=== PATIENT | female | born 1970 | race African-American/Black ===

== ENCOUNTER 2025-03-23 10:55 | Outpatient (AMB) | payer OTHER, SELFPAY ==
--- OUTSIDE RECORDS SUMMARY | 2024-04-24 14:59 | XMS_ITS | Encounter Summary ---
Author Organization [facility] Address [address] [place] [address] Care Team Providers Care Aircraft Engine Specialist Name Role Phone Chandler Villalobos MD Primary Care Provider Encounter Details Date Type Department Care Team (Late st Contact Info) Description 04/24/2024 2:59 PM EDT Hospital Encounter TH HISTORIC ENCOUNTERS EASTERN CONVERSION ONLY Loretta Broussard, DO [address] [place] [address] Social History Tobacco Use Types Packs/Day Years [...] 3:50 PM Encounter Date: 04/24/2024 Status: Signed Mainframe Programmer Analyst: Loretta Broussard DO (Physician) Hematology/Oncology Progress Note [...] She lives alone recently moved back from [place] Allergies-Lisinopril Labs: Relevant data reviewed. Imaging Studies [...] Dic Date/Time: 04/21/24 1624 Sign date/Time: 04/21/24 [id number] 0 IMPRESSION: 1. Irregular signal within the [...] Dic Date/Time: 03/27/24 1217 Sign date/Time: 03/27/24 [id number] 0 Assessment & Plan 54 year-old female [...] B12 and folic acid Follow up on [facility] NGS testing on the tumor Discussed tentative plan to start therapy with cisplatin, gemcitabine, durvalumab every 21 days if GFR improves If no improvement in GFR consider substitution of carboplatin for the cisplatin and lastly the nextoption would be FOLFOX if renal function does not allow for [place] based therapy. (She does already have a port in place) Side effects of the above treatments briefly described to the patient Prescription sent for as needed Emla cream, Compazine and Zofran We did review that depending on results of NGS testing this may alter our treatment plan If her iron level is low plan for intravenous iron. Consultation by marketing programs manager and social work recommended as well. If potassium levels remain low we will plan for potassium supplementation. Lastly I also offered her referral to a tertiary center for consideration of clinical trial, she would like to hold off for now. Addendum: K is critically low at 2.7, sent script to [facility] for potassium will return tomorrow for labs and IV potassium Cr returned at 1.19 on repeat, can move ahead with cisplatin/gemcitabine and durvalumab given Cr clearance is > 50 Sign Daphney Broussard DO - Hematology/Oncology [facility] documented in this encounter Plan of Treatment Upcoming Encounters Date Type Department Care Team (Late st Contact Info) Description 03/23/2025 1:[address] [facility] [address] [place] [phone] Loretta Broussard DO [address] [place] [phone] 03/26/2025 9:[address] [facility] [address] [place] [phone] 03/27/2025 8:[address] [facility] [address] [place] [phone] 04/02/2025 1:[address] [facility] [address] [place] [phone] 04/06/2025 10:45 AM EDT Office Visit [facility] Hematology Oncology [address] [place] [phone] Loretta Broussard, DO [address] [place] [address] 04/06/2025 11:00 AM EDT Appointment [facility] [address] [place] [phone] 07/20/2025 12:30 PM EST Office Visit Adult [address] [phone] Chandler Villalobos MD [address] [place] [address] documented as of this encounter Procedures Procedure [...] documented as of this encounter Care Teams Aircraft Engine Specialist Relationship Specialty Start Date End Date Chandler Villalobos MD [address] [place] [address] PCP - General 04/24/24 04/24/24 documented as of this encounter
--- OUTSIDE RECORDS SUMMARY | 2024-04-24 15:00 | XMS_ITS | Encounter Summary ---
Author Organization [facility] Address [address] [place] [address] Care Team Providers Care Pattern Marker Name Role Phone Chandler Villalobos MD Primary Care Provider Encounter Details Date Type Department Care Team (Late st Contact Info) Description 04/24/2024 3:00 PM EDT Hospital Encounter TH HISTORIC ENCOUNTERS EASTERN CONVERSION ONLY Loretta Broussard DO [address] [place] [address] Social History Tobacco Use Types Packs/Day Years [...] Info) Description 03/23/2025 1:30 PM EDT Appointment [facility] [address] [place] [phone] Loretta Broussard DO [address] [place] [address] 03/26/2025 9:30 AM EDT Appointment [facility] [address] [place] [phone] 03/27/2025 8:00 AM EDT Appointment [facility] Infusion Center [address] [place] [phone] 04/02/2025 1:30 PM EDT Appointment [address] [phone] 04/06/2025 10:45 AM EDT Office Visit [facility] Hematology Oncology [address] [place] [phone] Loretta Broussard DO [address] [place] [address] 04/06/2025 11:00 AM EDT Appointment [address] [phone] 07/20/2025 12:30 PM EST Office Visit Adult Medicine [address] [phone] Chandler Villalobos MD [address] [place] [address] documented as of this encounter Visit Diagnoses Not on filedocumented in this encounter Additional Health Concerns Infection Onset Date Last Indicated Resolved Time Respiratory Rule-Out 09/19/2024 09/19/2024 025 2:14 PM EDT COVID-19 Rule-Out 09/19/2024 09/19/2024 09/19/2024 2:14 PM EDT documented as of this encounter Care Teams Pattern Marker Relationship Specialty Start Date End Date Chandler Villalobos MD [address] [place] [address] PCP - General 04/24/24 04/24/24 documented as of this encounter
--- OUTSIDE RECORDS SUMMARY | 2024-04-25 11:30 | XMS_ITS | Encounter Summary ---
Author Organization [facility] Address [address] [place] [address] Care Team Providers Care Security Systems Sales Representative Name Role Phone Chandler Villalobos MD Primary Care Provider [phone]- [phone] Encounter Details Date Type Department Care Team [...] Info) Description 03/23/2025 1:30 PM EDT Appointment [facility] In[facility] Center [address] [place] [address] [phone] Loretta Broussard, [address] [place] [address] 03/26/2025 9:30 AM EDT Appointment [facility] [address] [place] [address] [phone] 03/27/2025 8:00 AM EDT Appointment [facility] [address] [place] [phone] 04/02/2025 1:30 PM EDT Appointment [facility] [address] [place] [phone] 04/06/2025 10:45 AM EDT Office Visit [facility] Hematology Oncology [address] [place] [phone] Loretta Broussard, DO [address] [place] [address] 04/06/2025 11:00 AM EDT Appointment [address] [phone] 07/20/2025 12:30 PM EST Office Visit Adult [address] [phone] Chandler Villalobos MD [address] [place] [address] documented as of this encounter Procedures Procedure Name Priority Date/Time Associated Diagnosis Comments ..MISCELLANEOUS REFERENCE LAB TEST 04/25/2024 documented in this encounter Results * Miscellaneous reference lab test (04/25/2024) us Provider Onbase LAB BLOOD ORDERABLES Final [...] documented as of this encounter Care Teams Security Systems Sales Representative Relationship Specialty Start Date End Date Chandler Villalobos MD [address] [place] [phone] PCP - General 04/25/24 documented as of this encounter
--- OUTSIDE RECORDS SUMMARY | 2024-04-27 11:00 | XMS_ITS | Encounter Summary ---
Author Organization [facility] Address [address] [place] [address] Care Team Providers Care Chiropractor Sole Practitioner Name Role Phone Chandler Villalobos MD Primary Care Provider +1- [phone] Encounter Details Date Type Department Care Team (Late st Contact Info) Description 04/27/2024 11:00 AM EDT Hospital Encounter TH HISTORIC ENCOUNTERS EASTERN CONVERSION ONLY Emerald Morejon, ANAIS [address] [place] [address] Social History Tobacco Use Types Packs/Day Years [...] Info) Description 03/23/2025 1:30 PM EDT Appointment [facility] [address] [phone] Loretta Broussard DO [address] [place] [address] 03/26/2025 9:30 AM EDT Appointment [facility] [address] [place] [phone] 03/27/2025 8:00 AM EDT Appointment Infusion Center [address] [place] [phone] 04/02/2025 1:30 PM EDT Appointment [address] [phone] 04/06/2025 10:45 AM EDT Office Visit Hematology Oncology [address] [place] [phone] Loretta Broussard, DO [address] [place] [address] 04/06/2025 11:00 AM EDT Appointment [address] [phone] 07/20/2025 12:30 PM EST Office Visit Adult Medicine [address] [phone] Chandler Villalobos MD [address] [place] [address] documented as of this encounter Visit Diagnoses Not on filedocumented in this encounter Additional Health Concerns Infection Onset Date Last Indicated Resolved Time Respiratory Rule-Out 09/19/2024 09/19/2024 025 2:14 PM EDT COVID-19 Rule-Out 09/19/2024 09/19/2024 09/19/2024 2:14 PM EDT documented as of this encounter Care Teams Chiropractor Sole Practitioner Relationship Specialty Start Date End Date Chandler Villalobos MD [address] [place] [address] PCP - General 04/25/24 documented as of this encounter
--- OUTSIDE RECORDS SUMMARY | 2024-04-27 11:01 | XMS_ITS | Encounter Summary ---
Author Organization [facility] Address [address] [place] [address] Care Team Providers Care Salesperson Women'S Dresses Name Role Phone Chandler Villalobos MD Primary Care Provider +1- [phone] Encounter Details Date Type Department Care Team (Late st Contact Info) Description 04/27/2024 11:01 AM EDT Hospital Encounter TH HISTORIC ENCOUNTERS EASTERN CONVERSION ONLY Emerald Morejon PA [address] [place] [address] Social History Tobacco Use Types Packs/Day Years [...] Morejon PA-C at 04/27/2024 11:00 AM Author: Emerlad Morejon PA-C Service: -- Author Type: Physician Middle School French Teacher Filed: 05/01/2024 9:20 PM Encounter Date: 04/27/2024 Status: Addendum Land Department Head: Loretta Broussard DO (Physician) Related Notes: Original Note by Emerald Morejon PA-C (Physician Middle School French Teacher) filed at 04/27/2024 1:10 PM Cosigner: Loretta [...] She lives alone recently moved back from [place] Allergies-Lisinopril Labs: Relevant data reviewed. Imaging Studies [...] may alter our treatment plan Consultation by talent acquisition lead and social work recommended as well. I [...] spent 33 minutes with her/his care, including uvov-lh-ryud, discussion/counseling, time spent in record/notes/result review, documenting in Epic, and care coordination. Sign Emerald Morejon PA-C - Hematology/Oncology [facility] documented in this encounter Plan of Treatment Upcoming Encounters Date Type Department Care Team (Late st Contact Info) Description 03/23/2025 1:30 PM EDT Appointment [address] [phone] Loretta Broussard DO [address] [place] [address] 03/26/2025 9:30 AM EDT Appointment [address] [phone] 03/27/2025 8:00 AM EDT Appointment [address] [phone] 04/02/2025 1:30 PM EDT Appointment [address] [phone] 04/06/2025 10:45 AM EDT Office Visit [facility] Hematology Oncology [address] [place] [phone] Loretta Broussard DO [address] [place] [address] 04/06/2025 11:00 AM EDT Appointment [address] [phone] 07/20/2025 12:30 PM EST Office Visit Adult Medicine [address] [phone] Chandler Villalobos MD [address] [place] [address] documented as of this encounter Visit Diagnoses Not on filedocumented in this encounter Additional Health Concerns Infection Onset Date Last Indicated Resolved Time Respiratory Rule-Out 09/19/2024 09/19/2024 025 2:14 PM EDT COVID-19 Rule-Out 09/19/2024 09/19/2024 09/19/2024 2:14 PM EDT documented as of this encounter Care Teams Salesperson Women'S Dresses Relationship Specialty Start Date End Date Chandler Villalobos MD [address] [place] [phone] PCP - General 04/25/24 documented as of this encounter
--- OUTSIDE RECORDS SUMMARY | 2024-04-27 11:59 | XMS_ITS | Encounter Summary ---
Author Organization [facility] Address [address] [place] [address] Care Team Providers Care Phlebotomy Technologist Name Role Phone Chandler Villalobos MD Primary Care Provider +1- [phone] Encounter Details Date Type Department Care Team [...] Info) Description 03/23/2025 1:30 PM EDT Appointment [address] [phone] Loretta Broussard, [address] [place] [address] 03/26/2025 9:30 AM EDT Appointment [address] [phone] 03/27/2025 8:00 AM EDT Appointment [address] [phone] 04/02/2025 1:30 PM EDT Appointment [facility] [address] [place] [phone] 04/06/2025 10:45 AM EDT Office Visit [facility] Hematology Oncology [address] [place] [phone] Loretta Broussard, [address] [place] [address] 04/06/2025 11:00 AM EDT Appointment [facility] [address] [place] [phone] 07/20/2025 12:30 PM EST Office Visit Adult Medicine [address] [phone] Chandler Villalobos MD [address] [place] [address] documented as of this encounter Visit Diagnoses Not on filedocumented in this encounter Additional Health Concerns Infection Onset Date Last Indicated Resolved Time Respiratory Rule-Out 09/19/2024 09/19/2024 025 2:14 PM EDT COVID-19 Rule-Out 09/19/2024 09/19/2024 09/19/2024 2:14 PM EDT documented as of this encounter Care Teams Phlebotomy Technologist Relationship Specialty Start Date End Date Chandler Villalobos MD [address] [place] [phone] PCP - General 04/25/24 documented as of this encounter
--- OUTSIDE RECORDS SUMMARY | 2024-05-01 10:33 | XMS_ITS | Encounter Summary ---
Author Organization [facility] Address [address] [place] [address] Care Team Providers Care Balloon Maker Name Role Phone Chandler Villalobos MD Primary Care Provider +1- [phone] Encounter Details Date Type Department Care Team [...] PM EDT Appointment [facility] In[facility] Center [address] [place] [phone] Loretta Broussard DO [address] [place] [address] 03/26/2025 9:30 AM EDT Appointment [address] [phone] 03/27/2025 8:00 AM EDT Appointment [facility] [address] [place] [phone] 04/02/2025 1:30 PM EDT Appointment [facility] [address] [place] [phone] 04/06/2025 10:45 AM EDT Office Visit [facility] Hematology Oncology [address] [place] [phone] Loretta Broussard, [address] [place] [address] 04/06/2025 11:00 AM EDT Appointment [facility] [address] [place] [phone] 07/20/2025 12:30 PM EST Office Visit Adult [address] [phone] Chandler Villalobos MD [address] [place] [address] documented as of this encounter Visit Diagnoses Not on filedocumented in this encounter Additional Health Concerns Infection Onset Date Last Indicated Resolved Time Respiratory Rule-Out 09/19/2024 09/19/2024 025 2:14 PM EDT COVID-19 Rule-Out 09/19/2024 09/19/2024 09/19/2024 2:14 PM EDT documented as of this encounter Care Teams Balloon Maker Relationship Specialty Start Date End Date Chandler Villalobos MD [address] [place] [phone] PCP - General 04/25/24 documented as of this encounter
--- OUTSIDE RECORDS SUMMARY | 2024-05-02 | XMS_ITS | Encounter Summary ---
Author Organization [facility] Address [address] [place] [address] Care Team Providers Care Radiology Aide Name Role Phone Chandler Villalobos MD [...] 03/23/2025 1:30 PM EDT Appointment [facility] [address] [place] [phone] Loretta Broussard, DO [address] [place] [address] 03/26/2025 9:30 AM EDT Appointment [facility] Infusion Center [address] [place] [phone] 03/27/2025 8:00 AM EDT Appointment [facility] Infusion Center [address] [place] [phone] 04/02/2025 1:30 PM EDT Appointment [facility] [address] [place] [phone] 04/06/2025 10:45 AM EDT Office Visit [facility] Hematology Oncology [address] [place] [phone] Loretta Broussard, DO [address] [place] [address] 04/06/2025 11:00 AM EDT Appointment [address] [phone] 07/20/2025 12:30 PM EST Office Visit Adult [address] [phone] Chandler Villalobos MD [address] [place] [address] documented as of this encounter Visit Diagnoses Not on filedocumented in this encounter Additional Health Concerns Infection Onset Date Last Indicated Resolved Time Respiratory Rule-Out 09/19/2024 09/19/2024 025 2:14 PM EDT COVID-19 Rule-Out 09/19/2024 09/19/2024 09/19/2024 2:14 PM EDT documented as of this encounter Care Teams Radiology Aide Relationship Specialty Start Date End Date Chandler Villalobos MD [address] [place] [phone] PCP - General 04/25/24 documented as of this encounter
--- OUTSIDE RECORDS SUMMARY | 2024-05-02 09:00 | XMS_ITS | Encounter Summary ---
Author Organization [facility] Address [address] [place] [address] Care Team Providers Care Nail Cutter Name Role Phone Chandler Villalobos MD Primary Care Provider +1- [phone] Encounter Details Date Type Department Care Team [...] Info) Description 03/23/2025 1:30 PM EDT Appointment [facility] [address] [place] [phone] Loretta Broussard, [address] [place] [address] 03/26/2025 9:30 AM EDT Appointment [address] [phone] 03/27/2025 8:00 AM EDT Appointment [facility] [address] [place] [phone] 04/02/2025 1:30 PM EDT Appointment [facility] Center [address] [place] [phone] 04/06/2025 10:45 AM EDT Office Visit [facility] Hematology Oncology [address] [place] [phone] Loretta Broussard, [address] [place] [address] 04/06/2025 11:00 AM EDT Appointment [facility] [address] [place] [phone] 07/20/2025 12:30 PM EST Office Visit Adult Medicine [address] [phone] Chandler Villalobos MD [address] [place] [address] documented as of this encounter Visit Diagnoses [...] documented as of this encounter Care Teams Nail Cutter Relationship Specialty Start Date End Date Chandler Villalobos MD [address] [place] [phone] PCP - General 04/25/24 documented as of this encounter
--- OUTSIDE RECORDS SUMMARY | 2024-05-03 10:02 | XMS_ITS | Encounter Summary ---
Author Organization [facility] Address [address] [place] [address] Care Team Providers Care Ios Developer Name Role Phone Chandler Villalobos MD Primary Care Provider +1- [phone] Encounter Details Date Type Department Care Team [...] Info) Description 03/23/2025 1:30 PM EDT Appointment [facility] [address] [place] [phone] Loretta Broussard, [address] [place] [address] 03/26/2025 9:30 AM EDT Appointment [facility] [address] [place] [phone] 03/27/2025 8:00 AM EDT Appointment [facility] [address] [place] [phone] 04/02/2025 1:30 PM EDT Appointment [facility] [address] [place] [phone] 04/06/2025 10:45 AM EDT Office Visit [facility] Hematology Oncology [address] [place] [phone] Loretta Broussard DO [address] [place] [address] 04/06/2025 11:00 AM EDT Appointment [facility] [address] [phone] 07/20/2025 12:30 PM EST Office Visit Adult Medicine [address] [phone] Chandler Villalobos MD [address] [place] [address] documented as of this encounter Visit Diagnoses Not on filedocumented in this encounter Additional Health Concerns Infection Onset Date Last Indicated Resolved Time Respiratory Rule-Out 09/19/2024 09/19/2024 025 2:14 PM EDT COVID-19 Rule-Out 09/19/2024 09/19/2024 09/19/2024 2:14 PM EDT documented as of this encounter Care Teams Ios Developer Relationship Specialty Start Date End Date Chandler Villalobos MD [address] [place] [address] PCP - General 04/25/24 documented as of this encounter
--- OUTSIDE RECORDS SUMMARY | 2024-05-05 08:02 | XMS_ITS | Encounter Summary ---
Author Organization [facility] Address [address] [place] [address] Care Team Providers Care Psychiatrist Name Role Phone Chandler Villalobos MD Primary Care Provider +1- [phone] Encounter Details Date Type Department Care Team [...] concerns, watching tv, call quinteros in reach. 929: Hydration completed without concern. Port flushed per protocol and deaccessed, dressing applied. Pt given Urine sample for outpatient labs. PT provided with future apt reminder via calendar, denies other concerns, left unit. documented in this encounter Plan of Treatment Upcoming Encounters Date Type Department Care Team (Late st Contact Info) Description 03/23/2025 1:30 PM EDT Appointment [facility] Infusion Center [address] [place] [phone] Loretta Broussard DO [address] [place] [address] 03/26/2025 9:30 AM EDT Appointment [facility] Infusion Center [address] [place] [phone] 03/27/2025 8:00 AM EDT Appointment [facility] Infusion Center [address] [place] [phone] 04/02/2025 1:30 PM EDT Appointment [facility] Infusion Center [address] [place] [phone] 04/06/2025 10:45 AM EDT Office Visit [facility] Hematology Oncology [address] [place] [phone] Loretta Broussard DO [address] [place] [phone] 04/06/2025 11:00 AM EDT Appointment [facility] Infusion Center [address] [place] [phone] 07/20/2025 12:30 PM EST Office Visit Adult Medicine [facility] [address] [place] [address] Chandler Villalobos MD [address] [place] [address] documented as of this encounter Visit Diagnoses Not on filedocumented in this encounter Additional Health Concerns Infection Onset Date Last Indicated Resolved Time Respiratory Rule-Out 09/19/2024 09/19/2024 025 2:14 PM EDT COVID-19 Rule-Out 09/19/2024 09/19/2024 09/19/2024 2:14 PM EDT documented as of this encounter Care Teams Psychiatrist Relationship Specialty Start Date End Date Chandler Villalobos MD [address] [place] [address] PCP - General 04/25/24 documented as of this encounter
--- OUTSIDE RECORDS SUMMARY | 2024-05-08 10:22 | XMS_ITS | Encounter Summary ---
Author Organization [facility] Address [address] [place] [address] Care Team Providers Care Pump Servicer Name Role Phone Chandler Villalobos MD Primary Care Provider +1- [phone] Encounter Details Date Type Department Care Team [...] Info) Description 03/23/2025 1:30 PM EDT Appointment [facility] Infusion Center [address] [place] [phone] Loretta Broussard, [address] [place] [address] 03/26/2025 9:30 AM EDT Appointment [facility] Infusion Center [address] [place] [phone] 03/27/2025 8:00 AM EDT Appointment [facility] Infusion Center [address] [place] [phone] 04/02/2025 1:30 PM EDT Appointment [facility] Infusion Center [address] [place] [phone] 04/06/2025 10:45 AM EDT Office Visit [facility] Hematology Oncology [address] [place] [phone] Loretta Broussard DO [address] [place] [address] 04/06/2025 11:00 AM EDT Appointment [facility] Infusion Center [address] [place] [address] 07/20/2025 12:30 PM EST Office Visit Adult Medicine [address] [phone] Chandler Villalobos MD [address] [place] [address] documented as of this encounter Visit Diagnoses Not on filedocumented in this encounter Additional Health Concerns Infection Onset Date Last Indicated Resolved Time Respiratory Rule-Out 09/19/2024 09/19/2024 025 2:14 PM EDT COVID-19 Rule-Out 09/19/2024 09/19/2024 09/19/2024 2:14 PM EDT documented as of this encounter Care Teams Pump Servicer Relationship Specialty Start Date End Date Chandler Villalobos MD [address] [place] [address] PCP - General 04/25/24 documented as of this encounter
--- OUTSIDE RECORDS SUMMARY | 2024-05-09 09:05 | XMS_ITS | Encounter Summary ---
Author Organization [facility] Address [address] [place] [address] Care Team Providers Care Enterprise Sales Executive Name Role Phone Chandler Villalobos MD Primary Care Provider [phone] Encounter Details Date Type Department Care Team [...] Info) Description 03/23/2025 1:30 PM EDT Appointment [address] [phone] Loretta Broussard, [address] [place] [phone] 03/26/2025 9:30 AM EDT Appointment [address] [phone] 03/27/2025 8:00 AM EDT Appointment [address] [phone] 04/02/2025 1:30 PM EDT Appointment [address] [phone] 04/06/2025 10:45 AM EDT Office Visit [facility] Hematology Oncology [address] [place] [phone] Loretta Broussard, [address] [place] [phone] 04/06/2025 11:00 AM EDT Appointment [address] [phone] 07/20/2025 12:30 PM EST Office Visit Adult Medicine [address] [phone] Chandler Villalobos MD [address] [place] [address] documented as of this encounter Visit Diagnoses Not on filedocumented in this encounter Additional Health Concerns Infection Onset Date Last Indicated Resolved Time Respiratory Rule-Out 09/19/2024 09/19/2024 025 2:14 PM EDT COVID-19 Rule-Out 09/19/2024 09/19/2024 09/19/2024 2:14 PM EDT documented as of this encounter Care Teams Enterprise Sales Executive Relationship Specialty Start Date End Date Chandler Villalobos MD [address] [place] [phone] PCP - General 04/25/24 documented as of this encounter
--- OUTSIDE RECORDS SUMMARY | 2025-03-19 13:30 | XMS_ITS | Encounter Summary ---
Author Organization [facility] Address [address] [place] [address] Care Team Providers Care Manager Bar Name Role Phone Chandler Villalobos MD Primary Care Provider [phone] Reason for Visit * Reason Comments Other (Add RFV) Hydration * Episode Based Medications (Routine) - Closed Specialty Diagnoses / Procedures Referred By Minnie t Referred To Contact Diagnoses Primary gall bladder adenocarcinoma (CMS/HCC V24, CMS/HCC V28) Loretta Broussard DO [address] [place] [address] Phone: tel: fax: [address] [address] Phone: tel: fax: Referral ID Status Reason Start Date Expiration Date Visits Re quested Visits Authorized [id number] Closed 05/18/2024 05/18/2025 1 61 Encounter Details Date Type Department Care Team (Latest Contact Info) Description 03/19/2025 1:30 PM EDT - 03/19/2025 11:59 PM EDT Hospital Encounter [address] [address] Loretta Broussard DO [address] [place] [phone] Primary gall bladder adenocarcinoma (CMS/HCC V24, CMS/HCC V28) (Primary Dx) Discharge Disposition: Home or Self Care Social History Tobacco Use Types Packs/Day Years [...] Sign Reading Time Taken Comments Blood Pressure 130/82 03/19/2025 2:09 PM EDT Pulse 91 03/19/2025 2:09 PM EDT Temperature 37 C (98.6 F) 03/19/2025 2:09 PM EDT Respiratory Rate 18 03/19/2025 2:09 PM EDT Oxygen Saturation 96% 03/19/2025 2:09 PM EDT Inhaled Oxygen Concentration - - Weight - - Height - - Body Mass Index - - documented in this encounter Medications at Time of Discharge alcohol swabs (Alcohol Pads) pads, medicated Apply topically 3 (three) times a day. 300 each 1 5 amLODIPine (NORVASC) 10 mg tablet Take 1 tablet (10 mg total) by mouth 1 (one) time each day. Take 1 Tablet by mouth daily 90 tablet 1 5 BD Ashly 2nd Gen Pen Needle 32 gauge x 5/32 needle USE WITH INSULIN PENS 4 TIMES A DAY 400 each 5 blood sugar diagnostic (FreeStyle Lite Strips) test strip Use to test blood sugar 3 times daily 200 strip 2 5 dexAMETHasone (DECADRON) 4 mg tabletIndications:P rimary gall bladder adenocarcinoma ([facility] V24, [facility] V28) Take 8 mg (2 tablets) once daily, starting the day after treatment, for two days. Take in the morning with food. 30 tablet 1 5 FreeStyle Lancets 28 gauge lancets USE TO TEST BLOOD SUGAR 3 TIMES DAILY 300 each 5 HYDROmorphone (DILAUDID) 2 mg tabletIndications:P rimary gall bladder adenocarcinoma (CMS/HCC V24, CMS/HCC V28) Take 1 tablet (2 mg total) by mouth every 8 (eight) hours if needed for severe pain. Max Daily Amount: 6 mg 30 tablet 5 insulin glargine (Lantus Solostar U-100 Insulin) 100 unit/mL (3 mL) injection pen Inject 12-14 Units under the skin at bedtime. Inject 10 Units into the skin at bedtime. 15 mL 2 5 insulin lispro (HumaLOG KwikPen) 100 unit/mL injection pen Inject 2-12 Units under the skin 3 (three) times a day before meals. Inject 2-12 times per day as directed. Between 100 and 149; 2 units 150 to 199; 4 units 200 to 249; 6 units 250 to 299; 8 units 300 to 349; 10 units 350 to 399; 12 units Above 400 Call MD 15 mL 3 5 magnesium oxide (MAG-OX) 400 mg magnesium tablet Take 1 tablet (400 mg total) by mouth 2 (two) times a day. 180 tablet 1 5 metoprolol succinate (TOPROL-XL) 50 mg 24 hr tablet Take 1 tablet (50 mg total) by mouth 1 (one) time each day. 90 tablet 1 5 mineral oil liquid Take by mouth. For constipation potassium chloride (KLOR-CON M20) 20 mEq CR tablet Take 1 tablet (20 mEq total) by mouth 1 (one) time each day. 90 tablet 1 5 prochlorperazine (COMPAZINE) 10 mg tabletIndications:P rimary gall bladder adenocarcinoma (CMS/HCC V24, CMS/HCC V28) Take 1 tablet (10 mg total) by mouth every 6 (six) hours if needed for nausea or vomiting. 60 tablet 3 5 documented as of this encounter Discharge Disposition Disposition Code Departure Means Destination Home or Self Care documented in this encounter Progress Notes * Marilyn Crisostomo RN - 03/19/2025 1:30 PM EDT 1415: PT arrives this afternoon for hydration. PT reports one episode of diarrhea over the weekend after 3 days of constipation. PT denies any blood output and abd cramping relieved after BM. Neuropathy continues to be significant for PT, constant to hands and feet without pain although severe numbness, dropping objects and recent fall with left ankle fracture. MD aware. PT denies any other acutechanges, PT still trying to get an orthopedic follow up apt. Stable assessment otherwise. Port accessed, +BR noted, flushed and hydration initiated. PT given warm blankets and snacks, call quinteros in reach. 1520: Hydration completed. Port flushed per protocol and deaccessed, dressing applied. PT given next apt reminders via calendar, left unit via wheelchair with mother, stable at D/C. documented in this encounter Plan of Treatment Upcoming Encounters Date Type Department Care Team (Late st Contact Info) Description 03/23/2025 1:30 PM EDT Appointment [facility] [address] [place] [phone] Loretta Broussard DO [address] [place] [phone] 03/26/2025 9:30 AM EDT Appointment [facility] [address] [place] [phone] 03/27/2025 8:00 AM EDT Appointment [facility] [address] [place] [phone] 04/02/2025 1:30 PM EDT Appointment [facility] [address] [place] [phone] 04/06/2025 10:45 AM EDT Office Visit [facility] Hematology Oncology [address] [place] [phone] Loretta Broussard DO [address] [place] [address] 04/06/2025 11:00 AM EDT Appointment [facility] [address] [place] [phone] 07/20/2025 12:30 PM EST Office Visit Adult Medicine [address] [phone] Chandler Villalobos MD [address] [place] [address] documented as of this encounter Visit Diagnoses Diagnosis Primary gall bladder adenocarcinoma (CMS/HCC V24, CMS/HCC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 documented in this encounter Administered Medications Inactive Administered Medications - up to 3 most recent administrations Medication Order MAR Action Action Date Dose Rate Site sodium chloride 0.9 % bolus 1,000 mL 1,000 mL, intravenous, at 1,000 mL/hr, Administer over 1 Hours, Once, On 03/19/25 at 1415, For 1 doseIndications:Primary gall bladder adenocarcinoma (CMS/HCC V24, CMS/HCC V28) New Bag 03/19/2025 2:14 PM EDT 1,000 mL 1000 mL/hr documented in this encounter Orders Medications Ordered That Mikal ht Not Have Been Administered Count Last Ordered Date First Ordered Date sodium chloride 0.9 % bolus 1,000 mL 1 02/2025 Appointment Requests Count Last Ordered Date Fi rst Ordered Date ONCBCN INFUSION APPOINTMENT REQUEST 06 documented in this encounter Care Teams Manager Bar Relationship Specialty Start Date End Date Chandler Villalobos MD [address] [place] [address] PCP - General 04/25/24 documented as of this encounter
--- NOTE | 2025-03-23 10:57 | A.OFFVIS_ITS ---
Vital Signs 3 03/23/25 11:02 Height 5 ft 4.5 in Weight 185 lb BMI 31.3 Intake Visit Reasons: Closed fracture of Lt ankle, initial encounter Intake Note: Indigo is a 54 year old female who presents today as a new patient for an evaluation of her left ankle fracture. Patient mentions she has bilateral neuropathy in her feet. She reports she is still having pain and has tried tylenol and found little relief. Patient has not tried Physical therapy at this time. Allergies lisinopril Allergy (Verified 03/23/25 11:03) Anaphylaxis Medication List - Last Reconciled 03/23/25 by Karolina Weaver DPM amlodipine 10 mg PO DAILY dexamethasone 4 mg PO BID hydromorphone 2 mg PO Q4-6H PRN insulin glargine (Lantus Solostar U-100 Insulin) 10 units subcut QPM insulin lispro (Humalog KwikPen (U-100) Insulin) 1 sliding scale dose subcut USEASDIRECTD magnesium oxide 400 mg PO DAILY metoprolol succinate ER 50 mg PO DAILY potassium chloride ER (K-Tab) 20 mEq PO DAILY prochlorperazine maleate (Compazine) 10 mg PO Q6H PRN HPI Comments Details: The patient is a 54-year-old female with a PMH as seen below presenting with a left ankle fracture sustained from a fall. The injury occurred on March 07, and the patient received an initial evaluation and x-ray at the emergency room at [facility]. She states the x-ray exhibited a chip fracture to the fibula. The patient reports tenderness upon palpation of the ankle and has been using crutches for mobility. The patient also has a history of peripheral neuropathy affecting her feet and hands due to her treatment, which complicates her mobility and sensation. She experiences difficulty feeling her feet and hands, which has been exacerbated by her current treatment regimen. Patient was seen wearing an air cast. Patient was seen using crutches. Patient states she has been taking Tylenol for the pain with relief. Patient states she has tried using ice but states she has cold insensitivity. She denies any other pedal concerns. Denies any nausea vomiting fever or chills. [facility] Medical History (Updated 03/23/25 @ 15:47 by Karolina Weaver DPM) Left ankle injury Left ankle pain Avulsion fracture of distal fibula Closed left ankle fracture Review of Systems Const Details: Musculoskeletal: Reports tenderness in the left ankle along the area of the lateral malleolus. Neurological: Reports numbness in feet and hands due to peripheral neuropathy from current treatment. All systems reviewed & are unremarkable except as noted in HPI and below Physical Exam Vital Signs: BMI result Body Mass Index 31.3 Extrem Other: Left lower extremity focused physical exam: Derm: No open lesions abrasions or wounds noted. No ecchymosis or erythema noted. No clinical signs of infection. Skin supple and turgor within normal limits. Vascular: DP/PT pulses palpable. Capillary refill time less than 3 seconds. Temperature gradient warm to warm. No varicosities noted. Pedal hair present. Neuro: Protective sensation is grossly diminished. Musculoskeletal: Pain on palpation to the distal aspect of the fibula. No pain on palpation along the lateral ankle ligaments. No pain along the medial malleolus or deltoid ligaments. Limited range of motion of the ankle due to guarding from pain. Negative squeeze test. No pain noted to the proximal aspect of the fibula. Range of motion of the forefoot within normal limits. No pain to the forefoot. Ankle/foot/toe images: 2 1. Office Procedures AMB Podiatry Dressing Details of Procedure: Applied a Liriano compression dressing and CAM boot to the patient's left lower extremity. 90709 - Short leg splint Procedure code (CPT) selection complete Results Reviewed Results Reviewed: Patient states she had a left ankle x-ray done at [facility]. Patient did not come in today with the report or films. Patient is to have the reports and films sent to our office within next week. If x-ray report and films are not received by next appointment, new x-rays will be ordered and obtained. Assessment & Plan Assessment & Plan (1) Closed left ankle fracture: Code(s): S82.892A - Other fracture of left lower leg, initial encounter for closed fracture Category: Medical Qualifiers: Encounter type: initial encounter Qualified Code(s): S82.892A - Other fracture of left lower leg, initial encounter for closed fracture (2) Avulsion fracture of distal fibula: Code(s): S82.839A - Other fracture of upper and lower end of unspecified fibula, initial encounter for closed fracture Category: Medical (3) Left ankle pain: Code(s): M25.572 - Pain in left ankle and joints of left foot Category: Medical Qualifiers: Chronicity: acute Qualified Code(s): M25.572 - Pain in left ankle and joints of left foot (4) Left ankle injury: Code(s): S99.912A - Unspecified injury of left ankle, initial encounter Category: Medical Qualifiers: Encounter type: initial encounter Qualified Code(s): S99.912A - Unspecified injury of left ankle, initial encounter Plan Patient was informed and verbally consented to the use of an ambient scribe for clinic note documentation during this visit. Discussed diagnosis of a possible avulsion fracture to the distal fibula (to be confirmed by x-rays when patient sends report and films, or with new x-rays at next appointment). Recommend conservative treatment at this time. Applied a Liriano compression dressing to the left ankle. Provided patient with a Cam boot to be worn during ambulation but can be removed upon rest. Patient is to keep the Liriano compression dressing on until next appointment. Patient may shower but is to use a plastic bag to cover the dressing in order to keep it dry. The patient is to be nonweightbearing to the left lower extremity with the use of crutches or other assistive device. Prescribed patient a knee scooter to be utilized during ambulation to avoid weight-bearing to the left lower extremity. Patient was advised to use a walker if needed due to numbness and tingling in the hands and feet. Advised patient to continue with rice protocol. Advised patient to apply ice to the Liriano compression dressing in order to avoid worsening of cold and sensitivity. Patient is to return to the office in 1 week for further evaluation. Orders: Orders 2 AMB Podiatry Dressing Today S82.892A - Other fracture of left lower leg, initial encounter for closed fracture Medications: New 2 [knee scooter] As directed 1 ea 0RF Left ankle fracture ; Limited weightbearing left S82.892A - Other fracture of left lower leg, initial encounter for closed fracture Coding Level of Care Code New Pt Level 4 (52402) Diagnoses Closed fracture of left ankle, initial encounter S82.89 Encounter type: initial encounter Avulsion fracture of distal fibula S82.839A Acute left ankle pain M25.572 Chronicity: acute Injury of left ankle, initial encounter S99.912A Encounter type: initial encounter CPT Codes Podiatry Dressing - CPT: 88775 - Short leg splint ([id number]) Time Spent (min) 50
[2025-03-23 11:02] VITALS: BMI 31.3
--- OUTSIDE RECORDS SUMMARY | 2025-03-23 12:34 | XMS_ITS | Encounter Summary ---
Author Organization [facility] Address [address] [place] [address] Care Team Providers Care Rehabilitation Therapist Name Role Phone Chandler Villalobos MD Primary Care Provider Encounter Details Date Type Department Care Team (Late st Contact Info) Description 02/16/2025 Lab Requisition [facility] - Main Lab [address] [facility] [place] [address] Trista Richadrs MD [address] [place] [address] Secondary and unspecified malignant neoplasm of lymph [...] Info) Description 03/23/2025 1:30 PM EDT Appointment [facility] [address] [phone] Loretta Broussard, DO [address] [place] [address] 03/26/2025 9:30 AM EDT Appointment [facility] [address] [place] [phone] 03/27/2025 8:00 AM EDT Appointment [address] [phone] 04/02/2025 1:30 PM EDT Appointment [facility] [address] [place] [phone] 04/06/2025 10:45 AM EDT Office Visit [facility] Hematology Oncology [address] [place] [phone] Loretta Broussard DO [address] [place] [address] 04/06/2025 11:00 AM EDT Appointment [address] [phone] 07/20/2025 12:30 PM EST Office Visit Adult [address] [phone] Chandler Villalobos MD [address] [place] [address] Pending Results Name Type Priority Associated Diagnoses Date /Time Historical Pathology Case Pathology and Cytology Routine Secondary and unspecified malignant neoplasm of lymph node, unspecified (CMS/HCC V24, CMS/HCC V28) 02/16/2025 10:14 AM EDT documented as of this encounter Visit Diagnoses Diagnosis Secondary and unspecified malignant neoplasm of lymph node, unspecified (CMS/HCC V24, CMS/HCC V28) documented in this encounter Care Teams Rehabilitation Therapist Relationship Specialty Start Date End Date Chandler Villalobos MD [address] [place] [address] PCP - General 04/25/24 documented as of this encounter
--- OUTSIDE RECORDS SUMMARY | 2025-03-23 12:35 | XMS_ITS ---
Author Organization [facility] Address [address] [place] [address] Phone Care Team Providers Care Concrete Smoother Name Role Phone Chandler Villalobos MD Primary Care Provider Active Problems Problem Noted Date Diagnosed Date Elevated carcinoembryonic antigen (CEA) 07/02/20 24 Hypokalemia 05/18/2024 Port-A-Cath in place 05/18/2024 Primary gall bladder adenoca rcinoma ([facility] V24, [facility] V28) 04/27/2024 Type 2 diabetes mellitus wit hout complication, with long-term current use of insulin ([facility] V24, [facility] V28) 04/27/2024 Primary hypertension 04/27/2024 Mixed hyperlipidemia 04/27/2024 Iron deficiency anemia 04/27/2024 Current Oncology Plans FOLFOX ( Fluorouracil Continuous Infusion / Leucovorin / OXALIplatin )* Plan Start Date:09/03/2024 Plan Provider:Loretta Broussard DO Linked Problems Primary gall bladder adenoca rcinoma ([facility] V24, [facility] V28) Treatment Medications 5-FU (ADRUCIL) chemo infusio n 100 mL - for home use solutionfluorouracil (ADRUCIL)leucovorin IVPB in D5W (350 mg vial)OXALIplatin (ELOXATIN) chemo infusion HYDRATION AND ELECTROLYTES* Plan Start Date:05/18/2024 Plan Provider:Loretta Broussard DO Linked Problems Primary gall bladder adenoca rcinoma ([facility] V24, [facility] V28) Treatment Medications No medications scheduled. OUTPATIENT TRANSFUSION (PRN)* Plan Start Date:05/30/2024 Plan Provider:Loretta Broussard DO Linked Problems Iron deficiency anemia, unsp ecified iron deficiency anemia typePrimary gall bladder adenocarcinoma (CMS/HCC V24, CMS/HCC V28) Treatment Medications No medications scheduled. Other Current Plans FERUMOXYTOL ( FERAHEME ) 510 mg IVPB* Plan Start Date:05/22/2024 Plan Provider:Loretta Broussard DO Linked Problems Iron deficiency anemia, unsp ecified iron deficiency anemia type Treatment Medications No medications scheduled. Past Plans Oncology Treatment Plan Name Start Date Discontinue Date Treatment Medications Discontinue Reason Plan Provider Cycles CISplatin / Gemcitabine + Durvalumab followed by Durvalumab maintenance (ordered separately) 05/02/20 24 09/01/2024 CISplatin (PLATINOL)CISpla tin (PLATINOL) chemo IVPB NS 500 mLdurvalumab (IMFINZI)durvalu mab (IMFINZI) chemo IVPB 250 mLgemcitabine (GEMZAR)gemcitab ine (GEMZAR) chemo IVPB in 250 mL (38 mg/mL) - Therapy Complete Loretta Broussard DO 6 of 8 cycles started Radiation Treatments * No radiation treatments are documented for this patient in [facility]. Treatments may have been administered in another system.
--- OUTSIDE RECORDS SUMMARY | 2025-03-23 12:35 | XMS_ITS | Encounter Summary ---
Author Organization [facility] Address [address] [place] [address] Care Team Providers Care Business Process Consultant Name Role Phone Chandler Villalobos MD Primary Care Provider [phone] Encounter Details Date Type Department Care Team Description 04/03/2024 Nurse Only [facility] Oncology Services [address] [place] [address] Renee Suárez, RN Social History Tobacco Use Types Packs/Day Years Used Date Smoking Tobacco: Never Assessed Sex and Gender Information Value Date Recorded Sex Assigned at Female 04/03/2024 10:35 AM EDT Gender Identity Not on file Sexual Orientation Not on file Job Start Date Occupation Industry Not on file Not on file Not on file documented as of this encounter Progress Notes * Renee Suárez, FERMÍN - 04/03/2024 3:19 PM EDT Images from the original note were not included. - currently inpatient [facility] received patient has insurance now and ok to move fwd with [facility] order. Test request has been submitted for [facility] Molecular Tumor Profiling to be performed on the specimenlisted below: Test order form and clinicals submitted for processing. Testing Turnaround Time on average is 21 days but may take longer. Final Report will be scanned into [employer] when completed. +++++++ UPDATE: 04/06/24 [facility] cannot verify coverage - [facility] testing on hold 04/10/24 [employer] ID# [id number] 04/10/24 [facility] test order submitted documented in this encounter Plan of Treatment Not on file documented as of this encounter Visit Diagnoses Not on filedocumented in this encounter Care Teams Business Process Consultant Relationship Specialty Start Date End Date Chandler Villalobos MD [address] [place] [phone] PCP - General Hospitalist Medicine 04/24/24 documented as of this encounter
--- OUTSIDE RECORDS SUMMARY | 2025-03-23 12:35 | XMS_ITS | Clinical Summary ---
Author Organization [facility] Address [address] [place] [address] Phone Care Team Providers Care Agency Development Manager Name Role Phone Chandler Villalobos MD Primary Care Provider Allergies Active Allergy Reactions Criticality Noted Date Comments Lisinopril Anaphylaxis High 04/12/2024 Medications mineral oil liquid Take by mouth. For constipation Active dexAMETHasone (DECADRON) 4 mg tabletIndications: Primary gall bladder adenocarcinoma (CMS/HCC V24, CMS/HCC V28) Take 8 mg (2 tablets) once daily, starting the day after treatment, for two days. Take in the morning with food. 30 tablet 1 09/05/19 25 Active prochlorperazine (COMPAZINE) 10 mg tabletIndications: Primary gall bladder adenocarcinoma (CMS/HCC V24, CMS/HCC V28) Take 1 tablet (10 mg total) by mouth every 6 (six) hours if needed for nausea or vomiting. 60 tablet 3 09/05/19 25 Active HYDROmorphone (DILAUDID) 2 mg tabletIndications: Primary gall bladder adenocarcinoma (CMS/HCC V24, CMS/HCC V28) Take 1 tablet (2 mg total) by mouth every 8 (eight) hours if needed for severe pain. Max Daily Amount: 6 mg 30 tablet 09/07/19 25 Active BD Ashly 2nd Gen Pen Needle 32 gauge x 5/32 needle USE WITH INSULIN PENS 4 TIMES A DAY 400 each 01/30/20 25 Active FreeStyle Lancets 28 gauge lancets USE TO TEST BLOOD SUGAR 3 TIMES DAILY 300 each 01/30/20 25 Active blood sugar diagnostic (FreeStyle Lite Strips) test strip Use to test blood sugar 3 times daily 200 strip 2 02/08/20 25 Active insulin glargine (Lantus Solostar U-100 Insulin) 100 unit/mL (3 mL) injection pen Inject 12-14 Units under the skin at bedtime. Inject 10 Units into the skin at bedtime. 15 mL 2 02/08/20 25 Active insulin lispro (HumaLOG KwikPen) 100 unit/mL injection [...] Above 400 Call MD 15 mL 3 02/08/20 25 Active metoprolol succinate (TOPROL-XL) 50 mg 24 hr tablet Take 1 tablet (50 mg total) by mouth 1 (one) time each day. 90 tablet 1 02/08/20 25 Active amLODIPine (NORVASC) 10 mg tablet Take 1 tablet (10 mg total) by mouth 1 (one) time each day. Take 1 Tablet by mouth daily 90 tablet 1 02/08/20 25 Active potassium chloride (KLOR-CON M20) 20 mEq CR tablet Take 1 tablet (20 mEq total) by mouth 1 (one) time each day. 90 tablet 1 02/08/20 25 Active magnesium oxide (MAG-OX) 400 mg magnesium tablet Take 1 tablet (400 mg total) by mouth 2 (two) times a day. 180 tablet 1 02/08/20 25 Active alcohol swabs (Alcohol Pads) pads, medicated Apply topically 3 (three) times a day. 300 each 1 03/16/20 25 Active alcohol swabs (Alcohol Pads) pads, medicated Apply topically 3 (three) times a day. 300 each 02/01/20 25 025 Discontin ued(Reord er) Active Problems Problem Noted Date Diagnosed Date Elevated carcinoembryonic antigen (CEA) 07/02/20 24 Hypokalemia 05/18/2024 Port-A-Cath in place 05/18/2024 Primary gall bladder adenoca rcinoma (CMS/HCC V24, CMS/HCC V28) 04/27/2024 Type 2 diabetes mellitus wit hout complication, with long-term current use of insulin ([facility] V24, [facility] V28) 04/27/2024 Primary hypertension 04/27/2024 Mixed hyperlipidemia 04/27/2024 Iron deficiency anemia 04/27/2024 Encounters Date Type Department Care Team Description 03/19/2025 1:30 PM EDT - 03/19/2025 11:59 PM EDT Hospital Encounter [facility] [address] [place] [phone] Loretta Broussard, Primary gall bladder adenocarcinoma ([facility] V24, [facility] V28) (Primary Dx) Discharge Disposition: Home or Self Care 03/15/2025 11:23 AM EDT - 03/15/2025 11:59 PM EDT Hospital Encounter [address] [phone] Primary gall bladder adenocarcinoma ([facility] V24, [facility] V28) (Primary Dx) Discharge Disposition: Home or Self Care 03/13/2025 10:00 AM EDT - 03/13/2025 11:59 PM EDT Hospital Encounter [facility] [address] [place] [phone] Loretta Broussard, Primary gall bladder adenocarcinoma ([facility] V24, [facility] V28) (Primary Dx) Discharge Disposition: Home or Self Care 03/09/2025 1:54 PM EDT - 03/09/2025 3:54 PM EDT Emergency [facility] [address] [place] [phone] Closed avulsion fracture of left ankle, initial encounter (Primary Dx) Discharge Disposition: Home or Self Care 03/09/2025 11:40 AM EDT - 03/09/2025 11:59 PM EDT Hospital Encounter [facility] Xray [address] [place] [phone] Primary gall bladder adenocarcinoma ([facility] V24, [facility] V28) Discharge Disposition: Home or Self Care 03/09/2025 11:39 AM EDT - 03/09/2025 11:59 PM EDT Hospital Encounter [facility] [address] [place] [phone] Loretta Broussard, DO Primary gall bladder adenocarcinoma (CMS/HCC V24, CMS/HCC V28) Discharge Disposition: Home or Self Care 03/09/2025 10:30 AM EDT - 03/09/2025 11:59 PM EDT Hospital Encounter [facility] [address] [place] [phone] Loretta Broussard, DO Primary gall bladder adenocarcinoma (CMS/HCC V24, CMS/HCC V28) (Primary Dx) Discharge Disposition: Home or Self Care 03/09/2025 10:00 AM EDT Office Visit [facility] Hematology Oncology [address] [place] [phone] Loretta Broussard, DO Primary gall bladder adenocarcinoma (CMS/HCC V24, CMS/HCC V28) (Primary Dx); Acute left ankle pain; Hypomagnesemia 03/05/2025 10:00 AM EDT - 03/05/2025 11:59 PM EDT Hospital Encounter [facility] [address] [place] [phone] Loretta Broussard, DO Primary gall bladder adenocarcinoma (CMS/HCC V24, CMS/HCC V28) (Primary Dx) Discharge Disposition: Home or Self Care 03/01/2025 12:02 PM EDT - 03/01/2025 11:59 PM EDT Hospital Encounter [facility] [address] [place] [phone] Loretta Broussard, Primary gall bladder adenocarcinoma (CMS/HCC V24, CMS/HCC V28) (Primary Dx) Discharge Disposition: Home or Self Care 02/27/2025 10:00 AM EDT - 02/27/2025 11:59 PM EDT Hospital Encounter [facility] [address] [place] [phone] Loretta Broussard, Primary gall bladder adenocarcinoma (CMS/HCC V24, CMS/HCC V28) (Primary Dx) Discharge Disposition: Home or Self Care 02/26/2025 9:00 AM EDT - 02/26/2025 11:59 PM EDT Hospital Encounter [address] [phone] Loretta Broussard, Primary gall bladder adenocarcinoma (CMS/HCC V24, CMS/HCC V28) (Primary Dx) Discharge Disposition: Home or Self Care 02/23/2025 1:30 PM EDT - 02/23/2025 11:59 PM EDT Hospital Encounter [address] [phone] Loretta Broussard, Primary gall bladder adenocarcinoma (CMS/HCC V24, CMS/HCC V28) (Primary Dx) Discharge Disposition: Home or Self Care 02/19/2025 1:00 PM EDT - 02/19/2025 11:59 PM EDT Hospital Encounter [address] [phone] Loretta Broussard, Primary gall bladder adenocarcinoma (CMS/HCC V24, CMS/HCC V28) (Primary Dx) Discharge Disposition: Home or Self Care 02/16/2025 Lab Requisition [facility] [address] [facility] [place] [phone] Trista Richards MD Secondary and unspecified malignant neoplasm of lymph node, unspecified (CMS/HCC V24, CMS/HCC V28) 02/15/2025 11:30 AM EDT - 02/15/2025 11:59 PM EDT Hospital Encounter [address] [phone] Loretta Broussard, Primary gall bladder adenocarcinoma (CMS/HCC V24, CMS/HCC V28) (Primary Dx) Discharge Disposition: Home or Self Care 02/13/2025 10:00 AM EDT - 02/13/2025 11:59 PM EDT Hospital Encounter [facility] [address] [place] [phone] Loretta Broussard, Primary gall bladder adenocarcinoma (CMS/HCC V24, CMS/HCC V28) (Primary Dx) Discharge Disposition: Home or Self Care 02/12/2025 9:00 AM EDT - 02/12/2025 11:59 PM EDT Hospital Encounter [facility] [address] [place] [phone] Loretta Broussard, Primary gall bladder adenocarcinoma (CMS/HCC V24, CMS/HCC V28) (Primary Dx) Discharge Disposition: Home or Self Care 02/09/2025 12:59 PM EDT - 02/09/2025 11:59 PM EDT Hospital Encounter [facility] [address] [place] [phone] Loretta Broussard, Primary gall bladder adenocarcinoma (CMS/HCC V24, CMS/HCC V28) (Primary Dx) Discharge Disposition: Home or Self Care 02/07/2025 4:00 PM EDT Office Visit Adult Medicine [address] [phone] Chandler Villalobos MD Primary hypertension (Primary Dx); Type 2 diabetes mellitus without complication, with long-term current use of insulin (CMS/HCC V24, CMS/HCC V28); Mixed hyperlipidemia; Primary gall bladder adenocarcinoma (CMS/HCC V24, CMS/HCC V28); Iron deficiency anemia, unspecified iron deficiency anemia type; Hypokalemia; Hypomagnesemia 02/05/2025 9:00 AM EDT - 02/05/2025 11:59 PM EDT Hospital Encounter [facility] [address] [place] [phone] Loretta Broussard, Primary gall bladder adenocarcinoma (CMS/HCC V24, CMS/HCC V28) (Primary Dx) Discharge Disposition: Home or Self Care 02/05/2025 8:45 AM EDT Office Visit [facility] [address] [place] [phone] Loretta Broussard, DO Primary gall bladder adenocarcinoma (CMS/HCC V24, CMS/HCC V28) (Primary Dx) 02/01/2025 10:04 AM EDT - 02/01/2025 11:59 PM EDT Hospital Encounter [facility] CT Scan [address] [place] [phone] Primary gall bladder adenocarcinoma (CMS/HCC V24, CMS/HCC V28) Discharge Disposition: Home or Self Care 02/01/2025 10:04 AM EDT - 02/01/2025 11:59 PM EDT Hospital Encounter [facility] [address] [place] [phone] Loretta Broussard, DO Primary gall bladder adenocarcinoma (CMS/HCC V24, CMS/HCC V28) (Primary Dx) Discharge Disposition: Home or Self Care 01/30/2025 8:00 AM EDT - 01/30/2025 11:59 PM EDT Hospital Encounter [facility] [address] [place] [phone] Loretta Broussard, DO Primary gall bladder adenocarcinoma (CMS/HCC V24, CMS/HCC V28) (Primary Dx) Discharge Disposition: Home or Self Care 01/29/2025 10:30 AM EDT - 01/29/2025 11:59 PM EDT Hospital Encounter [facility] [address] [place] [phone] Loretta Broussard, Primary gall bladder adenocarcinoma (CMS/HCC V24, CMS/HCC V28) (Primary Dx) Discharge Disposition: Home or Self Care 01/26/2025 10:59 AM EDT - 01/26/2025 11:59 PM EDT Hospital Encounter [facility] [address] [place] [phone] Loretta Broussard, Primary gall bladder adenocarcinoma (CMS/HCC V24, CMS/HCC V28) (Primary Dx) Discharge Disposition: Home or Self Care 01/22/2025 10:56 AM EDT - 01/22/2025 11:59 PM EDT Hospital Encounter [facility] [address] [place] [phone] Loretta Broussard, DO Primary gall bladder adenocarcinoma (CMS/HCC V24, CMS/HCC V28) (Primary Dx) Discharge Disposition: Home or Self Care 01/18/2025 11:59 AM EDT - 01/18/2025 11:59 PM EDT Hospital Encounter [facility] [address] [place] [phone] Loretta Broussard, DO Primary gall bladder adenocarcinoma (CMS/HCC V24, CMS/HCC V28) (Primary Dx) Discharge Disposition: Home or Self Care 01/16/2025 10:00 AM EDT - 01/16/2025 11:59 PM EDT Hospital Encounter [facility] [address] [place] [phone] Loretta Broussard, DO Primary gall bladder adenocarcinoma (CMS/HCC V24, CMS/HCC V28) (Primary Dx) Discharge Disposition: Home or Self Care 01/15/2025 11:00 AM EDT - 01/15/2025 11:59 PM EDT Hospital Encounter [facility] [address] [place] [phone] Loretta Broussard, DO Primary gall bladder adenocarcinoma (CMS/HCC V24, CMS/HCC V28) (Primary Dx) Discharge Disposition: Home or Self Care 01/11/2025 1:30 PM EDT - 01/11/2025 11:59 PM EDT Hospital Encounter [facility] [address] [place] [phone] Loretta Broussard, DO Primary gall bladder adenocarcinoma (CMS/HCC V24, CMS/HCC V28) (Primary Dx) Discharge Disposition: Home or Self Care 01/08/2025 12:57 PM EDT - 01/08/2025 11:59 PM EDT Hospital Encounter [facility] [address] [place] [phone] Loretta Broussard, DO Primary gall bladder adenocarcinoma (CMS/HCC V24, CMS/HCC V28) (Primary Dx) Discharge Disposition: Home or Self Care 01/05/2025 11:45 AM EDT Office Visit [facility] [address] [place] [phone] Loretta Broussard, DO Primary gall bladder adenocarcinoma (CMS/HCC V24, CMS/HCC V28) (Primary Dx) 01/05/2025 10:30 AM EDT - 01/05/2025 11:59 PM EDT Hospital Encounter [address] [phone] Loretta Broussard, DO Primary gall bladder adenocarcinoma (CMS/HCC V24, CMS/HCC V28) (Primary Dx) Discharge Disposition: Home or Self Care 01/03/2025 8:00 AM EDT - 01/03/2025 11:59 PM EDT Hospital Encounter [address] [phone] Loretta Broussard, DO Primary gall bladder adenocarcinoma (CMS/HCC V24, CMS/HCC V28) (Primary Dx) Discharge Disposition: Home or Self Care 01/02/2025 10:30 AM EDT - 01/02/2025 11:59 PM EDT Hospital Encounter [address] [phone] Loretta Broussard, DO Primary gall bladder adenocarcinoma (CMS/HCC V24, CMS/HCC V28) (Primary Dx) Discharge Disposition: Home or Self Care 12/29/2024 1:29 PM EDT - 12/29/2024 11:59 PM EDT Hospital Encounter [facility] [address] [place] [phone] Loretta Broussard, DO Primary gall bladder adenocarcinoma (CMS/HCC V24, CMS/HCC V28) (Primary Dx) Discharge Disposition: Home or Self Care 12/25/2024 1:30 PM EDT - 12/25/2024 11:59 PM EDT Hospital Encounter [facility] [address] [place] [phone] Loretta Broussard DO Primary gall bladder adenocarcinoma ([facility] V24, [facility] V28) (Primary Dx) Discharge Disposition: Home or Self Care 12/21/2024 12:30 PM EDT - 12/21/2024 11:59 PM EDT Hospital Encounter [facility] [address] [place] [phone] Primary gall bladder adenocarcinoma ([facility] V24, [facility] V28) (Primary Dx) Discharge Disposition: Home or Self Care from Last 3 Months Surgical History Surgery Date Site/Laterality Comments OTHER SURGICAL HISTORY PROCEDURE: HISTORY OTHER; COMMENT: port A cath HYSTERECTOMY PROCEDURE: HISTORICAL HYSTERECTOMY OTHER SURGICAL HISTORY PROCEDURE: HISTORY OTHER; COMMENT: Gall bladder biopsy Medical History Medical History Date Comments DM2 (diabetes mellitus, type 2) ([facility] V24, [facility] V28) DX:DM2 (diabetes mellitus, type 2) ([facility]) Essential (primary) hypertension DX:Essential (primary) hypertension Mixed hyperlipidemia DX:Mixed hy perlipidemia Glaucoma DX:Glaucoma Chronic anemia DX:Chronic anemi a Gallbladder cancer ([facility] V24, [facility] V28) 03/2024 Family History Medical History Relation Name Comments Breast cancer Aunt Diabetes Mother Diabetes Sister Ovarian cancer Sister Relation Name Status Comments Aunt Alive Mother Sister Social History Tobacco Use Types Packs/Day Years Used Date Smoking Tobacco: Former Smokeless Tobacco: Never Tobacco Cessation:Counseling Given: Not Answered Alcohol Use Standard Drinks/Week Comments Not Currently 0 (1 standard drink = 0.6 oz pur e alcohol) Comments No Sex and Gender Information Value Date Recorded Sex Assigned at Female 06/12/2024 1:22 PM EST Legal Sex Female 1:49 PM EDT Gender Identity Female 06/12/2024 1:22 PM EST Sexual Orientation Straight 06/12/2024 1: 22 PM EST Obstetrics History Para Term AB IAB SAB Ectopic Multiple Livin g Live Births 0 0 0 0 0 0 0 0 Last Filed Vital Signs Vital Sign Reading Time Taken Comments Blood Pressure 130/82 03/19/2025 2:09 PM EDT Pulse 91 03/19/2025 2:09 PM EDT Temperature 37 C (98.6 F) 03/19/2025 2:09 PM EDT Respiratory Rate 18 03/19/2025 2:09 PM EDT Oxygen Saturation 96% 03/19/2025 2:09 PM EDT Inhaled Oxygen Concentration - - Weight 84.4 kg (186 lb) 03/13/2025 10:12 AM EDT Height 163.8 cm (5' 4.49 ) 03/13/2025 10:12 AM E DT Body Mass Index 31.45 03/13/2025 10:12 AM EDT Plan of Treatment Upcoming Encounters Date Type Department Care Team (Late st Contact Info) Description 03/23/2025 1:30 PM EDT Appointment [address] [phone] Loretta Broussard DO [address] [place] [phone] 03/26/2025 9:30 AM EDT Appointment [address] [phone] 03/27/2025 8:00 AM EDT Appointment [facility] [address] [place] [phone] 04/02/2025 1:30 PM EDT Appointment [facility] [address] [place] [phone] 04/06/2025 10:45 AM EDT Office Visit [facility] H[facility]ology Oncology [address] [place] [phone] Loretta Broussard DO [address] [place] [phone] 04/06/2025 11:00 AM EDT Appointment [address] [phone] 07/20/2025 12:30 PM EST Office Visit Adult Medicine [address] [phone] Chandler Villalobos MD [address] [place] [address] Health Maintenance Due Date Last Done Comments COVID-19 Vaccine (#1) 1977 Diabetes: Annual Foot Exam 1982 DTaP,Tdap,and Td Vaccines (1 - Tdap) 1991 Hepatitis B Vaccines (1 of 3 - 19+ 3-dose series) 1991 Pneumococcal Vaccine: 50+ Years (1 of 2 - PCV) 1991 Zoster Vaccines (1 of 2) 1991 Cervical Cancer Screening: Pap Smear 1993 Colorectal Cancer Screening: Colonoscopy 04/23/2024 HIV Screening 04/23/2024 Hepatitis C Screening 04/23/2024 Social Influencers of Health Screening 04/23/2024 Depression Screening 07/12/2024 Diabetes: Blood Sugar Control Test (HGBA1C) 01/01/2025 07/03/2024, 05/05/2024 Influenza Vaccine (#1) 2025 Diabetes: Annual Retina Eye Exam 06/01/2025 06/01/2024 Diabetes: Annual Urine Albumin-Creatinine Ratio (uACR) 07/03/2025 07/03/2024, 04/26/2024 Diabetes: Annual GFR (Glomerular Filtration Rate) 03/09/2026 03/09/2025, 02/26/2025, 02/12/2025, Additional history exists Hypertension/CHF/CAD Annual BMP Blood Test 03/09/2026 03/09/2025, 02/26/2025, 02/12/2025, Additional history exists Breast Cancer Screening 09/22/2026 09/22/2024 Cholesterol Screening (Lipid Panel) 07/03/2029 07/03/2024, 05/05/2024, 02/03/2001 MMR Vaccines Aged Out 03/03/2024 No longer eligi ble based on patient's age to complete this topic HIB Vaccines Aged Out No longer eligi ble based on patient's age to complete this topic HPV Vaccines Aged Out No longer eligi ble based on patient's age to complete this topic Hepatitis A Vaccines Aged Out No long er eligible based on patient's age to complete this topic IPV Vaccines Aged Out No longer eligi ble based on patient's age to complete this topic Meningococcal ACWY Vaccine Aged Out N o longer eligible based on patient's age to complete this topic Meningococcal B Vaccine Aged Out No l onger eligible based on patient's age to complete this topic RSV Immunization Patients Under 20 months Aged Out No longer eligible based on patient's age to complete this topic Varicella Vaccines Aged Out No longer eligible based on patient's age to complete this topic Procedures Procedure Name Priority Date/Time Associated Diagnosis Comments XR ANKLE 3+ VIEWS LEFT STAT 12:26 PM EDT Primary gall bladder adenocarcinoma (CMS/HCC V24, CMS/HCC V28) XR FOOT 3+ VIEWS LEFT STAT 03/09/2025 12:23 PM EDT Primary gall bladder adenocarcinoma (CMS/HCC V24, CMS/HCC V28) CBC WITH AUTO DIFFERENTIAL Routine 03/09/2025 11:10 AM EDT Primary gall bladder adenocarcinoma (CMS/HCC V24, CMS/HCC V28) COMPREHENSIVE METABOLIC PANEL Routine 03/09/2025 11:10 AM EDT Primary gall bladder adenocarcinoma (CMS/HCC V24, CMS/HCC V28) CBC AND DIFFERENTIAL Routine 03/09/2025 11:10 AM EDT Primary gall bladder adenocarcinoma (CMS/HCC V24, CMS/HCC V28) CBC WITH AUTO DIFFERENTIAL Routine 02/26/2025 9:24 AM EDT Primary gall bladder adenocarcinoma (CMS/HCC V24, CMS/HCC V28) COMPREHENSIVE METABOLIC PANEL Routine 02/26/2025 9:24 AM EDT Primary gall bladder adenocarcinoma (CMS/HCC V24, CMS/HCC V28) CBC AND DIFFERENTIAL Routine 02/26/2025 9:24 AM EDT Primary gall bladder adenocarcinoma (CMS/HCC V24, CMS/HCC V28) CANCER ANTIGEN 19-9 Routine 02/26/2025 9 :24 AM EDT Primary gall bladder adenocarcinoma (CMS/HCC V24, CMS/HCC V28) CARCINOEMBRYONIC ANTIGEN Routine 02/26/2025 9:24 AM EDT Primary gall bladder adenocarcinoma (CMS/HCC V24, CMS/HCC V28) CBC WITH AUTO DIFFERENTIAL Routine 02/12/2025 9:20 AM EDT Primary gall bladder adenocarcinoma (CMS/HCC V24, CMS/HCC V28) COMPREHENSIVE METABOLIC PANEL Routine 02/12/2025 9:20 AM EDT Primary gall bladder adenocarcinoma (CMS/HCC V24, CMS/HCC V28) CBC AND DIFFERENTIAL Routine 02/12/2025 9:20 AM EDT Primary gall bladder adenocarcinoma (CMS/HCC V24, CMS/HCC V28) CT CHEST/ABDOMEN/PELVIS W CONTRAST Routine 02/01/2025 10:34 AM EDT Primary gall bladder adenocarcinoma (CMS/HCC V24, CMS/HCC V28) CBC WITH AUTO DIFFERENTIAL Routine 01/29/2025 10:57 AM EDT Primary gall bladder adenocarcinoma (CMS/HCC V24, CMS/HCC V28) COMPREHENSIVE METABOLIC PANEL Routine 01/29/2025 10:57 AM EDT Primary gall bladder adenocarcinoma (CMS/HCC V24, CMS/HCC V28) CBC AND DIFFERENTIAL Routine 01/29/2025 10:57 AM EDT Primary gall bladder adenocarcinoma (CMS/HCC V24, CMS/HCC V28) CANCER ANTIGEN 19-9 Routine 01/29/2025 1 0:57 AM EDT Primary gall bladder adenocarcinoma (CMS/HCC V24, CMS/HCC V28) CARCINOEMBRYONIC ANTIGEN Routine 01/29/2025 10:57 AM EDT Primary gall bladder adenocarcinoma (CMS/HCC V24, CMS/HCC V28) CBC WITH AUTO DIFFERENTIAL Routine 01/15/2025 11:39 AM EDT Primary gall bladder adenocarcinoma (CMS/HCC V24, CMS/HCC V28) COMPREHENSIVE METABOLIC PANEL Routine 01/15/2025 11:39 AM EDT Primary gall bladder adenocarcinoma (CMS/HCC V24, CMS/HCC V28) CBC AND DIFFERENTIAL Routine 01/15/2025 11:39 AM EDT Primary gall bladder adenocarcinoma (CMS/HCC V24, CMS/HCC V28) CBC WITH AUTO DIFFERENTIAL Routine 01/02/2025 10:50 AM EDT Primary gall bladder adenocarcinoma (CMS/HCC V24, CMS/HCC V28) COMPREHENSIVE METABOLIC PANEL Routine 01/02/2025 10:50 AM EDT Primary gall bladder adenocarcinoma (CMS/HCC V24, CMS/HCC V28) CBC AND DIFFERENTIAL Routine 01/02/2025 10:50 AM EDT Primary gall bladder adenocarcinoma (CMS/HCC V24, CMS/HCC V28) CANCER ANTIGEN 19-9 Routine 01/02/2025 1 0:50 AM EDT Primary gall bladder adenocarcinoma (CMS/HCC V24, CMS/HCC V28) CARCINOEMBRYONIC ANTIGEN Routine 01/02/2025 10:50 AM EDT Primary gall bladder adenocarcinoma (CMS/HCC V24, CMS/HCC V28) MAGNESIUM STAT 12/21/2024 12:53 PM EDT Primary gall bladder adenocarcinoma (CMS/HCC V24, CMS/HCC V28) MG MAMMO DIGITAL SCREENING W ROBIN BILAT Routine 09/22/2024 2:34 PM EDT Encounter for screening mammogram for malignant neoplasm of breast MICROALBUMIN CREATININE URINE RATIO Routine 07/03/2024 9:52 AM EST Primary hypertension Type 2 diabetes mellitus without complication, with long-term current use of insulin ([facility] V24, [facility] V28) Iron deficiency anemia, unspecified iron deficiency anemia type Mixed hyperlipidemia Hypokalemia HEMOGLOBIN A1C Routine 07/03/2024 9:52 AM EST Primary hypertension Type 2 diabetes mellitus without complication, with long-term current use of insulin ([facility] V24, [facility] V28) Iron deficiency anemia, unspecified iron deficiency anemia type Mixed hyperlipidemia Hypokalemia LIPID PANEL WITH REFLEX TO DIRECT LDL Routine 07/03/2024 9:52 AM EST Primary hypertension Type 2 diabetes mellitus without complication, with long-term current use of insulin ([facility] V24, [facility] V28) Iron deficiency anemia, unspecified iron deficiency anemia type Mixed hyperlipidemia Hypokalemia EXTERNAL DIABETIC RETINA EYE EXAM Routine 06/01/2024 9:04 AM EST from Last 3 Months or Most Recently Relevant to Health Maintenance Results * XR Ankle 3+ Views Left (03/09/2025 12:26 PM EDT) Anatomical Region Laterality Modality Lower Extremities, Ankle Left Radiogr aphic Imaging 03/09/2025 12:4 0 PM EDT Impressions 03/09/2025 12:41 PM EDT FINDINGS/IMPRESSION: Small nondisplaced distal fibular fracture at the distal tip of the fibula, below the level of the syndesmosis. Tibiotalar alignment is maintained. Soft tissue swelling around the ankle. No additional fractures. -------- FINAL REPORT -------- Dictated By: NIGEL THOMSON Dictated Date: 03/09/2025 12:40 ET Assigned Physician: NIGEL THOMSON Reviewed and Electronically Signed By: NIGEL THOMSON Signed Date: 03/09/2025 12:41 ET Workstation ID: [id number] Transcribed By: Self Edit Transcribed Date: 03/09/2025 12:40 ET Narrative 03/09/2025 12:41 PM EDT XR ANKLE 3+ VIEWS LEFT INDICATION: Pain TECHNIQUE: XR ANKLE 3+ VIEWS LEFT COMPARISON: No priors available. Procedure Note Nigel Thomson MD - 03/09/2025 XR ANKLE 3+ VIEWS LEFT INDICATION: Pain TECHNIQUE: XR ANKLE 3+ VIEWS LEFT COMPARISON: No priors available. IMPRESSION: FINDINGS/IMPRESSION: Small nondisplaced distal fibular fracture at thedistal tip of the fibula, below the level of the syndesmosis. Tibiotalaralignment is maintained. Soft tissue swelling around the ankle. Noadditional fractures. -------- FINAL REPORT -------- Dictated By: NIGEL THOMSON Dictated Date: 03/09/2025 12:40 ET Assigned Physician: NIGEL THOMSON Reviewed and Electronically Signed By: NIGEL THOMSON Signed Date: 03/09/2025 12:41 ET Workstation ID: [id number] Transcribed By: Self Edit Transcribed Date: 03/09/2025 12:40 ET Loretta Broussard DO IMG XR PROCEDURES Fin al Result * XR Foot 3+ Views Left (03/09/2025 12:23 PM EDT) Anatomical Region Laterality Modality Lower Extremities, Foot [facility] 03/09/2025 12:3 2 PM EDT Impressions 03/09/2025 12:40 PM EDT FINDINGS/IMPRESSION: No acute fracture or dislocation. Diffuse soft tissue swelling throughout the foot. Pes planus. Small plantar calcaneal spur and Achilles enthesophytes. Mild degenerative change at the 1st metatarsophalangeal joint. -------- FINAL REPORT -------- Dictated By: NIGEL THOMSON Dictated Date: 03/09/2025 12:32 ET Assigned Physician: NIGEL THOMSON Reviewed and Electronically Signed By: NIGEL THOMSON Signed Date: 03/09/2025 12:40 ET Workstation ID: [id number] Transcribed By: Self Edit Transcribed Date: 03/09/2025 12:32 ET Narrative 03/09/2025 12:40 PM EDT XR FOOT 3+ VIEWS LEFT INDICATION: Pain TECHNIQUE: XR FOOT 3+ VIEWS LEFT COMPARISON: No priors available. Procedure Note Nigel Thomson MD - 03/09/2025 XR FOOT 3+ VIEWS LEFT INDICATION: Pain TECHNIQUE: XR FOOT 3+ VIEWS LEFT COMPARISON: No priors available. IMPRESSION: FINDINGS/IMPRESSION: No acute fracture or dislocation. Diffuse softtissue swelling throughout the foot. Pes planus. Small plantar calcanealspur and Achilles enthesophytes. Mild degenerative change at the 1stmetatarsophalangeal joint. -------- FINAL REPORT -------- Dictated By: NIGEL THOMSON Dictated Date: 03/09/2025 12:32 ET Assigned Physician: NIGEL THOMSON Reviewed and Electronically Signed By: NIGEL THOMSON Signed Date: 03/09/2025 12:40 ET Workstation ID: [id number] Transcribed By: Self Edit Transcribed Date: 03/09/2025 12:32 ET us Loretta Broussard DO IMG XR PROCEDURES Fin al Result * (ABNORMAL) CBC auto differential (03/09/2025 11:10 AM EDT) Only the most recent of6 resultswithin the time period is included. WBC 6.5 4.8 - 10.8 K/mcL LAB HEM[facility]OLOGY [facility] RBC 4.00 3.80 - 4.80 M/mcL LAB HEMETOLOGY METHOD 03/09[facility]2025 12[facility] Hemoglobin 11.3(L) 11.5 - 16.0 g/dL LAB HEMETOLOGY METHOD 03/09/2025 12:27 PM [facility] Hematocrit 35.4 35.0 - 47.0 % LAB HEMETOLOGY METHOD 03/09/2025 12:[facility] MCV 89.4 79.0 - 98.0 FL LAB HEMETOLOGY METHOD 03/09/2025 12:27 PM EDT [facility] MCH 28.5 27.0 - 32.0 pcg LAB HEMETOLOGY METHOD 03/09/2025 12:27 PM [facility] MCHC 31.9(L) 32.0 - 37.0 g/dL LAB HEMETOLOGY METHOD 03/09/2025 12:27 PM [facility] RDW 14.6 11.0 - 15.0 % LAB HEMETOLOGY METHOD 03/09/2025 12:27 PM [facility] Platelets 192 130 - 400 K/mcL LAB HEMETOLOGY METHOD 03/09/2025 12:27 PM [facility] MPV 9.8 7.0 - 11.0 FL LAB HEMETOLOGY METHOD 03/09/2025 12:27 PM [facility] NRBC 0.0 <1.0 % LAB HEMETOLOGY METHOD 03/09/2025 12:27 PM [facility] NRBC Absolute 0.00 <0.10 K/mcL LAB HEMETOLOGY METHOD 03/09/2025 12:27 PM [facility] Neutrophils Relative 67.4 % LAB HEMETOLOGY METHOD 03/09/2025 12:27 PM [facility] Lymphocytes Relative 18.4 % LAB HEMETOLOGY METHOD 03/09/2025 12:27 PM [facility] Monocytes Relative 11.0 % LAB HEMETOLOGY METHOD 03/09/2025 12:27 PM [facility] Eosinophils Relative 1.5 % LAB HEMETOLOGY METHOD 03/09/2025 12:27 PM [facility] Basophils Relative 0.5 % LAB HEMETOLOGY METHOD 03/09/2025 12:27 PM [facility] Immature Granulocytes Relative 1.2 % LAB HEMETOLOGY METHOD 03/09/2025 12:27 PM [facility] Neutrophils Absolute 4.39 1.50 - 7.00 K/mcL LAB HEMETOLOGY METHOD 03/09/2025 12:27 PM EDT [facility] Lymphocytes Absolute 1.20 1.00 - 5.00 K/mcL LAB HEMETOLOGY METHOD 03/09/2025 12:27 PM EDT [facility] Monocytes Absolute 0.72 0.20 - 1.00 K/mcL LAB HEMETOLOGY METHOD 03/09/2025 12:27 PM EDT [facility] Eosinophils Absolute 0.10 0.00 - 0.50 K/mcL LAB HEMETOLOGY METHOD 03/09/2025 12:27 PM EDT [facility] Basophils Absolute 0.03 0.00 - 0.20 K/mcL LAB HEMETOLOGY METHOD 03/09/2025 12:27 PM EDT [facility] Immature Granulocytes Absolute 0.08(H) 0.00 - 0.03 K/mcL LAB HEMETOLOGY METHOD 03/09/2025 12:27 PM EDT [facility] Blood Blood sample taken from central line / Unknown Existing Catheter / Unknown 03/09/2025 11:10 AM EDT 03/09/2025 12:05 PM EDT us Loretta Broussard DO LAB BLOOD ORDERABLES Final Result [facility] [address] [place] [address], * (ABNORMAL) Comprehensive metabolic panel (03/09/2025 11:10 AM EDT) Only the most recent of6 resultswithin the time period is included. Sodium 142 133 - 145 mmol/L LAB CHEMISTRY METHOD 03/09/2025 12:48 PM EDT [facility] Potassium 3.9 3.5 - 5.5 mmol/L LAB CHEMISTRY METHOD 03/09/2025 12:[facility] Chloride 110 96 - 110 mmol/L LAB CHEMISTRY METHOD 03/09/2025 12:48 PM [facility] CO2 28 21 - 32 mmol/L LAB CHEMISTRY METHOD 03/09/2025 12:48 PM [facility] Anion Gap 4 3 - 11 LAB CHEMISTRY METHOD 03/09/2025 12:48 PM [facility] Glucose 117(H) 70 - 100 mg/dL LAB CHEMISTRY METHOD 03/09/2025 12:48 PM [facility] BUN 18 5 - 25 mg/dL LAB CHEMISTRY METHOD 03/09/2025 12:48 PM [facility] Creatinine 1.10 0.50 - 1.10 mg/dL LAB CHEMISTRY METHOD 03/09/2025 12:48 PM [facility] eGFR 61 >=60 mL/min/1. 73m2 LAB CHEMISTRY METHOD 03/09/2025 12:48 PM [facility] Comment:Calculation based on the Chronic Kidney Disease Epidemiology Collaboration (CKD-EPI) equation refit without adjustment for race. BUN/Creatinine Ratio 16.4 LAB CHEMISTRY METHOD 03/09/2025 12:48 PM [facility] Calcium 9.2 8.5 - 10.5 mg/dL LAB CHEMISTRY METHOD 03/09/2025 12:48 PM [facility] AST (SGOT) 18 10 - 42 unit/L LAB CHEMISTRY METHOD 03/09/2025 12:48 PM [facility] ALT (SGPT) 17 10 - 60 unit/L LAB CHEMISTRY METHOD 03/09/2025 12:48 PM [facility] Alkaline Phosphatase 129(H) 42 - 121 unit/L LAB CHEMISTRY METHOD 03/09/2025 12:48 PM [facility] Total Protein 6.3 6.0 - 8.0 g/dL LAB CHEMISTRY METHOD 03/09/2025 12:48 PM EDT [facility] Albumin 3.3 3.2 - 5.0 g/dL LAB CHEMISTRY METHOD 03/09/2025 12:48 PM EDT [facility] Total Bilirubin 0.3 0.0 - 1.4 mg/dL LAB CHEMISTRY METHOD 03/09/2025 12:48 PM EDT [facility] Blood Blood sample taken from central line / Unknown Existing Catheter / Unknown 03/09/2025 11:10 AM EDT 03/09/2025 12:06 PM EDT us Loretta Broussard DO LAB BLOOD ORDERABLES Final Result [facility] [address] [place] [address], [place] [phone] * Cancer antigen 19-9 (02/26/2025 9:24 AM EDT) Only the most recent of3 resultswithin the time period is included. CA 19-9 6.9 <=35 U/mL 02/28/2025 11:08 AM EDT [facility] Comment: The Siemens Advia Centaur CA199 Chemiluminescent Immunoassay is used. Results obtained with different assay methods or kits cannot be used interchangeably. Results cannot be interpreted as absolute evidence of the presence or absence of malignant disease. Test performed at [facility], [address], [place], [place] [id number] Shyanne Bonilla MD, PhD - Sample Wrapper Blood Blood sample taken from central line / Unknown Existing Catheter / Unknown 02/26/2025 9:24 AM EDT 02/26/2025 9:53 AM EDT Loretta Broussard DO LAB BLOOD ORDERABLES Final Result [facility] [address] [place] [address] * (ABNORMAL) CEA (02/26/2025 9:24 AM EDT) Only the most recent of3 resultswithin the time period is included. CEA 5.3(H) 0.0 - 5.0 ng/mL LAB CHEMISTRY METHOD 02/26/2025 10:43 AM EDT [facility] Blood Blood sample taken from central line / Unknown Existing Catheter / Unknown 02/26/2025 9:24 AM EDT 02/26/2025 9:53 AM EDT Narrative [facility] - 02/26/2025 10:43 AM EDT The Siemens Advia Buzzmoveaur Chemiluminescent Immunoassay is used. Results obtained with different assay methods or kits cannot be used interchangeably. Results cannot be interpreted as absolute evidence of the presence or absence of malignant disease. us Loretta Broussard DO LAB BLOOD ORDERABLES Final Result [facility] [address] [place] [address], * CT Chest/Abdomen/Pelvis w Contrast (02/01/2025 10:34 AM EDT) Anatomical Region Laterality Modality Body Computed Tomogra phy 02/05/2025 8:22 AM EDT Impressions 02/05/2025 8:38 AM EDT Impression: 1. Decrease in size of poorly defined hepatic mass contiguous with the gallbladder consistent with response to therapy of the known gallbladder malignancy. 2. Improved ligia hepatis/celiac axis lymphadenopathy, consistent with response to therapy. 3. No evidence of metastatic disease in the thorax. Telerad ANAIS ([id number]) -------- FINAL REPORT -------- Dictated By: Ashely White Dictated Date: 02/05/2025 08:22 ET Assigned Physician: Ashely White Reviewed and Electronically Signed By: Ashely White Signed Date: 02/05/2025 08:38 ET Workstation ID: [id number] Transcribed By: Self Edit Transcribed Date: 02/05/2025 08:22 ET Narrative 02/05/2025 8:38 AM EDT History: Gallbladder carcinoma. Follow-up metastatic lymphadenopathy. Comparison: 10/31/24 Technique: Helical volumetric imaging of the chest, abdomen and pelvis was performed without oral contrast and during the uneventful intravenous administration of 90 cc Isovue-370. DLP: 757.95 mGy/cm Eutechnyxer Iterative reconstruction technique Findings: Chest: The trachea and central bronchial tree remain patent. No suspicious developing pulmonary nodule is seen. Rare subcentimeter flat. Perifissural nodules are unchanged, compatible with lymph nodes. No pleural or pericardial effusions are seen. The heart remains normal in size. Atherosclerotic calcification of the thoracic aorta and coronary arteries is again seen. A Port-A-Cath is present on the right, the tip at the SVC-RA junction. The thyroid gland is normal in size and without suspicious nodule. No thoracic lymphadenopathy is seen. Abdomen/pelvis: The liver is normal in size and configuration. Redemonstrated is a poorly defined hypoattenuating mass contiguous with the gallbladder, involving portions of the left and right hepatic lobes, consistent with the known gallbladder malignancy. This lesion measures approximately 4.1 x 2.9 cm in maximum axial dimensions now compared to 6.3 x 3.6 cm on the previous study. No new masses are identified. The portal vein is patent. No biliary ductal dilatation is seen. Bulky ligia hepatis/celiac axis lymphadenopathy has improved. For example, the portacaval node now measures 23 mm short axis compared to 30 mm and confluent lymphadenopathy adjacent to the celiac artery now measures 27 mm short axis compared to 33 mm. The caudal-most lymph node, abutting the superior mesenteric vein, now measures 15 mm short axis compared to 25 mm. No new lymphadenopathy is seen. There is no ascites. The spleen, pancreas and adrenal glands are unremarkable. The kidneys are normal in position and size, with symmetric, intact nephrograms and no evidence of hydronephrosis. A 13 mm cortical cyst is again seen in the upper pole of the right kidney. Atherosclerotic vascular calcification is present. The abdominal aorta is normal in caliber. The uterus is absent. The urinary bladder, nearly empty, appears unremarkable. No evidence of bowel obstruction is seen. There is abundant stool within the colon, suggesting constipation. The appendix is normal in caliber in the right lower quadrant. No abnormal perienteric or pericolonic fat stranding is seen. Musculoskeletal: No significant osseous abnormality is seen. Procedure Note Ashely White MD - 02/05/2025 History: Gallbladder carcinoma. Follow-up metastatic lymphadenopathy. Comparison: 10/31/24 Technique: Helical volumetric imaging of the chest, abdomen and pelvis wasperformed without oral contrast and during the uneventful intravenousadministration of 90 cc Isovue-370. DLP: 757.95 mGy/cm Eutechnyxer Iterative reconstruction technique Findings: Chest: The trachea and central bronchial tree remain patent. No suspiciousdeveloping pulmonary nodule is seen. Rare subcentimeter flat. Perifissuralnodules are unchanged, compatible with lymph nodes. No pleural or pericardial effusions are seen. The heart remains normal in size. Atherosclerotic calcification of thethoracic aorta and coronary arteries is again seen. A Port-A-Cath ispresent on the right, the tip at the SVC-RA junction. The thyroid gland isnormal in size and without suspicious nodule. No thoracic lymphadenopathyis seen. Abdomen/pelvis: The liver is normal in size and configuration. Redemonstrated is a poorlydefined hypoattenuating mass contiguous with the gallbladder, involvingportions of the left and right hepatic lobes, consistent with the knowngallbladder malignancy. This lesion measures approximately 4.1 x 2.9 cm inmaximum axial dimensions now compared to 6.3 x 3.6 cm on the previousstudy. No new masses are identified. The portal vein is patent. No biliaryductal dilatation is seen. Bulky ligia hepatis/celiac axis lymphadenopathy has improved. For example,the portacaval node now measures 23 mm short axis compared to 30 mm andconfluent lymphadenopathy adjacent to the celiac artery now measures 27 mmshort axis compared to 33 mm. The caudal-most lymph node, abutting thesuperior mesenteric vein, now measures 15 mm short axis compared to 25 mm.No new lymphadenopathy is seen. There is no ascites. The spleen, pancreas and adrenal glands are unremarkable. The kidneys are normal in position and size, with symmetric, intactnephrograms and no evidence of hydronephrosis. A 13 mm cortical cyst isagain seen in the upper pole of the right kidney. Atherosclerotic vascular calcification is present. The abdominal aorta isnormal in caliber. The uterus is absent. The urinary bladder, nearly empty, appearsunremarkable. No evidence of bowel obstruction is seen. There is abundant stool withinthe colon, suggesting constipation. The appendix is normal in caliber inthe right lower quadrant. No abnormal perienteric or pericolonic fatstranding is seen. Musculoskeletal: No significant osseous abnormality is seen. IMPRESSION: Impression: 1. Decrease in size of poorly defined hepatic mass contiguous with thegallbladder consistent with response to therapy of the known gallbladdermalignancy. 2. Improved ligia hepatis/celiac axis lymphadenopathy, consistent withresponse to therapy. 3. No evidence of metastatic disease in the thorax. Telerad PA ([id number]) -------- FINAL REPORT -------- Dictated By: Ashely White Dictated Date: 02/05/2025 08:22 ET Assigned Physician: Ashely White Reviewed and Electronically Signed By: Ashely White Signed Date: 02/05/2025 08:38 ET Workstation ID: [id number] Transcribed By: Self Edit Transcribed Date: 02/05/2025 08:22 ET Loretta Broussard DO IMG CT PROCEDURES Fin al Result * Magnesium (12/21/2024 12:53 PM EDT) Magnesium 2.1 1.9 - 2.6 mg/dL LAB CHEMISTRY METHOD 12/21/2024 1:42 PM EDT [facility] Blood Blood sample taken from central line / Unknown Existing Catheter / Unknown 12/21/2024 12:53 PM EDT 12/21/2024 1:16 PM EDT Loretta Broussard DO LAB BLOOD ORDERABLES Final Result [facility] [address] [place] [address], [place] [phone] * MG Mammo Digital Screening w Robin bilat (09/22/2024 2:34 PM EDT) Anatomical Region Laterality Modality Breast Bilateral Mammography 10/04/2024 9:19 AM EDT Impressions 10/04/2024 9:22 AM EDT No mammographic evidence of malignancy. A negative mammogram in the presence of a clinically suspicious palpable abnormality does not preclude the possibility of malignancy or alter the indications for biopsy. PQRI CPT II 3342F Code 65003, 58308 PQRI 225 CPT II 7025F TISSUE DENSITY: There are scattered areas of fibroglandular density. (BI-RADS category B) IMPRESSION: Benign. BI-RADS CATEGORY: 2 - BENIGN RECOMMENDATION: Screening bilateral mammogram is recommended in 1 year. Mammo Location: [facility], [address] [place] [address] -------- FINAL REPORT -------- Dictated By: Yaniv Rowe Dictated Date: 10/04/2024 09:19 ET Assigned Physician: Yaniv Rowe Reviewed and Electronically Signed By: Ynaiv Rowe Signed Date: 10/04/2024 09:22 ET Workstation ID: [id number] Transcribed By: Self Edit Transcribed Date: 10/04/2024 09:19 ET Narrative 10/04/2024 9:22 AM EDT CLINICAL: The patient is a 54 years Female presenting for routine screening mammography. COMPARISON: Outside studies performed 06/02/2022 and 07/03/2019. TECHNIQUE: Full-field digital mammography of the breasts bilaterally consisting of tomosynthesis in MLO and CC projection is performed in the [employer] 2000-D unit. Computer aided detection utilizing the iCAD system was utilized. FINDINGS: The breasts are again seen to be composed of a combination of fatty and fibroglandular elements. A few scattered benign punctate calcifications are again seen. There is no suspicious cluster of microcalcifications, mass, or area of architectural distortion. There is no skin thickening or nipple retraction. Procedure Note Yaniv Rowe MD - 10/04/2024 CLINICAL: The patient is a 54 years Female presenting for routinescreening mammography. COMPARISON: Outside studies performed 06/02/2022 and 07/03/2019. TECHNIQUE: Full-field digital mammography of the breasts bilaterallyconsisting of tomosynthesis in MLO and CC projection is performed in theGE [employer]he 2000-D unit. Computer aided detection utilizing the [employer] It Bag CheckDsystem was utilized. FINDINGS: The breasts are again seen to be composed of a combination offatty and fibroglandular elements. A few scattered benign punctatecalcifications are again seen. There is no suspicious cluster ofmicrocalcifications, mass, or area of architectural distortion. There isno skin thickening or nipple retraction. IMPRESSION: No mammographic evidence of malignancy. A negative mammogram in the presence of a clinically suspicious palpableabnormality does not preclude the possibility of malignancy or alter theindications for biopsy. PQRI CPT II 3342F Code 55690, 70240 PQRI 225 CPT II 7025F TISSUE DENSITY: There are scattered areas of fibroglandular density.(BI-RADS category B) IMPRESSION: Benign. BI-RADS CATEGORY: 2 - BENIGN RECOMMENDATION: Screening bilateral mammogram is recommended in 1 year. Mammo Location: [facility], [address] [place] [id number] -------- FINAL REPORT -------- Dictated By: Yaniv Rowe Dictated Date: 10/04/2024 09:19 ET Assigned Physician: Yaniv Rowe Reviewed and Electronically Signed By: Yaniv Rowe Signed Date: 10/04/2024 09:22 ET Workstation ID: [id number] Transcribed By: Self Edit Transcribed Date: 10/04/2024 09:19 ET Viridiana MANZO IM BI PROCEDURES Final Result * (ABNORMAL) Lipid panel with reflex to direct LDL (07/03/2024 9:52 AM EST) Cholesterol 291(H) 0 - 200 mg/dL LAB CHEMISTRY METHOD 07/03/2024 11:08 AM EST [facility] Triglycerides 95 0 - 150 mg/dL LAB CHEMISTRY METHOD 07/03/2024 11:08 AM EST [facility] HDL 37(L) >=40 mg/dL LAB CHEMISTRY METHOD 07/03/2024 11:08 AM EST [facility] LDL Calculated 235(H) 0 - 100 mg/dL LAB CHEMISTRY METHOD 07/03/2024 11:08 AM EST [facility] VLDL Cholesterol William 19 mg/dL LAB CHEMISTRY METHOD 07/03/2024 11:08 AM EST [facility] Non HDL Chol. (LDL+VLDL) 254(H) <145 mg/dL LAB CHEMISTRY METHOD 07/03/2024 11:08 AM [facility] Chol/HDL Ratio 7.9(H) 0.0 - 4.4 LAB CHEMISTRY METHOD 07/03/2024 11:08 AM [facility] Blood Venous blood specimen / Unknown Venipuncture / Unknown 07/03/2024 9:52 AM EST 07/03/2024 10:23 AM EST Viridiana MANZO LAB BLOOD ORDERABLES Fin al Result Performing Organization Address City/[facility] Co de Phone Number [facility] [address] [place] [address], [place] [phone] * (ABNORMAL) Microalbumin creatinine urine ratio (07/03/2024 9:52 AM EST) Creatinine, Urine 48.0 mg/dL LAB CHEMISTRY METHOD 07/03/2024 2:02 PM [facility] Microalb, Ur 38.6(H) 0.0 - 29.0 mg/L LAB CHEMISTRY METHOD 07/03/2024 2:02 PM [facility] Microalb/Crea t Ratio 80(H) <30 mg/g creat LAB CHEMISTRY METHOD 07/03/2024 2:02 PM [facility] Urine Urine specimen obtained by clean catch procedure / Unknown Non-blood Collection / Unknown 07/03/2024 9:52 AM EST 07/03/2024 12:54 PM EST Viridiana MANZO LAB URINE ORDERABLES Fin al Result Performing Organization Address City/[facility] de Phone Number [facility] [address] [place] [address], * (ABNORMAL) Hemoglobin A1c (07/03/2024 9:52 AM EST) Hemoglobin A1C 7.0(H) <6.5 % LAB CHEMISTRY METHOD 07/03/2024 1:26 PM EST [facility] Mean Bld Glu Estim. 154 mg/dL LAB CHEMISTRY METHOD 07/03/2024 1:26 PM EST [facility] [facility] Blood Venous blood specimen / Unknown Venipuncture / Unknown 07/03/2024 9:52 AM EST 07/03/2024 10:23 AM EST Viridiana MANZO LAB BLOOD ORDERABLES Fin al Result Performing Organization Address [facility] de Phone Number [facility] [address] [place] [address], [place] [phone] * External Diabetic Retina Eye Exam Report (06/01/2024 9:04 AM EST) Anatomical Region Laterality Modality Ultrasound Historical Provider MD HEART US PROCEDURES Final R esult from Last 3 Months or Most Recently Relevant to Health Maintenance Insurance [facility] Care Teams Agency Development Manager Relationship Specialty Start Date End Date Chandler Villalobos MD [address] [place] [phone] PCP - General 04/25/24
--- OUTSIDE RECORDS SUMMARY | 2025-03-23 12:35 | XMS_ITS | Patient Health Record ---
Author Organization [facility] Address [address] [facility] [address] [place] [address] Care Team Providers Care Office Administrative Assistant Name Role Phone Deonna Salvador KYLE Primary Care Provider Unavaila Disha Oliveros Unavailable [phone] Reason For Referral No Information Medications Medication SIG (Take, Route, Frequency, Duration) Notes Start Date End Date Status Timolol Maleate 0.5 % (DAILY) Solution 1 drop into affected eye Ophthalmic Once a day Active Ferrous Sulfate 325 mg tablet po bid Active Lumigan 0.01 % Solution 1 drop into affe cted eye in the evening Ophthalmic Once a day Active Indapamide 1.25 MG Tablet 1 tablet in th e morning Orally Once a day Active Losartan Potassium 50 MG Tablet 1 tablet Orally Once a day Active metFORMIN HCl 1000 MG Tablet 1 tablet with meals Orally Twice a day Active Multivitamin Adults - Tablet Orally Active Vitamin C 500 MG Capsule Orally Active Suprep Bowel Prep Kit 17.5-3.13-1.6 GM/180ML Solution as directed Orally as directed; Duration: 1 day(s) 04/02/2017 Active Vitamin D 2000 UNIT Tablet 1 tablet Oral ly Once a day Active Social History Tobacco Use: Social History Observation Description Date Details (start date - stop date) Current Smoker NA - NA Social History Social History Social Info Question Answer Notes Alcohol Use Did you have a drink containing alcohol i n the past year? Yes How often did you have a drink containing alcohol in the past year? Monthly or less (1 point) How many drinks did you have on a typical day when you were drinking in the past year? 1 or 2 (0 points) How often did you have six or more drinks on one occasion in the past year? Never (0 points) Points 1 Interpretation Negative Smoking Are you a: current smoker How often do you smoke cigarettes? some days, but not every day How many cigarettes a day do you smoke? 6-10 How soon after you wake up do you smoke your first cigarette? 6-30 min Additional Details Category Social Info Options Details Social History Alcohol 1 or less/day Tattoos Yes Tobacco Use Less than half pack/day Problems Problem Type SNOMED Code ICD Code Onset Dates Problem Status W/U Status Risk Notes Problem Essential hypertension (72235350) Essential hypertension (I10) Active confirmed Problem Iron deficiency anemia (23971241) Iron deficiency anemia, unspecified iron deficiency anemia type (D50.9) Active confirmed Has menorrhagia , also r/o GI pathology Plan Of Treatment No Information Insurance Providers Payer Name Payer Address Payer Phone Subscriber Number Group Number Insured Name Patient Relationship to Insured Coverage Start Date Coverage End Date [employer] ([employer]) [address] ATT[place] [address] [id number] ROSELIA PATRICIA Self - patient is the insured Medical (General) History Medical History History ICD Code Anemia Yes High Cholesterol Yes Diabetes Yes HTN
--- OUTSIDE RECORDS SUMMARY | 2025-03-23 12:35 | XMS_ITS ---
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 Current Oncology Plans [facility] DURVALUMAB + CISPLATIN DAYS 1,8 + GEMCITABINE DAYS 1,8 EVERY 21 DAYS X 8 CYCLES, THEN DURVALUMAB MAINTENANCE* Plan Start Date:04/24/2024 Plan Provider:Loretta Broussard DO Linked Problems Metastatic cholangiocarcinom a to lymph node (HCC) Treatment Medications Current Day (Day 1 , Cycle 2 - Planned for 05/23/2024) Next Day (Day 8, Cycle 2 - Planned for 05/30/2024) albuterol (PROVENTIL)CISplat in (PLATINOL) chemo infusion No mannitolcustom IV infusion builderdexamethasone (DECADRON)diphenhydrAMINE (BENADRYL)durvalumab (IMFINZI) infusionEPINEPHrinefamotidine (PF) (PEPCID)fosaprepitant IV Piggybackgemcitabine (GEMZAR) chemo infusionhydrocortisone (SOLU-CORTEF) IVondansetron (ZOFRAN-ODT)palonosetron (ALOXI)Saline Flush 0.9 %sodium chloride (NS) 0.9 %sodium chloride 0.9% bolus (NS) albuterol (PROVENTIL) nebulizer solution 2.5 mgCISplatin (PLATINOL) 45 mg in sodium chloride (NS) 0.9 % 250 mL chemo infusiondexamethasone (DECADRON) tablet 12 mgdiphenhydrAMINE (BENADRYL) injection 50 mgdurvalumab (IMFINZI) 1,500 mg in sodium chloride (NS) 0.9 % 250 mL chemo infusionEPINEPHrine (Anaphylaxis) (ADRENALIN) 1 mg/ml (1:1000) inj amp/vial 0.3 mgfamotidine (PEPCID) 20 mg in water for injection, sterile 5 mL Injectionfosaprepitant (EMEND) 150 mg in sodium chloride (NS) 0.9 % 250 mL IVPBgemcitabine HCl (GEMZAR) 1,780 mg in sodium chloride (NS) 0.9 % 250 mL chemo infusionhydrocortisone sodium succinate (Solu-CORTEF) injection (PF) 100 mgpalonosetron (ALOXI) injection 0.25 mgSaline Flush 0.9 % injection 1 Syringesodium chloride 0.9 % 1,000 mL with potassium chloride 20 mEq, magnesium sulfate 2 g infusionsodium chloride 0.9% (NS) infusionsodium chloride 0.9% bolus (NS) 500 mL albuterol (PROVENTIL) nebulizer solution 2.5 mgCISplatin (PLATINOL) 45 mg in sodium chloride (NS) 0.9 % 250 mL chemo infusiondexamethasone (DECADRON) tablet 12 mgdiphenhydrAMINE (BENADRYL) injection 50 mgEPINEPHrine (Anaphylaxis) (ADRENALIN) 1 mg/ml (1:1000) inj amp/vial 0.3 mgfamotidine (PEPCID) 20 mg in water for injection, sterile 5 mL Injectionfosaprepitant (EMEND) 150 mg in sodium chloride (NS) 0.9 % 250 mL IVPBgemcitabine HCl (GEMZAR) 1,780 mg in sodium chloride (NS) 0.9 % 250 mL chemo infusionhydrocortisone sodium succinate (Solu-CORTEF) injection (PF) 100 mgpalonosetron (ALOXI) injection 0.25 mgSaline Flush 0.9 % injection 1 Syringesodium chloride 0.9 % 1,000 mL with potassium chloride 20 mEq, magnesium sulfate 2 g infusionsodium chloride 0.9% (NS) infusionsodium chloride 0.9% bolus (NS) 500 mL [facility] OP HYDRATION* Plan Start Date:05/05/2024 Plan Provider:Loretta Broussard DO Linked Problems Metastatic cholangiocarcinom a to lymph node (HCC) Treatment Medications sodium chloride (NS) 0.9 %so dium chloride 0.9 % with KCl 20 mEq Past Plans No past plan information found. Radiation Treatments * No radiation treatments are documented for this patient in [facility]. Treatments may have been administered in another system.
--- OUTSIDE RECORDS SUMMARY | 2025-03-23 12:35 | XMS_ITS | Encounter Summary ---
Author Organization [facility] Address [address] [place] [address] Care Team Providers Care Crop Adjuster Name Role Phone Chandler Villalobos MD Primary Care Provider [phone] Encounter Details Date Type Department Care Team Description 05/02/2024 Social Work [facility] [address] [place] [address] Kevin Rodríguez, [facility] [place] Social History Tobacco Use Types Packs/Day Years Used Date Smoking Tobacco: Former Cigarettes Q uit: 2016 Smokeless Tobacco: Never Alcohol Use Standard Drinks/Week Comments Not Currently 0 (1 standard drink = 0.6 oz pur e alcohol) Sex and Gender Information Value Date Recorded Sex Assigned at Female 04/03/2024 10:35 AM EDT Gender Identity Not on file Sexual Orientation Not on file Job Start Date Occupation Industry Not on file Not on file Not on file documented as of this encounter Plan of Treatment Not on file documented as of this encounter Visit Diagnoses Not on filedocumented in this encounter Care Teams Crop Adjuster Relationship Specialty Start Date End Date Chandler Villalobos MD [address] [place] [id number] PCP - General Hospitalist Medicine 04/24/24 documented as of this encounter
--- OUTSIDE RECORDS SUMMARY | 2025-03-23 12:35 | XMS_ITS | Patient Health Record ---
Author Organization [facility] Address [address] [place] [address] Care Team Providers Care Tube Station Attendant Name Role Phone Sarthak Siddiqui Unavailable [phone] Reason For Referral No Information Medications Medication SIG (Take, Route, Frequency, Duration) Notes Start Date End Date Status indapamide 1.25 mg 1 tab(s) orally once a day (in the morning) for 30 day(s) Active biotin 2.5 mg 1 tab(s) orally once a day for 30 day(s) Active metFORMIN 500 mg 1 tab(s) orally once a day for 30 day(s) Active Lumigan 0.01% 1 gtt in each affect ed eye once a day (in the evening) for 30 day(s) Active dorzolamide ophthalmic 2% 1 gtt in each eye 3 times a day for 30 day(s) Active losartan 25 mg 1 tab(s) orally once a day for 30 day(s) Active Immunizations Vaccine Route Administration Date Status Comme nts influenza Unknown 05/12/2019 Administered Pneumococcal Unknown 05/03/2020 Refused Social History Tobacco Use: Social History Observation Description Date Details (start date - stop date) Former Smoker NA - NA Smoking Question Answer Notes Status: former smoker How long has it been since you last smoked? 6-12 months Additional Findings: Tobacco Non-User Ex-cigaret te smoker Alcohol Question Answer Notes Did you have a drink contain ing alcohol in the past year? Yes How often did you have six o r more drinks on one occasion in the past year? Less than monthly (1 point) how many drink did you have on a typical day when you were drinking in the past year? 1 or 2 (0 points) How often did you have a dri nk containing alcohol in the past year? Monthly or less (1 point) Points 2 Interpretation Negative Plan Of Treatment No Information Insurance Providers Payer Name Payer Address Payer Phone Subscriber Number Group Number Insured Name Patient Relationship to Insured Coverage Start Date Coverage End Date Aetna [address] [address] NON PAR EPO DEEP [place]htar [phone] [id number] Indigo Adrian Self - patient is the insured Medical (General) History Medical History History ICD Code high bp diabetes high eye pressure Surgical History Surgery Date(Month/Year)
--- OUTSIDE RECORDS SUMMARY | 2025-03-23 12:35 | XMS_ITS | Clinical Summary ---
Author Organization [facility] Address [address] [place] [address] Care Team Providers Care Length Control Tester Name Role Phone Chandler Villalobos MD Primary Care Provider [phone] Allergies Active Allergy Reactions Criticality Noted Date Comments Lisinopril 04/24/2024 Medications Medication Sig Dispensed Refills Start Date End Date Status insulin glargine (Lantus SoloStar) 100 UNIT/ML injection Inject 10 Units under the skin every night at bedtime. 0 Active Insulin Lispro (HumaLOG) 100 UNIT/ML Inject under the skin 3 (three) times a day with meals. 0 Active oxyCODONE (ROXICODONE) 5 MG immediate release tablet Take 1 tablet (5 mg total) by mouth every 4 (four) hours as needed for pain. 0 Active senna (SENOKOT) 8.6 MG tablet Take 1 tablet by mouth daily. 0 Active ferrous sulfate 325 (65 FE) MG tablet Take 1 tablet (325 mg total) by mouth every morning with breakfast. 0 Active metoprolol succinate (TOPROL-XL) 24 hr tablet 50 mg Take by mouth daily. 0 Active amLODIPine (NORVASC) tablet 10 mg Take 1 tablet (10 mg total) by mouth daily. 0 Active rosuvastatin (CRESTOR) tablet 20 mg Take 1 tablet (20 mg total) by mouth daily. 0 Active potassium chloride ER (K-DUR,KLOR-CON) tablet 20 mEq Take two pills tonight and then once a day after 60 tablet 0 04/24/2024 Active lidocaine-prilocaine (EMLA) cream Apply topically as needed. To port site 30 minutes prior to chemotherapy 30 g 0 05/02/2024 Active ondansetron (ZOFRAN-ODT) 8 MG disintegrating tablet Take 1 tablet (8 mg total) by mouth every 8 (eight) hours as needed for nausea. 30 tablet 0 05/02/2024 Active prochlorperazine (COMPAZINE) 10 MG tablet Take 1 tablet (10 mg total) by mouth every 6 (six) hours as needed (nausea/vomiting). To be used if ondansetron doesn't work 30 tablet 0 05/02/2024 Active docusate sodium (COLACE) 100 MG capsule Take 1 capsule (100 mg total) by mouth 3 (three) times a day as needed for constipation. 0 Active lactulose (CEPHULAC) 20 GM/30ML solution Take 30 mL (20 g total) by mouth daily as needed. 240 mL 0 05/08/2024 Active magnesium citrate solution Take 2 ounces PO every 2 hours until finished. 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3 kg (157 lb 3 oz) 05/09/2024 9:16 AM EDT Height 162.6 cm (5' 4 ) 04/27/2024 11:05 AM EDT Body Mass Index 26.98 04/27/2024 11:05 AM EDT Plan of Treatment Health Maintenance Due Date Last Done Comments Hepatitis B Vaccines (1 of 3 - 3-dose series) 1972 Hepatitis C Screening 1972 COVID-19 Vaccine (#1) 1977 Pneumococcal Vaccine (1 of 2 - PCV) 1978 Depression Screening 1984 BMI Counseling 1990 Preventative Health Evaluation 1990 DTap / Tdap / Td (1 - Tdap) 1991 Shingrix-Zoster Vaccine (1 of 2) 1991 Cervical Cancer Screening (P ap Smear) 1993 Colon Cancer Screening (Colonoscopy) 2017 Breast Cancer Screening (Mammogram) 2022 Influenza Vaccine (#1) 2025 RSV Ped < 20 months Aged Out No longe r eligible based on patient's age to complete this topic Care Teams Length Control Tester Relationship Specialty Start Date End Date Chandler Villalobos MD [address] [place] [id number] PCP - General Hospitalist Medicine 04/24/24
--- OUTSIDE RECORDS SUMMARY | 2025-03-23 12:35 | XMS_ITS | Encounter Summary ---
Author Organization [facility] Address [address] [place] [address] Care Team Providers Care Airconditioning Engineer Name Role Phone Chandler Villalobos MD Primary Care Provider [phone] Encounter Details Date Type Department Care Team Description 05/02/2024 Nurse Only [facility] [address] [place], [place] [id number] Renee Suárez RN Social History Tobacco Use Types Packs/Day [...] of this encounter Progress Notes * Renee Suárez RN - 05/02/2024 9:32 AM EDT Images from the original note were not included. - full report has bee uploaded under media documented in this encounter Plan of Treatment Not on file documented as of this encounter Visit Diagnoses Not on filedocumented in this encounter Care Teams Airconditioning Engineer Relationship Specialty Start Date End Date Chandler Villalobos MD [address] [place] [id number] PCP - General Hospitalist Medicine 04/24/24 documented as of this encounter
--- OUTSIDE RECORDS SUMMARY | 2025-03-23 12:36 | XMS_ITS | Patient Health Record ---
Author Organization [facility] Address [address] [address] Care Team Providers Care Fish Bait Processing Supervisor Name Role Phone Marilyn Scott Unavailable [phone] Lillina Felix MD Unavailable Unavailable Allergies Allergen (clinical drug ingredient) Drug/Non Drug Allergy documented on EMR Reaction Allergy Type Onset Date Status lisinopril Lisinopril Unknown Drug Allergy Activ e Reason For Referral No Information Medications Medication SIG (Take, Route, Frequency, Duration) Notes Start Date End Date Status metFORMIN HCl 1000 MG Tablet 1 tablet with a meal Orally Once a day Active Timolol Maleate Acti ve Dorzolamide HCl Acti ve Iron Active Multivitamin Active Losartan Potassium-HCTZ 100-25 MG Tablet 1 tablet Orally Once a day Active Vitamin D Active Rosuvastatin Calcium 10 MG Tablet 1 tablet Orally Once a day Active Social History Sex Assigned At : Social History Observation Description Sex Assigned At Female Social History Drugs: Social Info Question Answer Notes Drugs: Current or past use of IV or Recreational Drugs: Never Alcohol: Social Info Question Answer Notes Alcohol Current or past use of alcohol: Current ( unknown) Tobacco Use: Social Info Question Answer Notes . Are you a: former smoker Plan Of Treatment No Information Insurance Providers Payer Name Payer Address Payer Phone Subscriber Number Group Number Insured Name Patient Relationship to Insured Coverage Start Date Coverage End Date Aetna Life Insurance [id number] [phone] [id number] ROSELIA PATRICIA Self - patient is the insured Medical (General) History Medical History History ICD Code high blood pressure diabetes type 2 Hospitalization History Reason Date(Month/Year) Blood Pressure 1 day ER 06/2022
--- OUTSIDE RECORDS SUMMARY | 2025-03-23 12:36 | XMS_ITS | Clinical Summary ---
Author Organization [facility] Address [address] [place] [phone] Phone Care Team Providers Care Regional Ref[employer]igerated Cdl Truck Driver Name Role Phone Chandler Villalobos MD Primary Care Provider Loretta Broussard DO Unavailable Monika Terry, Unavailable [phone] Andreas Sage MD, PhD Unavailable [phone] David Tejeda MD, PhD Unavailable [phone] Allergies Active Allergy Reactions Criticality Noted Date Comments Lisinopril Anaphylaxis,Cough,Wheezing High 4 Medications metoprolol succinate (TOPROL-XL) 50 MG 24 hr tablet Take 50 mg by mouth daily. 04/10/2024 Active amLODIPine (NORVASC) 10 MG tablet Take 10 mg by mouth daily. 02/07/2025 Active potassium chloride SA (KLOR-CON M20) 20 MEQ ER tablet Take 20 mEq by mouth daily. 04/24/2024 Active magnesium oxide 400 mg magnesium Tab Take 400 mg by mouth 2 (two) times a day. 10/09/2024 Active insulin lispro (ADMELOG, HUMALOG) 100 unit/mL injection pen Inject under the skin 3 (three) times a day with meals. Sliding scale with meals 01/08/2025 Active LANTUS SOLOSTAR U-100 INSULIN 100 unit/mL (3 mL) InPn injection pen Inject 10 Units under the skin nightly at bedtime. Active LUMIGAN 0.01 % Drop Place 1 drop into each eye nightly at bedtime. 01/24/2025 Active dorzolamide-gene oloL (COSOPT) 22.3-6.8 mg/mL ophthalmic solution Place 1 drop into each eye 2 (two) times a day. 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 Encounters Date Type Department Care Team Description 03/06/2025 2:00 PM EDT [facility] Visit [facility], [address] [place] [address] Monika Terry MBBS, MD Gallbladder cancer (Primary Dx) 03/06/2025 11:30 AM EDT Office Visit [facility], [address], [address] [place] [address] Davdi Tejeda MD, PhD Gallbladder cancer (Primary Dx) 03/06/2025 11:00 AM EDT Office Visit [facility], [address], [address] [place] [phone] Liane Bowens NP Gallbladder cancer (Primary Dx) 02/26/2025 11:00 AM EDT - 02/26/2025 11:59 PM EDT Hospital Encounter Department of Radiation Oncology [address] [place] [address] Liane Bowens NP Discharge Disposition: Home or Self Care 02/19/2025 2:29 PM EDT - 02/19/2025 11:59 PM EDT Hospital Encounter [facility], [address] [address] Discharge Disposition: Home or Self Care 02/16/2025 Ancillary Orders DF IMG OUTSIDE IMG [address] [place] [phone] Héctor Quispe MD 02/16/2025 Ancillary Orders DF IMG OUTSIDE IMG [address] [place] [phone] Héctor Quispe MD 02/16/2025 Ancillary Orders DF IMG OUTSIDE IMG [address] [place] [phone] Héctor Quispe MD 02/16/2025 Ancillary Orders DF IMG OUTSIDE IMG [address] [place] [address] Héctor Quispe MD 02/16/2025 Ancillary Orders DF IMG OUTSIDE IMG [address] [place] [address] Héctor Quispe MD 02/16/2025 Ancillary Orders DF IMG OUTSIDE IMG [address] [place] [address] Héctor Quispe MD 02/16/2025 Ancillary Orders DF IMG OUTSIDE IMG [address] [place] [phone] Héctor Quispe MD 02/16/2025 Ancillary Orders DF IMG OUTSIDE IMG [address] [place] [address] Héctor Quispe MD 02/16/2025 Ancillary Orders DF IMG OUTSIDE IMG [address] [place] [id number] Héctor Quispe MD 02/16/2025 Ancillary Orders DF IMG OUTSIDE IMG [address] [place] [address] Héctor Quispe MD 02/16/2025 Ancillary Orders DF IMG OUTSIDE IMG [address] [place] [phone] Héctor Quispe MD 02/16/2025 Ancillary Orders DF IMG OUTSIDE IMG [address] [place] [phone] Héctor Quispe MD 02/16/2025 Ancillary Orders DF IMG OUTSIDE IMG [address] [place] [address] Héctor Quispe MD 02/16/2025 Ancillary Orders DF IMG OUTSIDE IMG [address] [place] [address] Héctor Quispe MD 02/15/2025 Orders Only [facility], [facility] [address] [facility], 10[address] [place] [address] Héctor Quispe MD Gallbladder cancer (Primary Dx) 02/01/2025 12:05 AM EDT Ancillary Procedure DF IMG OUTSIDE IMG [address] [place] [address] Héctor Quispe MD 02/01/2025 Ancillary Procedure DF IMG OUTSIDE IMG [address] [place] [address] Héctor Quispe MD from Last 3 Months Family History Medical History Relation Comments Breast cancer Paternal Aunt Breast cancer Paternal Cousin Uterine cancer Sister Relation Status Comments Paternal Aunt Paternal Cousin Alive Sister Social History Tobacco Use Types Packs/Day Years Used Date Smoking Tobacco: Former Cigarettes 0.3 35.1 0 07/12/1994 - 08/12/2014 Comments:Smoked off and on d uring that time. Alcohol Use Standard Drinks/Week Comments Yes 1 (1 standard drink = 0.6 oz pur e alcohol) Child or Family Care Answer Date Record ed Do you have problems with on e of the following making it difficult for you to work, study, or receive health care? No 03/05/2025 Education Answer Date Recorded Are you interested in help w ith more adult education (for example, completing high school, GED, job training, learning the Swedish language, technical skills, or developing parenting skills)? I choose not to answer 03/05/2025 Are you concerned about learning? Not on file 03/05/2025 No 03/05/2025 Yes 03/05/2025 Food Answer Date Recorded Within the past 6 months we worried whether our food would run out before we got money to buy more. Sometimes True 025 Within the past 6 months the food we bought just didn't last and we didn't have enough money to get more. Sometimes True 02/10 Residential Stability Answer Date Recor ded What is your housing situation today? I am stayi ng with others 03/05/2025 How many times have you move d in the past 12 months? Zero (I did not move) 03/05/2025 Paying for Meds Answer Date Recorded Do you have trouble paying for medicines? No 03/05/2025 Paying Utility Bills Answer Date Record ed Do you have trouble paying y our heating or electricity bill? I choose not to answer 03/05/2025 Transportation Answer Date Recorded Has the lack of transportati on kept you from medical appointments or from getting medications? No 03/05/2025 Digital Access Answer Date Recorded No 02/15/2025 No 02/15/2025 Reliable internet access at home? Not on file 02/15/2025 Device with a working camera? Not on file Comments Unknown Sex and Gender Information Value Date Recorded Sex Assigned at Female 02/14/2025 1:06 PM EDT Legal Sex Female 12:58 PM EDT Gender Identity Female 02/14/2025 1:06 PM EDT Sexual Orientation Straight 02/14/2025 1: 06 PM EDT Last Filed Vital Signs Vital Sign Reading Time Taken Comments Blood Pressure 136/72 03/06/2025 10:59 AM EDT Pulse 94 03/06/2025 10:59 AM EDT Temperature 37.3 C (99.1 F) 03/06/2025 10:59 AM EDT Respiratory Rate 16 03/06/2025 10:5 7 AM EDT Oxygen Saturation 100% 03/06/2025 10: 59 AM EDT Inhaled Oxygen Concentration - - Weight 86.1 kg (189 lb 13.1 oz) 025 10:57 AM EDT Height 164.2 cm (5' 4.65 ) 03/06/2025 1 0:57 AM EDT Body Mass Index 31.93 03/06/2025 10:57 AM EDT Plan of Treatment Health Maintenance Due Date Last Done Comments Adult Td,Tdap Booster 1972 DEPRESSION SCREENING 1984 HEPATITIS C SCREENING 1990 HIV ONE-TIME SCREENING (18-6 5 YEARS) 1990 PNEUMOCOCCAL VACCINES (50+ years) (1 of 2 - PCV) 1991 ZOSTER VACCINES (1 of 2) 1991 PAP SMEAR 1993 SCREENING FOR DIABETES 2007 COLOGUARD 2017 COLONOSCOPY 2017 COLORECTAL CANCER SCREENING 2017 FIT TEST 2017 FOBT 2017 SIGMOIDOSCOPY 2017 VIRTUAL COLONOSCOPY 2017 INFLUENZA VACCINE (#1) 2025 COVID-19 VACCINE (1 - 2023-2 5 season) 2025 POTASSIUM LEVEL 07/03/2025 07/03/2024 MAMMOGRAM 09/22/2026 09/22/2024, 09/22/2024 LIPID PANEL 07/03/2029 07/03/2024 SMOKING STATUS SCREENING (Every 5 Years) 03/06/2030 03/06/2025 HEPATITIS A VACCINES Aged Out No long er eligible based on patient's age to complete this topic HIB VACCINES Aged Out No longer eligi ble based on patient's age to complete this topic MENINGOCOCCAL VACCINES (ACWY) Aged Out No longer eligible based on patient's age to complete this topic MENINGOCOCCAL VACCINES (B) Aged Out N o longer eligible based on patient's age to complete this topic Medical Devices Not on file Procedures Procedure Name Priority Date/Time Associated Diagnosis Comments OUTSIDE IMAGING 02/05/2025 CT ABDOMEN/PELVIS OUTSIDE (NO INTERPRETATION) Routine 02/01/2025 12:[address] CHEST OUTSIDE (NO INTERPRETATION) Routine 02/01/2025 12:00 AM EDT from Last 3 Months Results * Outside Imaging Report Only (02/05/2025) us Scanning Interface Provider IMG XR CHEST Argenis l Result * CT Abdomen/Pelvis Outside (No Interpretation) (02/01/2025 12:05 AM EDT) Other Narrative MASON - 02/16/2025 8:52 AM EDT This study is for PACS storage only and not for interpretation. us Héctor Quispe MD IMG OUTSIDE IMAGING W/O UT INTERPRETATION Final Result PERCIPIO_DFCI * CT Chest Outside (No Interpretation) (02/01/2025 12:00 AM EDT) Other Narrative WIL - 02/16/2025 8:52 AM EDT This study is for PACS storage only and not for interpretation. us Héctor Quispe MD IMG OUTSIDE IMAGING W/O UT INTERPRETATION Final Result STEPHANIA_ELÍAS from Last 3 Months Insurance [employer] [facility] [place] [address] Care Teams Regional Ref[employer]igerated Cdl Truck Driver Relationship Specialty Start Date End Date Chandler Villalobos MD [address] [place] [phone] PCP - General Internal Medicine 02/14/25 Loretta Broussard DO [address] [place] [address] Referring Physician Internal Medicine 02/14/25 Monika Terry MBBS, MD [address] [place] [phone] [email or web address] Medical Oncology 02/23/25 Andreas Sage MD, PhD [address] [place], [place] [id number] [place] [address] [email or web address] 02/23/25 David Tejeda MD, PhD [address] [place] [phone] [email or web address] Oncology 02/23/25 Additional Source Comments The information contained in this document represents components of the legal health record. It is not the complete legal health record.[facility]
== END 2025-03-23 12:10 | disposition home or self-care (01) ==
LOC: HO.HPODS 10:56
PROVIDERS: PCP Internal Medicine; Visit Provider Student in an Organized Health Care Education/Training Program
DX: S82.892A Other fracture of left lower leg, initial encounter for closed fracture (principal); S82.839A Other fracture of upper and lower end of unspecified fibula, initial encounter for closed fracture; M25.572 Pain in left ankle and joints of left foot; S99.912A Unspecified injury of left ankle, initial encounter
CPT/HCPCS: 29581; 99203

== ENCOUNTER → 2025-03-23 10:55 | Outpatient (BNVA) | payer OTHER, SELFPAY | PROVIDERS: PCP Internal Medicine; Visit Provider Student in an Organized Health Care Education/Training Program | DX: S82.892A Other fracture of left lower leg, initial encounter for closed fracture (principal); G62.9 Polyneuropathy, unspecified; X58.XXXA Exposure to other specified factors, initial encounter; Y93.9 Activity, unspecified; Y92.9 Unspecified place or not applicable; Y99.9 Unspecified external cause status | CPT/HCPCS: 29581; 99202 ==

== ENCOUNTER 2025-03-30 11:00 | Outpatient (AMB) | payer OTHER, SELFPAY ==
--- OUTSIDE RECORDS SUMMARY | 2024-04-24 14:59 | XMS_ITS | Encounter Summary ---
Author Organization [facility] Address [address] [place] [address] Care Team Providers Care Gimp Buttonhole Machine Operator Name Role Phone Chandler Villalobos MD Primary Care Provider [phone] Encounter Details Date Type Department Care Team (Late st Contact Info) Description 04/24/2024 2:59 PM EDT Hospital Encounter TH HISTORIC ENCOUNTERS EASTERN CONVERSION ONLY Loretta Broussard, DO [address] [place] [address] Social History Tobacco Use Types Packs/Day Years [...] 3:50 PM Encounter Date: 04/24/2024 Status: Signed Distribution Sales Representative: Loretta Broussard DO (Physician) Hematology/Oncology Progress Note [...] She lives alone recently moved back from [place] Allergies-Lisinopril Labs: Relevant data reviewed. Imaging Studies [...] Dic Date/Time: 04/21/24 1624 Sign date/Time: 04/21/24 [id number] 0 IMPRESSION: 1. Irregular signal within the [...] Dic Date/Time: 03/27/24 1217 Sign date/Time: 03/27/24 [id number] 0 Assessment & Plan 54 year-old female [...] if renal function does not allow for lime based therapy. (She does already have a port in place) Side effects of the above treatments briefly described to the patient Prescription sent for as needed Emla cream, Compazine and Zofran We did review that depending on results of NGS testing this may alter our treatment plan If her iron level is low plan for intravenous iron. Consultation by telepathist and social work recommended as well. If potassium levels remain low we will plan for potassium supplementation. Lastly I also offered her referral to a tertiary center for consideration of clinical trial, she would like to hold off for now. Addendum: K is critically low at 2.7, sent script to [facility] for potassium will return tomorrow for labs and IV potassium Cr returned at 1.19 on repeat, can move ahead with cisplatin/gemcitabine and durvalumab given Cr clearance is > 50 Sign Daphney Broussard DO - Hematology/Oncology [facility] documented in this encounter Plan of Treatment Upcoming Encounters Date Type Department Care Team (Late st Contact Info) Description 04/02/2025 1:30 PM EDT Appointment [facility] Infusion Center [address] [place] [address] [phone] 04/06/2025 10:45 AM EDT Office Visit [facility] Hematology Oncology [address] [place] [address] [phone] Loretta Broussard DO [address] [place] [phone] 04/06/2025 11:00 AM EDT Appointment [facility] Infusion Center [address] [phone] 04/09/2025 10:30 AM EDT Appointment [facility] Infusion Center [address] [phone] 04/10/2025 10:00 AM EDT Appointment [facility] Infusion Center [address] [place] [phone] 07/20/2025 12:30 PM EST Office Visit Adult Medicine [address] [phone] Chandler Villalobos MD [address] [place] [address] documented as of this encounter Procedures Procedure [...] documented as of this encounter Care Teams Gimp Buttonhole Machine Operator Relationship Specialty Start Date End Date Chandler Villalobos MD [address] [place] [address] PCP - General 04/24/24 04/24/24 documented as of this encounter
--- OUTSIDE RECORDS SUMMARY | 2024-04-24 15:00 | XMS_ITS | Encounter Summary ---
Author Organization [facility] Address [address] [place] [address] Care Team Providers Care English Language Arts Teacher Name Role Phone Chandler Villalobos MD Primary Care Provider Encounter Details Date Type Department Care Team (Late st Contact Info) Description 04/24/2024 3:00 PM EDT Hospital Encounter TH HISTORIC ENCOUNTERS EASTERN CONVERSION ONLY Loretta Broussard DO [address] [place] [address] Social History Tobacco Use Types Packs/Day Years [...] Info) Description 04/02/2025 1:30 PM EDT Appointment [facility] [address] [place] [address] [phone] 04/06/2025 10:45 AM EDT Office Visit [facility] Hematology Oncology [address] [place] [address] [phone] Loretta Broussard DO [address] [place] [address] 04/06/2025 11:00 AM EDT Appointment [address] [phone] 04/09/2025 10:30 AM EDT Appointment [address] [phone] 04/10/2025 10:00 AM EDT Appointment [address] [phone] 07/20/2025 12:30 PM EST Office Visit Adult Medicine [address] [phone] Chandler Villalobos MD [address] [place] [address] documented as of this encounter Visit Diagnoses Not on filedocumented in this encounter Additional Health Concerns Infection Onset Date Last Indicated Resolved Time Respiratory Rule-Out 09/19/2024 09/19/2024 025 2:14 PM EDT COVID-19 Rule-Out 09/19/2024 09/19/2024 09/19/2024 2:14 PM EDT documented as of this encounter Care Teams English Language Arts Teacher Relationship Specialty Start Date End Date Chandler Villalobos MD [address] [place] [address] PCP - General 04/24/24 04/24/24 documented as of this encounter
--- OUTSIDE RECORDS SUMMARY | 2024-04-25 11:30 | XMS_ITS | Encounter Summary ---
Author Organization [facility] Address [address] [place] [address] Care Team Providers Care Emergency Medical Services Coordinator Name Role Phone Chandler Villalobos MD Primary Care Provider +1- [phone] Encounter Details Date Type Department Care Team [...] Info) Description 04/02/2025 1:30 PM EDT Appointment [facility] [address] [place] [address] [address] [place] [phone] 04/06/2025 10:45 AM EDT Office Visit [facility] Hematology Oncology [address] [place] [address] [phone] Loretta Broussard, DO [address] [place] [address] 04/06/2025 11:00 AM EDT Appointment [facility] [address] [place] [phone] 04/09/2025 10:[address] [facility] [address] [place] [phone] 04/10/2025 10:00 AM EDT Appointment [address] [phone] 07/20/2025 12:30 PM EST Office Visit Adult Medicine [address] [phone] Chandler Villalobos MD [address] [place] [address] documented as of this encounter Procedures Procedure [...] documented as of this encounter Care Teams Emergency Medical Services Coordinator Relationship Specialty Start Date End Date Chandler Villalobos MD [address] [place] [address] PCP - General 04/25/24 documented as of this encounter
--- OUTSIDE RECORDS SUMMARY | 2024-04-27 11:00 | XMS_ITS | Encounter Summary ---
Author Organization [facility] Address [address] [place] [address] Care Team Providers Care Metrology Manager Name Role Phone Chandler Villalobos MD Primary Care Provider Encounter Details Date Type Department Care Team (Late st Contact Info) Description 04/27/2024 11:00 AM EDT Hospital Encounter TH HISTORIC ENCOUNTERS EASTERN CONVERSION ONLY Emerald Morejon PA [address] [place] [address] Social History Tobacco Use Types Packs/Day Years [...] Info) Description 04/02/2025 1:30 PM EDT Appointment [facility] Center [address] [place] [phone] 04/06/2025 10:45 AM EDT Office Visit [facility] Hematology Oncology [address] [place] [phone] Loretta Broussard, [address] [place] [address] 04/06/2025 11:00 AM EDT Appointment [facility] [address] [place] [phone] 04/09/2025 10:30 AM EDT Appointment [address] [phone] 04/10/2025 10:00 AM EDT Appointment [address] [phone] 07/20/2025 12:30 PM EST Office Visit Adult Medicine [address] [phone] Chandler Villalobos MD [address] [place] [address] documented as of this encounter Visit Diagnoses Not on filedocumented in this encounter Additional Health Concerns Infection Onset Date Last Indicated Resolved Time Respiratory Rule-Out 09/19/2024 09/19/2024 025 2:14 PM EDT COVID-19 Rule-Out 09/19/2024 09/19/2024 09/19/2024 2:14 PM EDT documented as of this encounter Care Teams Metrology Manager Relationship Specialty Start Date End Date Chandler Villalobos MD [address] [place] [address] PCP - General 04/25/24 documented as of this encounter
--- OUTSIDE RECORDS SUMMARY | 2024-04-27 11:01 | XMS_ITS | Encounter Summary ---
Author Organization [facility] Address [address] [place] [address] Care Team Providers Care Traveling Sales Representative Name Role Phone Chandler Villalobos MD Primary Care Provider +1- [phone] Encounter Details Date Type Department Care Team (Late st Contact Info) Description 04/27/2024 11:01 AM EDT Hospital Encounter TH HISTORIC ENCOUNTERS EASTERN CONVERSION ONLY Emerald Morejon PA [address] [place] [address] Social History Tobacco Use Types Packs/Day Years [...] Morejon PA-C Service: -- Author Type: Physician Mechanical Detailer Filed: 05/01/2024 9:20 PM Encounter Date: 04/27/2024 Status: Addendum Director Private: Loretta Broussard DO (Physician) Related Notes: Original Note by Emerald Morejon PA-C (Physician Mechanical Detailer) filed at 04/27/2024 1:10 PM Cosigner: Loretta [...] She lives alone recently moved back from [place] Allergies-Lisinopril Labs: Relevant data reviewed. Imaging Studies [...] may alter our treatment plan Consultation by home sales consultant and social work recommended as well. I [...] spent 33 minutes with her/his care, including [id number], discussion/counseling, time spent in record/notes/result review, documenting in Epic, and care coordination. Sign Emerald Morejon PA-C - Hematology/Oncology [facility] documented in this encounter Plan of Treatment Upcoming Encounters Date Type Department Care Team (Late st Contact Info) Description 04/02/2025 1:30 PM EDT Appointment [facility] Infusion Center [address] [place] [phone] 04/06/2025 10:45 AM EDT Office Visit [facility] Hematology Oncology [address] [place] [phone] Loretta Broussard DO [address] [place] [address] 04/06/2025 11:00 AM EDT Appointment [facility] Infusion Center [address] [place] [phone] 04/09/2025 10:30 AM EDT Appointment [facility] [address] [place] [phone] 04/10/2025 10:00 AM EDT Appointment [facility] [address] [place] [phone] 07/20/2025 12:30 PM EST Office Visit Adult Medicine [address] [phone] Chandler Villalobos MD [address] [place] [address] documented as of this encounter Visit Diagnoses Not on filedocumented in this encounter Additional Health Concerns Infection Onset Date Last Indicated Resolved Time Respiratory Rule-Out 09/19/2024 09/19/2024 025 2:14 PM EDT COVID-19 Rule-Out 09/19/2024 09/19/2024 09/19/2024 2:14 PM EDT documented as of this encounter Care Teams Traveling Sales Representative Relationship Specialty Start Date End Date Chandler Villalobos MD [address] [place] [phone] PCP - General 04/25/24 documented as of this encounter
--- OUTSIDE RECORDS SUMMARY | 2024-04-27 11:59 | XMS_ITS | Encounter Summary ---
Author Organization [facility] Address [address] [place] [address] Care Team Providers Care Strapping Machine Tender Name Role Phone Chandler Villalobos MD Primary Care Provider +1- [phone] Encounter Details Date Type Department Care Team [...] Info) Description 04/02/2025 1:30 PM EDT Appointment [facility] Infusion Center [address] [place] [phone] 04/06/2025 10:45 AM EDT Office Visit [facility] Hematology Oncology [address] [place] [phone] Loretta Broussard DO [address] [place] [address] 04/06/2025 11:00 AM EDT Appointment [facility] Infusion Center [address] [place] [phone] 04/09/2025 10:30 AM EDT Appointment [facility] Infusion Center [address] [place] [phone] 04/10/2025 10:00 AM EDT Appointment [facility] Infusion Center [address] [place] [phone] 07/20/2025 12:30 PM EST Office Visit Adult Medicine [address] [phone] Chandler Villalobos MD [address] [place] [address] documented as of this encounter Visit Diagnoses Not on filedocumented in this encounter Additional Health Concerns Infection Onset Date Last Indicated Resolved Time Respiratory Rule-Out 09/19/2024 09/19/2024 025 2:14 PM EDT COVID-19 Rule-Out 09/19/2024 09/19/2024 09/19/2024 2:14 PM EDT documented as of this encounter Care Teams Strapping Machine Tender Relationship Specialty Start Date End Date Chandler Villalobos MD [address] [place] [phone] PCP - General 04/25/24 documented as of this encounter
--- OUTSIDE RECORDS SUMMARY | 2024-05-01 10:33 | XMS_ITS | Encounter Summary ---
Author Organization [facility] Address [address] [place] [address] Care Team Providers Care Self Pay Specialist Name Role Phone Chandler Villalobos MD Primary Care Provider +1- [phone] Encounter Details Date Type Department Care Team [...] Info) Description 04/02/2025 1:30 PM EDT Appointment [facility] Infusion Center [address] [place] [phone] 04/06/2025 10:45 AM EDT Office Visit [facility] Hematology Oncology [address] [place] [phone] Loretta Broussard DO [address] [place] [address] 04/06/2025 11:00 AM EDT Appointment [facility] Infusion Center [address] [place] [phone] 04/09/2025 10:30 AM EDT Appointment [facility] Infusion Center [address] [place] [phone] 04/10/2025 10:00 AM EDT Appointment [facility] Infusion Center [address] [place] [phone] 07/20/2025 12:30 PM EST Office Visit Adult Medicine [address] [phone] Chandler Villalobos MD [address] [place] [address] documented as of this encounter Visit Diagnoses Not on filedocumented in this encounter Additional Health Concerns Infection Onset Date Last Indicated Resolved Time Respiratory Rule-Out 09/19/2024 09/19/2024 025 2:14 PM EDT COVID-19 Rule-Out 09/19/2024 09/19/2024 09/19/2024 2:14 PM EDT documented as of this encounter Care Teams Self Pay Specialist Relationship Specialty Start Date End Date Chandler Villalobos MD [address] [place] [phone] PCP - General 04/25/24 documented as of this encounter
--- OUTSIDE RECORDS SUMMARY | 2024-05-02 | XMS_ITS | Encounter Summary ---
Author Organization [facility] Address [address] [place] [address] Care Team Providers Care Ophthalmic Aide Name Role Phone Chandler Villalobos MD Primary Care Provider Encounter Details Date Type Department Care Team (Late st Contact Info) Description 05/02/2024 Hospital Encounter TH [...] Info) Description 04/02/2025 1:30 PM EDT Appointment [facility] [address] [place] [phone] 04/06/2025 10:45 AM EDT Office Visit [facility] Hematology Oncology [address] [place] [phone] Loretta Broussard, DO [address] [place] [address] 04/06/2025 11:00 AM EDT Appointment [facility] Infusion Center [address] [place] [phone] 04/09/2025 10:30 AM EDT Appointment [facility] Infusion Center [address] [place] [phone] 04/10/2025 10:00 AM EDT Appointment [facility] Infusion Center [address] [place] [phone] 07/20/2025 12:30 PM EST Office Visit Adult Medicine [address] [phone] Chandler Villalobos MD [address] [place] [address] documented as of this encounter Visit Diagnoses Not on filedocumented in this encounter Additional Health Concerns Infection Onset Date Last Indicated Resolved Time Respiratory Rule-Out 09/19/2024 09/19/2024 025 2:14 PM EDT COVID-19 Rule-Out 09/19/2024 09/19/2024 09/19/2024 2:14 PM EDT documented as of this encounter Care Teams Ophthalmic Aide Relationship Specialty Start Date End Date Chandler Villalobos MD [address] [place] [address] PCP - General 04/25/24 documented as of this encounter
--- OUTSIDE RECORDS SUMMARY | 2024-05-02 09:00 | XMS_ITS | Encounter Summary ---
Author Organization [facility] Address [address] [place] [address] Care Team Providers Care Shoe Worker Name Role Phone Chandler Villalobos MD Primary Care Provider +1- [phone] Encounter Details Date Type Department Care Team [...] Info) Description 04/02/2025 1:30 PM EDT Appointment [facility] [address] [place] [phone] 04/06/2025 10:45 AM EDT Office Visit [facility] Hematology Oncology [address] [place] [phone] Loretta Broussard DO [address] [place] [address] 04/06/2025 11:00 AM EDT Appointment [facility] [address] [place] [phone] 04/09/2025 10:30 AM EDT Appointment [facility] [address] [place] [phone] 04/10/2025 10:00 AM EDT Appointment [facility] [address] [place] [phone] 07/20/2025 12:30 PM EST Office Visit Adult Medicine [address] [phone] Chandler Villalobos MD [address] [place] [address] documented as of this encounter Visit Diagnoses [...] documented as of this encounter Care Teams Shoe Worker Relationship Specialty Start Date End Date Chandler Villalobos MD [address] [place] [phone] PCP - General 04/25/24 documented as of this encounter
--- OUTSIDE RECORDS SUMMARY | 2024-05-03 10:02 | XMS_ITS | Encounter Summary ---
Author Organization [facility] Address [address] [place] [address] Care Team Providers Care Front Office Java Developer Name Role Phone Chandler Villalobos MD Primary Care Provider +1- [phone] Encounter Details Date Type Department Care Team [...] Info) Description 04/02/2025 1:[address] [facility] [address] [place] [phone] 04/06/2025 10:45 AM EDT Office Visit [facility] Hematology Oncology [address] [place] [phone] Loretta Broussard DO [address] [place] [address] 04/06/2025 11:00 AM EDT Appointment [facility] Center [address] [place] [phone] 04/09/2025 10:[address] [facility] [address] [place] [phone] 04/10/2025 10:[address] [facility] [address] [place] [phone] 07/20/2025 12:30 PM EST Office Visit [address] [phone] Chandler Villalobos MD [address] [place] [phone] documented as of this encounter Visit Diagnoses Not on filedocumented in this encounter Additional Health Concerns Infection Onset Date Last Indicated Resolved Time Respiratory Rule-Out 09/19/2024 09/19/2024 025 2:14 PM EDT COVID-19 Rule-Out 09/19/2024 09/19/2024 09/19/2024 2:14 PM EDT documented as of this encounter Care Teams Front Office Java Developer Relationship Specialty Start Date End Date Chandler Villalobos MD [address] [place] [phone] PCP - General 04/25/24 documented as of this encounter
--- OUTSIDE RECORDS SUMMARY | 2024-05-05 08:02 | XMS_ITS | Encounter Summary ---
Author Organization [facility] Address [address] [place] [address] Care Team Providers Care Vp Software Support Name Role Phone Chandler Villalobos MD Primary Care Provider +1- [phone] Encounter Details Date Type Department Care Team [...] Description 04/02/2025 1:30 PM EDT Appointment [facility] Infusion Center [address] [place] [phone] 04/06/2025 10:45 AM EDT Office Visit [facility] Hematology Oncology [address] [place] [phone] Loretta Broussard DO [address] [place] [phone] 04/06/2025 11:00 AM EDT Appointment [facility] Infusion Center [address] [place] [phone] 04/09/2025 10:30 AM EDT Appointment [facility] Infusion Center [address] [place] [phone] 04/10/2025 10:00 AM EDT Appointment [facility] Infusion Center [address] [place] [phone] 07/20/2025 12:30 PM EST Office Visit Adult Medicine [address] [phone] Chandler Villalobos MD [address] [place] [address] documented as of this encounter Visit Diagnoses Not on filedocumented in this encounter Additional Health Concerns Infection Onset Date Last Indicated Resolved Time Respiratory Rule-Out 09/19/2024 09/19/2024 025 2:14 PM EDT COVID-19 Rule-Out 09/19/2024 09/19/2024 09/19/2024 2:14 PM EDT documented as of this encounter Care Teams Vp Software Support Relationship Specialty Start Date End Date Chandler Villalobos MD [address] [place] [phone] PCP - General 04/25/24 documented as of this encounter
--- OUTSIDE RECORDS SUMMARY | 2024-05-08 10:22 | XMS_ITS | Encounter Summary ---
Author Organization [facility] Address [address] [place] [address] Care Team Providers Care Project Controller Name Role Phone Chandler Villalobos MD Primary Care Provider +1- [phone] Encounter Details Date Type Department Care Team [...] Info) Description 04/02/2025 1:30 PM EDT Appointment [facility] Infusion Center [address] [place] [phone] 04/06/2025 10:45 AM EDT Office Visit [facility] Hematology Oncology [address] [place] [phone] Loretta Broussard, [address] [place] [address] 04/06/2025 11:00 AM EDT Appointment [facility] Infusion Center [address] [place] [phone] 04/09/2025 10:30 AM EDT Appointment [facility] Infusion Center [address] [place] [phone] 04/10/2025 10:00 AM EDT Appointment [facility] Infusion Center [address] [place] [phone] 07/20/2025 12:30 PM EST Office Visit [address] [phone] Chandler Villalobos MD [address] [place] [address] documented as of this encounter Visit Diagnoses Not on filedocumented in this encounter Additional Health Concerns Infection Onset Date Last Indicated Resolved Time Respiratory Rule-Out 09/19/2024 09/19/2024 025 2:14 PM EDT COVID-19 Rule-Out 09/19/2024 09/19/2024 09/19/2024 2:14 PM EDT documented as of this encounter Care Teams Project Controller Relationship Specialty Start Date End Date Chandler Villalobos MD [address] [place] [address] PCP - General 04/25/24 documented as of this encounter
--- OUTSIDE RECORDS SUMMARY | 2024-05-09 09:05 | XMS_ITS | Encounter Summary ---
Author Organization [facility] Address [address] [place] [address] Care Team Providers Care Rn Assessment Name Role Phone Chandler Villalobos MD Primary Care Provider +1- [phone] Encounter Details Date Type Department Care Team [...] to encourage aBM, denies other concerns, call quinteros in reach. 0945: Prehydration infusion initiated. PT [...] PT well tolerating hydration, denies concerns, call quinteros in reach. 1545: Post hydration completed without [...] Info) Description 04/02/2025 1:30 PM EDT Appointment [address] [phone] 04/06/2025 10:45 AM EDT Office Visit [facility] Hematology Oncology [address] [place] [phone] Loretta Broussard, DO [address] [place] [address] 04/06/2025 11:00 AM EDT Appointment [address] [phone] 04/09/2025 10:30 AM EDT Appointment [address] [phone] 04/10/2025 10:00 AM EDT Appointment [address] [phone] 07/20/2025 12:30 PM EST Office Visit Adult [address] [phone] Chandler Villalobos MD [address] [place] [address] documented as of this encounter Visit Diagnoses Not on filedocumented in this encounter Additional Health Concerns Infection Onset Date Last Indicated Resolved Time Respiratory Rule-Out 09/19/2024 09/19/2024 025 2:14 PM EDT COVID-19 Rule-Out 09/19/2024 09/19/2024 09/19/2024 2:14 PM EDT documented as of this encounter Care Teams Rn Assessment Relationship Specialty Start Date End Date Chandler Villalobos MD [address] [place] [phone] PCP - General 04/25/24 documented as of this encounter
--- OUTSIDE RECORDS SUMMARY | 2025-03-26 09:30 | XMS_ITS | Encounter Summary ---
Author Organization [facility] Address [address] [place] [address] Care Team Providers Care Farm Machinery Engine Mechanic Name Role Phone Chandler Villalobos MD Primary Care Provider [phone] Reason for Visit * Reason Comments Other (Add RFV) Port draw and hydrat ion Encounter Details Date Type Department Care Team (Latest Contact Info) Description 03/26/2025 9:30 AM EDT - 03/26/2025 11:59 PM EDT Hospital Encounter [facility] [address] [phone] Loretta Broussard, [address] [place] [address] Primary gall bladder adenocarcinoma (CMS/HCC V24, CMS/HCC V28) (Primary Dx); Iron deficiency anemia, unspecified iron deficiency anemia type Discharge Disposition: Home or Self Care Social [...] Sign Reading Time Taken Comments Blood Pressure 105/72 03/26/2025 10:00 AM EDT Pulse 100 03/26/2025 10:00 AM EDT Temperature 36.8 C (98.2 F) 03/26/2025 10:00 AM EDT Respiratory Rate 18 03/26/2025 10:00 AM EDT Oxygen Saturation 100% 03/26/2025 10:00 AM EDT Inhaled Oxygen Concentration - - [...] 2nd Gen Pen Needle 32 gauge x /32 needle USE WITH INSULIN PENS 4 TIMES A DAY 400 each 5 blood sugar diagnostic (FreeStyle Lite Strips) test strip Use to test blood sugar 3 times daily 200 strip 2 5 FreeStyle Lancets 28 gauge lancets USE [...] nausea or vomiting. 60 tablet 3 5 dexAMETHasone (DECADRON) 4 mg tabletIndications:P rimary gall bladder adenocarcinoma (CMS/HCC V24, CMS/HCC V28) Take 8 mg (2 tablets) once daily, starting the day after treatment, for two days. Take in the morning with food. 30 tablet 1 5 03/28/20 25 documented as of this encounter Discharge Disposition Disposition Code Departure Means Destination Home or Self Care documented in this encounter Progress Notes * Marilyn Crisostomo RN - 03/26/2025 9:30 AM EDT 1003: PT arrives this morning for pre treatment port drawn labs. 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 PT has trouble completing ADLs and often drops objects. PT recently fell and sustained left ankle fracture, recently had a f/u with ortho who gave her a full boot. PT compliant with boot although hard for her to be this immobilized, PT waiting for scooter RX. PT denies any issues using the bathroom and appetite is stable. PT had polyuria last week, had given a UA although negative for UTI. Polyuria has since resolved, PT happy no infection was found, otherwise stable assessment. Port accessed, +BR noted, labs obtained and sent, flushed and hydration initiated. PT denies concerns, call quinteros in reach. 1116: Hydration completed. Port flushed per protocol and deaccessed, dressing applied. PT aware of tomorrows apt, left unit via wheelchair with mother, stable at D/C. documented in this encounter Plan of Treatment Upcoming Encounters Date Type Department Care Team (Late st Contact Info) Description 04/02/2025 1:30 PM EDT Appointment [facility] [address] [place] [phone] 04/06/2025 10:45 AM EDT Office Visit [facility] Oncology [address] [place] [phone] Loretta Broussard DO [address] [place] [phone] 04/06/2025 11:00 AM EDT Appointment [facility] [address] [place] [phone] 04/09/2025 10:30 AM EDT Appointment [facility] [address] [place] [phone] 04/10/2025 10:00 AM EDT Appointment [facility] [address] [place] [phone] 07/20/2025 12:30 PM EST Office Visit Adult [address] [phone] Chandler Villalobos MD [address] [place] [address] documented as of this encounter Procedures Procedure Name Priority Date/Time Associated Diagnosis Comments CBC WITH AUTO DIFFERENTIAL STAT 03/26/2025 9:46 AM EDT Primary gall bladder adenocarcinoma (CMS/HCC V24, CMS/HCC V28) Iron deficiency anemia, unspecified iron deficiency anemia type CANCER ANTIGEN 19-9 Routine 03/26/2025 9 :46 AM EDT Primary gall bladder adenocarcinoma (CMS/HCC V24, CMS/HCC V28) CBC AND DIFFERENTIAL STAT 03/26/2025 9:46 AM EDT Primary gall bladder adenocarcinoma (CMS/HCC V24, CMS/HCC V28) Iron deficiency anemia, unspecified iron deficiency anemia type CARCINOEMBRYONIC ANTIGEN Routine 03/26/2025 9:46 AM EDT Primary gall bladder adenocarcinoma (CMS/HCC V24, CMS/HCC V28) COMPREHENSIVE METABOLIC PANEL Routine 03/26/2025 9:46 AM EDT Primary gall bladder adenocarcinoma (CMS/HCC V24, CMS/HCC V28) documented in this encounter Results * (ABNORMAL) CBC auto differential (03/26/2025 9:46 AM EDT) WBC 7.1 4.8 - 10.8 K/mcL LAB HEMETOLOGY METHOD 03/26/2025 10:20 AM [facility] RBC 4.00 3.80 - 4.80 M/mcL LAB HEMETOLOGY METHOD 03/26/2025 10:20 AM [facility] Hemoglobin 11.1(L) 11.5 - 16.0 g/dL LAB HEMETOLOGY METHOD 03/26/2025 10:20 AM [facility] Hematocrit 34.9(L) 35.0 - 47.0 % LAB HEMETOLOGY METHOD 03/26/2025 10:20 AM [facility] MCV 87.9 79.0 - 98.0 FL LAB HEMETOLOGY METHOD 03/26/2025 10:20 AM [facility] MCH 28.0 27.0 - 32.0 pcg LAB HEMETOLOGY METHOD 03/26/2025 10:20 AM [facility] MCHC 31.8(L) 32.0 - 37.0 g/dL LAB HEMETOLOGY METHOD 03/26/2025 10:20 AM EDT [facility] RDW 14.1 11.0 - 15.0 % LAB HEMETOLOGY METHOD 03/26/2025 10:20 AM [facility] Platelets 201 130 - 400 K/mcL LAB HEMETOLOGY METHOD 03/26/2025 10:20 AM [facility] MPV 10.4 7.0 - 11.0 FL LAB HEMETOLOGY METHOD 03/26/2025 10:20 AM [facility] NRBC 0.0 <1.0 % LAB HEMETOLOGY METHOD 03/26/2025 10:20 AM [facility] NRBC Absolute 0.00 <0.10 K/mcL LAB HEMETOLOGY METHOD 03/26/2025 10:20 AM [facility] Neutrophils Relative 70.2 % LAB HEMETOLOGY METHOD 03/26/2025 10:20 AM [facility] Lymphocytes Relative 15.7 % LAB HEMETOLOGY METHOD 03/26/2025 10:20 AM [facility] Monocytes Relative 9.3 % LAB HEMETOLOGY METHOD 03/26/2025 10:20 AM [facility] Eosinophils Relative 3.0 % LAB HEMETOLOGY METHOD 03/26/2025 10:20 AM [facility] Basophils Relative 1.0 % LAB HEMETOLOGY METHOD 03/26/2025 10:20 AM [facility] Immature Granulocytes Relative 0.8 % LAB HEMETOLOGY METHOD 03/26/2025 10:20 AM [facility] Neutrophils Absolute 4.95 1.50 - 7.00 K/mcL LAB HEMETOLOGY METHOD 03/26/2025 10:20 AM [facility] Lymphocytes Absolute 1.11 1.00 - 5.00 K/mcL LAB HEMETOLOGY METHOD 03/26/2025 10:20 AM EDT [facility] Monocytes Absolute 0.66 0.20 - 1.00 K/mcL LAB HEMETOLOGY METHOD 03/26/2025 10:20 AM EDT [facility] Eosinophils Absolute 0.21 0.00 - 0.50 K/mcL LAB HEMETOLOGY METHOD 03/26/2025 10:20 AM EDT [facility] Basophils Absolute 0.07 0.00 - 0.20 K/mcL LAB HEMETOLOGY METHOD 03/26/2025 10:20 AM EDT [facility] Immature Granulocytes Absolute 0.06(H) 0.00 - 0.03 K/mcL LAB HEMETOLOGY METHOD 03/26/2025 10:20 AM EDT [facility] Blood Blood sample taken from central line / Unknown Existing Catheter / Unknown 03/26/2025 9:46 AM EDT 03/26/2025 10:13 AM EDT us Loretta Broussard DO LAB BLOOD ORDERABLES Final Result [facility] [address] [place] [address], * Cancer antigen 19-9 (03/26/2025 9:46 AM EDT) CA 19-9 3.4 <=35 U/mL 03/28/2025 10:36 AM EDT [facility] Comment: The Siemens Advia Centaur CA199 Chemiluminescent Immunoassay is used. Results obtained with different assay methods or kits cannot be used interchangeably. Results cannot be interpreted as absolute evidence of the presence or absence of malignant disease. Test performed at [facility], [facility] [address] [place] [address] Shyanne Bonilla MD, PhD - Criminal Investigator Blood Blood sample taken from central line / Unknown Existing Catheter / Unknown 03/26/2025 9:46 AM EDT 03/26/2025 10:13 AM EDT Loretta Lianne Broussard DO LAB BLOOD ORDERABLES Final Result [facility] [address] [place] [address] * CEA (03/26/2025 9:46 AM EDT) Pathologist [facility] CEA 4.8 0.0 - 5.0 ng/mL LAB CHEMISTRY METHOD 03/26/2025 12:40 PM EDT [facility] Blood Blood sample taken from central line / Unknown Existing Catheter / Unknown 03/26/2025 9:46 AM EDT 03/26/2025 10:13 AM EDT Narrative [facility] - 03/26/2025 12:40 PM EDT The Siemens Advia enVeridaur Chemiluminescent Immunoassay is used. Results obtained with different assay methods or kits cannot be used interchangeably. Results cannot be interpreted as absolute evidence of the presence or absence of malignant disease. Loretta Broussard DO LAB BLOOD ORDERABLES Final Result [facility] [address] [place] [address], [place] [phone] * (ABNORMAL) Comprehensive metabolic panel (03/26/2025 9:46 AM EDT) [facility] Sodium 140 133 - 145 mmol/L LAB CHEMISTRY METHOD 03/26/2025 11:25 AM EDT [facility] Potassium 3.7 3.5 - 5.5 mmol/L LAB CHEMISTRY METHOD 03/26/2025 11:25 AM EDT [facility] Chloride 107 96 - 110 mmol/L LAB CHEMISTRY METHOD 03/26/2025 11:25 AM EDT [facility] CO2 23 21 - 32 mmol/L LAB CHEMISTRY METHOD 03/26/2025 11:25 AM EDT [facility] Anion Gap 10 3 - 11 LAB CHEMISTRY METHOD 03/26/2025 11:25 AM [facility] Glucose 216(H) 70 - 100 mg/dL LAB CHEMISTRY METHOD 03/26/2025 11:25 AM [facility] BUN 14 5 - 25 mg/dL LAB CHEMISTRY METHOD 03/26/2025 11:25 AM [facility] Creatinine 1.19(H) 0.50 - 1.10 mg/dL LAB CHEMISTRY METHOD 03/26/2025 11:25 AM [facility] eGFR 55(L) >=60 mL/min/1. 73m2 LAB CHEMISTRY METHOD 03/26/2025 11:25 AM [facility] Comment:Calculation based on the Chronic Kidney Disease Epidemiology Collaboration (CKD-EPI) equation refit without adjustment for race. BUN/Creatinine Ratio 11.8 LAB CHEMISTRY METHOD 03/26/2025 11:25 AM [facility] Calcium 9.6 8.5 - 10.5 mg/dL LAB CHEMISTRY METHOD 03/26/2025 11:25 AM [facility] AST (SGOT) 18 10 - 42 unit/L LAB CHEMISTRY METHOD 03/26/2025 11:25 AM [facility] ALT (SGPT) 13 10 - 60 unit/L LAB CHEMISTRY METHOD 03/26/2025 11:25 AM [facility] Alkaline Phosphatase 127(H) 42 - 121 unit/L LAB CHEMISTRY METHOD 03/26/2025 11:25 AM [facility] Total Protein 6.4 6.0 - 8.0 g/dL LAB CHEMISTRY METHOD 03/26/2025 11:25 AM [facility] Albumin 3.0(L) 3.2 - 5.0 g/dL LAB CHEMISTRY METHOD 03/26/2025 11:25 AM [facility] Total Bilirubin 0.7 0.0 - 1.4 mg/dL LAB CHEMISTRY METHOD 03/26/2025 11:25 AM EDT [facility] Comment:Results verified by repeat testing Blood Blood sample taken from central line / Unknown Existing Catheter / Unknown 03/26/2025 9:46 AM EDT 03/26/2025 10:13 AM EDT us Loretta Broussard DO LAB BLOOD ORDERABLES Final Result [facility] [address] [place] [address], documented in this encounter Visit Diagnoses Diagnosis Primary gall bladder adenocarcinoma ([facility] V24, [facility]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 Iron deficiency anemia, unspecified iron deficiency anemia type documented in this encounter Administered Medications Inactive Administered Medications - up to 3 most recent administrations Medication Order MAR Action Action Date Dose Rate Site sodium chloride 0.9 % bolus 1,000 mL 1,000 mL, intravenous, at 1,000 mL/hr, Administer over 1 Hours, Once, On 03/26/25 at 1000, For 1 doseIndications:Primary gall bladder adenocarcinoma (CMS/[facility] V24, CMS/[facility] V28) New Bag 03/26/2025 10:00 AM EDT 1,000 mL 1000 mL/hr documented in this encounter Orders Medications Ordered That Mikal ht Not Have Been Administered Count Last Ordered Date First Ordered Date sodium chloride 0.9 % bolus 1,000 mL 1 03/12 documented in this encounter Care Teams Farm Machinery Engine Mechanic Relationship Specialty Start Date End Date Chandler Villalobos MD [address] [place] [phone] PCP - General 04/25/24 documented as of this encounter
--- OUTSIDE RECORDS SUMMARY | 2025-03-27 08:00 | XMS_ITS | Encounter Summary ---
Author Organization [facility] Address [address] [place] [address] Care Team Providers Care Motor Vehicle Compliance Analyst Name Role Phone Chandler Villalobos MD Primary Care Provider [phone] Reason for Visit * Reason Comments Chemotherapy C15D1 5FU & leucovoi n * Episode Based Medications (Routine) - Authorized Specialty Diagnoses / Procedures Referred By Contesther t Referred To Contact Diagnoses Primary gall bladder adenocarcinoma (CMS/HCC V24, CMS/HCC V28) Loretta Broussard DO [address] [place] [address] Phone: tel: fax: [address] [phone] Phone: tel: fax: Referral ID Status Reason Start Date Expiration Date V isits Requested Visits Authorized [id number] Authorized 09/03/2024 09/03/2025 1 29 Encounter Details Date Type Department Care Team (Latest Contact Info) Description 03/27/2025 8:00 AM EDT Hospital Encounter [address] [phone] Loretta Broussard DO [address] [place] [phone] Primary gall bladder adenocarcinoma (CMS/HCC V24, CMS/HCC V28) (Primary Dx) Social History Tobacco Use Types Packs/Day Years [...] Sign Reading Time Taken Comments Blood Pressure 110/67 03/27/2025 8:22 AM EDT Pulse 100 03/27/2025 8:22 AM EDT Temperature 37 C (98.6 F) 03/27/2025 8:22 AM EDT Respiratory Rate 18 03/27/2025 8:22 AM EDT Oxygen Saturation 98% 03/27/2025 8:22 AM EDT Inhaled Oxygen Concentration - - Weight 84.4 kg (186 lb) 03/27/2025 8:22 AM EDT Height 163.8 cm (5' 4.49 ) 03/27/2025 8:22 AM ED T Body Mass Index 31.45 03/27/2025 8:22 AM EDT documented in this encounter Progress Notes * Shanita Robbins RN - 03/27/2025 8:00 AM EDT 03/26- 1LNS with treatment CREA 1.19- Please ensure pt has ortho apt- LM * Marilyn Crisostomo RN - 03/27/2025 8:00 AM EDT 0833: PT arrives this morning for C15D1 5FU and leucovorin infusions. PT reports no acute changes or concerns, neuropathy continues to be constant and significant without pain but difficulty completing ADLs. PT denies issues to GI nor system. Pts kidney function notably elevated above baseline creatinine 1.19, PT to get 1L NS with treatment today. PT has struggled to hydrate lately r/t immobilization with left ankle fracture. PT aware she needs to hydrate more orally at home too. Stable assessment otherwise. Port accessed, +BR noted, flushed and hydration initiated. PT denies concerns, given snacks and warm blankets, call quinteros in reach. 1000: Premedications given, hydration completed. Leucovorin infusion initiated, call quinteros in reach. 1130: Leucovorin infusion completed without concerns. 5FU IVP administered slow with free flowing fluids and +BR noted throughout. 5FU continuous infusion pump initiated, all connections secured. PT given next apt reminders via calendar, left unit via wheelchair, stable at D/C. documented in this encounter Plan of Treatment Upcoming Encounters Date Type Department Care Team (Late st Contact Info) Description 04/02/2025 1:30 PM EDT Appointment [facility] [address] [place] [phone] 04/06/2025 10:45 AM EDT Office Visit [facility] Hematology Oncology [address] [place] [phone] Loretta Broussard, [address] [place] [phone] 04/06/2025 11:[address] [facility] [address] [place] [phone] 04/09/2025 10:30 AM EDT Appointment [facility] [address] [place] [phone] 04/10/2025 10:00 AM EDT Appointment [facility] [address] [place] [phone] 07/20/2025 12:30 PM EST Office Visit Adult [address] [phone] Chandler Villalobos MD [address] [place] [address] documented as of this encounter Visit Diagnoses Diagnosis Primary gall bladder adenocarcinoma (CMS/HCC V24, CMS/HCC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 documented in this encounter Administered Medications Inactive Administered Medications - up to 3 most recent administrations Medication Order MAR Action Action Date Dose Rate Site dexAMETHasone (DECADRON) injection 12 mg 12 mg, intravenous, Once, On Wed03/27/25 at 0915, For 1 doseIndications:Primary gall bladder adenocarcinoma (CMS/HCC V24, CMS/HCC V28) Given 03/27/2025 9:04 AM EDT 12 mg fluorouracil (ADRUCIL) 4,600 mg in sodium chloride 0.9 % 138 mL chemo infusion 4,600 mg (rounded from 4,584 mg = 2,400 mg/m2 1.91 m2), intravenous, at 3 mL/hr, Administer over 46 Hours, Once, On Wed03/27/25 at 1130, For 1 dose, Fluorouracil is administered as a continuous infusion over multiple days within this regimen. This agent requires a central venous access device for administration in this regimen. Protect from light Antineoplastic Hazardous Medication - Double pair of ASTM standard [id number] certified gloves - Hazardous gown - Eye/face protection if liquid that could splash - CSTD required when possibleIndications:Primary gall bladder adenocarcinoma (CMS/HCC V24, CMS/HCC V28) Given 03/27/2025 11:10 AM EDT 4,600 mg 3 mL/hr fluorouracil (ADRUCIL) chemo injection 750 mg 750 mg (rounded from 764 mg = 400 mg/m2 1.91 m2), intravenous, at 90 mL/hr, Administer over 10 Minutes, Once, On Wed03/27/25 at 1115, For 1 dose, IV push Protect from light Antineoplastic Hazardous Medication - Double pair of ASTM standard [id number] certified gloves - Hazardous gown - Eye/face protection if liquid that could splash - CSTD required when possibleIndications:Primary gall bladder adenocarcinoma (CMS/HCC V24, CMS/HCC V28) Given 03/27/2025 11:10 AM EDT 750 mg 90 mL/hr leucovorin 750 mg in dextrose 287.5 mL IVPB 750 mg (rounded from 764 mg = 400 mg/m2 1.91 m2), intravenous, at 191.7 mL/hr, Administer over 90 Minutes, Once, On Wed03/27/25 at 0945, For 1 dose, Run concurrent with OXALIplatin infusion, so that the two drugs end at approximately the same time.Indications:Primary gall bladder adenocarcinoma (CMS/HCC V24, CMS/HCC V28) New Bag 03/27/2025 9:59 AM EDT 750 mg 280 mL/hr palonosetron (ALOXI) injection 250 mcg 250 mcg, intravenous, Once, On Wed03/27/25 at 0915, For 1 doseIndications:Primary gall bladder adenocarcinoma (CMS/HCC V24, CMS/HCC V28) Given 03/27/2025 9:04 AM EDT 250 mcg sodium chloride 0.9 % bolus 1,000 mL 1,000 mL, intravenous, at 1,000 mL/hr, Administer over 1 Hours, Once, On Wed03/27/25 at 0915, For 1 doseIndications:Primary gall bladder adenocarcinoma (CMS/HCC V24, CMS/HCC V28) New Bag 03/27/2025 8:33 AM EDT 1,000 mL 1000 mL/hr documented in this encounter Care Teams Motor Vehicle Compliance Analyst Relationship Specialty Start Date End Date Chandler Villalobos MD [address] [place] [phone] PCP - General 04/25/24 documented as of this encounter
--- OUTSIDE RECORDS SUMMARY | 2025-03-29 09:30 | XMS_ITS | Encounter Summary ---
Author Organization [facility] Address [address] [place] [address] Care Team Providers Care Web Ui Software Engineer Name Role Phone Chandler Villalobos MD Primary Care Provider [phone] Reason for Visit * Reason Comments Other (Add RFV) Pump take down Encounter Details Date Type Department Care Team (Latest Contact Info) Description 2025 9:30 AM EDT Hospital Encounter [facility] [address] [facility] [address] [place] [phone] Loretta Broussard, DO [address] [place] [address] Primary gall bladder adenocarcinoma (CMS/HCC V24, CMS/HCC [...] Sign Reading Time Taken Comments Blood Pressure 111/72 2025 10:07 AM EDT Pulse 79 2025 10:07 AM EDT Temperature 36.1 C (97 F) 2025 10:07 AM EDT Respiratory Rate 18 2025 10:07 AM EDT Oxygen Saturation 100% 2025 10:07 AM EDT Inhaled Oxygen Concentration - - Weight - - Height - - Body Mass Index - - documented in this encounter Progress Notes * Marilyn Crisostomo RN - 2025 9:30 AM EDT 1007: PT arrives this morning for pump take down and hydration. Today is Patients birthday, sts sheis feeling well without changes or acute concerns. Neuropathy remains significant to hands and feet, constant, no pain but difficulty completing ADLs. Stable assessment otherwise. Pump fully infused 1 38mL, port flushed and hydration initiated. PT denies concerns, call quinteros in reach. 1115: Hydration completed. Port flushed per protocol and deaccessed, dressing applied. PT given next apts, left unit via wheelchair with sister, stable at D/C. documented in this encounter Plan of Treatment Upcoming Encounters Date Type Department Care Team (Late st Contact Info) Description 04/02/2025 1:30 PM EDT Appointment [facility] [address] [place] [phone] 04/06/2025 10:45 AM EDT Office Visit [facility] Hematology Oncology [address] [place] [phone] Loretta Broussard, [address] [place] [phone] 04/06/2025 11:00 AM EDT Appointment [facility] [address] [place] [phone] 04/09/2025 10:30 AM EDT Appointment [facility] [address] [place] [phone] 04/10/2025 10:00 AM EDT Appointment [facility] [address] [place] [phone] 07/20/2025 12:30 PM EST Office Visit Adult [facility] [address] [place] [address] Chandler Villalobos MD [address] [place] [address] documented as of this encounter Visit Diagnoses Diagnosis Primary gall bladder adenocarcinoma ([facility] V24, [facility]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 documented in this encounter Administered Medications Inactive Administered Medications - up to 3 most recent administrations Medication Order MAR Action Action Date Dose Rate Site sodium chloride 0.9 % bolus 1,000 mL 1,000 mL, intravenous, at 1,000 mL/hr, Administer over 1 Hours, Once, On Nilda 03/29/25 at 1030, For 1 doseIndications:Primary gall bladder adenocarcinoma ([facility] V24, [facility] V28) New Bag 2025 10:07 AM EDT 1,000 mL 1000 mL/hr documented in this encounter Orders Medications Ordered That Mikal ht Not Have Been Administered Count Last Ordered Date First Ordered Date sodium chloride 0.9 % bolus 1,000 mL 1 03/12 documented in this encounter Care Teams Web Ui Software Engineer Relationship Specialty Start Date End Date Chandler Villalobos MD [address] [place] [address] PCP - General 04/25/24 documented as of this encounter
--- NOTE | 2025-03-30 11:07 | MHC.OFFVIS ---
Vital Signs 03/30/25 11:08 Height 5 ft 4.5 in Weight 185 lb BMI 31.3 Intake Visit Reasons: 1 Week f/u Intake Note: Indigo is a 54 year old female who presents today for a follow up of her left ankle fracture. Patient reports slight improvement but she is still experiencing mild pain in her ankle Allergies lisinopril Allergy (Verified 03/23/25 11:03) Anaphylaxis HPI Comments Details: The patient is a 55-year-old female presenting for follow-up of a left distal fibular avulsion fracture. The fracture occurred almost a month ago and was initially managed with an air cast, which was later replaced by a boot for better stability. The patient reports that the boot provides more stability compared to the air cast, which felt unstable. Patient states her pain has continued to decrease at this time. Patient states she recently received her knee scooter and has been nonweightbearing to the left lower extremity. Patient states she has been experiencing some swelling to the lower extremities, possibly due to recent fluid administration at the cancer center. She denies any new injuries. She denies any other pedal concerns. She denies any current nausea, vomiting, fever, or chills. [facility] Medical History (Updated 03/31/25 @ 19:41 by Karolina Weaver DPM) Left ankle injury Left ankle pain Avulsion fracture of distal fibula Closed left ankle fracture Review of Systems Const Details: - Musculoskeletal: Reports pain to the left ankle, improved from last visit. - General: Reports swelling of the lower extremities, possibly related to fluid administration. All systems reviewed & are unremarkable except as noted in HPI and below Physical Exam Vital Signs: BMI result Body Mass Index 31.3 Extrem Other: Left lower extremity focused physical exam: Derm: No open lesions abrasions or wounds noted. No ecchymosis or erythema noted. No clinical signs of infection. Skin supple and turgor within normal limits. Vascular: DP/PT pulses palpable. Capillary refill time less than 3 seconds. Minimal edema noted to bilateral lower extremities. Temperature gradient warm to warm. No varicosities noted. Pedal hair present. Neuro: Protective sensation is grossly diminished. Musculoskeletal: Reduced pain on palpation to the distal aspect of the fibula. Pain with ankle dorsiflexion, range of motion of ankle improved from last visit. No pain on palpation along the lateral ankle ligaments. No pain along the medial malleolus or deltoid ligaments. Negative squeeze test. No pain noted to the proximal aspect of the fibula. Range of motion of the forefoot within normal limits. No pain to the forefoot. Office Procedures [facility] Podiatry Dressing 70466 - Short leg splint Procedure code (CPT) selection complete Results Reviewed Results Reviewed: Reviewed patient's left ankle and foot x-rays that were previously done at [facility]. Podiatry read: Nondisplaced transverse avulsion fracture noted to the distal tip of the fibula. No acute dislocations noted. Ordered a left ankle three-views weightbearing x-ray to be performed prior to next visit. Assessment & Plan Assessment & Plan (1) Closed left ankle fracture: Code(s): S82.892A - Other fracture of left lower leg, initial encounter for closed fracture Category: Medical Qualifiers: Encounter type: subsequent encounter Fracture healing: with routine healing Qualified Code(s): S82.892D - Other fracture of left lower leg, subsequent encounter for closed fracture with routine healing (2) Avulsion fracture of distal fibula: Code(s): S82.839A - Other fracture of upper and lower end of unspecified fibula, initial encounter for closed fracture Category: Medical (3) Left ankle injury: Code(s): S99.912A - Unspecified injury of left ankle, initial encounter Category: Medical Qualifiers: Encounter type: subsequent encounter Qualified Code(s): S99.912D - Unspecified injury of left ankle, subsequent encounter (4) Left ankle pain: Code(s): M25.572 - Pain in left ankle and joints of left foot Category: Medical Qualifiers: Chronicity: acute Qualified Code(s): M25.572 - Pain in left ankle and joints of left foot Plan Patient was informed and verbally consented to the use of an ambient scribe for clinic note documentation during this visit. I discussed with the patient that the fracture was without displacement, which is favorable for recovery without surgical intervention. We reviewed the importance of continuation of the CAMboot for stability and the plan to transition to WBAT in the CAMboot. I advised obtaining follow-up x-rays to monitor healing and emphasized reporting any unusual swelling. Discussed with the patient bone healing usually takes approximately 8 weeks or longer depending on intensity of fracture to heal. - Applied a Liriano compression dressing to the left lower extremity. Reapplied CAMboot to the left lower extremity. - Continue using the CAMboot for stability and gradually transition to weight-bearing activities in the boot. - Week 1 patient is to be weight-bearing as tolerated to the left lower extremity in a cam boot with the use of an assistive device. - Week 2 patient is to be weight-bearing as tolerated to the left lower extremity in a cam boot without the use of an assistive device. - Patient is to transition without an assistive device pending patient's tolerance instability. - Obtain follow-up x-rays in prior to next visit to assess bone healing progression. - Monitor for abnormal swelling and report any significant changes. - Continue with RICE protocol. - Continue using Tylenol or Ibuprofen for pain. Patient is to return to the office in 2 weeks for re-evaluation of healing. Orders: Orders [facility]B Podiatry Dressing Today M25.572 - Pain in left ankle and joints of left foot, S82.839A - Other fracture of upper and lower end of unspecified fibula, initial encounter for closed fracture, S82.892D - Other fracture of left lower leg, subsequent encounter for closed fracture with routine healing, S99.912D - Unspecified injury of left ankle, subsequent encounter XR ankle LT min 3V 03/30/25 M25.572 - Pain in left ankle and joints of left foot, S82.839A - Other fracture of upper and lower end of unspecified fibula, initial encounter for closed fracture, S82.892A - Other fracture of left lower leg, initial encounter for closed fracture, S99.912A - Unspecified injury of left ankle, initial encounter Coding Level of Care Code Est Pt Level 4 (59219) Diagnoses Closed fracture of left ankle with routine healing, subsequent encounter S82.892D Encounter type: subsequent encounter Fracture healing: with routine healing Avulsion fracture of distal fibula S82.839A Injury of left ankle, subsequent encounter S99.912D Encounter type: subsequent encounter Acute left ankle pain M25.572 Chronicity: acute CPT Codes Podiatry Dressing - CPT: 84786 - Short leg splint ([id number]) Time Spent (min) 50
[2025-03-30 11:08] VITALS: BMI 31.3
--- OUTSIDE RECORDS SUMMARY | 2025-03-30 11:39 | XMS_ITS ---
Author Organization [facility] Address [address] [place] [address] Phone Care Team Providers Care Orthotic Aide Name Role Phone Chandler Villalobos MD Primary Care Provider Active Problems Problem Noted Date Diagnosed Date Elevated carcinoembryonic antigen (CEA) 07/02/20 24 Hypokalemia 05/18/2024 Port-A-Cath in place 05/18/2024 Primary gall bladder adenoca rcinoma ([facility] V24, [facility] V28) 04/27/2024 Type 2 diabetes mellitus wit hout complication, with long-term current use of insulin ([facility] V24, [facility] V28) 04/27/2024 Primary hypertension 04/27/2024 Mixed hyperlipidemia 04/27/2024 Iron deficiency anemia 04/27/2024 Current Oncology Plans FOLFOX ( Fluorouracil Continuous Infusion / Leucovorin / OXALIplatin )* Plan Start Date:09/03/2024 Plan Provider:Loretta Broussard, Linked Problems Primary gall bladder adenoca rcinoma ([facility] V24, [facility] V28) Treatment Medications Current Day (Day 1 , Cycle 16 - Planned for 04/10/2025) Next Day (Day 3, Cycle 16 - Planned for 04/12/2025) 5-FU (ADRUCIL) chemo infusio n 100 mL - for home use solutionfluorouracil (ADRUCIL)leucovorinleucovorin IVPB in D5W (350 mg vial)OXALIplatin (ELOXATIN) chemo infusion fluorouracil (ADRUCIL) 4,600 mg in sodium chloride 0.9 % 100 mL chemo infusionfluorouracil (ADRUCIL) chemo injection 750 mgleucovorin 750 mg in dextrose 287.5 mL IVPB No medications scheduled. HYDRATION AND ELECTROLYTES* Plan Start Date:05/18/2024 Plan Provider:Loretta Broussard DO Linked Problems Primary gall bladder adenoca rcinoma ([facility] V24, [facility] V28) Treatment Medications No medications scheduled. OUTPATIENT TRANSFUSION (PRN)* Plan Start Date:05/30/2024 Plan Provider:Loretta Broussard DO Linked Problems Iron deficiency anemia, unsp ecified iron deficiency anemia typePrimary gall bladder adenocarcinoma ([facility] V24, [facility] V28) Treatment Medications No medications scheduled. Other [...] treatments are documented for this patient in [facility]. Treatments may have been administered in another system.
--- OUTSIDE RECORDS SUMMARY | 2025-03-30 11:39 | XMS_ITS | Clinical Summary ---
Author Organization [facility] Address [address] [place] [address] Phone Care Team Providers Care Online Affiliate Marketing Manager Name Role Phone Chandler Villalobos MD Primary Care Provider Allergies Active Allergy Reactions Criticality Noted Date Comments Lisinopril Anaphylaxis High 04/12/2024 Medications mineral oil liquid Take by mouth. For constipation Active prochlorperazine (COMPAZINE) 10 mg tabletIndications: Primary [...] day. 300 each 1 03/16/20 25 Active dexAMETHasone (DECADRON) 4 mg tabletIndications: Primary gall bladder adenocarcinoma (CMS/HCC V24, CMS/HCC V28) Take 8 mg (2 tablets) once daily, starting the day after treatment, for two days. Take in the morning with food. 30 tablet 1 03/28/20 25 Active dexAMETHasone (DECADRON) 4 mg tabletIndications: Primary gall bladder adenocarcinoma (CMS/HCC V24, CMS/HCC V28) Take 8 mg (2 tablets) once daily, starting the day after treatment, for two days. Take in the morning with food. 30 tablet 1 09/05/19 25 025 Discontin ued(Reord er) alcohol swabs (Alcohol Pads) pads, medicated Apply topically 3 (three) times a day. 300 each 02/01/20 25 025 Discontin ued(Reord er) Active Problems Problem Noted Date Diagnosed Date Elevated carcinoembryonic antigen (CEA) 07/02/20 24 Hypokalemia 05/18/2024 Port-A-Cath in place 05/18/2024 Primary gall bladder adenoca rcinoma ([facility] V24, [facility] V28) 04/27/2024 Type 2 diabetes mellitus wit hout complication, with long-term current use of insulin ([facility] V24, [facility] V28) 04/27/2024 Primary hypertension 04/27/2024 Mixed hyperlipidemia 04/27/2024 Iron deficiency anemia 04/27/2024 Encounters Date Type Department Care Team Description 2025 9:30 AM EDT Hospital Encounter [address] [phone] Loretta Broussard, Primary gall bladder adenocarcinoma ([facility] V24, [facility] V28) (Primary Dx) 03/27/2025 8:00 AM EDT Hospital Encounter [address] [phone] Loretta Broussard, Primary gall bladder adenocarcinoma ([facility] V24, [facility] V28) (Primary Dx) 03/26/2025 9:30 AM EDT - 03/26/2025 11:59 PM EDT Hospital Encounter [address] [phone] Loretta Broussard, Primary gall bladder adenocarcinoma ([facility] V24, [facility]/HCC V28) (Primary Dx); Iron deficiency anemia, unspecified iron deficiency anemia type Discharge Disposition: Home or Self Care 03/23/2025 1:24 PM EDT - 03/23/2025 11:59 PM EDT Hospital Encounter [address] [phone] Loretta Broussard, Primary gall bladder adenocarcinoma ([facility] V24, [facility] V28) (Primary Dx) Discharge Disposition: Home or Self Care 03/19/2025 1:30 PM EDT - 03/19/2025 11:59 PM EDT Hospital Encounter [facility] [address] [place] [phone] Loretta Broussard, Primary gall bladder adenocarcinoma (CMS/HCC V24, CMS/HCC V28) (Primary Dx) Discharge Disposition: Home or Self Care 03/15/2025 11:23 AM EDT - 03/15/2025 11:59 PM EDT Hospital Encounter [facility] [address] [place] [phone] Primary gall bladder adenocarcinoma (CMS/HCC V24, CMS/HCC V28) (Primary Dx) Discharge Disposition: Home or Self Care 03/13/2025 10:00 AM EDT - 03/13/2025 11:59 PM EDT Hospital Encounter [facility] [address] [place] [phone] Loretta Broussard, Primary gall bladder adenocarcinoma (CMS/HCC V24, CMS/HCC V28) (Primary Dx) Discharge Disposition: Home or Self Care 03/09/2025 1:54 PM EDT - 03/09/2025 3:54 PM EDT Emergency [facility] Emergency [address] [place] [phone] Closed avulsion fracture of left ankle, initial encounter (Primary Dx) Discharge Disposition: Home or Self Care 03/09/2025 11:40 AM EDT - 03/09/2025 11:59 PM EDT Hospital Encounter [facility] Xray [address] [place] [phone] Primary gall bladder adenocarcinoma (CMS/HCC V24, CMS/HCC V28) Discharge Disposition: Home or Self Care 03/09/2025 11:39 AM EDT - 03/09/2025 11:59 PM EDT Hospital Encounter [facility] Xray [address] [place] [phone] Loretta Broussard, Primary gall bladder adenocarcinoma (CMS/HCC V24, CMS/HCC V28) Discharge Disposition: Home or Self Care 03/09/2025 10:30 AM EDT - 03/09/2025 11:59 PM EDT Hospital Encounter [facility] [address] [place] [phone] Loretta Broussard, Primary gall bladder adenocarcinoma (CMS/HCC V24, CMS/HCC V28) (Primary Dx) Discharge Disposition: Home or Self Care 03/09/2025 10:00 AM EDT Office Visit [facility] Hematology Oncology [address] [place] [phone] Loretta Broussard, Primary gall bladder adenocarcinoma (CMS/HCC V24, CMS/HCC V28) (Primary Dx); Acute left ankle pain; Hypomagnesemia 03/05/2025 10:00 AM EDT - 03/05/2025 11:59 PM EDT Hospital Encounter [facility] [address] [place] [phone] Loretta Broussard, Primary gall bladder adenocarcinoma (CMS/HCC V24, CMS/HCC V28) (Primary Dx) Discharge Disposition: Home or Self Care 03/01/2025 12:02 PM EDT - 03/01/2025 11:59 PM EDT Hospital Encounter [facility] [address] [place] [phone] Loretta Broussard, Primary gall bladder adenocarcinoma (CMS/HCC V24, CMS/HCC V28) (Primary Dx) Discharge Disposition: Home or Self Care 02/27/2025 10:00 AM EDT - 02/27/2025 11:59 PM EDT Hospital Encounter [facility] [address] [place] [phone] Loretta Broussard, Primary gall bladder adenocarcinoma (CMS/HCC V24, CMS/HCC V28) (Primary Dx) Discharge Disposition: Home or Self Care 02/26/2025 9:00 AM EDT - 02/26/2025 11:59 PM EDT Hospital Encounter [facility] Infusion [address] [phone] Loretta Broussard, DO Primary gall bladder adenocarcinoma (CMS/HCC V24, CMS/HCC V28) (Primary Dx) Discharge Disposition: Home or Self Care 02/23/2025 1:30 PM EDT - 02/23/2025 11:59 PM EDT Hospital Encounter [address] [phone] Loretta Broussard, DO Primary gall bladder adenocarcinoma (CMS/HCC V24, CMS/HCC V28) (Primary Dx) Discharge Disposition: Home or Self Care 02/19/2025 1:00 PM EDT - 02/19/2025 11:59 PM EDT Hospital Encounter [address] [phone] Loretta Broussard, DO Primary gall bladder adenocarcinoma (CMS/HCC V24, CMS/HCC V28) (Primary Dx) Discharge Disposition: Home or Self Care 02/16/2025 Lab Requisition [facility] [address] [facility] [place] [phone] Trista Richards MD Secondary and unspecified malignant neoplasm of lymph node, unspecified (CMS/HCC V24, CMS/HCC V28) 02/15/2025 11:30 AM EDT - 02/15/2025 11:59 PM EDT Hospital Encounter [address] [phone] Loretta Broussard, DO Primary gall bladder adenocarcinoma (CMS/HCC V24, CMS/HCC V28) (Primary Dx) Discharge Disposition: Home or Self Care 02/13/2025 10:00 AM EDT - 02/13/2025 11:59 PM EDT Hospital Encounter [address] [phone] Loretta Broussard, DO Primary gall bladder adenocarcinoma (CMS/HCC V24, CMS/HCC V28) (Primary Dx) Discharge Disposition: Home or Self Care 02/12/2025 9:00 AM EDT - 02/12/2025 11:59 PM EDT Hospital Encounter [facility] [address] [place] [phone] Loretta Broussard, Primary gall bladder adenocarcinoma (CMS/HCC V24, CMS/HCC V28) (Primary Dx) Discharge Disposition: Home or Self Care 02/09/2025 12:59 PM EDT - 02/09/2025 11:59 PM EDT Hospital Encounter [facility] [address] [place] [phone] Loretta Broussard, Primary gall bladder adenocarcinoma (CMS/HCC V24, CMS/HCC V28) (Primary Dx) Discharge Disposition: Home or Self Care 02/07/2025 4:00 PM EDT Office Visit [address] [phone] Chandler Villalobos MD Primary hypertension (Primary Dx); Type 2 diabetes mellitus without complication, with long-term current use of insulin (CMS/HCC V24, CMS/HCC V28); Mixed hyperlipidemia; Primary gall bladder adenocarcinoma (CMS/HCC V24, CMS/HCC V28); Iron deficiency anemia, unspecified iron deficiency anemia type; Hypokalemia; Hypomagnesemia 02/05/2025 9:00 AM EDT - 02/05/2025 11:59 PM EDT Hospital Encounter [facility] [address] [place] [phone] Loretta Broussard, Primary gall bladder adenocarcinoma (CMS/HCC V24, CMS/HCC V28) (Primary Dx) Discharge Disposition: Home or Self Care 02/05/2025 8:45 AM EDT Office Visit [facility] Hematology Oncology [address] [place] [phone] Loretta Broussard, Primary gall bladder adenocarcinoma (CMS/HCC V24, CMS/HCC V28) (Primary Dx) 02/01/2025 10:04 AM EDT - 02/01/2025 11:59 PM EDT Hospital Encounter [facility] CT Scan [address] [place] [phone] Primary gall bladder adenocarcinoma (CMS/HCC V24, CMS/HCC V28) Discharge Disposition: Home or Self Care 02/01/2025 10:04 AM EDT - 02/01/2025 11:59 PM EDT Hospital Encounter [facility] [address] [place] [phone] Loretta Broussard, DO Primary gall bladder adenocarcinoma (CMS/HCC V24, CMS/HCC V28) (Primary Dx) Discharge Disposition: Home or Self Care 01/30/2025 8:00 AM EDT - 01/30/2025 11:59 PM EDT Hospital Encounter [facility] [address] [place] [phone] Loretta Broussard, DO Primary gall bladder adenocarcinoma (CMS/HCC V24, CMS/HCC V28) (Primary Dx) Discharge Disposition: Home or Self Care 01/29/2025 10:30 AM EDT - 01/29/2025 11:59 PM EDT Hospital Encounter [facility] [address] [place] [phone] Loretta Broussard, DO Primary gall bladder adenocarcinoma (CMS/HCC V24, CMS/HCC V28) (Primary Dx) Discharge Disposition: Home or Self Care 01/26/2025 10:59 AM EDT - 01/26/2025 11:59 PM EDT Hospital Encounter [facility] [address] [place] [phone] Loretta Broussard, DO Primary gall bladder adenocarcinoma (CMS/HCC V24, CMS/HCC V28) (Primary Dx) Discharge Disposition: Home or Self Care 01/22/2025 10:56 AM EDT - 01/22/2025 11:59 PM EDT Hospital Encounter [facility] [address] [place] [phone] Loretta Broussard, DO Primary gall bladder adenocarcinoma (CMS/HCC V24, CMS/HCC V28) (Primary Dx) Discharge Disposition: Home or Self Care 01/18/2025 11:59 AM EDT - 01/18/2025 11:59 PM EDT Hospital Encounter [facility] [address] [place] [phone] Loretta Broussard, DO Primary gall bladder adenocarcinoma (CMS/HCC V24, CMS/HCC V28) (Primary Dx) Discharge Disposition: Home or Self Care 01/16/2025 10:00 AM EDT - 01/16/2025 11:59 PM EDT Hospital Encounter [facility] [address] [place] [phone] Loretta Broussard, DO Primary gall bladder adenocarcinoma (CMS/HCC V24, CMS/HCC V28) (Primary Dx) Discharge Disposition: Home or Self Care 01/15/2025 11:00 AM EDT - 01/15/2025 11:59 PM EDT Hospital Encounter [facility] [address] [place] [phone] Loretta Broussard, DO Primary gall bladder adenocarcinoma (CMS/HCC V24, CMS/HCC V28) (Primary Dx) Discharge Disposition: Home or Self Care 01/11/2025 1:30 PM EDT - 01/11/2025 11:59 PM EDT Hospital Encounter [facility] [address] [place] [phone] Loretta Broussard, DO Primary gall bladder adenocarcinoma (CMS/HCC V24, CMS/HCC V28) (Primary Dx) Discharge Disposition: Home or Self Care 01/08/2025 12:57 PM EDT - 01/08/2025 11:59 PM EDT Hospital Encounter [facility] [address] [place] [phone] Loretta Broussard, Primary gall bladder adenocarcinoma (CMS/HCC V24, CMS/HCC V28) (Primary Dx) Discharge Disposition: Home or Self Care 01/05/2025 11:45 AM EDT Office Visit [facility] Hematology Oncology [address] [place] [phone] Loretta Broussard, Primary gall bladder adenocarcinoma (CMS/HCC V24, CMS/HCC V28) (Primary Dx) 01/05/2025 10:30 AM EDT - 01/05/2025 11:59 PM EDT Hospital Encounter [address] [phone] Loretta Broussard, Primary gall bladder adenocarcinoma (CMS/HCC V24, CMS/HCC V28) (Primary Dx) Discharge Disposition: Home or Self Care 01/03/2025 8:00 AM EDT - 01/03/2025 11:59 PM EDT Hospital Encounter [address] [phone] Loretta Broussard, Primary gall bladder adenocarcinoma (CMS/HCC V24, CMS/HCC V28) (Primary Dx) Discharge Disposition: Home or Self Care 01/02/2025 10:30 AM EDT - 01/02/2025 11:59 PM EDT Hospital Encounter [address] [phone] Loretta Broussard, Primary gall bladder adenocarcinoma ([facility]/HCC V24, CMS/HCC V28) (Primary Dx) Discharge Disposition: Home or Self Care 12/29/2024 1:29 PM EDT - 12/29/2024 11:59 PM EDT Hospital Encounter [facility] [address] [place] [phone] Loretta Broussard, Primary gall bladder adenocarcinoma (CMS/HCC V24, CMS/HCC V28) (Primary Dx) Discharge Disposition: Home or Self Care from Last 3 Months Surgical History Surgery Date Site/Laterality Comments OTHER SURGICAL HISTORY PROCEDURE: HISTORY OTHER; COMMENT: port A cath HYSTERECTOMY PROCEDURE: HISTORICAL HYSTERECTOMY OTHER SURGICAL HISTORY PROCEDURE: HISTORY OTHER; COMMENT: Gall bladder biopsy Medical History Medical History Date Comments DM2 (diabetes mellitus, type 2) (CMS/HCC V24, CMS/HCC V28) DX:DM2 (diabetes mellitus, type 2) ([facility]) Essential (primary) hypertension DX:Essential (primary) hypertension Mixed hyperlipidemia DX:Mixed hy perlipidemia Glaucoma DX:Glaucoma Chronic anemia DX:Chronic anemi a Gallbladder cancer ([facility] V24, [facility] V28) 03/2024 Family History Medical History Relation [...] Mass Index 31.45 03/27/2025 8:22 AM EDT Plan of Treatment Upcoming Encounters Date Type Department Care Team (Late st Contact Info) Description 04/02/2025 1:30 PM EDT Appointment [facility] [address] [place] [phone] 04/06/2025 10:45 AM EDT Office Visit [facility] Hematology Oncology [address] [place] [phone] Loretta Broussard [address] [place] [address] 04/06/2025 11:00 AM EDT Appointment [facility] [address] [place] [phone] 04/09/2025 10:30 AM EDT Appointment [facility] [address] [place] [phone] 04/10/2025 10:00 AM EDT Appointment [facility] [address] [place] [phone] 07/20/2025 12:30 PM EST Office Visit Adult Medicine [address] [phone] Chandler Villalobos MD [address] [place] [address] Health Maintenance Due Date Last Done Comments [...] 04/26/2024 Diabetes: Annual GFR (Glomerular Filtration Rate) 03/26/2026 03/26/2025, 03/09/2025, 02/26/2025, Additional history exists Hypertension/CHF/CAD Annual BMP Blood Test 03/26/2026 03/26/2025, 03/09/2025, 02/26/2025, Additional history exists Breast Cancer Screening 09/22/2026 09/22/2024 Cholesterol Screening (Lipid Panel) 07/03/2029 07/03/2024, 05/05/2024, 02/03/2001 RSV Immunization Adult Patients (1 - 1-dose 75+ series) 2047 MMR Vaccines Aged Out 03/03/2024 No longer [...] (CMS/HCC V24, CMS/HCC V28) CARCINOEMBRYONIC ANTIGEN Routine 03/26/2025 9:46 AM EDT Primary gall bladder adenocarcinoma (CMS/HCC V24, CMS/HCC V28) CBC AND DIFFERENTIAL STAT 03/26/2025 9:46 AM EDT Primary gall bladder adenocarcinoma (CMS/HCC V24, CMS/HCC V28) Iron deficiency anemia, unspecified iron deficiency anemia type COMPREHENSIVE METABOLIC PANEL Routine 03/26/2025 9:46 AM EDT Primary gall bladder adenocarcinoma (CMS/HCC V24, CMS/HCC V28) PANDYA URINE CULTURE TUBE Routine 03/23/20 3:12 PM EDT Primary gall bladder adenocarcinoma (CMS/HCC V24, CMS/HCC V28) URINALYSIS WITH REFLEX MICROSCOPIC AND CULTURE Routine 03/23/2025 3:12 PM EDT Primary gall bladder adenocarcinoma (CMS/HCC V24, CMS/HCC V28) URINALYSIS WITH REFLEX MICROSCOPIC AND CULTURE Routine 03/23/2025 3:12 PM EDT Primary gall bladder adenocarcinoma (CMS/HCC V24, CMS/HCC V28) CULTURE URINE Routine 03/23/2025 3:12 PM EDT Primary gall bladder adenocarcinoma (CMS/HCC V24, CMS/HCC V28) XR ANKLE 3+ VIEWS LEFT STAT 12:26 [...] EDT Primary gall bladder adenocarcinoma (CMS/HCC V24, [facility] V28) MG MAMMO DIGITAL SCREENING W ROBIN BILAT Routine 09/22/2024 2:34 PM EDT Encounter for screening mammogram for malignant neoplasm of breast MICROALBUMIN CREATININE URINE RATIO Routine 07/03/2024 9:52 AM EST Primary hypertension Type 2 diabetes mellitus without complication, with long-term current use of insulin ([facility] V24, [facility] V28) Iron deficiency anemia, unspecified iron deficiency anemia type Mixed hyperlipidemia Hypokalemia HEMOGLOBIN A1C Routine 07/03/2024 9:52 AM EST Primary hypertension Type 2 diabetes mellitus without complication, with long-term current use of insulin ([facility] V24, [facility] V28) Iron deficiency anemia, unspecified iron deficiency anemia type Mixed hyperlipidemia Hypokalemia LIPID PANEL WITH REFLEX TO DIRECT LDL Routine 07/03/2024 9:52 AM EST Primary hypertension Type 2 diabetes mellitus without complication, with long-term current use of insulin ([facility] V24, [facility] V28) Iron deficiency anemia, unspecified iron deficiency anemia type Mixed hyperlipidemia Hypokalemia EXTERNAL DIABETIC RETINA EYE EXAM Routine 06/01/2024 9:04 AM EST from Last 3 Months or Most Recently Relevant to Health Maintenance Results * (ABNORMAL) CBC auto differential (03/26/2025 9:46 AM EDT) Only the most recent of7 resultswithin the time period is included. WBC 7.1 4.8 - 10.8 K/mcL LAB HEMETOLOGY METHOD 03/26/2025 10:20 AM EDT [facility] RBC 4.00 3.80 - 4.80 M/mcL LAB HEMETOLOGY METHOD 03/26/2025 10:20 AM [facility] Hemoglobin 11.1(L) 11.5 - 16.0 g/dL LAB HEMETOLOGY METHOD 03/26/2025 10:20 AM [facility] Hematocrit 34.9(L) 35.0 - 47.0 % LAB HEMETOLOGY METHOD 03/26/2025 10:20 AM T [facility] MCV 87.9 79.0 - 98.0 FL LAB HEMETOLOGY METHOD 03/26/2025 10:20 AM [facility] MCH 28.0 27.0 - 32.0 pcg LAB HEMETOLOGY METHOD 03/26/2025 10:20 AM [facility] MCHC 31.8(L) 32.0 - 37.0 g/dL LAB HEMETOLOGY METHOD 03/26/2025 10:20 AM [facility] RDW 14.1 11.0 - 15.0 % LAB HEMETOLOGY METHOD 03/26/2025 10:20 AM [facility] Platelets 201 130 - 400 K/mcL LAB HEMETOLOGY METHOD 03/26/2025 10:20 AM [facility] MPV 10.4 7.0 - 11.0 FL LAB HEMETOLOGY METHOD 03/26/2025 10:20 AM [facility] NRBC 0.0 <1.0 % LAB HEMETOLOGY METHOD 03/26/2025 10:20 AM [facility] NRBC Absolute 0.00 <0.10 K/mcL LAB HEMETOLOGY METHOD 03/26/2025 10:20 AM [facility] Neutrophils Relative 70.2 % LAB HEMETOLOGY METHOD 03/26/2025 10:20 AM [facility] Lymphocytes Relative 15.7 % LAB HEMETOLOGY METHOD 03/26/2025 10:20 AM [facility] Monocytes Relative 9.3 % LAB HEMETOLOGY METHOD 03/26/2025 10:20 AM [facility] Eosinophils Relative 3.0 % LAB HEMETOLOGY METHOD 03/26/2025 10:20 AM EDT [facility] Basophils Relative 1.0 % LAB HEMETOLOGY METHOD 03/26/2025 10:20 AM EDT [facility] Immature Granulocytes Relative 0.8 % LAB HEMETOLOGY METHOD 03/26/2025 10:20 AM EDT [facility] Neutrophils Absolute 4.95 1.50 - 7.00 K/mcL LAB HEMETOLOGY METHOD 03/26/2025 10:20 AM EDT [facility] Lymphocytes Absolute 1.11 1.00 - 5.00 K/mcL LAB HEMETOLOGY METHOD 03/26/2025 10:20 AM EDT [facility] Monocytes Absolute 0.66 0.20 - 1.00 K/mcL LAB HEMETOLOGY METHOD 03/26/2025 10:20 AM EDT [facility] Eosinophils Absolute 0.21 0.00 - 0.50 K/mcL LAB HEMETOLOGY METHOD 03/26/2025 10:20 AM EDT [facility] Basophils Absolute 0.07 0.00 - 0.20 K/mcL LAB HEMETOLOGY METHOD 03/26/2025 10:20 AM EDT [facility] Immature Granulocytes Absolute 0.06(H) 0.00 - 0.03 K/mcL LAB HEMETOLOGY METHOD 03/26/2025 10:20 AM EDT [facility] Blood Blood sample taken from central line / Unknown Existing Catheter / Unknown 03/26/2025 9:46 AM EDT 03/26/2025 10:13 AM EDT us Loretta Broussard DO LAB BLOOD ORDERABLES Final Result [facility] [address] [place] [address], * Cancer antigen 19-9 (03/26/2025 9:46 AM EDT) Only the most recent of4 resultswithin the time period is included. CA 19-9 3.4 <=35 U/mL 03/28/2025 10:36 AM EDT [facility] Comment: The Siemens Advia Centaur CA199 Chemiluminescent Immunoassay is used. Results obtained with different assay methods or kits cannot be used interchangeably. Results cannot be interpreted as absolute evidence of the presence or absence of malignant disease. Test performed at [facility], [address] , [place] [address] Shyanne Bonilla MD, PhD - Group Home Supervisor Blood Blood sample taken from central line / Unknown Existing Catheter / Unknown 03/26/2025 9:46 AM EDT 03/26/2025 10:13 AM EDT us Loretta Broussard DO LAB BLOOD ORDERABLES Final Result [facility] [address] [place] [address] * CEA (03/26/2025 9:46 AM EDT) Only the most recent of4 resultswithin the time period is included. CEA 4.8 0.0 - 5.0 ng/mL LAB CHEMISTRY METHOD 03/26/2025 12:40 PM EDT [facility] Blood Blood sample taken from central line / Unknown Existing Catheter / Unknown 03/26/2025 9:46 AM EDT 03/26/2025 10:13 AM EDT Narrative [facility] - 03/26/2025 12:40 PM EDT The Siemens Advia Centaur Chemiluminescent Immunoassay is used. Results obtained with different assay methods or kits cannot be used interchangeably. Results cannot be interpreted as absolute evidence of the presence or absence of malignant disease. us Loretta Broussard DO LAB BLOOD ORDERABLES Final Result [facility] [address] [place] [address], [place] [phone] * (ABNORMAL) Comprehensive metabolic panel (03/26/2025 9:46 AM EDT) Only the most recent of7 resultswithin the time period is included. Sodium 140 133 - 145 mmol/L LAB CHEMISTRY METHOD 03/26/2025 11:25 AM [facility] Potassium 3.7 3.5 - 5.5 mmol/L LAB CHEMISTRY METHOD 03/26/2025 11:25 AM [facility] [facility] Chloride 107 96 - 110 mmol/L LAB CHEMISTRY METHOD 03/26/2025 11:25 AM [facility] CO2 23 21 - 32 mmol/L LAB CHEMISTRY METHOD 03/26/2025 11:25 AM [facility] Anion Gap 10 3 - 11 LAB CHEMISTRY METHOD 03/26/2025 11:25 AM [facility] Glucose 216(H) 70 - 100 mg/dL LAB CHEMISTRY METHOD 03/26/2025 11:25 AM [facility] BUN 14 5 - 25 mg/dL LAB CHEMISTRY METHOD 03/26/2025 11:25 AM [facility] Creatinine 1.19(H) 0.50 - 1.10 mg/dL LAB CHEMISTRY METHOD 03/26/2025 11:25 AM [facility] eGFR 55(L) >=60 mL/min/1. 73m2 LAB CHEMISTRY METHOD 03/26/2025 11:25 AM [facility] Comment:Calculation based on the Chronic Kidney Disease Epidemiology Collaboration (CKD-EPI) equation refit without adjustment for race. BUN/Creatinine Ratio 11.8 LAB CHEMISTRY METHOD 03/26/2025 11:25 AM [facility] Calcium 9.6 8.5 - 10.5 mg/dL LAB CHEMISTRY METHOD 03/26/2025 11:25 AM [facility] AST (SGOT) 18 10 - 42 unit/L LAB CHEMISTRY METHOD 03/26/2025 11:25 AM [facility] ALT (SGPT) 13 10 - 60 unit/L LAB CHEMISTRY METHOD 03/26/2025 11:25 AM [facility] Alkaline Phosphatase 127(H) 42 - 121 unit/L LAB CHEMISTRY METHOD 03/26/2025 11:25 AM T [facility] Total Protein 6.4 6.0 - 8.0 g/dL LAB CHEMISTRY METHOD 03/26/2025 11:25 AM [facility] Albumin 3.0(L) 3.2 - 5.0 g/dL LAB CHEMISTRY METHOD 03/26/2025 11:25 AM [facility] Total Bilirubin 0.7 0.0 - 1.4 mg/dL LAB CHEMISTRY METHOD 03/26/2025 11:25 AM [facility] Comment:Results verified by repeat testing Blood Blood sample taken from central line / Unknown Existing Catheter / Unknown 03/26/2025 9:46 AM EDT 03/26/2025 10:13 AM EDT us Loretta Broussard DO LAB BLOOD ORDERABLES Final Result [facility] [address] [place] [address], * (ABNORMAL) Urinalysis with reflex microscopic and culture (03/23/2025 3:12 PM EDT) Specific [place] Urine 1.012 1.003 - 1.030 LAB URINALYSIS - AUTOMATED METHOD 03/23/2025 4:54 PM [facility] pH, Urine 6.5 5.0 - 8.0 pH LAB URINALYSIS - AUTOMATED METHOD 03/23/2025 4:54 PM [facility] Leukocytes, Urine Trace(A) Negative LAB URINALYSIS - AUTOMATED METHOD 03/23/2025 4:54 PM [facility] Nitrite, Urine Negative Negative LAB URINALYSIS - AUTOMATED METHOD 03/23/2025 4:54 PM [facility] Protein, Urine Negative <=Trace mg/dL LAB URINALYSIS - AUTOMATED METHOD 03/23/2025 4:54 PM [facility] Glucose, Urine 250(A) Negative mg/dL LAB URINALYSIS - AUTOMATED METHOD 03/23/2025 4:54 PM [facility] Ketones, Urine Negative Negative mg/dL LAB URINALYSIS - AUTOMATED METHOD 03/23/2025 4:54 PM [facility] Urobilinogen, Urine 0.2 0.2 - 1.0 mg/dL LAB URINALYSIS - AUTOMATED METHOD 03/23/2025 4:54 PM [facility] Bilirubin, Urine Negative Negative LAB URINALYSIS - AUTOMATED METHOD 03/23/2025 4:54 PM [facility] Blood, Urine Negative Negative LAB URINALYSIS - AUTOMATED METHOD 03/23/2025 4:54 PM [facility] RBC, Urine 0.3 0 - 4 /HPF LAB URINALYSIS - AUTOMATED METHOD 03/23/2025 4:54 PM [facility] WBC, Urine 3.7 0 - 4 /HPF LAB URINALYSIS - AUTOMATED METHOD 03/23/2025 4:54 PM [facility] Squamous Epithelial, Urine 24 0 - 60 /LPF LAB URINALYSIS - AUTOMATED METHOD 03/23/2025 4:54 PM [facility] Bacteria, Urine Negative Negative /HPF LAB URINALYSIS - AUTOMATED METHOD 03/23/2025 4:54 PM [facility] Hyaline Casts, Urine 0.0 0 - 3 /LPF LAB URINALYSIS - AUTOMATED METHOD 03/23/2025 4:54 PM [facility] Urine Urine specimen obtained by clean catch procedure / Unknown Non-blood Collection / Unknown 03/23/2025 3:12 PM EDT 03/23/2025 4:34 PM EDT us Jelly Beckwith MD LAB URINE ORDERABLE S Final Result Performing Organization Address [facility]/ZIP Co de Phone Number [facility] [address] [place] [address], [place] [phone] * Pandya urine culture tube (03/23/2025 3:12 PM EDT) Extra Tube Hold for add-ons. 03/23/2025 6:01 PM EDT [facility] Comment:Auto resulted. Urine Urine specimen obtained by clean catch procedure / Unknown Non-blood Collection / Unknown 03/23/2025 3:12 PM EDT 03/23/2025 4:34 PM EDT us Jelly Beckwith MD LAB URINE ORDERABLE S Final Result Performing Organization Address [facility] Co de Phone Number [facility] [address] [place] [address], [place] [phone] * Culture urine (03/23/2025 3:12 PM EDT) Culture, Urine No growth 03/24/2025 11:21 AM EDT [facility] Urine Urine specimen obtained by clean catch procedure / Unknown Non-blood Collection / Unknown 03/23/2025 3:12 PM EDT 03/23/2025 4:54 PM EDT us Jelly Beckwith MD LAB MICROBIOLOGY - GENERAL ORDERABLES Final Result Performing Organization Address [facility]/ZIP Co de Phone Number [facility] [address] [place] [address], [place] [phone] * XR Ankle 3+ Views Left (03/09/2025 [...] Signed Date: 03/09/2025 12:41 ET Workstation ID: [id number] Transcribed By: Self Edit Transcribed Date: 03/09/2025 [...] Signed Date: 03/09/2025 12:41 ET Workstation ID: [id number] Transcribed By: Self Edit Transcribed Date: 03/09/2025 12:40 ET Loretta Broussard DO IMG XR PROCEDURES Fin al Result * XR Foot 3+ Views Left (03/09/2025 12:23 PM EDT) Anatomical Region Laterality Modality Lower Extremities, Foot Left [facility] 03/09/2025 12:3 2 PM EDT [...] Signed Date: 03/09/2025 12:40 ET Workstation ID: [id number] Transcribed By: Self Edit Transcribed Date: 03/09/2025 [...] Signed Date: 03/09/2025 12:40 ET Workstation ID: [id number] Transcribed By: Self Edit Transcribed Date: 03/09/2025 12:32 ET Loretta Broussard DO IMG XR PROCEDURES Fin al Result * CT Chest/Abdomen/Pelvis w Contrast (02/01/2025 10:34 [...] evidence of metastatic disease in the thorax. [employer] [place] ([id number]) -------- FINAL REPORT -------- Dictated By: Ashely White Dictated Date: 02/05/2025 08:22 ET Assigned Physician: Ashely White Reviewed and Electronically Signed By: Ashely White Signed Date: 02/05/2025 08:38 ET Workstation ID: [id number] Transcribed By: Self Edit Transcribed Date: 02/05/2025 08:22 ET Narrative 02/05/2025 8:38 AM EDT History: Gallbladder carcinoma. Follow-up metastatic lymphadenopathy. Comparison: 10/31/24 Technique: Helical volumetric imaging of the chest, abdomen and pelvis was performed without oral contrast and during the uneventful intravenous administration of 90 cc Isovue-370. DLP: 757.95 mGy/cm [employer] Iterative reconstruction technique Findings: Chest: The trachea [...] of 90 cc Isovue-370. DLP: 757.95 mGy/cm [email or web address] [place] Iterative reconstruction technique Findings: Chest: The trachea [...] evidence of metastatic disease in the thorax. [employer]IS ([id number]) -------- FINAL REPORT -------- Dictated By: Ashely White Dictated Date: 02/05/2025 08:22 ET Assigned Physician: Ashely White Reviewed and Electronically Signed By: Ashely White Signed Date: 02/05/2025 08:38 ET Workstation ID: [id number] Transcribed By: Self Edit Transcribed Date: 02/05/2025 08:22 ET us Loretta Broussard DO IMG CT PROCEDURES Fin al Result * MG Mammo Digital Screening w Robin bilat (09/22/2024 2:34 PM EDT) Anatomical Region Laterality Modality Breast Bilateral Mammography 10/04/2024 9:19 AM EDT Impressions 10/04/2024 9:22 AM EDT No mammographic evidence of malignancy. A negative mammogram in the presence of a clinically suspicious palpable abnormality does not preclude the possibility of malignancy or alter the indications for biopsy. PQRI CPT II 3342F Code 82923, 92381 PQRI 225 CPT II 7025F TISSUE DENSITY: There are scattered areas of fibroglandular density. (BI-RADS category B) IMPRESSION: Benign. BI-RADS CATEGORY: 2 - BENIGN RECOMMENDATION: Screening bilateral mammogram is recommended in 1 year. Mammo Location: [facility], [address] [place] [address] -------- FINAL REPORT -------- Dictated By: aYniv Rowe Dictated Date: 10/04/2024 09:19 ET Assigned Physician: Yaniv Rowe Reviewed and Electronically Signed By: Yaniv Rowe Signed Date: 10/04/2024 09:22 ET Workstation ID: [id number] Transcribed By: Self Edit Transcribed Date: 10/04/2024 09:19 ET Narrative 10/04/2024 9:22 AM EDT CLINICAL: The patient is a 54 years Female presenting for routine screening mammography. COMPARISON: Outside studies performed 06/02/2022 and 07/03/2019. TECHNIQUE: Full-field digital mammography of the breasts bilaterally consisting of tomosynthesis in MLO and CC projection is performed in the [place]one 2000-D unit. Computer aided detection utilizing the [...] 2000-D unit. Computer aided detection utilizing the Mesuroystem was utilized. FINDINGS: The breasts are again [...] for biopsy. PQRI CPT II 3342F Code 38046, 20230 PQRI 225 CPT II 7025F TISSUE DENSITY: There are scattered areas of fibroglandular density.(BI-RADS category B) IMPRESSION: Benign. BI-RADS CATEGORY: 2 - BENIGN RECOMMENDATION: Screening bilateral mammogram is recommended in 1 year. Mammo Location: [facility], [facility], [address] [place] [address] -------- FINAL REPORT -------- Dictated By: Yaniv Rowe Dictated Date: 10/04/2024 09:19 ET Assigned Physician: Yaniv Rowe Reviewed and Electronically Signed By: Yaniv Rowe Signed Date: 10/04/2024 09:22 ET Workstation ID: [id number] Transcribed By: Self Edit Transcribed Date: 10/04/2024 09:19 ET Viridiana MANZO IM BI PROCEDURES Final Result * (ABNORMAL) Lipid panel with reflex to direct LDL (07/03/2024 9:52 AM EST) Cholesterol 291(H) 0 - 200 mg/dL LAB CHEMISTRY METHOD 07/03/2024 11:08 AM EST [facility] Triglycerides 95 0 - 150 mg/dL LAB CHEMISTRY METHOD 07/03/2024 11:08 AM EST [facility] HDL 37(L) >=40 mg/dL LAB CHEMISTRY METHOD 07/03/2024 11:08 AM [facility] LDL Calculated 235(H) 0 - 100 mg/dL LAB CHEMISTRY METHOD 07/03/2024 11:08 AM [facility] VLDL Cholesterol William 19 mg/dL LAB CHEMISTRY METHOD 07/03/2024 11:08 AM [facility] Non HDL Chol. (LDL+VLDL) 254(H) <145 mg/dL LAB CHEMISTRY METHOD 07/03/2024 11:08 AM [facility] Chol/HDL Ratio 7.9(H) 0.0 - 4.4 LAB CHEMISTRY METHOD 07/03/2024 11:08 AM [facility] Blood Venous blood specimen / Unknown Venipuncture / Unknown 07/03/2024 9:52 AM EST 07/03/2024 10:23 AM EST Viridiana MANZO LAB BLOOD ORDERABLES Fin al Result [facility] [address] [place] [address], * (ABNORMAL) Microalbumin creatinine urine ratio (07/03/2024 9:52 AM EST) Creatinine, Urine 48.0 mg/dL LAB CHEMISTRY METHOD 07/03/2024 2:02 PM [facility] Microalb, Ur 38.6(H) 0.0 - 29.0 mg/L LAB CHEMISTRY METHOD 07/03/2024 2:02 PM [facility] Microalb/Crea t Ratio 80(H) <30 mg/g creat LAB CHEMISTRY METHOD 07/03/2024 2:02 PM [facility] Urine Urine specimen obtained by clean catch procedure / Unknown Non-blood Collection / Unknown 07/03/2024 9:52 AM EST 07/03/2024 12:54 PM EST Viridiana MANZO LAB URINE ORDERABLES Fin al Result Performing Organization Address [facility]/ZIP Co de Phone Number [facility] [address] [place] [address], [place] [phone] * (ABNORMAL) Hemoglobin A1c (07/03/2024 9:52 AM EST) Hemoglobin A1C 7.0(H) <6.5 % LAB CHEMISTRY METHOD 07/03/2024 1:26 PM EST [facility] Mean Bld Glu Estim. 154 mg/dL LAB CHEMISTRY METHOD 07/03/2024 1:26 PM EST [facility] Blood Venous blood specimen / Unknown Venipuncture / Unknown 07/03/2024 9:52 AM EST 07/03/2024 10:23 AM EST Viridiana MANZO LAB BLOOD ORDERABLES Fin al Result Performing Organization Address [facility]/ZIP Co de Phone Number [facility] [address] [place] [address], [place] [phone] * External Diabetic Retina Eye Exam Report (06/01/2024 9:04 AM EST) Anatomical Region Laterality Modality Ultrasound Historical Provider MD HEART US PROCEDURES Final R esult from Last 3 Months or Most Recently Relevant to Health Maintenance Insurance [facility] [employer] Care Teams Online Affiliate Marketing Manager Relationship Specialty Start Date End Date Chandler Villalobos MD [address] [place] [phone] PCP - General 04/25/24
--- OUTSIDE RECORDS SUMMARY | 2025-03-30 11:39 | XMS_ITS | Encounter Summary ---
Author Organization [facility] Address [address] [place] [address] Care Team Providers Care Schedule Analyst Name Role Phone Chandler Villalobos MD Primary Care Provider Encounter Details Date Type Department Care Team (Late Contact Info) Description 02/16/2025 Lab Requisition [facility] - Main Lab [address] [facility] [place] [address] Trista Richards MD [address] [place] [address] Secondary and unspecified malignant neoplasm [...] Description 04/02/2025 1:[address] [facility] [address] [phone] 04/06/2025 10:45 AM EDT Office Visit [facility] Hematology Oncology [address] [place] [address] Loretta Broussard DO [address] [place] [address] 04/06/2025 11:00 AM EDT Appointment [facility] Infusion [facility] [address] [place] [phone] 04/09/2025 10:30 AM EDT Appointment [facility] [address] [place] [phone] 04/10/2025 10:[address] [facility] [address] [place] [phone] 07/20/2025 12:30 PM EST Office Visit [address] [phone] Chandler Villalobos MD [address] [place] [address] Pending Results Name Type Priority Associated Diagnoses Date /Time Historical Pathology Case Pathology and Cytology Routine Secondary and unspecified malignant neoplasm of lymph node, unspecified (CMS/HCC V24, CMS/HCC V28) 02/16/2025 10:14 AM EDT documented as of this encounter Visit Diagnoses Diagnosis Secondary and unspecified malignant neoplasm of lymph node, unspecified (CMS/HCC V24, CMS/HCC V28) documented in this encounter Care Teams Schedule Analyst Relationship Specialty Start Date End Date Chandler Villalobos MD [address] [place] [address] PCP - General 04/25/24 documented as of this encounter
--- OUTSIDE RECORDS SUMMARY | 2025-03-30 11:40 | XMS_ITS | Encounter Summary ---
Author Organization [facility] Address [address] [place] [address] Care Team Providers Care Chart Writer Name Role Phone Chandler Villalobos MD Primary Care Provider [phone] Encounter Details Date Type Department Care Team Description 05/02/2024 Nurse Only [facility] Oncology Services [address] [place], [place] [phone] Renee Suárez RN Social History Tobacco Use [...] on filedocumented in this encounter Care Teams Chart Writer Relationship Specialty Start Date End Date Chandler Villalobos MD [address] [place] [phone] PCP - General Hospitalist Medicine 04/24/24 documented as of this encounter
--- OUTSIDE RECORDS SUMMARY | 2025-03-30 11:40 | XMS_ITS | Clinical Summary ---
Author Organization [facility] Address [address] [place] [phone] Phone Care Team Providers Care Reel Blade Bender Furnace Tender Name Role Phone Chandler Villalobos MD Primary Care Provider Loretta Broussard DO Unavailable Monika Terry, Unavailable [phone] Andreas Sage MD, PhD Unavailable [phone] David Tejeda MD, PhD Unavailable [phone] Allergies Active Allergy Reactions Criticality Noted Date [...] EDT [facility], [address], [address] [place] [address] Monika Terry MBBS, MD Gallbladder cancer (Primary Dx) 03/06/2025 11:30 AM EDT Office Visit [facility], [address], [address] [place] [address] David Tejeda MD, PhD Gallbladder cancer (Primary Dx) 03/06/2025 11:00 AM EDT Office Visit [facility], [address], [address] [place] [phone] Liane Bowens NP Gallbladder cancer (Primary Dx) 02/26/2025 11:00 AM EDT - 02/26/2025 11:59 PM EDT Hospital Encounter Department of Radiation Oncology [address] [place] [phone] Liane Bowens NP Discharge Disposition: Home or Self Care 02/19/2025 2:29 PM EDT - 02/19/2025 11:59 PM EDT Hospital Encounter [facility], [address] [address] Discharge Disposition: Home or Self Care 02/16/2025 Ancillary Orders DF IMG OUTSIDE IMG [address] [place] [address] Héctor Quispe MD 02/16/2025 Ancillary Orders DF IMG OUTSIDE IMG [address] [place] [address] Héctor Quispe MD 02/16/2025 Ancillary Orders DF IMG OUTSIDE IMG [address] [place] [address] Héctor Quispe MD 02/16/2025 Ancillary Orders DF IMG OUTSIDE IMG [address] [place] [address] Héctor Quispe MD 02/16/2025 Ancillary Orders DF IMG OUTSIDE IMG [address] [place] [address] Héctor Quispe MD 02/16/2025 Ancillary Orders DF IMG OUTSIDE IMG [address] [place] [address] Héctor Quispe MD 02/16/2025 Ancillary Orders DF IMG OUTSIDE IMG [address] [place] [address] Héctor Quispe MD 02/16/2025 Ancillary Orders DF IMG OUTSIDE IMG [address] [place] [phone] Héctor Quispe MD 02/16/2025 Ancillary Orders DF IMG OUTSIDE IMG [address] [place] [phone] Héctor Quispe MD 02/16/2025 Ancillary Orders [facility] IMG OUTSIDE IMG [address] [place] [address] Héctor Quispe MD 02/16/2025 Ancillary Orders [facility] IMG OUTSIDE IMG [address] [place] [address] Héctor Quispe MD 02/16/2025 Ancillary Orders DF IMG OUTSIDE IMG [address] [place] [address] Héctor Quispe MD 02/16/2025 Ancillary Orders [facility] IMG OUTSIDE IMG [address] [place] [address] Héctor Quispe MD 02/16/2025 Ancillary Orders DF IMG OUTSIDE IMG [address] [place] [address] Héctor Quispe MD 02/15/2025 Orders Only [facility], [facility] [place] [address] [facility], [address] [place] [address] Héctor Quispe MD Gallbladder cancer (Primary Dx) 02/01/2025 12:05 AM EDT Ancillary Procedure DF IMG OUTSIDE IMG [address] [place] [address] Héctor Quispe MD 02/01/2025 Ancillary Procedure DF IMG OUTSIDE IMG [address] [place] [address] Héctor Quispe MD from Last 3 Months [...] high school, GED, job training, learning the Moroc[place] language, technical skills, or developing parenting skills)? [...] Result STEPHANIA_ELÍAS from Last 3 Months Insurance [employer] [facility] [employer] [facility] Care Teams Reel Blade Bender Furnace Tender Relationship Specialty Start Date End Date Chandler Villalobos MD [address] [place] [address] PCP - General Internal Medicine 02/14/25 Loretta Broussard DO [address] [place] [address] Referring Physician Internal Medicine 02/14/25 Monika Terry MBBS, MD [address] [place] [phone] [email or web address] Medical Oncology 02/23/25 Andreas Sage MD, PhD [address] [place], [place] [address] [place] [address] [email or web address] Oncology 02/23/25 Davdi Tejeda MD, PhD [address] [place] [address] [email or web address] Oncology 02/23/25 Additional Source Comments The information contained in this document represents components of the legal health record. It is not the complete legal health record.[facility]
--- OUTSIDE RECORDS SUMMARY | 2025-03-30 11:40 | XMS_ITS ---
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 Radiation Treatments * No radiation treatments are documented for this patient in [facility]. Treatments may have been administered in another system.
--- OUTSIDE RECORDS SUMMARY | 2025-03-30 11:40 | XMS_ITS | Encounter Summary ---
Author Organization [facility] Address [address] [place] [address] Care Team Providers Care Review Engineer Name Role Phone Chandler Villalobos MD Primary Care Provider [phone] Encounter Details Date Type Department Care Team Description 04/03/2024 Nurse Only [facility] Oncology Services [address] [place] [address] Renee Suárez, RN Social History [...] note were not included. - currently inpatient [facility] received patient has insurance now and ok to move fwd with [facility] order. Test request has been submitted for [facility] Molecular Tumor Profiling to be performed on the specimenlisted below: Test order form and clinicals submitted for processing. Testing Turnaround Time on average is 21 days but may take longer. Final Report will be scanned into [employer] when completed. +++++++ UPDATE: 04/06/24 [facility] cannot verify coverage - [facility] testing on hold 04/10/24 [email or web address] ID# [id number] 04/10/24 [facility] test order submitted documented in this encounter Plan of Treatment Not on file documented as of this encounter Visit Diagnoses Not on filedocumented in this encounter Care Teams Review Engineer Relationship Specialty Start Date End Date Chandler Villalobos MD [address] [place] [phone] PCP - General Hospitalist Medicine 04/24/24 documented as of this encounter
--- OUTSIDE RECORDS SUMMARY | 2025-03-30 11:40 | XMS_ITS | Encounter Summary ---
Author Organization [facility] Address [address] [place] [address] Care Team Providers Care Caponizer Name Role Phone Chandler Villalobos MD Primary Care Provider [phone] Encounter Details Date Type Department Care Team Description 05/02/2024 Social Work [facility] Oncology Services [address] [place] [address] Kevin Rodríguez, [facility] Social History Tobacco [...] on filedocumented in this encounter Care Teams Caponizer Relationship Specialty Start Date End Date Chandler Villalobos MD [address] [place] [phone] PCP - General Hospitalist Medicine 04/24/24 documented as of this encounter
--- OUTSIDE RECORDS SUMMARY | 2025-03-30 11:40 | XMS_ITS | Clinical Summary ---
Author Organization [facility] Address [address] [place] [address] Care Team Providers Care Alley Cleaner Name Role Phone Chandler Villalobos MD Primary Care Provider [phone] Allergies Active Allergy Reactions Criticality Noted Date [...] age to complete this topic Care Teams Alley Cleaner Relationship Specialty Start Date End Date Chandler Villalobos MD [address] [place] [phone] PCP - General Hospitalist Medicine 04/24/24
== END 2025-03-30 11:32 | disposition home or self-care (01) ==
LOC: HO.HPODS 11:00
PROVIDERS: PCP Internal Medicine; Visit Provider Student in an Organized Health Care Education/Training Program
DX: S82.839A Other fracture of upper and lower end of unspecified fibula, initial encounter for closed fracture (principal); S99.912D Unspecified injury of left ankle, subsequent encounter; M25.572 Pain in left ankle and joints of left foot; S82.892A Other fracture of left lower leg, initial encounter for closed fracture
CPT/HCPCS: 29581; 99214

== ENCOUNTER → 2025-03-30 11:00 | Outpatient (BNVA) | payer OTHER, SELFPAY | PROVIDERS: PCP Internal Medicine; Visit Provider Student in an Organized Health Care Education/Training Program | DX: S82.425D Nondisplaced transverse fracture of shaft of left fibula, subsequent encounter for closed fracture with routine healing (principal); M25.572 Pain in left ankle and joints of left foot | CPT/HCPCS: 29581; 99212 ==

== ENCOUNTER 2025-04-09 13:10 | Outpatient (REF) | payer OTHER, SELFPAY ==
--- NOTE | ~2025-04-09 | XR_ITS ---
EXAMINATION: XR ANKLE 3 OR MORE VIEWS LEFT HISTORY: S82.892A - Other fracture of left lower leg, initial encounter for close... COMPARISON: There are no prior studies available for comparison. FINDINGS: Four views of the ankle are submitted. Osseous mineralization is normal. There is a minimally displaced fracture of the tip of the distal fibula. No additional fracture is seen. There is no dislocation. The joint spaces are preserved. The soft tissues are unremarkable. XR/XR ankle LT min 3V IMPRESSION: Minimally displaced fracture of the tip of the distal fibula. Electronically signed by: Torin Hayes MD 04/09/2025 02:44 PM EDT
--- OUTSIDE RECORDS SUMMARY | 2025-04-09 14:33 | XMS_ITS | Patient Health Record ---
Author Organization [facility] Address [address] [facility] [address] [place] [address] Care Team Providers Care Photographer Portrait Name Role Phone Deonna Salvador KYLE Primary Care Provider Unavaila Disha Oliveros Unavailable [phone] Reason For Referral No Information Medications Medication [...] W/U Status Risk Notes Problem Essential hypertension (58900707) Essential hypertension (I10) Active confirmed Problem Iron deficiency anemia (51943855) Iron deficiency anemia, unspecified iron deficiency anemia type (D50.9) Active confirmed Has menorrhagia , also r/o GI pathology Plan Of Treatment No Information Insurance Providers Payer Name Payer Address Payer Phone Subscriber Number Group Number Insured Name Patient Relationship to Insured Coverage Start Date Coverage End Date [employer] ([employer]) [address] ATT[place] [address] [id number] ROSELIA PATRICIA Self - patient is the insured Medical (General) History Medical History History ICD Code Anemia Yes High Cholesterol Yes Diabetes Yes HTN
--- OUTSIDE RECORDS SUMMARY | 2025-04-09 14:34 | XMS_ITS | Patient Health Record ---
Author Organization [facility] Address [address] [place] [address] Care Team Providers Care Computing Systems Mechanic Name Role Phone Sarthak Siddiqui Unavailable [phone] Reason For Referral No Information Medications Medication [...] Date Coverage End Date [employer] [address] [address] NON PAR EPO DEEP [place] [address] [id number] Indigo Adrian Self - patient is the insured Medical (General) History Medical History History ICD Code high bp diabetes high eye pressure Surgical History Surgery Date(Month/Year)
== END 2025-04-09 13:11 | disposition home or self-care (01) ==
LOC: HO.HMGCX 13:10
PROVIDERS: PCP Internal Medicine; Visit Provider Student in an Organized Health Care Education/Training Program
DX: S82.892A Other fracture of left lower leg, initial encounter for closed fracture (principal); S82.839A Other fracture of upper and lower end of unspecified fibula, initial encounter for closed fracture
CPT/HCPCS: 73610

== ENCOUNTER → 2025-04-09 14:05 | Outpatient (BNV) | payer OTHER, SELFPAY | PROVIDERS: PCP Internal Medicine; Visit Provider Radiology Diagnostic Radiology | DX: S82.832A Other fracture of upper and lower end of left fibula, initial encounter for closed fracture (principal) | CPT/HCPCS: 73610 ==

== ENCOUNTER 2025-04-12 10:37 | Outpatient (AMB) | payer OTHER, SELFPAY ==
--- OUTSIDE RECORDS SUMMARY | 2024-04-24 14:59 | XMS_ITS | Encounter Summary ---
Author Organization [facility] Address [address] [place] [address] Care Team Providers Care Coke Burner Name Role Phone Chandler Villalobos MD Primary Care Provider [phone] Encounter Details Date Type Department Care Team (Late st Contact Info) Description 04/24/2024 2:59 PM EDT Hospital Encounter TH HISTORIC ENCOUNTERS EASTERN CONVERSION ONLY Loretta Broussard, DO [address] [place] [address] Social History Tobacco Use Types Packs/Day Years [...] 3:50 PM Encounter Date: 04/24/2024 Status: Signed Director Of Flight Operations: Loretta Broussard DO (Physician) Hematology/Oncology Progress Note [...] She lives alone recently moved back from [place] Allergies-Lisinopril Labs: Relevant data reviewed. Imaging Studies [...] Dic Date/Time: 04/21/24 1624 Sign date/Time: 04/21/24 [id number] 0 IMPRESSION: 1. Irregular signal within the [...] Dic Date/Time: 03/27/24 1217 Sign date/Time: 03/27/24 [id number] 0 Assessment & Plan 54 year-old female [...] if renal function does not allow for [place] based therapy. (She does already have a port in place) Side effects of the above treatments briefly described to the patient Prescription sent for as needed Emla cream, Compazine and Zofran We did review that depending on results of NGS testing this may alter our treatment plan If her iron level is low plan for intravenous iron. Consultation by quality coordinator and social work recommended as well. If potassium levels remain low we will plan for potassium supplementation. Lastly I also offered her referral to a tertiary center for consideration of clinical trial, she would like to hold off for now. Addendum: K is critically low at 2.7, sent script to [facility] will return tomorrow for labs and IV potassium Cr returned at 1.19 on repeat, can move ahead with cisplatin/gemcitabine and durvalumab given Cr clearance is > 50 Sign Daphney Broussard DO - Hematology/Oncology [facility] documented in this encounter Plan of Treatment Upcoming Encounters Date Type Department Care Team (Late st Contact Info) Description 04/16/2025 10:00 AM EDT Appointment [facility] [address] [place] [phone] 04/20/2025 10:00 AM EDT Appointment [facility] [address] [place] [phone] 04/23/2025 11:00 AM EDT Appointment [facility] [address] [place] [phone] 04/24/2025 10:30 AM EDT Appointment [facility] [address] [place] [phone] 04/26/2025 1:30 PM EDT Appointment [facility] CT Scan [address] [place] [phone] 04/30/2025 10:00 AM EDT Appointment [facility] [address] [place] [phone] 05/04/2025 11:30 AM EDT Office Visit [facility] Hemat[facility] Oncology [address] [place] [phone] Loretta Broussard, DO [address] [place] [phone] 05/04/2025 12:00 PM EDT Appointment [facility] [address] [place] [phone] 07/20/2025 12:30 PM EST Office Visit Adult [address] [phone] Chandler Villalobos MD [address] [place] [address] documented as of this encounter Procedures Procedure [...] documented as of this encounter Care Teams Coke Burner Relationship Specialty Start Date End Date Chandler Villalobos MD [address] [place] [phone] PCP - General 04/24/24 04/24/24 documented as of this encounter
--- OUTSIDE RECORDS SUMMARY | 2024-04-24 15:00 | XMS_ITS | Encounter Summary ---
Author Organization [facility] Address [address] [place] [address] Care Team Providers Care Sustainable Communities Designer Name Role Phone Chandler Villalobos MD Primary Care Provider [phone] Encounter Details Date Type Department Care Team (Late Contact Info) Description 04/24/2024 3:00 PM EDT Hospital Encounter TH HISTORIC ENCOUNTERS EASTERN CONVERSION ONLY Loretta Broussard, DO [address] [place] [address] Social History Tobacco Use Types Packs/Day Years [...] Encounters Date Type Department Care Team (Late Contact Info) Description 04/16/2025 10:00 AM EDT Appointment [facility] Infusion Center [address] [phone] 04/20/2025 10:00 AM EDT Appointment [facility] Infusion Center [address] [place] [phone] 04/23/2025 11:00 AM EDT Appointment [facility] Infusion Center [address] [place] [phone] 04/24/2025 10:30 AM EDT Appointment [facility] Infusion Center [address] [place] [phone] 04/26/2025 1:30 PM EDT Appointment [facility] CT Scan [address] [place] [phone] 04/30/2025 10:00 AM EDT Appointment [facility] Infusion Center [address] [place] [phone] 05/04/2025 11:30 AM EDT Office Visit [facility] Hematology Oncology [address] [place] [phone] Loretta Broussard DO [address] [place] [address] 05/04/2025 12:00 PM EDT Appointment [facility] [address] [place] [phone] 07/20/2025 12:30 PM EST Office Visit Adult [address] [phone] Chandler Villalobos MD [address] [place] [address] documented as of this encounter Visit Diagnoses Not on filedocumented in this encounter Additional Health Concerns Infection Onset Date Last Indicated Resolved Time Respiratory Rule-Out 09/19/2024 09/19/2024 025 2:14 PM EDT COVID-19 Rule-Out 09/19/2024 09/19/2024 09/19/2024 2:14 PM EDT documented as of this encounter Care Teams Sustainable Communities Designer Relationship Specialty Start Date End Date Chandler Villalobos MD [address] [place] [phone] PCP - General 04/24/24 04/24/24 documented as of this encounter
--- OUTSIDE RECORDS SUMMARY | 2024-04-25 11:30 | XMS_ITS | Encounter Summary ---
Author Organization [facility] Address [address] [place] [address] Care Team Providers Care Regulatory And Compliance Technician Name Role Phone Chandler Villalobos MD Primary Care Provider +1- [phone] Encounter Details Date Type Department Care Team [...] Info) Description 04/16/2025 10:[address] [facility] Infusion Center [address] [place] [phone] 04/20/2025 10:[address] [facility] Infusion [facility] [address] [place] [phone] 04/23/2025 11:[address] [facility]fusion [facility] [address] [place] [phone] 04/24/2025 10:[address] [facility] Infusion [facility] [address] [place] [phone] 04/26/2025 1:[address] [facility] CT Scan [address] [place] [phone] 04/30/2025 10:[address] [facility] Infusion Center [address] [place] [phone] 05/04/2025 11:30 AM EDT Office Visit [facility] Hematology Oncology [address] [place] [phone] Loretta Broussard DO [address] [place] [address] 05/04/2025 12:[address] [facility] Infusion Center [address] [place] [phone] 07/20/2025 12:30 PM EST Office Visit Adult [address] [phone] Chandler Villalobos MD [address] [place] [address] documented as of this encounter Procedures Procedure [...] documented as of this encounter Care Teams Regulatory And Compliance Technician Relationship Specialty Start Date End Date Chandler Villalobos MD [address] [place] [phone] PCP - General 04/25/24 documented as of this encounter
--- OUTSIDE RECORDS SUMMARY | 2024-04-27 11:00 | XMS_ITS | Encounter Summary ---
Author Organization [facility] [place] [address] Care Team Providers Care Data Warehousing Engineer Name Role Phone Chandler Villalobos MD Primary Care Provider +[phone]- [phone] Encounter Details Date Type Department Care Team (Late Contact Info) Description 04/27/2024 11:00 AM EDT Hospital Encounter TH HISTORIC ENCOUNTERS EASTERN CONVERSION ONLY Emerald Morejon PA [address] [place] [address] Social History Tobacco Use Types Packs/Day Years [...] Info) Description 04/16/2025 10:00 AM EDT Appointment [facility] Infusion Center [address] [place] [phone] 04/20/2025 10:00 AM EDT Appointment [facility] Center [address] [place] [phone] 04/23/2025 11:00 AM EDT Appointment [facility] [address] [place] [phone] 04/24/2025 10:30 AM EDT Appointment [facility] [address] [place] [phone] 04/26/2025 1:30 PM EDT Appointment [facility] CT Scan [address] [place] [phone] 04/30/2025 10:00 AM EDT Appointment [facility] Infusion Center [address] [place] [phone] 05/04/2025 11:30 AM EDT Office Visit [facility] Hematology Oncology [address] [place] [phone] Loretta Broussard DO [address] [place] [address] 05/04/2025 12:00 PM EDT Appointment [facility] Center [address] [place] [phone] 07/20/2025 12:30 PM EST Office Visit Adult [address] [phone] Chandler Villalobos MD [address] [place] [address] documented as of this encounter Visit Diagnoses Not on filedocumented in this encounter Additional Health Concerns Infection Onset Date Last Indicated Resolved Time Respiratory Rule-Out 09/19/2024 09/19/2024 025 2:14 PM EDT COVID-19 Rule-Out 09/19/2024 09/19/2024 09/19/2024 2:14 PM EDT documented as of this encounter Care Teams Data Warehousing Engineer Relationship Specialty Start Date End Date Chandler Villalobos MD [address] [place] [address] PCP - General 04/25/24 documented as of this encounter
--- OUTSIDE RECORDS SUMMARY | 2024-04-27 11:01 | XMS_ITS | Encounter Summary ---
Author Organization [facility] [place] [address] Care Team Providers Care Geochemical Manager Name Role Phone Chandler Villalobos MD Primary Care Provider +1- [phone] Encounter Details Date Type Department Care Team (Late st Contact Info) Description 04/27/2024 11:01 AM EDT Hospital Encounter TH HISTORIC ENCOUNTERS EASTERN CONVERSION ONLY Emerald Morejon PA [address] [place] [address] Social History Tobacco Use Types Packs/Day Years [...] Morejon PA-C Service: -- Author Type: Physician County Court Judge Filed: 05/01/2024 9:20 PM Encounter Date: 04/27/2024 Status: Addendum Latex Foam Worker: Loretta Broussard DO (Physician) Related Notes: Original Note by Emearld Morejon PA-C (Physician County Court Judge) filed at 04/27/2024 1:10 PM Cosigner: Loretta [...] She lives alone recently moved back from [place] Allergies-Lisinopril Labs: Relevant data reviewed. Imaging Studies [...] may alter our treatment plan Consultation by micro computer data processor and social work recommended as well. I [...] spent 33 minutes with her/his care, including iefw-oj-hcyq, discussion/counseling, time spent in record/notes/result review, documenting in Epic, and care coordination. Sign Emerald Morejon PA-C - Hematology/Oncology [facility] documented in this encounter Plan of Treatment Upcoming Encounters Date Type Department Care Team (Late st Contact Info) Description 04/16/2025 10:00 AM EDT Appointment [address] [phone] 04/20/2025 10:00 AM EDT Appointment [address] [phone] 04/23/2025 11:00 AM EDT Appointment [address] [phone] 04/24/2025 10:30 AM EDT Appointment [facility] [address] [place] [phone] 04/26/2025 1:30 PM EDT Appointment [facility] CT Scan [address] [place] [phone] 04/30/2025 10:00 AM EDT Appointment [address] [phone] 05/04/2025 11:30 AM EDT Office Visit [facility] Hematology Oncology [address] [place] [phone] Loretta Broussard DO [address] [place] [address] 05/04/2025 12:00 PM EDT Appointment [facility] [address] [place] [phone] 07/20/2025 12:30 PM EST Office Visit [address] [phone] Chandler Villalobos MD [address] [place] [address] documented as of this encounter Visit Diagnoses Not on filedocumented in this encounter Additional Health Concerns Infection Onset Date Last Indicated Resolved Time Respiratory Rule-Out 09/19/2024 09/19/2024 025 2:14 PM EDT COVID-19 Rule-Out 09/19/2024 09/19/2024 09/19/2024 2:14 PM EDT documented as of this encounter Care Teams Geochemical Manager Relationship Specialty Start Date End Date Chandler Villalobos MD [address] [place] [address] PCP - General 04/25/24 documented as of this encounter
--- OUTSIDE RECORDS SUMMARY | 2024-04-27 11:59 | XMS_ITS | Encounter Summary ---
Author Organization [facility] Address [address] [place] [address] Care Team Providers Care Supervisor Paste Mixing Name Role Phone Chandler Villalobos MD Primary Care Provider +1- [phone] Encounter Details Date Type Department Care Team [...] EDT Appointment [facility] Infusion [facility] [address] [place] [phone] 04/20/2025 10:[address] [facility] [address] [place] [phone] 04/23/2025 11:[address] [facility] [address] [place] [phone] 04/24/2025 10:[address] [facility] In[facility] [address] [place] [phone] 04/26/2025 1:[address] [facility] CT Scan [address] [place] [phone] 04/30/2025 10:[address] [facility] Infusion [facility] [address] [place] [phone] 05/04/2025 11:30 AM EDT Office Visit [facility] Hematology Oncology [address] [place] [phone] Loretta Broussard, DO [address] [place] [address] 05/04/2025 12:[address] [facility] Infusion [facility] [address] [place] [phone] 07/20/2025 12:30 PM EST Office Visit Adult [address] [phone] Chandler Villalobos MD [address] [place], [place] documented as of this encounter Visit Diagnoses Not on filedocumented in this encounter Additional Health Concerns Infection Onset Date Last Indicated Resolved Time Respiratory Rule-Out 09/19/2024 09/19/2024 025 2:14 PM EDT COVID-19 Rule-Out 09/19/2024 09/19/2024 09/19/2024 2:14 PM EDT documented as of this encounter Care Teams Supervisor Paste Mixing Relationship Specialty Start Date End Date Chandler Villalobos MD [address] [place] [address] PCP - General 04/25/24 documented as of this encounter
--- OUTSIDE RECORDS SUMMARY | 2024-05-01 10:33 | XMS_ITS | Encounter Summary ---
Author Organization [facility] Address [address] [place] [address] Care Team Providers Care Nurses Assistant Name Role Phone Chandler Villalobos MD Primary [...] Info) Description 04/16/2025 10:00 AM EDT Appointment [facility] Infusion Center [address] [place] [phone] 04/20/2025 10:00 AM EDT Appointment [facility] Infusion [facility] [address] [place] [phone] 04/23/2025 11:00 AM EDT Appointment [facility] Infusion Center [address] [place] [phone] 04/24/2025 10:30 AM EDT Appointment [facility] Infusion [facility] [address] [place] [phone] 04/26/2025 1:30 PM EDT Appointment [facility] CT Scan [address] [place] [phone] 04/30/2025 10:00 AM EDT Appointment [facility] Infusion Center [address] [place] [phone] 05/04/2025 11:30 AM EDT Office Visit [facility] Hematology Oncology [address] [place] [phone] Loretta Broussard, [address] [place] [address] 05/04/2025 12:00 PM EDT Appointment [facility] Infusion Center [address] [place] [phone] 07/20/2025 12:30 PM EST Office Visit Adult Medicine [facility] [address] [place] [address] Chandler Villalobos MD [address] [place] [address] documented as of this encounter Visit Diagnoses Not on filedocumented in this encounter Additional Health Concerns Infection Onset Date Last Indicated Resolved Time Respiratory Rule-Out 09/19/2024 09/19/2024 025 2:14 PM EDT COVID-19 Rule-Out 09/19/2024 09/19/2024 09/19/2024 2:14 PM EDT documented as of this encounter Care Teams Nurses Assistant Relationship Specialty Start Date End Date Chandler Villalobos MD [address] [place] [address] PCP - General 04/25/24 documented as of this encounter
--- OUTSIDE RECORDS SUMMARY | 2024-05-02 | XMS_ITS | Encounter Summary ---
Author Organization [facility] Address [address] [place] [address] Care Team Providers Care Relay Mechanic Name Role Phone Chandler Villalobos MD Primary Care Provider Encounter Details Date Type Department Care Team ([facility] Contact Info) Description 05/02/2024 Hospital Encounter TH [...] Description 04/16/2025 10:[address] [facility] [address] [phone] 04/20/2025 10:[address] [facility] [address] [place] [phone] 04/23/2025 11:[address] [facility] [address] [place] [phone] 04/24/2025 10:[address] [facility] [address] [place] [phone] 04/26/2025 1:[address] [facility] CT Scan [address] [place] [phone] 04/30/2025 10:[address] [facility] [address] [place] [phone] 05/04/2025 11:30 AM EDT Office Visit [facility] Hematology Oncology [address] [place] [phone] Loretta Broussard, DO [address] [place] [address] 05/04/2025 12:[address] [facility] [address] [place] [phone] 07/20/2025 12:30 PM EST Office Visit Adult Medicine [address] [phone] Chandler Villalobos MD [address] [place] [address] documented as of this encounter Visit Diagnoses Not on filedocumented in this encounter Additional Health Concerns Infection Onset Date Last Indicated Resolved Time Respiratory Rule-Out 09/19/2024 09/19/2024 025 2:14 PM EDT COVID-19 Rule-Out 09/19/2024 09/19/202409/1909/19/2024 2:14 PM EDT documented as of this encounter Care Teams Relay Mechanic Relationship Specialty Start Date End Date Chandler Villalobos MD [address] [place] [phone] PCP - General 04/25/24 documented as of this encounter
--- OUTSIDE RECORDS SUMMARY | 2024-05-02 09:00 | XMS_ITS | Encounter Summary ---
Author Organization [facility] Address [address] [place] [address] Care Team Providers Care Vp Transportation Name Role Phone Chandler Villalobos MD Primary Care Provider +1- [phone] Encounter Details Date Type Department Care Team [...] Info) Description 04/16/2025 10:00 AM EDT Appointment [facility] [address] [place] [phone] 04/20/2025 10:00 AM EDT Appointment [address] [phone] 04/23/2025 11:00 AM EDT Appointment [address] [phone] 04/24/2025 10:30 AM EDT Appointment [address] [phone] 04/26/2025 1:30 PM EDT Appointment [facility] CT Scan [address] [place] [phone] 04/30/2025 10:00 AM EDT Appointment [facility] [address] [place] [phone] 05/04/2025 11:30 AM EDT Office Visit [facility] Hematology Oncology [address] [place] [phone] Loretta Broussard, DO [address] [place] [phone] 05/04/2025 12:00 PM EDT Appointment [facility] [address] [place] [phone] 07/20/2025 12:30 PM EST Office Visit [address] [phone] Chandler Villalobos MD [address] [place], [place] documented as of this encounter Visit [...] documented as of this encounter Care Teams Vp Transportation Relationship Specialty Start Date End Date Chandler Villalobos MD [address] [place] [address] PCP - General 04/25/24 documented as of this encounter
--- OUTSIDE RECORDS SUMMARY | 2024-05-03 10:02 | XMS_ITS | Encounter Summary ---
Author Organization [facility] Address [address] [place] [address] Care Team Providers Care Texture Artist Name Role Phone Chandler Villalobos MD Primary Care Provider +1- [phone] Encounter Details Date Type Department Care Team [...] Info) Description 04/16/2025 10:00 AM EDT Appointment Infusion Center [address] [place] [phone] 04/20/2025 10:00 AM EDT Appointment Infusion Center [address] [place] [phone] 04/23/2025 11:00 AM EDT Appointment Infusion Center [address] [place] [phone] 04/24/2025 10:30 AM EDT Appointment [facility]fusion Center [address] [place] [phone] 04/26/2025 1:[address] Scan [address] [place] [phone] 04/30/2025 10:00 AM EDT Appointment Infusion Center [address] [place] [phone] 05/04/2025 11:30 AM EDT Office Visit Hematology Oncology [address] [place] [phone] Loretta Broussard, [address] [place] [address] 05/04/2025 12:00 PM EDT Appointment Infusion Center [address] [phone] 07/20/2025 12:30 PM EST Office Visit Adult Medicine [address] [phone] Chandler Villalobos MD [address] [place] [address] documented as of this encounter Visit Diagnoses Not on filedocumented in this encounter Additional Health Concerns Infection Onset Date Last Indicated Resolved Time Respiratory Rule-Out 09/19/2024 09/19/2024 025 2:14 PM EDT COVID-19 Rule-Out 09/19/2024 09/19/2024 09/19/2024 2:14 PM EDT documented as of this encounter Care Teams Texture Artist Relationship Specialty Start Date End Date Chandler Villalobos MD [address] [place] [address] PCP - General 04/25/24 documented as of this encounter
--- OUTSIDE RECORDS SUMMARY | 2024-05-05 08:02 | XMS_ITS | Encounter Summary ---
Author Organization [facility] Address [address] [place] [address] Care Team Providers Care Planner/Scheduler Name Role Phone Chandler Villalobos MD Primary Care Provider +1- [phone] Encounter Details Date Type Department Care Team [...] Info) Description 04/16/2025 10:00 AM EDT Appointment [facility] Infusion Center [address] [place] [phone] 04/20/2025 10:00 AM EDT Appointment [facility] Infusion Center [address] [place] [phone] 04/23/2025 11:00 AM EDT Appointment [facility] Infusion Center [address] [place] [phone] 04/24/2025 10:30 AM EDT Appointment [facility] Infusion Center [address] [place] [phone] 04/26/2025 1:30 PM EDT Appointment [facility] CT Scan [address] [place] [phone] 04/30/2025 10:00 AM EDT Appointment [facility] Infusion Center [address] [place] [phone] 05/04/2025 11:30 AM EDT Office Visit [facility] Hematology Oncology [address] [place] [phone] Loretta Broussard, [address] [place] [phone] 05/04/2025 12:00 PM EDT Appointment [facility] Infusion Center [address] [phone] 07/20/2025 12:30 PM EST Office Visit Adult Medicine [address] [phone] Chandler Villalobos MD [address] [place] [address] documented as of this encounter Visit Diagnoses Not on filedocumented in this encounter Additional Health Concerns Infection Onset Date Last Indicated Resolved Time Respiratory Rule-Out 09/19/2024 09/19/2024 025 2:14 PM EDT COVID-19 Rule-Out 09/19/2024 09/19/2024 09/19/2024 2:14 PM EDT documented as of this encounter Care Teams Planner/Scheduler Relationship Specialty Start Date End Date Chandler Villalobos MD [address] [place] [address] PCP - General 04/25/24 documented as of this encounter
--- OUTSIDE RECORDS SUMMARY | 2024-05-08 10:22 | XMS_ITS | Encounter Summary ---
Author Organization [facility] [address] [place] [address] Care Team Providers Care Director Health Name Role Phone Chandler Villalobos MD Primary Care Provider +1- [phone] Encounter Details Date Type Department Care Team [...] Info) Description 04/16/2025 10:00 AM EDT Appointment [facility] Infusion Center [address] [place] [phone] 04/20/2025 10:00 AM EDT Appointment [facility] Infusion Center [address] [place] [phone] 04/23/2025 11:00 AM EDT Appointment [facility] Infusion Center [address] [place] [phone] 04/24/2025 10:30 AM EDT Appointment [facility] Infusion Center [address] [place] [phone] 04/26/2025 1:30 PM EDT Appointment [facility] CT Scan [address] [place] [phone] 04/30/2025 10:00 AM EDT Appointment [facility] Infusion Center [address] [place] [phone] 05/04/2025 11:30 AM EDT Office Visit [facility] Hematology Oncology [address] [place] [phone] Loretta Broussard, DO [address] [place] [address] 05/04/2025 12:00 PM EDT Appointment [facility] Infusion Center [address] [phone] 07/20/2025 12:30 PM EST Office Visit Adult Medicine [address] [phone] Chandler Villalobos MD [address] [place] [address] documented as of this encounter Visit Diagnoses Not on filedocumented in this encounter Additional Health Concerns Infection Onset Date Last Indicated Resolved Time Respiratory Rule-Out 09/19/2024 09/19/2024 025 2:14 PM EDT COVID-19 Rule-Out 09/19/2024 09/19/2024 09/19/2024 2:14 PM EDT documented as of this encounter Care Teams Director Health Relationship Specialty Start Date End Date Chandler Villalobos MD [address] [place] [address] PCP - General 04/25/24 documented as of this encounter
--- OUTSIDE RECORDS SUMMARY | 2024-05-09 09:05 | XMS_ITS | Encounter Summary ---
Author Organization [facility] Address [address] [place] [address] Care Team Providers Care Manager Employee Benefits Name Role Phone Chandler Villalobos MD Primary [...] Info) Description 04/16/2025 10:00 AM EDT Appointment [address] [phone] 04/20/2025 10:00 AM EDT Appointment [facility] Infusion Center [address] [place] [phone] 04/23/2025 11:00 AM EDT Appointment [address] [phone] 04/24/2025 10:30 AM EDT Appointment [address] [phone] 04/26/2025 1:30 PM EDT Appointment [facility] CT Scan [address] [place] [phone] 04/30/2025 10:00 AM EDT Appointment [address] [phone] 05/04/2025 11:30 AM EDT Office Visit [facility] Hematology Oncology [address] [place] [phone] Loretta Broussard, [address] [place] [address] 05/04/2025 12:00 PM EDT Appointment [address] [phone] 07/20/2025 12:30 PM EST Office Visit Adult Medicine [address] [phone] Chandler Villalobos MD [address] [place] [address] documented as of this encounter Visit Diagnoses Not on filedocumented in this encounter Additional Health Concerns Infection Onset Date Last Indicated Resolved Time Respiratory Rule-Out 09/19/2024 09/19/2024 025 2:14 PM EDT COVID-19 Rule-Out 09/19/2024 09/19/2024 09/19/2024 2:14 PM EDT documented as of this encounter Care Teams Manager Employee Benefits Relationship Specialty Start Date End Date Chandler Villalobos MD [address] [place] [address] PCP - General 04/25/24 documented as of this encounter
--- OUTSIDE RECORDS SUMMARY | 2025-04-06 11:00 | XMS_ITS | Encounter Summary ---
Author Organization [facility] Address [address] [place] [address] Care Team Providers Care Certified Public Accountant Name Role Phone Chandler Villalobos MD Primary Care Provider [phone] Reason for Visit * Reason Comments Other (Add RFV) Hydration * Episode Based Medications (Routine) - Closed Specialty Diagnoses / Procedures Referred By Minnie ivan Referred To Contact Diagnoses Primary gall bladder adenocarcinoma (CMS/HCC V24, CMS/HCC V28) Loretta Broussard DO [address] [place] [address] Phone: tel: fax: [address] [address] Phone: tel: fax: Referral ID Status Reason Start Date Expiration Date Visits Re quested Visits Authorized [id number] Closed 05/18/2024 05/18/2025 1 65 Encounter Details Date Type Department Care Team (Latest Contact Info) Description 04/06/2025 11:00 AM EDT - 04/06/2025 11:59 PM EDT Hospital Encounter [address] [phone] Loretta Broussard DO [address] [place] [address] Primary gall bladder adenocarcinoma (CMS/HCC V24, [facility] V28) (Primary Dx) Discharge Disposition: [...] Sign Reading Time Taken Comments Blood Pressure 128/74 04/06/2025 11:00 AM EDT Pulse 100 04/06/2025 11:00 AM EDT Temperature 37 C (98.6 F) 04/06/2025 11:00 AM EDT Respiratory Rate 16 04/06/2025 11:00 AM EDT Oxygen Saturation 100% 04/06/2025 11:00 AM EDT Inhaled Oxygen Concentration - - Weight 83.9 kg (185 lb) 04/06/2025 11:00 AM EDT Height 163.8 cm (5' 4.49 ) 04/06/2025 11:00 AM E DT Body Mass Index 31.28 04/06/2025 11:00 AM EDT documented in this encounter Medications at Time of Discharge alcohol swabs (Alcohol Pads) pads, medicated Apply topically 3 (three) times a day. 300 each 1 5 amLODIPine (NORVASC) 10 mg tablet Take 1 tablet (10 mg total) by mouth 1 (one) time each day. Take 1 Tablet by mouth daily 90 tablet 1 5 BD Ashly 2nd Gen Pen Needle 32 gauge x needle USE WITH INSULIN PENS 4 TIMES A DAY 400 each 5 blood sugar diagnostic (FreeStyle Lite Strips) test strip Use to test blood sugar 3 times daily 200 strip 2 5 dexAMETHasone (DECADRON) 4 mg tabletIndications:P rimary gall bladder adenocarcinoma ([facility] V24, [facility] V28) Take 8 mg (2 [...] Progress Notes * Marilyn Crisostomo RN - 04/06/2025 11:00 AM EDT 1150: PT arrives this afternoon for weekly hydration. 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 PT has a F/U visit with Ortho in 2 weeks as well as repeat Xrs next week to see the progression of her ankle fractu re. PT sts she is hoping her ankle has improved so she can start physical therapy. Stable assessment otherwise. Port accessed, +BR noted, flushed and hydration initiated, call quinteros in reach. 1303: Hydration completed without concerns. Port flushed per protocol and deaccessed, dressing applied. PT aware of next apts, left unit via wheelchair, stable at D/C. documented in this encounter Plan of Treatment Upcoming Encounters Date Type Department Care Team (Late st Contact Info) Description 04/16/2025 10:00 AM EDT Appointment [facility] [address] [place] [phone] 04/20/2025 10:00 AM EDT Appointment [facility] [address] [place] [phone] 04/23/2025 11:00 AM EDT Appointment [facility] [address] [place] [phone] 04/24/2025 10:30 AM EDT Appointment [facility] [address] [place] [phone] 04/26/2025 1:30 PM EDT Appointment [facility] CT Scan [address] [place] [phone] 04/30/2025 10:00 AM EDT Appointment [facility] [address] [place] [phone] 05/04/2025 11:30 AM EDT Office Visit [facility] Hematology Oncology [address] [place] [phone] Loretta Broussard, [address] [place] [address] 05/04/2025 12:00 PM EDT Appointment [facility] [address] [phone] 07/20/2025 12:30 PM EST Office Visit Adult Medicine [address] [phone] Chandler Villalobos MD [address] [place] [address] documented as of this encounter Visit Diagnoses Diagnosis Primary gall bladder adenocarcinoma (CMS/HCC V24, CMS/HCC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 documented in this encounter Administered Medications Inactive Administered Medications - up to 3 most recent administrations Medication Order MAR Action Action Date Dose Rate Site sodium chloride 0.9 % bolus 1,000 mL 1,000 mL, intravenous, at 1,000 mL/hr, Administer over 1 Hours, Once, On Wed04/06/25 at 1200, For 1 doseIndications:Primary gall bladder adenocarcinoma (CMS/HCC V24, CMS/HCC V28) New Bag 04/06/2025 11:50 AM EDT 1,000 mL 1000 mL/hr documented in this encounter Orders Medications Ordered That Mikal ht Not Have Been Administered Count Last Ordered Date First Ordered Date sodium chloride 0.9 % bolus 1,000 mL 1 03/13 Appointment Requests Count Last Ordered Date Fi rst Ordered Date ONCBCN INFUSION APPOINTMENT REQUEST 06 documented in this encounter Care Teams Certified Public Accountant Relationship Specialty Start Date End Date Chandler Villalobos MD [address] [place] [address] PCP - General 04/25/24 documented as of this encounter
--- OUTSIDE RECORDS SUMMARY | 2025-04-09 10:30 | XMS_ITS | Encounter Summary ---
Author Organization [facility] Address [address] [place] [address] Care Team Providers Care Assembler Corncob Pipes Name Role Phone Chandler Villalobos MD Primary Care Provider [phone] Reason for Visit * Reason Comments Other (Add RFV) Port draw Encounter Details Date Type Department Care Team (Latest Contact Info) Description 04/09/2025 10:30 AM EDT Hospital Encounter [facility] [address] [phone] Loretta Broussard, DO [address] [place] [address] Primary gall bladder adenocarcinoma (CMS/HCC V24, CMS/HCC [...] Sign Reading Time Taken Comments Blood Pressure 110/76 04/09/2025 10:53 AM EDT Pulse 89 04/09/2025 10:53 AM EDT Temperature 37.1 C (98.7 F) 04/09/2025 10:53 AM EDT Respiratory Rate - - Oxygen Saturation 100% 04/09/2025 10:53 AM EDT Inhaled Oxygen Concentration - - Weight - - Height - - Body Mass Index - - documented in this encounter Progress Notes * Marilyn Crisostomo RN - 04/09/2025 10:30 AM EDT 1109: PT arrives this morning for pre treatment port drawn labs and hydration. PT reports feeling well without changes or concerns. PT reports she is going to get repeat ankle Xrs today and hoping she can go to physical therapy soon as she continues to have intermittent pain from left ankle. Neuropathy also remains unchanged with difficulty completing ADLs. Stable assessment otherwise. Port accessed, +BR noted, labs obtained and sent, flushed and hydration initiated. Call quinteros in reach. 1215: Hydration completed. Port flushed per protocol and deaccessed, dressing applied. PT aware of next apts, left unit via wheelchair with mother, stable at D/C documented in this encounter Plan of Treatment Upcoming Encounters Date Type Department Care Team (Late st Contact Info) Description 04/16/2025 10:00 AM EDT Appointment [facility] [address] [place] [phone] 04/20/2025 10:00 AM EDT Appointment [facility] [address] [place] [phone] 04/23/2025 11:00 AM EDT Appointment [facility] [address] [place] [phone] 04/24/2025 10:30 AM EDT Appointment [facility] [address] [place] [phone] 04/26/2025 1:30 PM EDT Appointment [facility] CT Scan [address] [place] [phone] 04/30/2025 10:00 AM EDT Appointment [facility] [address] [place] [phone] 05/04/2025 11:30 AM EDT Office Visit [facility] Hematology Oncology [address] [place] [phone] Loretta Broussard DO [address] [place] [address] 05/04/2025 12:00 PM EDT Appointment [facility] [address] [place] [phone] 07/20/2025 12:30 PM EST Office Visit [address] [phone] Chandler Villalobos MD [address] [place] [address] documented as of this encounter Procedures Procedure Name Priority Date/Time Associated Diagnosis Comments CBC WITH AUTO DIFFERENTIAL Routine 04/09/2025 10:58 AM EDT Primary gall bladder adenocarcinoma ([facility]/HCC V24, [facility]/HCC V28) CBC AND DIFFERENTIAL Routine 04/09/2025 10:58 AM EDT Primary gall bladder adenocarcinoma ([facility]/HCC V24, [facility]/HCC V28) COMPREHENSIVE METABOLIC PANEL Routine 04/09/2025 10:58 AM EDT Primary gall bladder adenocarcinoma ([facility]/HCC V24, [facility]/HCC V28) documented in this encounter Results * (ABNORMAL) CBC auto differential (04/09/2025 10:58 AM EDT) WBC 5.8 4.8 - 10.8 K/[facility] LAB HEMETOLOGY METHOD 04/09/2025 11:45 AM EDT [facility] RBC 3.80 3.80 - 4.80 M/[facility] LAB HEMETOLOGY METHOD 04/09/2025 11:45 AM EDT [facility] Hemoglobin 10.9(L) 11.5 - 16.0 g/dL LAB HEMETOLOGY METHOD 04/09/2025 11:45 AM [facility] Hematocrit 33.8(L) 35.0 - 47.0 % LAB HEMETOLOGY METHOD 04/09/2025 11:45 AM [facility] MCV 88.3 79.0 - 98.0 FL LAB HEMETOLOGY METHOD 04/09/2025 11:45 AM [facility] MCH 28.5 27.0 - 32.0 pcg LAB HEMETOLOGY METHOD 04/09/2025 11:45 AM [facility] MCHC 32.2 32.0 - 37.0 g/dL LAB HEMETOLOGY METHOD 04/09/2025 11:45 AM [facility] RDW 14.6 11.0 - 15.0 % LAB HEMETOLOGY METHOD 04/09/2025 11:45 AM [facility] Platelets 174 130 - 400 K/mcL LAB HEMETOLOGY METHOD 04/09/2025 11:45 AM [facility] MPV 9.7 7.0 - 11.0 FL LAB HEMETOLOGY METHOD 04/09/2025 11:45 AM [facility] NRBC 0.0 <1.0 % LAB HEMETOLOGY METHOD 04/09/2025 11:45 AM [facility] NRBC Absolute 0.00 <0.10 K/mcL LAB HEMETOLOGY METHOD 04/09/2025 11:45 AM [facility] Neutrophils Relative 67.1 % LAB HEMETOLOGY METHOD 04/09/2025 11:45 AM [facility] Lymphocytes Relative 20.2 % LAB HEMETOLOGY METHOD 04/09/2025 11:45 AM [facility] Monocytes Relative 9.1 % LAB HEMETOLOGY METHOD 04/09/2025 11:45 AM EDT [facility] Eosinophils Relative 2.4 % LAB HEMETOLOGY METHOD 04/09/2025 11:45 AM EDT [facility] Basophils Relative 0.9 % LAB HEMETOLOGY METHOD 04/09/2025 11:45 AM EDT [facility] Immature Granulocytes Relative 0.3 % LAB HEMETOLOGY METHOD 04/09/2025 11:45 AM EDT [facility] Neutrophils Absolute 3.89 1.50 - 7.00 K/mcL LAB HEMETOLOGY METHOD 04/09/2025 11:45 AM EDT [facility] Lymphocytes Absolute 1.17 1.00 - 5.00 K/mcL LAB HEMETOLOGY METHOD [facility] Monocytes Absolute 0.53 0.20 - 1.00 K/mcL LAB HEMETOLOGY METHOD 04/09/2025 11:45 AM EDT [facility] Eosinophils Absolute 0.14 0.00 - 0.50 K/mcL LAB HEMETOLOGY METHOD 04/09/2025 11:[facility] Basophils Absolute 0.05 0.00 - 0.20 K/mcL LAB HEMETOLOGY METHOD 04/09/2025 11:45 AM EDT [facility] Immature Granulocytes Absolute 0.02 0.00 - 0.03 K/mcL LAB HEMETOLOGY METHOD 04/09/2025 11:45 AM EDT [facility] Blood Blood sample taken from central line / Unknown Existing Catheter / Unknown 04/09/2025 10:58 AM EDT 04/09/2025 11:24 AM EDT us Loretta Broussard DO LAB BLOOD ORDERABLES Final Result [facility] [address] [place] [address], [place] [phone] * (ABNORMAL) Comprehensive metabolic panel (04/09/2025 10:58 AM EDT) Sodium 141 133 - 145 mmol/L LAB CHEMISTRY METHOD 04/09/2025 12:20 PM [facility] Potassium 3.7 3.5 - 5.5 mmol/L LAB CHEMISTRY METHOD 04/09/2025 12:20 PM [facility] Chloride 110 96 - 110 mmol/L LAB CHEMISTRY METHOD 04/09/2025 12:20 PM [facility] CO2 27 21 - 32 mmol/L LAB CHEMISTRY METHOD 04/09/2025 12:20 PM [facility] Anion Gap 4 3 - 11 LAB CHEMISTRY METHOD 04/09/2025 12:20 PM [facility] Glucose 161(H) 70 - 100 mg/dL LAB CHEMISTRY METHOD 04/09/2025 12:20 PM [facility] BUN 11 5 - 25 mg/dL LAB CHEMISTRY METHOD 04/09/2025 12:20 PM [facility] Creatinine 1.08 0.50 - 1.10 mg/dL LAB CHEMISTRY METHOD 04/09/2025 12:20 PM [facility] eGFR 62 >=60 mL/min/1. 73m2 LAB CHEMISTRY METHOD 04/09/2025 12:20 PM [facility] Comment:Calculation based on the Chronic Kidney Disease Epidemiology Collaboration (CKD-EPI) equation refit without adjustment for race. BUN/Creatinine Ratio 10.2 LAB CHEMISTRY METHOD 04/09/2025 12:20 PM [facility] Calcium 9.5 8.5 - 10.5 mg/dL LAB CHEMISTRY METHOD 04/09/2025 12:20 PM [facility] AST (SGOT) 23 10 - 42 unit/L LAB CHEMISTRY METHOD 04/09/2025 12:20 PM EDT [facility] ALT (SGPT) 16 10 - 60 unit/L LAB CHEMISTRY METHOD 04/09/2025 12:20 PM EDT [facility] Alkaline Phosphatase 141(H) 42 - 121 unit/L LAB CHEMISTRY METHOD 04/09/2025 12:20 PM EDT [facility] Total Protein 6.2 6.0 - 8.0 g/dL LAB CHEMISTRY METHOD 04/09/2025 12:20 PM EDT [facility] Albumin 3.1(L) 3.2 - 5.0 g/dL LAB CHEMISTRY METHOD 04/09/2025 12:20 PM EDT [facility] Total Bilirubin 0.6 0.0 - 1.4 mg/dL LAB CHEMISTRY METHOD 04/09/2025 12:20 PM T [facility] Blood Blood sample taken from central line / Unknown Existing Catheter / Unknown 04/09/2025 10:58 AM EDT 04/09/2025 11:24 AM EDT us Loretta Broussard DO LAB BLOOD ORDERABLES Final Result [facility] [address] [place] [address], documented in this encounter Visit Diagnoses Diagnosis Primary gall bladder adenocarcinoma ([facility] V24, [facility]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 documented in this encounter Administered Medications Inactive Administered Medications - up to 3 most recent administrations Medication Order MAR Action Action Date Dose Rate Site sodium chloride 0.9 % bolus 1,000 mL 1,000 mL, intravenous, at 1,000 mL/hr, Administer over 1 Hours, Once, On 04/09/25 at 1130, For 1 doseIndications:Primary gall bladder adenocarcinoma ([facility]/HCC V24, [facility] V28) New Bag 04/09/2025 11:09 AM EDT 1,000 mL 1000 mL/hr documented in this encounter Orders Medications Ordered That Mikal ht Not Have Been Administered Count Last Ordered Date First Ordered Date sodium chloride 0.9 % bolus 1,000 mL 1 03/13 documented in this encounter Care Teams Assembler Corncob Pipes Relationship Specialty Start Date End Date Chandler Villalobos MD [address] [place] [phone] PCP - General 04/25/24 documented as of this encounter
--- OUTSIDE RECORDS SUMMARY | 2025-04-10 10:00 | XMS_ITS | Encounter Summary ---
Author Organization [facility] Address [address] [place] [address] Care Team Providers Care Corporate Communications Intern Name Role Phone Chandler Villalobos MD Primary Care Provider [phone] Reason for Visit * Reason Comments Chemotherapy C16 5FU * Episode Based Medications (Routine) - Authorized Specialty Diagnoses / Procedures Referred By Minnie ivan Referred To Contact Diagnoses Primary gall bladder adenocarcinoma (CMS/HCC V24, CMS/HCC V28) Loretta Broussard DO [address] [place] [address] Phone: tel: fax: [facility] [address] [place] [phone] Phone: tel: fax: Referral ID Status Reason Start Date Expiration Date V isits Requested Visits Authorized [id number] Authorized 09/03/2024 09/03/2025 1 32 Encounter Details Date Type Department Care Team (Latest Contact Info) Description 04/10/2025 10:00 AM EDT Hospital Encounter [address] [phone] Loretta Broussard DO [address] [place] [phone] Primary gall bladder adenocarcinoma (CMS/HCC V24, CMS/HCC [...] Sign Reading Time Taken Comments Blood Pressure 109/71 04/10/2025 10:30 AM EDT Pulse 94 04/10/2025 10:30 AM EDT Temperature 36.1 C (97 F) 04/10/2025 10:30 AM EDT Respiratory Rate 16 04/10/2025 10:30 AM EDT Oxygen Saturation 99% 04/10/2025 10:30 AM EDT Inhaled Oxygen Concentration - - Weight 83.9 kg (185 lb) 04/10/2025 10:30 AM EDT Height 163.8 cm (5' 4.49 ) 04/10/2025 10:30 AM E DT Body Mass Index 31.28 04/10/2025 10:30 AM EDT documented in this encounter Progress Notes * Marilyn Crisostomo RN - 04/10/2025 10:00 AM EDT 1100: PT arrives this morning for C16 leucovorin and 5FU infusions. PT reports feeling well at homewithout acute changes or concerns. Neuropathy continues to be constant with difficulty completing ADLs often dropping objects. MD aware and oxaliplatin has been omitted from plan sine cycle 11 and noother changes to plan att. PT continues to have intermittent constipation, relieved through diet mod ification, stable assessment otherwise. Port accessed, +BR noted, flushed and premedications given,fluids continue at KVO, call quinteros in reach. 1135: Leucovorin infusion initiaited, PT given a cup of coffee, call quinteros in reach. 1230: PT tolerating infusions well thus far, denies concerns, helped to the BR via wheelchair and back into recliner, call quinteros in reach. 1345: Leucovorin infusion completed without concerns. 5FU IVP administered slow with free flowing saline, +BR noted throughout and PT well tolerated. 5FU continuous pump infusion initiated, all connections secured, call quinteros in reach. PT given next apt reminders, left unit via wheelchair with sister, stable at D/C. documented in this encounter Plan of Treatment Upcoming Encounters Date Type Department Care Team (Late st Contact Info) Description 04/16/2025 10:00 AM EDT Appointment [facility] [address] [place] [phone] 04/20/2025 10:00 AM EDT Appointment [facility] [address] [place] [phone] 04/23/2025 11:00 AM EDT Appointment [facility] [address] [place] [phone] 04/24/2025 10:30 AM EDT Appointment [facility] [address] [place] [phone] 04/26/2025 1:30 PM EDT Appointment [facility] CT Scan [address] [place] [phone] 04/30/2025 10:00 AM EDT Appointment [facility] [address] [place] [phone] 05/04/2025 11:30 AM EDT Office Visit [facility] Hematology Oncology [address] [place] [phone] Loretta Broussard, [address] [place] [phone] 05/04/2025 12:00 PM EDT Appointment [facility] [address] [place] [phone] 07/20/2025 12:30 PM EST Office Visit [address] [phone] Chandler Villalobos MD [address] [place], [place] documented as of this encounter Visit Diagnoses Diagnosis Primary gall bladder adenocarcinoma (CMS/HCC V24, CMS/HCC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 documented in this encounter Administered Medications Inactive Administered Medications - up to 3 most recent administrations Medication Order MAR Action Action Date Dose Rate Site dexAMETHasone (DECADRON) injection 12 mg 12 mg, intravenous, Once, On Wed04/10/25 at 1100, For 1 doseIndications:Primary gall bladder adenocarcinoma (CMS/HCC V24, CMS/HCC V28) Given 04/10/2025 10:52 AM EDT 12 mg fluorouracil (ADRUCIL) 4,550 mg in sodium chloride 0.9 % 92 mL chemo infusion 4,550 mg (rounded from 4,560 mg = 2,400 mg/m2 1.9 m2), intravenous, at 2 mL/hr, Administer over 46 Hours, Once, On Wed04/10/25 at 1315, For 1 dose, Fluorouracil is administered as [...] bladder adenocarcinoma (CMS/HCC V24, CMS/HCC V28) Given 04/10/2025 1:50 PM EDT 4,550 mg 2 mL/hr fluorouracil (ADRUCIL) chemo injection 750 mg 750 mg (rounded from 760 mg = 400 mg/m2 1.9 m2), intravenous, at 90 mL/hr, Administer over 10 Minutes, Once, On Wed04/10/25 at 1300, For 1 dose, IV push Protect from light Antineoplastic Hazardous Medication - Double pair of ASTM standard D6978 certified gloves - Hazardous gown - Eye/face protection if liquid that could splash - CSTD required when possibleIndications:Primary gall bladder adenocarcinoma (CMS/HCC V24, CMS/HCC V28) Given 04/10/2025 1:38 PM EDT 750 mg 90 mL/hr leucovorin 700 mg in dextrose 285 mL IVPB 700 mg, intravenous, at 190 mL/hr, Administer over 90 Minutes, Once, On Wed04/10/25 at 1130, For 1 dose, Dose 750 mg rounded to 700 mg per [facility] policy. Run concurrent with OXALIplatin infusion, so that the two drugs end at approximately the same time.Indications:Primary gall bladder adenocarcinoma (CMS/HCC V24, CMS/HCC V28) New Bag 04/10/2025 11:35 AM EDT 700 mg 190 mL/hr palonosetron (ALOXI) injection 250 mcg 250 mcg, intravenous, Once, On Wed04/10/25 at 1100, For 1 doseIndications:Primary gall bladder adenocarcinoma (CMS/HCC V24, CMS/HCC V28) Given 04/10/2025 10:52 AM EDT 250 mcg documented in this encounter Care Teams Corporate Communications Intern Relationship Specialty Start Date End Date Chandler Villalobos MD [address] [place] [phone] PCP - General 04/25/24 documented as of this encounter
--- NOTE | 2025-04-12 10:47 | A.OFFVIS_ITS ---
Vital Signs 04/12/25 10:50 Height 5 ft 4.5 in Weight 185 lb BMI 31.3 Intake Visit Reasons: left ankle avulsion fracture - needs xrays done be Intake Note: Indigo is a 55 year old female who presents today for a follow up on her avulsion fracture of distal fibula. Patient reports she experiences slight pain once after cleaning her room and getting up to use the restroom throughout the night. Allergies lisinopril Allergy (Verified 04/12/25 10:51) Anaphylaxis Medication List - Last Reconciled 04/12/25 by Karolina Weaver DPM amlodipine 10 mg PO DAILY dexamethasone 4 mg PO BID hydromorphone 2 mg PO Q4-6H PRN insulin glargine (Lantus Solostar U-100 Insulin) 10 units subcut QPM insulin lispro (Humalog KwikPen (U-100) Insulin) 1 sliding scale dose subcut USEASDIRECTD [knee scooter As directed.] magnesium oxide 400 mg PO DAILY metoprolol succinate ER 50 mg PO DAILY potassium chloride ER (K-Tab) 20 mEq PO DAILY prochlorperazine maleate (Compazine) 10 mg PO Q6H PRN HPI Comments Details: The patient is a 55-year-old female presenting for follow-up of a left distal fibular avulsion fracture. The patient states her symptoms have continued to improve since her last visit. Over time, the patient has been able to walk without crutches, although prolonged standing remains challenging. The patient also reports neuropathy, which has been managed with the use of specialized insoles in her footwear. Patient has continued to use her cam boot. Patient states she experiences mild pain with increased activity or exertion and pain is relieved with rest. She denies any new injuries to the ankle. She denies any other pedal concerns. She denies any current nausea, vomiting, fever, or ch ills. [facility] Medical History (Updated 03/31/25 @ 19:41 by Karolina Weaver DPM) Left ankle injury Left ankle pain Avulsion fracture of distal fibula Closed left ankle fracture Review of Systems Const Details: - Musculoskeletal: Reports my pain to the left ankle, improved from last visit. All systems reviewed & are unremarkable except as noted in HPI and below Physical Exam Vital Signs: BMI result Body Mass Index 31.3 Extrem Other: Left lower extremity focused physical exam: Derm: No open lesions abrasions or wounds noted. No ecchymosis or erythema noted. No clinical signs of infection. Skin supple and turgor within normal limits. Vascular: DP/PT pulses palpable. Capillary refill time less than 3 seconds. Minimal edema noted to bilateral lower extremities. Temperature gradient warm to warm. No varicosities noted. Pedal hair present. Neuro: Protective sensation is grossly diminished. Musculoskeletal: No pain on palpation to the distal aspect of the fibula. Minimal pain noted upon eversion. Remaining range of motion is without pain. No pain on palpation along the lateral ankle ligaments. No pain along the medial malleolus or deltoid ligaments. Negative squeeze test. No pain noted to the proximal aspect of the fibula. Range of motion of the forefoot within normal limits. No pain to the forefoot. Office Procedures AMB Podiatry Dressing Details of Procedure: Applied cast padding and Ld bandage to the left foot and ankle. 11804 - Strapping of foot/ankle Procedure code (CPT) selection complete Results Reviewed Results Reviewed: Podiatry read of left ankle three-views weightbearing x-ray (04/09/25): Visible healing noted to the fracture fragment. Soft callus formation noted with bridging in comparison to patient's original x-rays. No new acute fractures or dislocations noted. Left ankle three-views weightbearing x-ray (04/09/25): FINDINGS: Four views of the ankle are submitted. Osseous mineralization is normal. There is a minimally displaced fracture of the tip of the distal fibula. No additional fracture is seen. There is no dislocation. The joint spaces are preserved. The soft tissues are unremarkable. IMPRESSION: Minimally displaced fracture of the tip of the distal fibula. Reviewed patient's left ankle and foot x-rays that were previously done at [facility]. Podiatry read: Nondisplaced transverse avulsion fracture noted to the distal tip of the fibula. No acute dislocations noted. Assessment & Plan Assessment & Plan (1) Closed left ankle fracture: Code(s): S82.892A - Other fracture of left lower leg, initial encounter for closed fracture Category: Medical Qualifiers: Encounter type: subsequent encounter Fracture healing: with routine healing Qualified Code(s): S82.892D - Other fracture of left lower leg, subsequent encounter for closed fracture with routine healing (2) Avulsion fracture of distal fibula: Code(s): S82.839A - Other fracture of upper and lower end of unspecified fibula, initial encounter for closed fracture Category: Medical (3) Left ankle injury: Code(s): S99.912A - Unspecified injury of left ankle, initial encounter Category: Medical Qualifiers: Encounter type: subsequent encounter Qualified Code(s): S99.912D - Unspecified injury of left ankle, subsequent encounter (4) Left ankle pain: Code(s): M25.572 - Pain in left ankle and joints of left foot Category: Medical Qualifiers: Chronicity: acute Qualified Code(s): M25.572 - Pain in left ankle and j oints of left foot Plan Patient was informed and verbally consented to the use of an ambient scribe for clinic note documentation during this visit. I discussed with the patient the importance of transitioning to a solid sneaker to facilitate healing and the role of physical therapy in regaining strength and mobility. We also talked about the management of neuropathy with insoles and the plan for a follow-up visit in three weeks, including an x-ray to evaluate the healing process. - Transition from CAMboot to solid sneaker to and may continue to be weight- bearing as tolerated to the left lower extremity that the use of an assistive device, but can use boot and assistive device if needed. - Initiate physical therapy to enhance strength and range of motion, provided patient with referral. - Continue use of insoles for neuropathy management. - Ordered repeat x-rays to evaluate healing, to be performed prior to next visit. - Applied cast padding and Ld bandage to the left foot and ankle. - Week 1 patient is to be weight-bearing as tolerated to the left lower extremity in a cam boot without the use of an assistive device. - Week 2 patient is to be weight-bearing as tolerated to the left lower extremity in a supportive sneaker without the use of an assistive device. - Patient is to transition to new shoegear pending patient's tolerance. - Monitor for abnormal swelling and report any significant changes. - Continue with RICE protocol. - Continue using Tylenol or Ibuprofen for pain. Patient is to return to the office in 3 weeks for re-evaluation of healing. Orders: Orders PT Evaluation and Treatment Today M25.572 - Pain in left ankle and joints of left foot, S82.839A - Other fracture of upper and lower end of unspecified fibula, initial encounter for closed fracture, S82.892D - Other fracture of left lower leg, subsequent encounter for closed fracture with routine healing, S99.912D - Unspecified injury of left ankle, subsequent encounter AMB Podiatry Dressing Today M25.572 - Pain in left ankle and joints of left foot, S82.839A - Other fracture of upper and lower end of unspecified fibula, initial encounter for closed fracture, S82.892D - Other fracture of left lower leg, subsequent encounter for closed fracture with routine healing, S99.912D - Unspecified injury of left ankle, subsequent encounter XR ankle LT min 3V Today M25.572 - Pain in left ankle and joints of left foot, S82.839A - Other fracture of upper and lower end of unspecified fibula, initial encounter for closed fracture, S82.892D - Other fracture of left lower leg, subsequent encounter for closed fracture with routine healing, S99.912D - Unspecified injury of left ankle, subsequent encounter Coding Level of Care Code Est Pt Level 4 (76656) Diagnoses Closed fracture of left ankle with routine healing, subsequent encounter S82.892D Encounter type: subsequent encounter Fracture healing: with routine healing Avulsion fracture of distal fibula S82.839A Injury of left ankle, subsequent encounter S99.912D Encounter type: subsequent encounter Acute left ankle pain M25.572 Chronicity: acute CPT Codes Podiatry Dressing - CPT: 35258 - Strapping of foot/ankle ([id number]) Time Spent (min) 50
[2025-04-12 10:50] VITALS: BMI 31.3
--- OUTSIDE RECORDS SUMMARY | 2025-04-12 11:28 | XMS_ITS | Encounter Summary ---
Author Organization [facility] Address [address] [place] [address] Care Team Providers Care Restrooms Or Lounges Maid Name Role Phone Chandler Villalobos MD Primary Care Provider [phone] Reason for Visit * Reason Comments Other (Add RFV) Pump take down and h ydration Encounter Details Date Type Department Care Team (Latest Contact Info) Description 04/12/2025 11:28 AM EDT Hospital Encounter [facility] [address] [phone] Loretta Broussard, [address] [place] [address] Primary gall bladder adenocarcinoma (CMS/HCC V24, CMS/HCC [...] Sign Reading Time Taken Comments Blood Pressure 127/83 04/12/2025 11:40 AM EDT Pulse 67 04/12/2025 11:40 AM EDT Temperature 36.2 C (97.1 F) 04/12/2025 11:40 AM EDT Respiratory Rate 12 04/12/2025 11:40 AM EDT Oxygen Saturation 100% 04/12/2025 11:40 AM EDT Inhaled Oxygen Concentration - - Weight - - Height - - Body Mass Index - - documented in this encounter Plan of Treatment Upcoming Encounters Date Type Department Care Team (Late st Contact Info) Description 04/16/2025 10:00 AM EDT Appointment [facility] [address] [place] [phone] 04/20/2025 10:00 AM EDT Appointment [address] [phone] 04/23/2025 11:00 AM EDT Appointment [address] [phone] 04/24/2025 10:30 AM EDT Appointment [address] [phone] 04/26/2025 1:30 PM EDT Appointment [facility] CT Scan [address] [place] [phone] 04/30/2025 10:00 AM EDT Appointment [address] [phone] 05/04/2025 11:30 AM EDT Office Visit [facility] Hematology Oncology [address] [place] [phone] Loretta Broussard, DO [address] [place] [phone] 05/04/2025 12:00 PM EDT Appointment [facility] [address] [place] [phone] 07/20/2025 12:30 PM EST Office Visit [address] [phone] Chandler Villalobos MD [address] [place], [place] documented as of this encounter Visit Diagnoses Diagnosis 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, [facility]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 documented in this encounter Administered Medications Inactive Administered Medications - up to 3 most recent administrations Medication Order MAR Action Action Date Dose Rate Site sodium chloride 0.9 % bolus 1,000 mL 1,000 mL, intravenous, at 1,000 mL/hr, Administer over 1 Hours, Once, On Nilda 04/12/25 at 1200, For 1 doseIndications: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, [facility] V28) New Bag 04/12/2025 12:04 PM EDT 1,000 mL 1000 mL/hr documented in this encounter Orders Medications Ordered That Mikal ht Not Have Been Administered Count Last Ordered Date First Ordered Date sodium chloride 0.9 % bolus 1,000 mL 1 08/2024 documented in this encounter Care Teams Restrooms Or Lounges Maid Relationship Specialty Start Date End Date Chandler Villalobos MD [address] [place] [address] PCP - General 04/25/24 documented as of this encounter
--- OUTSIDE RECORDS SUMMARY | 2025-04-12 12:26 | XMS_ITS ---
Author Organization [facility] Address [address] [place] [address] Phone Care Team Providers Care Head Girls Golf Coach Name Role Phone Chandler Villalobos MD Primary Care Provider Active Problems Problem Noted Date Diagnosed Date Elevated carcinoembryonic antigen (CEA) 07/02/20 24 Hypokalemia 05/18/2024 Port-A-Cath in place 05/18/2024 Primary gall bladder adenoca rcinoma ([facility] V24, [facility] V28) 04/27/2024 Type 2 diabetes mellitus wit hout complication, with long-term current use of insulin ([facility] V24, [facility] V28) 04/27/2024 Primary hypertension 04/27/2024 Mixed hyperlipidemia 04/27/2024 Iron deficiency anemia 04/27/2024 Current Treatment and Therapy Plans FOLFOX ( Fluorouracil Continuous Infusion / Leucovorin / OXALIplatin )* Plan Start Date:09/03/2024 Plan Provider:Loretta Broussard, Linked Problems Primary gall bladder adenoca rcinoma ([facility] V24, [facility] V28) Treatment Medications Current Day (Day 3 , Cycle 16 - Planned for 04/12/2025) Next Day (Day 1, Cycle 17 - Planned for 04/24/2025) 5-FU (ADRUCIL) chemo infusio n 100 mL - for home use solutionfluorouracil (ADRUCIL)leucovorinleucovorin IVPB in D5W (350 mg vial)OXALIplatin (ELOXATIN) chemo infusion No medications scheduled. fluorouracil (ADRUCIL) 4,550 mg in sodium chloride 0.9 % 100 mL chemo infusionfluorouracil (ADRUCIL) chemo injectionleucovorin IVPB HYDRATION AND ELECTROLYTES* Plan Start Date:05/18/2024 Plan Provider:Loretta Broussard DO Linked Problems Primary gall bladder adenoca rcinoma ([facility] V24, [facility] V28) Treatment Medications No medications scheduled. OUTPATIENT TRANSFUSION (PRN)* Plan Start Date:05/30/2024 Plan Provider:Loretta Broussard DO Linked Problems Iron deficiency anemia, unsp ecified iron deficiency anemia typePrimary gall bladder adenocarcinoma ([facility] V24, [facility] V28) Treatment Medications No medications scheduled. Other Current Plans FERUMOXYTOL ( FERAHEME ) 510 mg IVPB* Plan Start Date:05/22/2024 Plan Provider:Loretta Broussard DO Linked Problems Iron deficiency anemia, unsp ecified iron deficiency anemia type Treatment Medications No medications scheduled. Past Treatment and Therapy Plans Oncology Treatment Plan Name Start Date [...]
--- OUTSIDE RECORDS SUMMARY | 2025-04-12 12:26 | XMS_ITS | Encounter Summary ---
Author Organization [facility] Address [address] [place] [address] Care Team Providers Care Websphere Process Server Developer Name Role Phone Chandler Villalobos MD Primary Care Provider [phone] Reason for Visit * Reason Onset Date Comments Appointment 04/09/2025 Encounter Details Date Type Department Care Team (Late st Contact Info) Description 04/09/2025 Telephone [facility] Hematology Oncology [address] [place] [phone] Loretta Broussard, DO [address] [place] [address] Social History Tobacco Use Types Packs/Day Years [...] PM EST documented as of this encounter Progress Notes * Lelo Patel - 04/09/2025 3:02 PM EDT No voicemail set up to leave a message. CT 04/25/25 2pm, [facility]. With oral contrast. documented in this encounter Plan of Treatment Upcoming Encounters Date Type Department Care Team (Late st Contact Info) Description 04/16/2025 10:00 AM EDT Appointment [address] [phone] 04/20/2025 10:00 AM EDT Appointment [address] [phone] 04/23/2025 11:00 AM EDT Appointment [address] [phone] 04/24/2025 10:30 AM EDT Appointment [address] [phone] 04/26/2025 1:30 PM EDT Appointment [facility] CT Scan [address] [place] [phone] 04/30/2025 10:00 AM EDT Appointment [address] [phone] 05/04/2025 11:30 AM EDT Office Visit [facility] Hematology Oncology [address] [place] [phone] Loretta Broussard DO [address] [place] [address] 05/04/2025 12:00 PM EDT Appointment [facility] [address] [place] [phone] 07/20/2025 12:30 PM EST Office Visit Adult [address] [phone] Chandler Villalobos MD [address] [place] [address] documented as of this encounter Visit Diagnoses Not on filedocumented in this encounter Care Teams Websphere Process Server Developer Relationship Specialty Start Date End Date Chandler Villalobos MD [address] [place] [phone] PCP - General 04/25/24 documented as of this encounter
--- OUTSIDE RECORDS SUMMARY | 2025-04-12 12:26 | XMS_ITS | Patient Health Record ---
Author Organization [facility] Address [address] [place] [address] Care Team Providers Care [employer] Maintenance Worker Name Role Phone Sarthak Siddiqui Unavailable [phone] Reason For Referral No Information Medications Medication [...] Date Coverage End Date [employer] [address] [address] NON PAR EPO DEEP Akhtar [phone] [id number] Indigo Adrian Self - patient is the insured Medical (General) History Medical History History ICD Code high bp diabetes high eye pressure Surgical History Surgery Date(Month/Year)
--- OUTSIDE RECORDS SUMMARY | 2025-04-12 12:26 | XMS_ITS | Clinical Summary ---
Author Organization [facility] Address [address] [place] [address] Phone Care Team Providers Care Rod Hanger Name Role Phone Chandler Villalobos MD Primary Care Provider [phone] Allergies Active Allergy Reactions Criticality Noted Date Comments Lisinopril Anaphylaxis High 04/12/2024 Medications mineral oil liquid Take by mouth. For constipation Active prochlorperazine (COMPAZINE) 10 mg tabletIndications: Primary gall bladder adenocarcinoma ([facility] V24, CMS/[facility] V28) Take 1 tablet (10 mg total) by mouth every 6 (six) hours if needed for nausea or vomiting. 60 tablet 3 09/05/19 25 Active HYDROmorphone (DILAUDID) 2 mg tabletIndications: Primary gall bladder adenocarcinoma ([facility] V24, CMS/[facility] V28) Take 1 tablet (2 mg total) [...] place 05/18/2024 Primary gall bladder adenoca rcinoma ([facility] V24, [facility] V28) 04/27/2024 Type 2 diabetes mellitus wit hout complication, with long-term current use of insulin ([facility] V24, [facility] V28) 04/27/2024 Primary hypertension 04/27/2024 Mixed hyperlipidemia 04/27/2024 Iron deficiency anemia 04/27/2024 Encounters Date Type Department Care Team Description 04/12/2025 11:28 AM EDT Hospital Encounter [facility] Center [address] [place] [phone] Loretta Broussard, DO Primary gall bladder adenocarcinoma ([facility] V24, [facility] V28) (Primary Dx) 04/10/2025 10:00 AM EDT Hospital Encounter [facility] Center [address] [place] [phone] Loretta Broussard, Primary gall bladder adenocarcinoma ([facility] V24, [facility] V28) (Primary Dx) 04/09/2025 10:30 AM EDT Hospital Encounter [address] [phone] Loretta Broussard, Primary gall bladder adenocarcinoma ([facility]/HCC V24, [facility]/HCC V28) (Primary Dx) 04/09/[address] [facility] Hematology Oncology [address] [place] [phone] Loretta Broussard, 04/09/[address] [facility] Hematology Oncology [address] [place] [phone] Loretta Broussard, 04/06/2025 11:00 AM EDT - 04/06/2025 11:59 PM EDT Hospital Encounter [facility] [address] [place] [phone] Loretta Broussard, DO Primary gall bladder adenocarcinoma (CMS/HCC V24, CMS/HCC V28) (Primary Dx) Discharge Disposition: Home or Self Care 04/06/2025 10:45 AM EDT Office Visit [facility] Hematology Oncology [address] [place] [phone] Loretta Broussard, DO Primary gall bladder adenocarcinoma (CMS/HCC V24, CMS/HCC V28) (Primary Dx) 04/06/[address] [facility] [address] [place] [phone] Kevin Rodríguez LMSW 04/02/2025 1:30 PM EDT - 04/02/2025 11:59 PM EDT Hospital Encounter [facility] [address] [place] [phone] Loretta Broussard, DO Primary gall bladder adenocarcinoma (CMS/HCC V24, CMS/HCC V28) (Primary Dx) Discharge Disposition: Home or Self Care 2025 9:30 AM EDT - 2025 11:59 PM EDT Hospital Encounter [facility] [address] [place] [phone] Loretta Broussard, DO Primary gall bladder adenocarcinoma (CMS/HCC V24, CMS/HCC V28) (Primary Dx) Discharge Disposition: Home or Self Care 03/27/2025 8:00 AM EDT - 03/27/2025 11:59 PM EDT Hospital Encounter [facility] [address] [place] [phone] Loretta Broussard, DO Primary gall bladder adenocarcinoma (CMS/HCC V24, CMS/HCC V28) (Primary Dx) Discharge Disposition: Home or Self Care 03/26/2025 9:30 AM EDT - 03/26/2025 11:59 PM EDT Hospital Encounter [facility] [address] [place] [phone] Loretta Broussard, Primary gall bladder adenocarcinoma (CMS/HCC V24, CMS/HCC V28) (Primary Dx); Iron deficiency anemia, unspecified iron deficiency anemia type Discharge Disposition: Home or Self Care 03/23/2025 1:24 PM EDT - 03/23/2025 11:59 PM EDT Hospital Encounter [facility] [address] [place] [phone] Loretta Broussard, Primary gall bladder adenocarcinoma (CMS/HCC V24, CMS/HCC V28) (Primary Dx) Discharge Disposition: Home or Self Care 03/19/2025 1:30 PM EDT - 03/19/2025 11:59 PM EDT Hospital Encounter [facility] Center [address] [place] [phone] Loretta Broussard, Primary gall bladder adenocarcinoma (CMS/HCC V24, CMS/HCC V28) (Primary Dx) Discharge Disposition: Home or Self Care 03/15/2025 11:23 AM EDT - 03/15/2025 11:59 PM EDT Hospital Encounter [facility] [address] [place] [phone] Primary gall bladder adenocarcinoma (CMS/HCC V24, CMS/HCC V28) (Primary Dx) Discharge Disposition: Home or Self Care 03/13/2025 10:00 AM EDT - 03/13/2025 11:59 PM EDT Hospital Encounter [facility] [address] [place] [phone] Loretta Broussard, Primary gall bladder adenocarcinoma (CMS/HCC V24, CMS/HCC V28) (Primary Dx) Discharge Disposition: Home or Self Care 03/09/2025 1:54 PM EDT - 03/09/2025 3:[address] [facility] Emergency [address] [place] [phone] Closed avulsion fracture of left ankle, initial encounter (Primary Dx) Discharge Disposition: Home or Self Care 03/09/2025 11:40 AM EDT - 03/09/2025 11:59 PM EDT Hospital Encounter [facility] Xray [address] [place] [phone] Primary gall bladder adenocarcinoma (CMS/HCC V24, CMS/HCC V28) Discharge Disposition: Home or Self Care 03/09/2025 11:39 AM EDT - 03/09/2025 11:59 PM EDT Hospital Encounter [facility] Xray [address] [place] [phone] Loretta Broussard, DO Primary gall bladder adenocarcinoma (CMS/HCC V24, CMS/HCC V28) Discharge Disposition: Home or Self Care 03/09/2025 10:30 AM EDT - 03/09/2025 11:59 PM EDT Hospital Encounter [facility] [address] [place] [phone] Loretta Broussard, DO Primary gall bladder adenocarcinoma (CMS/HCC V24, CMS/HCC V28) (Primary Dx) Discharge Disposition: Home or Self Care 03/09/2025 10:00 AM EDT Office Visit [facility] Hematology Oncology [address] [place] [phone] Loretta Broussard, DO Primary gall bladder adenocarcinoma (CMS/HCC V24, CMS/HCC V28) (Primary Dx); Acute left ankle pain; Hypomagnesemia 03/05/2025 10:00 AM EDT - 03/05/2025 11:59 PM EDT Hospital Encounter [facility] [address] [place] [phone] Loretta Broussard, Primary gall bladder adenocarcinoma (CMS/HCC V24, CMS/HCC V28) (Primary Dx) Discharge Disposition: Home or Self Care 03/01/2025 12:02 PM EDT - 03/01/2025 11:59 PM EDT Hospital Encounter [facility] [address] [place] [phone] Loretta Brousasrd, DO Primary gall bladder adenocarcinoma (CMS/HCC V24, CMS/HCC V28) (Primary Dx) Discharge Disposition: Home or Self Care 02/27/2025 10:00 AM EDT - 02/27/2025 11:59 PM EDT Hospital Encounter [facility] [address] [place] [phone] Loretta Broussard, DO Primary gall bladder adenocarcinoma (CMS/HCC V24, CMS/HCC V28) (Primary Dx) Discharge Disposition: Home or Self Care 02/26/2025 9:00 AM EDT - 02/26/2025 11:59 PM EDT Hospital Encounter [address] [phone] Loretta Broussard, DO Primary gall bladder adenocarcinoma (CMS/HCC V24, CMS/HCC V28) (Primary Dx) Discharge Disposition: Home or Self Care 02/23/2025 1:30 PM EDT - 02/23/2025 11:59 PM EDT Hospital Encounter [facility] Center [address] [place] [phone] Loretta Broussard, DO Primary gall bladder adenocarcinoma ([facility]/HCC V24, CMS/HCC V28) (Primary Dx) Discharge Disposition: Home or Self Care 02/19/2025 1:00 PM EDT - 02/19/2025 11:59 PM EDT Hospital Encounter [address] [phone] Loretta Broussard, DO Primary gall bladder adenocarcinoma ([facility]/HCC V24, CMS/HCC V28) (Primary Dx) Discharge Disposition: Home or Self Care 02/16/[address] [facility] [address] [facility] [place] [phone] Trista Richards MD Secondary and unspecified malignant neoplasm of lymph node, unspecified (CMS/HCC V24, CMS/HCC V28) 02/15/2025 11:30 AM EDT - 02/15/2025 11:59 PM EDT Hospital Encounter [facility] [address] [place] [phone] Loretta Broussard, Primary gall bladder adenocarcinoma ([facility]/HCC V24, CMS/HCC V28) (Primary Dx) Discharge Disposition: Home or Self Care 02/13/2025 10:00 AM EDT - 02/13/2025 11:59 PM EDT Hospital Encounter [address] [phone] Loretta Broussard, Primary gall bladder adenocarcinoma (CMS/HCC V24, CMS/HCC V28) (Primary Dx) Discharge Disposition: Home or Self Care 02/12/2025 9:00 AM EDT - 02/12/2025 11:59 PM EDT Hospital Encounter [address] [phone] Loretta Broussard, Primary gall bladder adenocarcinoma ([facility]/HCC V24, CMS/HCC V28) (Primary Dx) Discharge Disposition: Home or Self Care 02/09/2025 12:59 PM EDT - 02/09/2025 11:59 PM EDT Hospital Encounter [address] [phone] Loretta Broussard, Primary gall bladder adenocarcinoma ([facility]/HCC V24, CMS/HCC V28) (Primary Dx) Discharge Disposition: Home or Self Care 02/07/2025 4:00 PM EDT Office Visit Adult Medicine [address] [phone] Chandler Villalobos MD Primary hypertension (Primary Dx); Type 2 diabetes mellitus without complication, with long-term current use of insulin (CMS/HCC V24, CMS/HCC V28); Mixed hyperlipidemia; Primary gall bladder adenocarcinoma ([facility]/HCC V24, CMS/HCC V28); Iron deficiency anemia, unspecified iron deficiency anemia type; Hypokalemia; Hypomagnesemia 02/05/2025 9:00 AM EDT - 02/05/2025 11:59 PM EDT Hospital Encounter [address] [place] [address] [place] [phone] Loretta Broussard, DO Primary gall bladder adenocarcinoma (CMS/HCC V24, CMS/HCC V28) (Primary Dx) Discharge Disposition: Home or Self Care 02/05/2025 8:45 AM EDT Office Visit [facility] Hematology Oncology [address] [place] [phone] Loretta Broussard, DO Primary gall bladder adenocarcinoma (CMS/HCC V24, CMS/HCC V28) (Primary Dx) 02/01/2025 10:04 AM EDT - 02/01/2025 11:59 PM EDT Hospital Encounter [facility] CT Scan [address] [place] [phone] Primary gall bladder adenocarcinoma (CMS/HCC V24, CMS/HCC V28) Discharge Disposition: Home or Self Care 02/01/2025 10:04 AM EDT - 02/01/2025 11:59 PM EDT Hospital Encounter [facility] [address] [place] [phone] Loretta Broussard, DO Primary gall bladder adenocarcinoma (CMS/HCC V24, CMS/HCC V28) (Primary Dx) Discharge Disposition: Home or Self Care 01/30/2025 8:00 AM EDT - 01/30/2025 11:59 PM EDT Hospital Encounter [facility] [address] [place] [phone] Loretta Broussard, DO Primary gall bladder adenocarcinoma (CMS/HCC V24, CMS/HCC V28) (Primary Dx) Discharge Disposition: Home or Self Care 01/29/2025 10:30 AM EDT - 01/29/2025 11:59 PM EDT Hospital Encounter [facility] [address] [place] [phone] Loretta Broussard, DO Primary gall bladder adenocarcinoma (CMS/HCC V24, CMS/HCC V28) (Primary Dx) Discharge Disposition: Home or Self Care 01/26/2025 10:59 AM EDT - 01/26/2025 11:59 PM EDT Hospital Encounter [facility] [address] [place] [phone] Loretta Broussard, DO Primary gall bladder adenocarcinoma (CMS/HCC V24, CMS/HCC V28) (Primary Dx) Discharge Disposition: Home or Self Care 01/22/2025 10:56 AM EDT - 01/22/2025 11:59 PM EDT Hospital Encounter [facility] [address] [place] [phone] Loretta Broussard, DO Primary gall bladder adenocarcinoma (CMS/HCC V24, CMS/HCC V28) (Primary Dx) Discharge Disposition: Home or Self Care 01/18/2025 11:59 AM EDT - 01/18/2025 11:59 PM EDT Hospital Encounter [address] [phone] Loretta Broussard, DO Primary gall bladder adenocarcinoma (CMS/HCC V24, CMS/HCC V28) (Primary Dx) Discharge Disposition: Home or Self Care 01/16/2025 10:00 AM EDT - 01/16/2025 11:59 PM EDT Hospital Encounter [facility] Center [address] [place] [phone] Loretta Broussard, DO Primary gall bladder adenocarcinoma (CMS/HCC V24, CMS/HCC V28) (Primary Dx) Discharge Disposition: Home or Self Care 01/15/2025 11:00 AM EDT - 01/15/2025 11:59 PM EDT Hospital Encounter [facility] [address] [place] [phone] Loretta Broussard, DO Primary gall bladder adenocarcinoma (CMS/HCC V24, CMS/HCC V28) (Primary Dx) Discharge Disposition: Home or Self Care 01/11/2025 1:30 PM EDT - 01/11/2025 11:59 PM EDT Hospital Encounter [facility] [address] [place] [phone] Loretta Broussard DO Primary gall bladder adenocarcinoma ([facility] V24, [facility] V28) (Primary Dx) Discharge Disposition: Home or Self Care from Last 3 Months Surgical History Surgery Date Site/Laterality Comments OTHER SURGICAL HISTORY PROCEDURE: HISTORY OTHER; COMMENT: port A cath HYSTERECTOMY PROCEDURE: HISTORICAL HYSTERECTOMY OTHER SURGICAL HISTORY PROCEDURE: HISTORY OTHER; COMMENT: Gall bladder biopsy Medical History Medical History Date Comments DM2 (diabetes mellitus, type 2) ([facility] V24, [facility] V28) DX:DM2 (diabetes mellitus, type 2) ([facility]) Essential (primary) hypertension DX:Essential (primary) hypertension Mixed hyperlipidemia DX:Mixed hy perlipidemia Glaucoma DX:Glaucoma Chronic anemia DX:Chronic anemi a Gallbladder cancer ([facility] V24, [facility] V28) 03/2024 Family History Medical History Relation [...] Mass Index 31.28 04/10/2025 10:30 AM EDT Plan of Treatment Upcoming Encounters Date Type Department Care Team (Late st Contact Info) Description 04/16/2025 10:[address] [facility] [address] [place] [phone] 04/20/2025 10:[address] [facility] [address] [place] [phone] 04/23/2025 11:00 AM EDT Appointment [facility] [address] [place] [phone] 04/24/2025 10:30 AM EDT Appointment [facility] [address] [place] [phone] 04/26/2025 1:[address] [facility] CT Scan [address] [place] [phone] 04/30/2025 10:00 AM EDT Appointment [facility] [address] [place] [phone] 05/04/2025 11:30 AM EDT Office Visit [facility] Hematology Oncology [address] [place] [phone] Loretta Broussard DO [address] [place] [phone] 05/04/2025 12:00 PM EDT Appointment [facility] [address] [place] [phone] 07/20/2025 12:30 PM EST Office Visit Adult Medicine [address] [phone] Chandler Villalobos MD [address] [place] [address] Health Maintenance Due Date Last Done Comments Colorectal Cancer Screening: Colonoscopy 1972 COVID-19 Vaccine (#1) 1977 Diabetes: Annual Foot Exam 1982 DTaP,Tdap,and Td Vaccines (1 - Tdap) 1991 Hepatitis B Vaccines (1 of 3 - 19+ 3-dose series) 1991 Pneumococcal Vaccine: 50+ Years (1 of 2 - PCV) 1991 Zoster Vaccines (1 of 2) 1991 Cervical Cancer Screening: Pap Smear 1993 HIV Screening 04/23/2024 Hepatitis C Screening 04/23/2024 Social Influencers of Health Screening 04/23/2024 Depression Screening 07/12/2024 Diabetes: Blood Sugar Control Test (HGBA1C) 01/01/2025 07/03/2024, 05/05/2024 Influenza Vaccine (#1) 2025 Diabetes: Annual Retina Eye Exam 06/01/2025 06/01/2024 Diabetes: Annual Urine Albumin-Creatinine Ratio (uACR) 07/03/2025 07/03/2024, 04/26/2024 Diabetes: Annual GFR (Glomerular Filtration Rate) 04/09/2026 04/09/2025, 03/26/2025, 03/09/2025, Additional history exists Hypertension/CHF/CAD Annual BMP Blood Test 04/09/2026 04/09/2025, 03/26/2025, 03/09/2025, Additional history exists Breast Cancer Screening 09/22/2026 [...] 10:58 AM EDT Primary gall bladder adenocarcinoma (CMS/HCC V24, CMS/HCC V28) COMPREHENSIVE METABOLIC PANEL Routine 04/09/2025 10:58 AM EDT Primary gall bladder adenocarcinoma (CMS/HCC V24, CMS/HCC V28) CBC AND DIFFERENTIAL Routine 04/09/2025 10:58 AM EDT Primary gall bladder adenocarcinoma (CMS/HCC V24, CMS/HCC V28) EXTERNAL XRAY REPORT 04/09/2025 EXTERNAL XRAY REPORT 04/09/2025 CBC WITH AUTO DIFFERENTIAL STAT 03/26/2025 9:46 [...] CMS/HCC V28) PANDYA URINE CULTURE TUBE Routine 09/12/20 25 3:12 PM EDT Primary gall bladder adenocarcinoma [...] complication, with long-term current use of insulin ([facility] V24, CMS/[facility] V28) Iron deficiency anemia, unspecified iron deficiency anemia type Mixed hyperlipidemia Hypokalemia HEMOGLOBIN A1C Routine 07/03/2024 9:52 AM EST Primary hypertension Type 2 diabetes mellitus without complication, with long-term current use of insulin ([facility] V24, CMS/HCC V28) Iron deficiency anemia, unspecified iron deficiency anemia type Mixed hyperlipidemia Hypokalemia LIPID PANEL WITH REFLEX TO DIRECT LDL Routine 07/03/2024 9:52 AM EST Primary hypertension Type 2 diabetes mellitus without complication, with long-term current use of insulin ([facility] V24, CMS/HCC V28) Iron deficiency anemia, unspecified iron deficiency anemia type Mixed hyperlipidemia Hypokalemia EXTERNAL DIABETIC RETINA EYE EXAM Routine 06/01/2024 9:04 AM EST from Last 3 Months or Most Recently Relevant to Health Maintenance Results * (ABNORMAL) CBC auto differential (04/09/2025 10:58 AM EDT) Only the most recent of7 resultswithin the time period is included. [facility] Signature WBC 5.8 4.8 - 10.8 K/mcL LAB HEMETOLOGY METHOD 04/09/2025 11:45 AM [facility] RBC 3.80 3.80 - 4.80 M/mcL LAB HEMETOLOGY METHOD 04/09/2025 11:45 AM [facility] Hemoglobin 10.9(L) 11.5 - 16.0 g/dL LAB HEMETOLOGY METHOD 04/09/2025 11:45 AM [facility] Hematocrit 33.8(L) 35.0 - 47.0 % LAB HEMETOLOGY METHOD 04/09/2025 11:45 AM [facility] MCV 88.3 79.0 - 98.0 FL LAB HEMETOLOGY METHOD 04/09/2025 11:45 AM [facility] MCH 28.5 27.0 - 32.0 pcg LAB HEMETOLOGY METHOD 04/09/2025 11:45 AM [facility] MCHC 32.2 32.0 - 37.0 g/dL LAB HEMETOLOGY METHOD 04/09/2025 11:45 AM [facility] RDW 14.6 11.0 - 15.0 % LAB HEMETOLOGY METHOD 04/09/2025 11:45 AM [facility] Platelets 174 130 - 400 K/mcL LAB HEMETOLOGY METHOD 04/09/2025 11:45 AM [facility] MPV 9.7 7.0 - 11.0 FL LAB HEMETOLOGY METHOD 04/09/2025 11:45 AM [facility] NRBC 0.0 <1.0 % LAB HEMETOLOGY METHOD 04/09/2025 11:45 AM [facility] NRBC Absolute 0.00 <0.10 K/mcL LAB HEMETOLOGY METHOD 04/09/2025 11:45 AM [facility] Neutrophils Relative 67.1 % LAB HEMETOLOGY METHOD 04/09/2025 11:45 AM [facility] Lymphocytes Relative 20.2 % LAB HEMETOLOGY METHOD 04/09/2025 11:45 AM [facility] Monocytes Relative 9.1 % LAB HEMETOLOGY METHOD 04/09/2025 11:45 AM [facility] Eosinophils Relative 2.4 % LAB HEMETOLOGY METHOD 04/09/2025 11:45 AM [facility] Basophils Relative 0.9 % LAB HEMETOLOGY METHOD 04/09/2025 11:45 AM [facility] Immature Granulocytes Relative 0.3 % LAB HEMETOLOGY METHOD 04/09/2025 11:45 AM [facility] Neutrophils Absolute 3.89 1.50 - 7.00 K/mcL LAB HEMETOLOGY METHOD 04/09/2025 11:45 AM [facility] Lymphocytes Absolute 1.17 1.00 - 5.00 K/mcL LAB HEMETOLOGY METHOD 04/09/2025 11:45 AM [facility] Monocytes Absolute 0.53 0.20 - 1.00 K/mcL LAB HEMETOLOGY METHOD 04/09/2025 11:45 AM [facility] Eosinophils Absolute 0.14 0.00 - 0.50 K/mcL LAB HEMETOLOGY METHOD 04/09/2025 11:45 AM [facility] Basophils Absolute 0.05 0.00 - 0.20 K/mcL LAB HEMETOLOGY METHOD 04/09/2025 11:45 AM [facility] Immature Granulocytes Absolute 0.02 0.00 - 0.03 K/mcL LAB HEMETOLOGY METHOD 04/09/2025 11:45 AM EDT [facility] Blood Blood sample taken from central line / Unknown Existing Catheter / Unknown 04/09/2025 10:58 AM EDT 04/09/2025 11:24 AM EDT us Loretta Lianne Broussard DO LAB BLOOD ORDERABLES Final Result [facility] [address] [place] [address], [place] [phone] * (ABNORMAL) Comprehensive metabolic panel (04/09/2025 10:58 AM EDT) Only the most recent of7 resultswithin the time period is included. Sodium 141 133 - 145 mmol/L LAB CHEMISTRY METHOD 04/09/2025 12:20 PM [facility] Potassium 3.7 3.5 - 5.5 mmol/L LAB CHEMISTRY METHOD 04/09/2025 12:20 PM [facility] Chloride 110 96 - 110 mmol/L LAB CHEMISTRY METHOD 04/09/2025 12:20 PM [facility] CO2 27 21 - 32 mmol/L LAB CHEMISTRY METHOD 04/09/2025 12:20 PM [facility] Anion Gap 4 3 - 11 LAB CHEMISTRY METHOD 04/09/2025 12:20 PM [facility] Glucose 161(H) 70 - 100 mg/dL LAB CHEMISTRY METHOD 04/09/2025 12:20 PM [facility] BUN 11 5 - 25 mg/dL LAB CHEMISTRY METHOD 04/09/2025 12:20 PM [facility] Creatinine 1.08 0.50 - 1.10 mg/dL LAB CHEMISTRY METHOD 04/09/2025 12:20 PM [facility] eGFR 62 >=60 mL/min/1. 73m2 LAB CHEMISTRY METHOD 04/09/2025 12:20 PM EDT [facility] Comment:Calculation based on the Chronic Kidney Disease Epidemiology Collaboration (CKD-EPI) equation refit without adjustment for race. BUN/Creatinine Ratio 10.2 LAB CHEMISTRY METHOD 04/09/2025 12:20 PM [facility] Calcium 9.5 8.5 - 10.5 mg/dL LAB CHEMISTRY METHOD 04/09/2025 12:20 PM [facility] AST (SGOT) 23 10 - 42 unit/L LAB CHEMISTRY METHOD 04/09/2025 12:20 PM [facility] ALT (SGPT) 16 10 - 60 unit/L LAB CHEMISTRY METHOD 04/09/2025 12:20 PM [facility] Alkaline Phosphatase 141(H) 42 - 121 unit/L LAB CHEMISTRY METHOD 04/09/2025 12:20 PM [facility] Total Protein 6.2 6.0 - 8.0 g/dL LAB CHEMISTRY METHOD 04/09/2025 12:20 PM [facility] Albumin 3.1(L) 3.2 - 5.0 g/dL LAB CHEMISTRY METHOD 04/09/2025 12:20 PM [facility] Total Bilirubin 0.6 0.0 - 1.4 mg/dL LAB CHEMISTRY METHOD 04/09/2025 12:20 PM [facility] Blood Blood sample taken from central line / Unknown Existing Catheter / Unknown 04/09/2025 10:58 AM EDT 04/09/2025 11:24 AM EDT us Loretta Broussard DO LAB BLOOD ORDERABLES Final Result [facility] [address] [place] [address], * External Xray Report (04/09/2025) Only the most recent of2 resultswithin the time period is included. Anatomical Region Laterality Modality Radiographic Rissa ging Provider [facility] IMG XR PROCEDURES Final Result * Cancer antigen 19-9 (03/26/2025 9:46 AM EDT) Only the most recent of3 resultswithin the time period is included. CA 19-9 3.4 <=35 U/mL 03/28/2025 10:36 AM EDT [facility] Comment: The Siemens Advia Centaur CA199 Chemiluminescent Immunoassay is used. Results obtained with different assay methods or kits cannot be used interchangeably. Results cannot be interpreted as absolute evidence of the presence or absence of malignant disease. Test performed at [facility], [address] , [place] [address] Shyanne Bonilla MD, PhD - Stain Sprayer Blood Blood sample taken from central line / Unknown Existing Catheter / Unknown 03/26/2025 9:46 AM EDT 03/26/2025 10:13 AM EDT Loretta Broussard DO LAB BLOOD ORDERABLES Final Result [facility] [address] [place] [address] * CEA (03/26/2025 9:46 AM EDT) Only the most recent of3 resultswithin the time period is included. CEA 4.8 0.0 - 5.0 ng/mL LAB CHEMISTRY METHOD 03/26/2025 12:40 PM EDT [facility] Blood Blood sample taken from central line / Unknown Existing Catheter / Unknown 03/26/2025 9:46 AM EDT 03/26/2025 10:13 AM EDT Narrative [facility] - 03/26/2025 12:40 PM EDT The Siemens Advia Centaur Chemiluminescent Immunoassay is used. Results obtained with different assay methods or kits cannot be used interchangeably. Results cannot be interpreted as absolute evidence of the presence or absence of malignant disease. us Loretta Lianne Aarti DO LAB BLOOD ORDERABLES Final Result [facility] [address] [place] [address], [place] [phone] * (ABNORMAL) Urinalysis with reflex microscopic and culture (03/23/2025 3:12 PM EDT) Specific [place] Urine 1.012 1.003 - 1.030 LAB URINALYSIS - AUTOMATED METHOD 03/23/2025 4:54 PM EDT [facility] pH, Urine 6.5 5.0 - 8.0 pH LAB URINALYSIS - AUTOMATED METHOD 03/23/2025 4:54 PM EDT [facility] Leukocytes, Urine Trace(A) Negative LAB URINALYSIS - [facility]OMATED [facility] Nitrite, Urine Negative Negative LAB URINALYSIS - AUTOMATED METHOD 03/23/2025 4:54 PM EDT [facility] Protein, Urine Negative <=Trace mg/dL LAB URINALYSIS - AUTOMATED METHOD 03/23/2025 4:54 PM [facility] Glucose, Urine 250(A) Negative mg/dL LAB URINALYSIS - AUTOMATED METHOD 03/23/2025 4:54 PM EDT [facility] Ketones, Urine Negative Negative mg/dL LAB URINALYSIS - AUTOMATED METHOD [facility] Urobilinogen, Urine 0.2 0.2 - 1.0 mg/dL LAB URINALYSIS - AUTOMATED METHOD 03/23[facility]2025 [facility] Bilirubin, Urine Negative Negative LAB URINALYSIS - AUTOMATED METHOD 03/23/2025 4:54 PM [facility] Blood, Urine Negative Negative LAB URINALYSIS - AUTOMATED METHOD 03/23/2025 4:54 PM EDT [facility] RBC, Urine 0.3 0 - 4 /HPF LAB URINALYSIS - AUTOMATED METHOD 03/23/2025 4:54 PM EDT [facility] WBC, Urine 3.7 0 - 4 /HPF LAB URINALYSIS - AUTOMATED METHOD 03/23/2025 4:54 PM EDT [facility] Squamous Epithelial, Urine 24 0 - 60 /LPF LAB URINALYSIS - AUTOMATED METHOD 03/23/2025 4:54 PM EDT [facility] Bacteria, Urine Negative Negative /HPF LAB URINALYSIS - AUTOMATED METHOD 03/23/2025 4:54 PM EDT [facility] Hyaline Casts, Urine 0.0 0 - 3 /LPF LAB URINALYSIS - AUTOMATED METHOD 03/23/2025 4:54 PM EDT [facility] Urine Urine specimen obtained by clean catch procedure / Unknown Non-blood Collection / Unknown 03/23/2025 3:12 PM EDT 03/23/2025 4:34 PM EDT us Jelly Beckwith MD LAB URINE ORDERABLE S Final Result Performing Organization Address [facility]/ZIP Co de Phone Number [facility] [address] [place] [address], [place] [phone] * Pandya urine culture tube (03/23/2025 3:12 PM EDT) Extra Tube Hold for add-ons. 03/23/2025 6:01 PM EDT [facility] Comment:Auto resulted. Urine Urine specimen obtained by clean catch procedure / Unknown Non-blood Collection / Unknown 03/23/2025 3:12 PM EDT 03/23/2025 4:34 PM EDT us Jelly Beckwith MD LAB URINE ORDERABLE S Final Result [facility] [address] [place] [address], * Culture urine (03/23/2025 3:12 PM EDT) Culture, Urine No growth 03/24/2025 11:21 AM EDT [facility] Urine Urine specimen obtained by clean catch procedure / Unknown Non-blood Collection / Unknown 03/23/2025 3:12 PM EDT 03/23/2025 4:54 PM EDT us Jelly Beckwith MD LAB MICROBIOLOGY - GENERAL ORDERABLES Final Result [facility] [address] [place] [address], * XR Ankle 3+ Views Left (03/09/2025 [...] -------- FINAL REPORT -------- Dictated By: NIGEL MEJIA Dictated Date: 03/09/2025 12:40 ET Assigned Physician: NIGEL MEJIA Reviewed and Electronically Signed By: NIGEL MEJIA Signed Date: 03/09/2025 12:41 ET Workstation ID: [id number] Transcribed By: Self Edit Transcribed Date: 03/09/2025 12:40 ET Narrative 03/09/2025 12:41 PM EDT XR ANKLE 3+ VIEWS LEFT INDICATION: Pain TECHNIQUE: XR ANKLE 3+ VIEWS LEFT COMPARISON: No priors available. Procedure Note Nigel Mejia MD - 03/09/2025 XR ANKLE 3+ VIEWS LEFT INDICATION: Pain TECHNIQUE: XR ANKLE 3+ VIEWS LEFT COMPARISON: No priors available. IMPRESSION: FINDINGS/IMPRESSION: Small nondisplaced distal fibular fracture at thedistal tip of the fibula, below the level of the syndesmosis. Tibiotalaralignment is maintained. Soft tissue swelling around the ankle. Noadditional fractures. -------- FINAL REPORT -------- Dictated By: NIGEL MEJIA Dictated Date: 03/09/2025 12:40 ET Assigned Physician: NIGEL MEJIA Reviewed and Electronically Signed By: NIGEL MEJIA Signed Date: 03/09/2025 12:41 ET Workstation ID: [id number] Transcribed By: Self Edit Transcribed Date: 03/09/2025 12:40 ET Loretta Broussard DO IMG XR PROCEDURES Fin al Result * XR Foot 3+ Views Left (03/09/2025 12:23 PM EDT) Anatomical Region Laterality Modality Lower Extremities, Foot Left Radiogra [facility] 03/09/2025 12:3 2 PM EDT Impressions 03/09/2025 12:40 PM EDT FINDINGS/IMPRESSION: No acute fracture or dislocation. Diffuse soft tissue swelling throughout the foot. Pes planus. Small plantar calcaneal spur and Achilles enthesophytes. Mild degenerative change at the 1st metatarsophalangeal joint. -------- FINAL REPORT -------- Dictated By: NIGEL MEJIA Dictated Date: 03/09/2025 12:32 ET Assigned Physician: NIGEL MEJIA Reviewed and Electronically Signed By: NIGEL MEJIA Signed Date: 03/09/2025 12:40 ET Workstation ID: [id number] Transcribed By: Self Edit Transcribed Date: 03/09/2025 12:32 ET Narrative 03/09/2025 12:40 PM EDT XR FOOT 3+ VIEWS LEFT INDICATION: Pain TECHNIQUE: XR FOOT 3+ VIEWS LEFT COMPARISON: No priors available. Procedure Note Nigel Mejia MD - 08/29/2025 XR FOOT 3+ VIEWS LEFT INDICATION: Pain TECHNIQUE: XR FOOT 3+ VIEWS LEFT COMPARISON: No priors available. IMPRESSION: FINDINGS/IMPRESSION: No acute fracture or dislocation. Diffuse softtissue swelling throughout the foot. Pes planus. Small plantar calcanealspur and Achilles enthesophytes. Mild degenerative change at the 1stmetatarsophalangeal joint. -------- FINAL REPORT -------- Dictated By: NIGEL MEJIA Dictated Date: 03/09/2025 12:32 ET Assigned Physician: NIGEL MEJIA Reviewed and Electronically Signed By: NIGEL MEJIA Signed Date: 03/09/2025 12:40 ET Workstation ID: [id number] Transcribed By: Self Edit Transcribed Date: 03/09/2025 12:32 ET us Loretta Lianne Broussard DO IMG XR PROCEDURES Fin al [...] metastatic [place] ([id number]) -------- FINAL REPORT -------- Dictated By: Ashely White Dictated Date: 02/05/2025 08:22 ET Assigned Physician: Ashely White Reviewed and Electronically Signed By: Ashely White Signed Date: 02/05/2025 08:38 ET Workstation ID: [id number] Transcribed By: Self Edit Transcribed Date: 02/05/2025 08:22 ET Narrative 02/05/2025 8:38 AM EDT History: Gallbladder carcinoma. Follow-up metastatic lymphadenopathy. Comparison: 10/31/24 Technique: Helical volumetric imaging of the chest, abdomen and pelvis was performed without oral contrast and during the uneventful intravenous administration of 90 cc Isovue-370. DLP: 757.95 mGy/cm Vivoer Iterative reconstruction technique Findings: Chest: The trachea [...] of 90 cc Isovue-370. DLP: 757.95 mGy/cm Vivoer Iterative reconstruction technique Findings: Chest: The trachea [...] metastatic disease [place] ([id number]) -------- FINAL REPORT -------- Dictated By: Ashely White Dictated Date: 02/05/2025 08:22 ET Assigned Physician: Ashely White Reviewed and Electronically Signed By: Ashely White Signed Date: 02/05/2025 08:38 ET Workstation ID: [id number] Transcribed By: Self Edit Transcribed Date: 02/05/2025 [...] for biopsy. PQRI CPT II 3342F Code 50791, 27791 PQRI 225 CPT II 7025F TISSUE DENSITY: There are scattered areas of fibroglandular density. (BI-RADS category B) IMPRESSION: Benign. BI-RADS CATEGORY: 2 - BENIGN RECOMMENDATION: Screening bilateral mammogram is recommended in 1 year. Mammo Location: [facility], [address] [place] [address] -------- FINAL REPORT -------- Dictated By: Yaniv Rowe Dictated Date: 10/04/2024 09:19 ET Assigned Physician: Yaniv Rowe Reviewed and Electronically Signed By: Yaniv Rowe Signed Date: 10/04/2024 09:22 ET Workstation ID: [id number] Transcribed By: Self Edit Transcribed Date: 10/04/2024 09:19 ET Narrative 10/04/2024 9:22 AM EDT CLINICAL: The patient is a 54 years Female presenting for routine screening mammography. COMPARISON: Outside studies performed 06/02/2022 and 07/03/2019. TECHNIQUE: Full-field digital mammography of the breasts bilaterally consisting of tomosynthesis in MLO and CC projection is performed in the TISSUELAB 2000-D unit. Computer aided detection utilizing the [...] MLO and CC projection is performed in theShanpow.comographUltimate Shopper 2000-D unit. Computer aided detection utilizing the iCADsystem was utilized. FINDINGS: The breasts are again [...] for biopsy. PQRI CPT II 3342F Code 98764, 06589 PQRI 225 CPT II 7025F TISSUE DENSITY: There are scattered areas of fibroglandular density.(BI-RADS category B) IMPRESSION: Benign. BI-RADS CATEGORY: 2 - BENIGN RECOMMENDATION: Screening bilateral mammogram is recommended in 1 year. Mammo Location: [facility], [address] [place] [address] -------- FINAL REPORT -------- Dictated By: Yaniv Rowe Dictated Date: 10/04/2024 09:19 ET Assigned Physician: Yaniv Rowe Reviewed and Electronically Signed By: Yaniv Rowe Signed Date: 10/04/2024 09:22 ET Workstation ID: [id number] Transcribed By: Self Edit Transcribed Date: 10/04/2024 09:19 ET Viridiana MANZO IMG BI PROCEDURES Final Result * (ABNORMAL) Lipid panel with reflex to direct LDL (07/03/2024 9:52 AM EST) Cholesterol 291(H) 0 - 200 mg/dL LAB CHEMISTRY METHOD 07/03/2024 11:08 AM EST [facility] Triglycerides 95 0 - 150 mg/dL LAB CHEMISTRY METHOD 07/03/2024 11:08 AM EST [facility] HDL 37(L) >=40 mg/dL LAB CHEMISTRY METHOD 07/03/2024 11:08 AM EST [facility] LDL Calculated 235(H) 0 - 100 mg/dL LAB CHEMISTRY METHOD 07/03/2024 11:08 AM EST [facility] VLDL Cholesterol William 19 mg/dL LAB CHEMISTRY METHOD 07/03/2024 11:08 AM EST [facility] Non HDL Chol. (LDL+VLDL) 254(H) <145 mg/dL LAB CHEMISTRY METHOD 07/03/2024 11:08 AM EST [facility] Chol/HDL Ratio 7.9(H) 0.0 - 4.4 LAB CHEMISTRY METHOD 07/03/2024 11:08 AM EST [facility] Blood Venous blood specimen / Unknown Venipuncture / Unknown 07/03/2024 9:52 AM EST 07/03/2024 10:23 AM EST Viridiana MANZO LAB BLOOD ORDERABLES Fin al Result [facility] [address] [place] [address], [place] [phone] * (ABNORMAL) Microalbumin creatinine urine ratio (07/03/2024 9:52 AM EST) Creatinine, Urine 48.0 mg/dL LAB CHEMISTRY METHOD 07/03/2024 2:02 PM EST [facility] Microalb, Ur 38.6(H) 0.0 - 29.0 mg/L LAB CHEMISTRY METHOD 07/03/2024 2:02 PM EST [facility] Microalb/Crea t Ratio 80(H) <30 mg/g creat LAB CHEMISTRY METHOD 07/03/2024 2:02 PM EST [facility] Urine Urine specimen obtained by clean catch procedure / Unknown Non-blood Collection / Unknown 07/03/2024 9:52 AM EST 07/03/2024 12:54 PM EST Viridiana MANZO LAB URINE ORDERABLES Fin al Result [facility] [address] [place] [address], [place] [phone] * (ABNORMAL) Hemoglobin A1c (07/03/2024 9:52 AM EST) Hemoglobin A1C 7.0(H) <6.5 % LAB CHEMISTRY METHOD 07/03/2024 1:26 PM EST [facility] Mean Bld Glu Estim. 154 mg/dL LAB CHEMISTRY METHOD 07/03/2024 1:26 PM EST [facility] Blood Venous blood specimen / Unknown Venipuncture / Unknown 07/03/2024 9:52 AM EST 07/03/2024 10:23 AM EST Viridiana MANZO LAB BLOOD ORDERABLES Fin al Result [facility] [address] [place] [address], * External Diabetic Retina Eye Exam Report (06/01/2024 9:04 AM EST) Anatomical Region Laterality Modality Ultrasound us Historical Provider MD HEART US PROCEDURES Final R esult from Last 3 Months or Most Recently Relevant to Health Maintenance Insurance [facility] [employer] Care Teams Rod Hanger Relationship Specialty Start Date End Date Chandler Villalobos MD [address] [place] [phone] PCP - General 04/25/24
--- OUTSIDE RECORDS SUMMARY | 2025-04-12 12:26 | XMS_ITS | Encounter Summary ---
Author Organization [facility] Address [address] [place] [address] Care Team Providers Care Statistician Name Role Phone Chandler Villalobos MD Primary Care Provider [phone] Encounter Details Date Type Department Care Team (Late Contact Info) Description 02/16/2025 Lab Requisition [facility] [address] [facility] [place] [phone] Trista Richards MD [address] [place] [address] Secondary and unspecified malignant neoplasm [...] 1:22 PM EST Sexual Orientation Straight 06/12/2024 1 :22 PM EST documented as of this encounter Plan of Treatment Upcoming Encounters Date Type Department Care Team (Late Contact Info) Description 04/16/2025 10:00 AM EDT Appointment [facility] [address] [phone] 04/20/2025 10:00 AM EDT Appointment [facility] [address] [place] [phone] 04/23/2025 11:00 AM EDT Appointment [facility] [address] [place] [phone] 04/24/2025 10:30 AM EDT Appointment [facility] [address] [place] [phone] 04/26/2025 1:30 PM EDT Appointment [facility] CT Scan [address] [place] [phone] 04/30/2025 10:00 AM EDT Appointment [facility] [address] [place] [phone] 05/04/2025 11:30 AM EDT Office Visit [facility] Hematology Oncology [address] [place] [phone] Loretta Broussard, DO [address] [place] [phone] 05/04/2025 12:00 PM EDT Appointment [facility] [address] [place] [phone] 07/20/2025 12:30 PM EST Office Visit Adult [address] [phone] Chandler Villalobos MD [address] [place] [address] Pending Results Name Type Priority Associated Diagnoses Date /Time Historical Pathology Case Pathology and Cytology Routine Secondary and unspecified malignant neoplasm of lymph node, unspecified (CMS/HCC V24, CMS/HCC V28) 02/16/2025 10:14 AM EDT documented as of this encounter Visit Diagnoses Diagnosis Secondary and unspecified malignant neoplasm of lymph node, unspecified (CMS/HCC V24, CMS/HCC V28) documented in this encounter Care Teams Statistician Relationship Specialty Start Date End Date Chandler Villalobos MD [address] [place] [phone] PCP - General 04/25/24 documented as of this encounter
--- OUTSIDE RECORDS SUMMARY | 2025-04-12 12:27 | XMS_ITS | Encounter Summary ---
Author Organization [facility] Address [address] [place] [address] Care Team Providers Care Channel Sales Director Name Role Phone Chandler Villalobos MD Primary Care Provider [phone] Encounter Details Date Type Department Care Team Description 05/02/2024 Social Work [facility] Oncology Services [address] [place] [address] Kevin Rodríguez, [facility] Social History Tobacco Use Types Packs/Day Years [...] on filedocumented in this encounter Care Teams Channel Sales Director Relationship Specialty Start Date End Date Chandler Villalobos MD [address] [place] [phone] PCP - General Hospitalist Medicine 04/24/24 documented as of this encounter
--- OUTSIDE RECORDS SUMMARY | 2025-04-12 12:27 | XMS_ITS | Clinical Summary ---
Author Organization [facility] Address [address] [place] [phone] Phone Care Team Providers Care Marine Painter Name Role Phone Chandler Villalobos MD Primary Care Provider Loretta Broussard DO Unavailable Monika Terry Unavailable [phone] Andreas Sage MD, PhD Unavailable [phone] David Tejeda MD, PhD Unavailable [phone] Allergies Active Allergy Reactions Criticality Noted Date Comments Lisinopril Anaphylaxis,Cough,Wheezing High Medications metoprolol succinate (TOPROL-XL) 50 MG 24 [...] EDT [facility] Visit [facility], [address], [address] [place] [phone] Monika Terry MBBS Gallbladder cancer (Primary Dx) 03/06/2025 11:30 AM EDT Office Visit [facility], [address], [address] [place] [phone] David Tejeda MD, PhD Gallbladder cancer (Primary Dx) 03/06/2025 11:00 AM EDT Office Visit [facility], [address], [address] [place] [phone] Liane Bowens NP Gallbladder cancer (Primary Dx) 02/26/2025 11:00 AM EDT - 02/26/2025 11:59 PM EDT Hospital Encounter Department of Radiation Oncology [address] [place] [phone] Liane Bowens NP Discharge Disposition: Home or Self Care 02/19/2025 2:29 PM EDT - 02/19/2025 11:59 PM EDT Hospital Encounter [facility], [address] [address] Discharge Disposition: Home or Self Care 02/16/2025 Ancillary Orders DF IMG OUTSIDE IMG [address] [place] [address] Héctor Quispe MD 02/16/2025 Ancillary Orders DF IMG OUTSIDE IMG [address] [place] [address] Héctor Quispe MD 02/16/2025 Ancillary Orders DF IMG OUTSIDE IMG [address] [place] [address] Héctor Quispe MD 02/16/2025 Ancillary Orders DF IMG OUTSIDE IMG [address] [place] [address] Héctor Quispe MD 02/16/2025 Ancillary Orders DF IMG OUTSIDE IMG [address] [place] [address] Héctor Quispe MD 02/16/2025 Ancillary Orders DF IMG OUTSIDE IMG [address] [place] [address] Héctor Quispe MD 02/16/2025 Ancillary Orders DF IMG OUTSIDE IMG [address] [place] [address] Héctor Quispe MD 02/16/2025 Ancillary Orders DF IMG OUTSIDE IMG [address] [place] [address] Héctor Quispe MD 02/16/2025 Ancillary Orders DF IMG OUTSIDE IMG [address] [place] [address] Héctor Quispe MD 02/16/2025 Ancillary Orders DF IMG OUTSIDE IMG [address] [place] [address] Héctor Quispe MD 02/16/2025 Ancillary Orders DF IMG OUTSIDE IMG [address] [place] [address] Héctor Quispe MD 02/16/2025 Ancillary Orders DF IMG OUTSIDE IMG [address] [place] [address] Héctor Quispe MD 02/16/2025 Ancillary Orders DF IMG OUTSIDE IMG [address] [place] [address] Héctor Quispe MD 02/16/2025 Ancillary Orders DF IMG OUTSIDE IMG [address] [place] [address] Héctor Quispe MD 02/15/2025 Orders Only [facility], [facility] [address] [facility], [address] [place] [address] Héctor Quispe MD Gallbladder cancer (Primary Dx) 02/01/2025 12:05 AM EDT Ancillary Procedure DF IMG OUTSIDE IMG [address] [place] [address] Héctor Quispe MD 02/01/2025 Ancillary Procedure DF IMG OUTSIDE IMG [address] [place] [address] Héctor Quispe MD from Last 3 Months [...] high school, GED, job training, learning the [place] language, technical skills, or developing parenting skills)? [...] Interpretation) (02/01/2025 12:05 AM EDT) Other Narrative STEPHANIA_DFREMBERTO - 02/16/2025 8:52 AM EDT This study is for PACS storage only and not for interpretation. us Héctor Quispe MD IMG OUTSIDE IMAGING W/O UT INTERPRETATION Final Result [facility]_DFCI * CT Chest Outside (No Interpretation) (02/01/2025 12:00 AM EDT) Other Narrative WIL - 02/16/2025 8:52 AM EDT This study is for PACS storage only and not for interpretation. Héctor Quispe MD IMG OUTSIDE IMAGING W/O UT INTERPRETATION Final Result STEPHANIA_ELÍAS from Last 3 Months Insurance [employer] [facility] Care Teams Marine Painter Relationship Specialty Start Date End Date Chandler Villalobos MD [address] [place] [phone] PCP - General Internal Medicine 02/14/25 Loretta Broussard DO [address] [place] [address] Referring Physician Internal Medicine 02/14/25 Monika Terry MBBS [address] [place] [phone] [email or web address] 02/23/25 Andreas Sage MD, PhD [address] [place], [place] [address]- [address] [phone] [email or web address] Oncology 02/23/25 David Tejeda MD, PhD [address] [place] [phone] [email or web address] 02/23/25 Additional Source Comments The information contained in this document represents components of the legal health record. It is not the complete legal health record.[facility]
--- OUTSIDE RECORDS SUMMARY | 2025-04-12 12:27 | XMS_ITS | Encounter Summary ---
Author Organization [facility] Address [address] [place] [address] Care Team Providers Care Investment Advisor Name Role Phone Chandler Villalobos MD Primary Care Provider [phone] Encounter Details Date Type Department Care Team Description 05/02/2024 Nurse Only [facility] Oncology Services [address] [place], [place] [phone] Renee Suárez RN Social History Tobacco Use [...] on filedocumented in this encounter Care Teams Investment Advisor Relationship Specialty Start Date End Date Chandler Villalobos MD [address] [place] [phone] PCP - General Hospitalist Medicine 04/24/24 documented as of this encounter
--- OUTSIDE RECORDS SUMMARY | 2025-04-12 12:27 | XMS_ITS | Encounter Summary ---
Author Organization [facility] Address [address] [place] [address] Care Team Providers Care Air Tester Name Role Phone Chandler Villalobos MD Primary Care Provider Encounter Details Date Type Department Care Team (Late st Contact Info) Description 04/09/2025 Telephone [facility] Hematology Oncology [address] [place] [phone] Loretta Broussard, DO [address] [place] [address] Social History Tobacco Use Types Packs/Day Years [...] encounter Progress Notes * Lelo Patel - 04/10/2025 3:49 PM EDT Pt is aware of ct scan (04/26) and no oral contrast through [facility]ER[facility] Sanders in infusion today * Liane Davis MA - 04/10/2025 9:36 AM EDT Tried reaching pt but VM box has not been setup so I could not leave a message. If pt calls back, she does not need oral contrast. * Loretta Broussard DO - 04/09/2025 4:31 PM EDT Ok to hold off on oral contrast. * Siri Santiago - 04/09/2025 3:17 PM EDT Patient called back office as she missed a call. Lelo called her to inform of CT appt. She is all set with the date and time, when told about the oral contrast she stated she did not need it last time and asks if she definitely does this time. Asks for a call. documented in this encounter Plan of Treatment Upcoming Encounters Date Type Department Care Team (Late st Contact Info) Description 04/16/2025 10:00 AM EDT Appointment [facility] [address] [place] [phone] 04/20/2025 10:00 AM EDT Appointment [facility] [address] [place] [phone] 04/23/2025 11:00 AM EDT Appointment [facility] [address] [place] [phone] 04/24/2025 10:30 AM EDT Appointment [facility] [address] [place] [phone] 04/26/2025 1:30 PM EDT Appointment [facility] CT Scan [address] [place] [phone] 04/30/2025 10:00 AM EDT Appointment [facility] [address] [place] [phone] 05/04/2025 11:30 AM EDT Office Visit [facility] Hematology Oncology [address] [place] [phone] Loretta Broussard, [address] [place] [address] 05/04/2025 12:00 PM EDT Appointment [facility] [address] [place] [phone] 07/20/2025 12:30 PM EST Office Visit Adult Medicine [address] [phone] Chandler Villalobos MD [address] [place] [address] documented as of this encounter Visit Diagnoses Not on filedocumented in this encounter Care Teams Air Tester Relationship Specialty Start Date End Date Chandler Villalobos MD [address] [place] [address] PCP - General 04/25/24 documented as of this encounter
--- OUTSIDE RECORDS SUMMARY | 2025-04-12 12:27 | XMS_ITS | Patient Health Record ---
Author Organization [facility] Address [address] [facility] [address] [place] [address] Care Team Providers Care Reference Assistant Name Role Phone Deonna Salvador KYLE Primary Care Provider Unavaila Disha Oliveros Unavailable [phone] Reason For Referral No Information Medications Medication [...] W/U Status Risk Notes Problem Essential hypertension (83837188) Essential hypertension (I10) Active confirmed Problem Iron deficiency anemia (51768928) Iron deficiency anemia, unspecified iron deficiency anemia type (D50.9) Active confirmed Has menorrhagia , also r/o GI pathology Plan Of Treatment No Information Insurance Providers Payer Name Payer Address Payer Phone Subscriber Number Group Number Insured Name Patient Relationship to Insured Coverage Start Date Coverage End Date [employer] ([employer]) [address] [place] [address] [id number] ROSELIA PATRICIA Self - patient is the insured Medical (General) History Medical History History ICD Code Anemia Yes High Cholesterol Yes Diabetes Yes HTN
--- OUTSIDE RECORDS SUMMARY | 2025-04-12 12:27 | XMS_ITS | Clinical Summary ---
Author Organization [facility] Address [address] [place] [address] Care Team Providers Care Ring Making Machine Operator Name Role Phone Chandler Villalobos MD Primary Care Provider [phone] Allergies Active Allergy Reactions Criticality Noted Date [...] age to complete this topic Care Teams Ring Making Machine Operator Relationship Specialty Start Date End Date Chandler Villalobos MD [address] [place] [phone] PCP - General Hospitalist Medicine 04/24/24
--- OUTSIDE RECORDS SUMMARY | 2025-04-12 12:27 | XMS_ITS ---
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 Radiation Treatments * No radiation treatments are documented for this patient in [facility]. Treatments may have been administered in another system.
--- OUTSIDE RECORDS SUMMARY | 2025-04-12 12:27 | XMS_ITS | Encounter Summary ---
Author Organization [facility] Address [address] [place] [address] Care Team Providers Care Warehouse Order Selector Name Role Phone Chandler Villalobos MD Primary Care Provider [phone] Encounter Details Date Type Department Care Team Description 04/03/2024 Nurse Only [facility] [address] [place] [address] Renee Suárez, RN Social History [...] note were not included. - currently inpatient [facility] received patient has insurance now and ok to move fwd with [facility] order. Test request has been submitted for [facility] Molecular Tumor Profiling to be performed on the specimenlisted below: Test order form and clinicals submitted for processing. Testing Turnaround Time on average is 21 days but may take longer. Final Report will be scanned into [employer] when completed. +++++++ UPDATE: 04/06/24 [facility] cannot verify coverage - [facility] testing on hold 04/10/24 [employer] ID# [id number] 04/10/24 [facility] test order submitted documented in this encounter Plan of Treatment Not on file documented as of this encounter Visit Diagnoses Not on filedocumented in this encounter Care Teams Warehouse Order Selector Relationship Specialty Start Date End Date Chandler Villalobos MD [address] [place] [phone] PCP - General Hospitalist Medicine 04/24/24 documented as of this encounter
== END 2025-04-12 11:11 | disposition home or self-care (01) ==
LOC: HO.HPODS 10:37
PROVIDERS: PCP Internal Medicine; Visit Provider Student in an Organized Health Care Education/Training Program
DX: S82.892D Other fracture of left lower leg, subsequent encounter for closed fracture with routine healing (principal); S82.839A Other fracture of upper and lower end of unspecified fibula, initial encounter for closed fracture; S99.912D Unspecified injury of left ankle, subsequent encounter; M25.572 Pain in left ankle and joints of left foot
CPT/HCPCS: 29540; 99213

== ENCOUNTER → 2025-04-12 10:37 | Outpatient (BNVA) | payer OTHER, SELFPAY | PROVIDERS: PCP Internal Medicine; Visit Provider Student in an Organized Health Care Education/Training Program | DX: S82.832D Other fracture of upper and lower end of left fibula, subsequent encounter for closed fracture with routine healing (principal); S99.912D Unspecified injury of left ankle, subsequent encounter; M25.572 Pain in left ankle and joints of left foot | CPT/HCPCS: 29540; 99212 ==

== ENCOUNTER 2025-05-24 10:40 | Outpatient (AMB) | payer OTHER, SELFPAY ==
--- OUTSIDE RECORDS SUMMARY | 2024-04-24 13:59 | XMS_ITS | Encounter Summary ---
Author Organization [facility] Address [address] [place] [address] Care Team Providers Care Glaucoma Specialist Name Role Phone Chandler Villalobos MD Primary Care Provider [phone] Encounter Details Date Type Department Care Team (Late st Contact Info) Description 04/24/2024 2:59 PM EDT Hospital Encounter TH HISTORIC ENCOUNTERS EASTERN CONVERSION ONLY Loretta Broussard, DO [address] [place] [address] Social History Tobacco Use Types Packs/Day Years Used Date Smoking Tobacco: Former Smokeless Tobacco: Never Alcohol Use Standard Drinks/Week Comments Not Currently 0 (1 standard drink = 0.6 oz pur e alcohol) Comments No Sex and Gender Information Value Date Recorded Sex Assigned at Female 06/12/2024 1:22 PM EST Legal Sex Female 1:49 PM EDT Gender Identity Female 06/12/2024 1:22 PM EST Sexual Orientation Straight 06/12/2024 1: 22 PM EST documented as of this encounter Last Filed Vital Signs Vital Sign Reading Time Taken Comments Blood Pressure 111/68 04/24/2024 3:08 PM EDT Sitting Left arm Pulse 93 04/24/2024 3:08 PM EDT Temperature - - Respiratory Rate - - Oxygen Saturation - - Inhaled Oxygen Concentration - - Weight 69.4 kg (153 lb) 04/24/2024 3:08 PM EDT Height 163.8 cm (5' 4.5 ) 04/24/2024 3: 08 PM EDT Body Mass Index 25.86 04/24/2024 3:08 PM EDT documented in this encounter Progress Notes * Loretta Broussard DO - 04/24/2024 3:00 PM EDT Images from the original note were not included. 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 She is feeling fair. Notes she is trying to eat a little better. Has not lost or gained any weight Denies having any persistent nausea or vomiting. She does have some mild fatigue ongoing. Still with occasional abdominal pain. It is better controlled with hydromorphone. Constitutional: See above follow-up Resp/CV: No cough, shortness of breath, chest pain GI: No nausea, vomiting, diarrhea, abdominal pain, bloody stool Skin: No rashes Neuro: No headaches, dizziness, neuropathy Musculoskeletal: No bone pain, no joint pain. Hem/Lymph : No palpable lymph nodes, no bleeding or easy bruising Onc Hx Presented with 2 to 3-month history of increasing nausea and vomiting; also weight loss as well as epigastric discomfort. In ER, had CT scan of the abdomen and pelvis which showed cholelithiasis and ill-defined masses of the gallbladder and in the upper abdomen abutting the pancreatic body left hepatic lobe measuring 6.6 x 6.1 cm. She had laboratory testing performed which showed WBC of 8.6, hemoglobin 9.5, MCV of 71.1 and platelets of 491, creatinine of 9.89, BUN of 79, LDH of 324, lipase of 106, ca 19-9 of 2.1, CEA of 88.3 Objective Last Vitals Vitals: 04/24/24 1508 BP: 111/68 Pulse: 93 Temp: 97.8 ??F (36.6 ??C) TempSrc: Temporal Weight: 69.4 kg (153 lb) Height: 5' 4.5 (1.638 m) ECO General: well appearing, in no acute distress HENT: no scleral icterus Chest: right sided chest port in place. Lymph: No palpable cervical, supraclavicular or axillary adenopathy. Resp: clear to auscultation bilaterally, Cardio: regular rate and rhythm, Abdomen: soft non tender Neuro: alert and oriented, normal speech Medications Current Outpatient Medications: ? ferrous sulfate 325 (65 FE) MG tablet ? insulin glargine (Lantus SoloStar) 100 UNIT/ML injection ? Insulin Lispro (HumaLOG) 100 UNIT/ML ? metoprolol succinate (TOPROL-XL) 24 hr tablet 50 mg ? oxyCODONE (ROXICODONE) 5 MG immediate release tablet ? rosuvastatin (CRESTOR) tablet 20 mg ? senna (SENOKOT) 8.6 MG tablet ? amLODIPine (NORVASC) tablet 10 mg ? lidocaine-prilocaine (EMLA) cream ? ondansetron (ZOFRAN-ODT) 8 MG disintegrating tablet ? potassium chloride ER (K-DUR,KLOR-CON) tablet 20 mEq ? prochlorperazine (COMPAZINE) 10 MG tablet Allergies Allergies Allergen Reactions ? Lisinopril Past medical history, past surgical history, and family history reviewed. Past Medical History Diabetes mellitus Hypertension Hyperlipidemia Past Surgical History Hysterectomy Family History Maternal aunt with breast cancer Personal and Social History She lives alone recently moved back from [place] Allergies-Lisinopril Labs: Relevant data reviewed. Imaging Studies Imaging studies reviewed. PET CT Skull to Thighs - 04/21/24 - Report Status:Signed EXAMINATION: PET CT exam from this skull base to proximal thighs. FINDINGS: Skull base and neck: There is no abnormal metabolic activity seen in the skull base, visualized intracranial brain parenchyma and the neck region. On CT visualized brain parenchyma and the paranasal sinuses are unremarkable. These may just axillary glands are symmetrical and unremarkable. CHEST: There is nonspecific mild metabolic activity seen along the portacatheter. No abnormal metabolic activity seen in the lung parenchyma, mediastinum, axilla or the chest wall. CT reveals no consolidation, pulmonary nodule or groundglass density. The heart size is normal. There is mild coronary artery calcifications present. Abdomen and pelvis: There is a thick-walled area of enhancement surrounding the gallbladder wall with an SUV of 8.86. The central area of debris and calcification on CT that is not metabolically active most suggestive of gallbladder stones and debris. Abnormal wall uptake is suspicious for primary g allbladder lesion or severe inflammatory process. There are 2 areas of abnormal metabolic activity surrounding the head and the body of the pancreas measuring SUV of 12.98 along the smaller and rightpara midline lesion and SUV 14.90 along the larger anterior and superior lesion to pancreas. The smaller lesion to the right of midline measures 5 cm x 4 cm and has a central area of decreased FDG activity on PET likely necrosis. The larger lesion superior and midline is heterogeneous and measures approximately 7.8 x 7.4 cm and also has a central area of decreased FDG activity likely central necrosis. These are most suggestive of metastatic lymphadenopathy. No abnormal metabolic activity seen in the liver, adrenal glands or lower retroperitoneum. Nonspecific mild activity seen in the left midureter MSK: No abnormal osseous metabolic activity seen. 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 The border between the anterior body of pancreasand metastatic lymph node is not distinctly visualized. Pancreatic invasion cannot be excluded. There is no distant FDG activity seen. Dictating Physician: FLIP FREDERICK Electronically Signed by: FLIP FREDERICK Dic Date/Time: 04/21/24 1624 Sign date/Time: 04/21/24 [id number] 0 IMPRESSION: 1. Irregular signal within the gallbladder extending into the adjacent right lobe of the liver thatis most suggestive of gallbladder carcinoma. 2. Masses and maryellen enlargement in the upper abdomen/ligia hepatis as detailed above. Findings are most suggestive of local metastases. Possibility of pancreatic primary neoplastic disease is considered but is felt much less likely given appearance described above. Dictating Physician: DANNY RICHARDS MD Electronically Signed by: DANNY RICHARDS MD Dic Date/Time: 03/27/24 1217 Sign date/Time: 03/27/24 [id number] 0 Assessment & Plan 54 year-old female presented for follow-up of cholangiocarcinoma. She initially presented with nausea vomiting, found to have acute renal failure, anemia and mass of the gallbladder with associated adenopathy. Pathology indicates carcinoma of hepatobiliary origin likely a cholangiocarcinoma. Based on the PET scan there is bulky metastatic disease near the pancreas. She has been seen by surgical team and is not felt to be a surgical candidate. Reviewed in detail with patient the pathology and the imaging, as well as NCCN guidelines for therapy. Cholangiocarcioma [place] on CKD Anemia Hypokalemia Ordered labs to be done today cbc cmp and tsh iron level, B12 and folic acid Follow up on [facility] NGS testing on the tumor Discussed tentative plan to start therapy with cisplatin, gemcitabine, durvalumab every 21 days if GFR improves If no improvement in GFR consider substitution of carboplatin for the cisplatin and lastly the nextoption would be FOLFOX if renal function does not allow for [place] based therapy. (She does already have a port in place) Side effects of the above treatments briefly described to the patient Prescription sent for as needed Emla cream, Compazine and Zofran We did review that depending on results of NGS testing this may alter our treatment plan If her iron level is low plan for intravenous iron. Consultation by franchise specialist and social work recommended as well. If potassium levels remain low we will plan for potassium supplementation. Lastly I also offered her referral to a tertiary center for consideration of clinical trial, she would like to hold off for now. Addendum: K is critically low at 2.7, sent script [facility] will return tomorrow for labs and IV potassium Cr returned at 1.19 on repeat, can move ahead with cisplatin/gemcitabine and durvalumab given Cr clearance is > 50 Sign Daphney Broussard DO - Hematology/Oncology [facility] documented in this encounter Plan of Treatment Upcoming Encounters Date Type Department Care Team (Late st Contact Info) Description 05/28/2025 10:00 AM EST Appointment [facility] [address] [place] [phone] 06/01/2025 10:00 AM EST Appointment [facility] [address] [place] [phone] 06/04/2025 10:30 AM EST Appointment [facility] [address] [place] [phone] 06/11/2025 10:00 AM EST Appointment [facility] [address] [place] [phone] 06/15/2025 11:45 AM EST Office Visit [facility] Hematology Oncology [address] [place] [phone] Loretta Broussard DO [address] [place] [address] 06/15/2025 12:00 PM EST Appointment [facility] [address] [place] [phone] 06/18/2025 11:00 AM EST Appointment [facility] [address] [place] [phone] 06/19/2025 9:[address] [facility] [address] [place] [phone] 07/20/2025 12:30 PM EST Office Visit Adult [address] [phone] Chandler Villalobos MD [address] [place] [address] documented as of this encounter Procedures Procedure Name Priority Date/Time Associated Diagnosis Comments ..MISCELLANEOUS REFERENCE LAB TEST 04/24/2024 documented in this encounter Results * Miscellaneous reference lab test (04/24/2024) us Provider Onbase LAB BLOOD ORDERABLES Final Re sult documented in this encounter Visit Diagnoses Not on filedocumented in this encounter Additional Health Concerns Infection Onset Date Last Indicated Resolved Time Respiratory Rule-Out 09/19/2024 09/19/2024 025 2:14 PM EDT COVID-19 Rule-Out 09/19/2024 09/19/2024 09/19/2024 2:14 PM EDT documented as of this encounter Care Teams Glaucoma Specialist Relationship Specialty Start Date End Date Chandler Villalobos MD [address] [place] [phone] PCP - General 04/24/24 04/24/24 documented as of this encounter
--- OUTSIDE RECORDS SUMMARY | 2024-04-24 14:00 | XMS_ITS | Encounter Summary ---
Author Organization [facility] Address [address] [place] [address] Care Team Providers Care Mid Level Practitioner Name Role Phone Chandler Villalobos MD Primary Care Provider Encounter Details Date Type Department Care Team (Late st Contact Info) Description 04/24/2024 3:00 PM EDT Hospital Encounter TH HISTORIC ENCOUNTERS EASTERN CONVERSION ONLY Loretta Broussard, DO [address] [place] [address] Social History Tobacco Use Types Packs/Day Years [...] PM EST documented as of this encounter Plan of Treatment Upcoming Encounters Date Type Department Care Team (Late st Contact Info) Description 05/28/2025 10:00 AM EST Appointment [facility] [address] [phone] 06/01/2025 10:00 AM EST Appointment [facility] [address] [place] [phone] 06/04/2025 10:30 AM EST Appointment [facility] [address] [place] [phone] 06/11/2025 10:00 AM EST Appointment [facility] [address] [place] [phone] 06/15/2025 11:45 AM EST Office Visit [facility] Hematology Oncology [address] [place] [phone] Loretta Broussard, DO [address] [place] [phone] 06/15/2025 12:00 PM EST Appointment [facility] [address] [place] [phone] 06/18/2025 11:00 AM EST Appointment [facility] [address] [place] [phone] 06/19/2025 9:00 AM EST Appointment [facility] [address] [place] [phone] 07/20/2025 12:30 PM EST Office Visit [address] [phone] Chandler Villalobos MD [address] [place] [address] documented as of this encounter Visit Diagnoses Not on filedocumented in this encounter Additional Health Concerns Infection Onset Date Last Indicated Resolved Time Respiratory Rule-Out 09/19/2024 09/19/2024 025 2:14 PM EDT COVID-19 Rule-Out 09/19/2024 09/19/2024 09/19/2024 2:14 PM EDT documented as of this encounter Care Teams Mid Level Practitioner Relationship Specialty Start Date End Date Chandler Villalobos MD [address] [place] [address] PCP - General 04/24/24 04/24/24 documented as of this encounter
--- OUTSIDE RECORDS SUMMARY | 2024-04-25 10:30 | XMS_ITS | Encounter Summary ---
Author Organization [facility] Address [address] [place] [address] Care Team Providers Care Web Applications Administrator Name Role Phone Chandler Villalobos MD Primary Care Provider [phone]- [phone] Encounter Details Date Type Department Care Team (Latest Contact Info) Description 04/25/2024 11:30 AM EDT Hospital Encounter TH HISTORIC ENCOUNTERS EASTERN CONVERSION ONLY Intrahepatic bile duct carcinoma (CMS/HCC V24, CMS/HCC V28); Secondary and unspecified malignant neoplasm of lymph node, unspecified (CMS/HCC V24, CMS/HCC V28) Social History Tobacco Use Types Packs/Day Years [...] Sign Reading Time Taken Comments Blood Pressure - - Pulse - - Temperature - - Respiratory Rate - - Oxygen Saturation - - Inhaled Oxygen Concentration - - Weight 69.4 kg (153 lb) 04/24/2024 3:08 PM EDT Height 163.8 cm (5' 4.5 ) 04/24/2024 3:08 PM EDT Body Mass Index 25.86 04/24/2024 3:08 PM EDT documented in this encounter Progress Notes * Historical, Notes Results - 04/25/2024 11:30 AM EDT 1140 Indigo arrives for acute visit today after having labs drawn yesterday that resulted in critical potassium of 2.7. Dr Broussard received phone call last evening to report critcal potassium and today eddie will receive IV potassium as well as IV hydration. Eddie in agreement with plan. attempted to place peripheral IV one time, which was unsuccessful. When discussing treatment and getting a port a cath, Indigo r evealed she has a port a cath, but wasn't sure it could be used yet as the dermabond was still in place. We discussed the healing process of the port and I provided teaching with regards to the process of accessing the port. Ice applied, as she did not place her EMLA cream on . 1210 Port accessed without incidnet, with brisk blood return. Taking water only, not too hungry, crackers provided. 1235 potassium IV and hydration initiated, call quinteros in reach 1315 resting, no distress 1355 repeat cmp done stat to assess need for more potassium supplements 1415 no distress 1445 repeat potassium 2.7, Dr. Broussard aware. Lots of time spent with Indigo reviewing today's discharge instructions and reviewing plan of care. Plan of care to include teach with Bertha MANZO and initiation of chemotherapy next week. Port needle removed and left unit ambulatory. instructions as follows... take potassium 20 meq bid, repeat labs here in infusion on . documented in this encounter Plan of Treatment Upcoming Encounters Date Type Department Care Team (Late st Contact Info) Description 05/28/2025 10:00 AM EST Appointment [facility] Infusion Center [address] [place] [phone] 06/01/2025 10:00 AM EST Appointment [facility] Infusion Center [address] [place] [phone] 06/04/2025 10:30 AM EST Appointment [facility] Infusion Center [address] [place] [phone] 06/11/2025 10:00 AM EST Appointment [facility] Infusion Center [address] [place] [phone] 06/15/2025 11:45 AM EST Office Visit [facility] Hematology Oncology [address] [place] [phone] Loretta Broussard DO [address] [place] [phone] 06/15/2025 12:00 PM EST Appointment [facility] Infusion Center [address] [place] [phone] 06/18/2025 11:00 AM EST Appointment [facility] Infusion Center [address] [place] [phone] 06/19/2025 9:00 AM EST Appointment [facility] [address] [place] [phone] 07/20/2025 12:30 PM EST Office Visit [address] [phone] Chandler Villalobos MD [address] [place] [address] documented as of this encounter Procedures Procedure Name Priority Date/Time Associated Diagnosis Comments ..MISCELLANEOUS REFERENCE LAB TEST 04/25/2024 documented in this encounter Results * Miscellaneous reference lab test (04/25/2024) us Provider Onbase MD LAB BLOOD ORDERABLES Final Re sult documented in this encounter Visit Diagnoses Diagnosis Intrahepatic bile duct carcinoma (CMS/HCC V24, 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
--- OUTSIDE RECORDS SUMMARY | 2024-04-27 10:00 | XMS_ITS | Encounter Summary ---
Author Organization [facility] Address [address] [place] [address] Care Team Providers Care Environmental Compliance Engineer Name Role Phone Chandler Villalobos MD Primary Care Provider [phone]- [phone] Encounter Details Date Type Department Care Team (Late Contact Info) Description 04/27/2024 11:00 AM EDT Hospital Encounter TH HISTORIC ENCOUNTERS EASTERN CONVERSION ONLY Emerald Morejon [facility] [address] [place] [address] Social History Tobacco Use Types Packs/Day Years [...] Department Care Team (Late Contact Info) Description 05/28/2025 10:00 AM EST Appointment [facility] Infusion Center [address] [place] [phone] 06/01/2025 10:00 AM EST Appointment [facility] Infusion Center [address] [place] [address] [phone] 06/04/2025 10:30 AM EST Appointment [facility] Infusion Center [address] [place] [phone] 06/11/2025 10:00 AM EST Appointment [facility] Infusion Center [address] [place] [phone] 06/15/2025 11:45 AM EST Office Visit [facility] Hematology Oncology [address] [place] [phone] Loretta Broussard, DO [address] [place] [address] 06/15/2025 12:00 PM EST Appointment [facility] Infusion Center [address] [place] [phone] 06/18/2025 11:00 AM EST Appointment [facility] [address] [place] [phone] 06/19/2025 9:00 AM EST Appointment [facility] Infusion Center [address] [place] [phone] 07/20/2025 12:30 PM EST Office Visit Adult [address] [phone] Chandler Villalobos MD [address] [place] [address] documented as of this encounter Visit Diagnoses Not on filedocumented in this encounter Additional Health Concerns Infection Onset Date Last Indicated Resolved Time Respiratory Rule-Out 09/19/2024 09/19/2024 025 2:14 PM EDT COVID-19 Rule-Out 09/19/2024 09/19/2024 09/19/2024 2:14 PM EDT documented as of this encounter Care Teams Environmental Compliance Engineer Relationship Specialty Start Date End Date Chandler Villalobos MD [address] [place] [address] PCP - General 04/25/24 documented as of this encounter
--- OUTSIDE RECORDS SUMMARY | 2024-04-27 10:01 | XMS_ITS | Encounter Summary ---
Author Organization [facility] [place] [address] Care Team Providers Care Cell Tuber Hand Name Role Phone Chandler Villalobos MD Primary Care Provider +1- [phone] Encounter Details Date Type Department Care Team (Late st Contact Info) Description 04/27/2024 11:01 AM EDT Hospital Encounter TH HISTORIC ENCOUNTERS EASTERN CONVERSION ONLY Emerald Morejon PA [address] [place] [phone] Social History Tobacco Use Types Packs/Day Years [...] Sign Reading Time Taken Comments Blood Pressure 129/66 04/27/2024 11:05 AM EDT Pulse 83 04/27/2024 11:05 AM EDT Temperature - - Respiratory Rate - - Oxygen Saturation - - Inhaled Oxygen Concentration - - Weight 70.8 kg (156 lb) 04/27/2024 11:05 AM EDT Height 162.6 cm (5' 4 ) 04/27/2024 11:05 AM EDT Body Mass Index 26.78 04/27/2024 11:05 AM EDT documented in this encounter Progress Notes * ANAIS Jarvis 04/27/2024 11:00 AM EDT Images from the original note were not included. 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 She is feeling fair. She gained 3 lbs since Wednesday, which could be from fluids because she receivedIV hydration and IV potassium that day. She already has a port-a-cath in place. Notes she is trying to eat a little better. Appetite is fair. Denies having any persistent nausea or vomiting. She does have some mild fatigue ongoing. Still with occasional abdominal pain. It is better controlled with hydromorphone. She has been taking oral potassium as previously directed. Labs will be drawn today. She has no new medical complaints at this time. No underlying hearing issues. She saw her PCP yesterday and she shares with me that cholesterol medication was discontinued to avoid any further burden on her liver and she was advised to cut amlodipine in half if her blood pressure gets too low. Constitutional: See above follow-up Resp/CV: No cough, [...] CEA of 88.3 Objective Last Vitals Vitals: 04/27/24 1105 BP: 129/66 Pulse: 83 Temp: 97.4 ??F (36.3 ??C) SpO2: 100% Weight: 70.8 kg (156 lb) Height: 5' 4 (1.626 m) ECO General: well appearing, in no acute distress, flat affect HENT: no scleral icterus Chest: right sided chest port in place. Lymph: No palpable cervical, supraclavicular or axillary adenopathy. Resp: clear to auscultation bilaterally, Cardio: regular rate and rhythm, Abdomen: soft non tender, no rebound or guarding, (+) BS in all quadrants Neuro: alert and oriented, normal speech, no focal deficits, normal gait Medications Current Outpatient Medications: ? amLODIPine (NORVASC) tablet 10 mg ? ferrous sulfate 325 (65 FE) MG tablet ? insulin glargine (Lantus SoloStar) 100 UNIT/ML injection ? Insulin Lispro (HumaLOG) 100 UNIT/ML ? lidocaine-prilocaine (EMLA) cream ? metoprolol succinate (TOPROL-XL) 24 hr tablet 50 mg ? ondansetron (ZOFRAN-ODT) 8 MG disintegrating tablet ? oxyCODONE (ROXICODONE) 5 MG immediate release tablet ? potassium chloride ER (K-DUR,KLOR-CON) tablet 20 mEq ? prochlorperazine (COMPAZINE) 10 MG tablet ? rosuvastatin (CRESTOR) tablet 20 mg ? senna (SENOKOT) 8.6 MG tablet Allergies Allergies Allergen Reactions ? [...] CT Skull to Thighs - 04/21/24 - Assessment & Plan 54 year-old female presented [...] well as NCCN guidelines for therapy. Cholangiocarcioma Anemia Ordered labs to be done today cmp Baseline anemia (Hgb 8.7) tsh iron level, B12 and folic acid are all wnl Follow up on CARIS NGS testing on the tumor Discussed plan to start therapy with cisplatin, gemcitabine, durvalumab every 21 days next week with improvement of GFR Plan to start treatment next week Side effects of the above treatments and cancer management plans discussed with patient Prescription sent for as needed Emla cream, Compazine and Zofran (resent today because she claims pharmacy did not receive these meds) MD previously reviewed that depending on results of NGS testing this may alter our treatment plan Consultation by lead business analyst and social work recommended as well. I spoke to both, Inocencia and Ana, and they talk to patient next week If potassium levels remain low we will plan for potassium supplementation. also offered her referral to a tertiary center for consideration of clinical trial, she would like to hold off for now Cancel FOV with MD on 05/08; Book new FOV with MD 3 weeks after 1st treatment (prior to following treatment) Hypokalemia K was critically low at 2.7 Received IV potassium on 04/25/24 On oral potassium Check potassium level today and address as needed [place] on CKD Significant improvement Cr returned at 1.19 on repeat, can move ahead with cisplatin/gemcitabine and durvalumab given Cr clearance is > 50 Monitor renal function closely Avoid nephrotoxins Stay hydrated Case discussed with Dr. Broussard CC: Dr. Villalobos Patient seen, examined, and counseled by me. I personally spent 33 minutes with her/his care, including jpew-ge-aelu, discussion/counseling, time spent in record/notes/result review, documenting in Epic, and care coordination. Sign Emerald Morejon PA-C - Hematology/Oncology [facility] documented in this encounter Plan of Treatment Upcoming Encounters Date Type Department Care Team (Late st Contact Info) Description 05/28/2025 10:00 AM EST Appointment [facility] Center [address] [place] [phone] 06/01/2025 10:00 AM EST Appointment [address] [phone] 06/04/2025 10:30 AM EST Appointment [address] [phone] 06/11/2025 10:00 AM EST Appointment [facility] [address] [place] [phone] 06/15/2025 11:45 AM EST Office Visit [facility] Hematology Oncology [address] [place] [phone] Loretta Broussard DO [address] [place] [phone] 06/15/2025 12:00 PM EST Appointment [facility] [address] [place] [phone] 06/18/2025 11:00 AM EST Appointment [facility] [address] [place] [phone] 06/19/2025 9:00 AM EST Appointment [facility] [address] [place] [phone] 07/20/2025 12:30 PM EST Office Visit [address] [phone] Chandler Villalobos MD [address] [place] [address] documented as of this encounter Visit Diagnoses Not on filedocumented in this encounter Additional Health Concerns Infection Onset Date Last Indicated Resolved Time Respiratory Rule-Out 09/19/2024 09/19/2024 025 2:14 PM EDT COVID-19 Rule-Out 09/19/2024 09/19/2024 09/19/2024 2:14 PM EDT documented as of this encounter Care Teams Cell Tuber Hand Relationship Specialty Start Date End Date Chandler Villalobos MD [address] [place] [address] PCP - General 04/25/24 documented as of this encounter
--- OUTSIDE RECORDS SUMMARY | 2024-04-27 10:59 | XMS_ITS | Encounter Summary ---
Author Organization [facility] Address [address] [place] [address] Care Team Providers Care Machine Oiler Name Role Phone Chandler Villalobos MD Primary Care Provider +1- [phone] Encounter Details Date Type Department Care Team (Late st Contact Info) Description 04/27/2024 11:59 AM EDT Hospital Encounter TH HISTORIC ENCOUNTERS EASTERN CONVERSION ONLY Social History Tobacco Use Types Packs/Day Years [...] Progress Notes * Historical, Notes Results - 04/27/2024 11:30 AM EDT Indigo arrives after office visit with Bertha for chemo teaching. She is with her mom. Port accessed easily, labs obtained. scheduled to begin treatment next week on 05/02/24. Left unit ambulatory feeling well. documented in this encounter Plan of Treatment Upcoming Encounters Date Type Department Care Team (Late st Contact Info) Description 05/28/2025 10:00 AM EST Appointment [facility] [address] [place] [phone] 06/01/2025 10:00 AM EST Appointment [facility] [address] [place] [phone] 06/04/2025 10:30 AM EST Appointment [facility] [address] [place] [phone] 06/11/2025 10:00 AM EST Appointment [facility] [address] [place] [phone] 06/15/2025 11:45 AM EST Office Visit [facility] Hematology Oncology [address] [place] [phone] Loretta Broussard DO [address] [place] [address] 06/15/2025 12:00 PM EST Appointment [facility] [address] [place] [phone] 06/18/2025 11:00 AM EST Appointment [facility] [address] [place] [phone] 06/19/2025 9:00 AM EST Appointment [facility] [address] [place] [phone] 07/20/2025 12:30 PM EST Office Visit [address] [phone] Chandler Villalobos MD [address] [place] [phone] documented as of this encounter Visit Diagnoses Not on filedocumented in this encounter Additional Health Concerns Infection Onset Date Last Indicated Resolved Time Respiratory Rule-Out 09/19/2024 09/19/2024 025 2:14 PM EDT COVID-19 Rule-Out 09/19/2024 09/19/2024 09/19/2024 2:14 PM EDT documented as of this encounter Care Teams Machine Oiler Relationship Specialty Start Date End Date Chandler Villalobos MD [address] [place] [address] PCP - General 04/25/24 documented as of this encounter
--- OUTSIDE RECORDS SUMMARY | 2024-05-01 09:33 | XMS_ITS | Encounter Summary ---
Author Organization [facility] Address [address] [place] [address] Care Team Providers Care Hog Pusher Name Role Phone Chandler Villalobos MD Primary Care Provider [phone] Encounter Details Date Type Department Care Team (Late st Contact Info) Description 05/01/2024 10:33 AM EDT Hospital Encounter TH HISTORIC ENCOUNTERS [...] Progress Notes * Historical, Notes Results - 05/01/2024 10:00 AM EDT 1045 Indigo arrives for one liter of hydration and lab check. She is feeling well, no changes to herhealth. She is with her brother. Plan of care discussed. Will receive one liter of normal saline today as well as lab draw after hydration. Port accessed easily, call quinteros in reach. 1115 resting comfortably 1215 hydration complete, labs drawn 1230 left unit ambulatory, tomorrows appointment confirmed. documented in this encounter Plan of Treatment Upcoming Encounters Date Type Department Care Team (Late st Contact Info) Description 05/28/2025 10:00 AM EST Appointment [facility] Infusion Center [address] [place] [phone] 06/01/2025 10:00 AM EST Appointment [facility] Infusion Center [address] [place] [phone] 06/04/2025 10:30 AM EST Appointment [facility] Infusion Center [address] [place] [phone] 06/11/2025 10:00 AM EST Appointment [facility] Infusion Center [address] [place] [phone] 06/15/2025 11:45 AM EST Office Visit [facility] Hematology Oncology [address] [place] [phone] Loretta Broussard, [address] [place] [phone] 06/15/2025 12:00 PM EST Appointment [facility] Infusion Center [address] [place] [phone] 06/18/2025 11:00 AM EST Appointment [facility] Infusion Center [address] [place] [phone] 06/19/2025 9:00 AM EST Appointment [facility] Infusion Center [address] [place] [phone] 07/20/2025 12:30 PM EST Office Visit Adult Medicine [address] [phone] Chandler Villalobos MD [address] [place] [address] documented as of this encounter Visit Diagnoses Not on filedocumented in this encounter Additional Health Concerns Infection Onset Date Last Indicated Resolved Time Respiratory Rule-Out 09/19/2024 09/19/2024 025 2:14 PM EDT COVID-19 Rule-Out 09/19/2024 09/19/2024 09/19/2024 2:14 PM EDT documented as of this encounter Care Teams Hog Pusher Relationship Specialty Start Date End Date Chandler Villalobos MD [address] [place] [address] PCP - General 04/25/24 documented as of this encounter
--- OUTSIDE RECORDS SUMMARY | 2024-05-01 23:00 | XMS_ITS | Encounter Summary ---
Author Organization [facility] Address [address] [place] [address] Care Team Providers Care Laborer Road Name Role Phone Chandler Villalobos MD Primary Care Provider [phone] Encounter Details Date Type Department Care Team ([facility] Contact Info) Description 05/02/2024 Hospital Encounter TH HISTORIC ENCOUNTERS EASTERN CONVERSION [...] - Inhaled Oxygen Concentration - - Weight 72.1 kg (158 lb 15.2 oz) 05/02/2024 9:32 AM EDT Height 162.6 cm (5' 4 ) 04/27/2024 11:0 5 AM EDT Body Mass Index 27.28 04/27/2024 11:05 AM EDT documented in this encounter Plan of Treatment Upcoming Encounters Date Type Department Care Team (Late Contact Info) Description 05/28/2025 10:00 AM EST Appointment [facility] Infusion Center [address] [place] [phone] 06/01/2025 10:00 AM EST Appointment [facility] Infusion Center [address] [place] [phone] 06/04/2025 10:30 AM EST Appointment [facility] Infusion [facility] [address] [place] [phone] 06/11/2025 10:00 AM EST Appointment [facility] [address] [place] [phone] 06/15/2025 11:45 AM EST Office Visit [facility] Hematology Oncology [address] [place] [phone] Loretta Broussard DO [address] [place] [address] 06/15/2025 12:00 PM EST Appointment [facility] [address] [place] [phone] 06/18/2025 11:00 AM EST Appointment [facility] [address] [place] [phone] 06/19/2025 9:00 AM EST Appointment [facility] [address] [place] [phone] 07/20/2025 12:30 PM EST Office Visit Adult Medicine [address] [phone] Chandler Villalobos MD [address] [place] [address] documented as of this encounter Visit Diagnoses Not on filedocumented in this encounter Additional Health Concerns Infection Onset Date Last Indicated Resolved Time Respiratory Rule-Out 09/19/2024 09/19/2024 025 2:14 PM EDT COVID-19 Rule-Out 09/19/2024 09/19/2024 09/19/2024 2:14 PM EDT documented as of this encounter Care Teams Laborer Road Relationship Specialty Start Date End Date Chandler Villalobos MD [address] [place] [phone] PCP - General 04/25/24 documented as of this encounter
--- OUTSIDE RECORDS SUMMARY | 2024-05-02 08:00 | XMS_ITS | Encounter Summary ---
Author Organization [facility] Address [address] [place] [address] Care Team Providers Care Perishable Freight Inspector Name Role Phone Chandler Villalobos MD Primary Care Provider +1- [phone] Encounter Details Date Type Department Care Team (Latest Contact Info) Description 05/02/2024 9:00 AM EDT Hospital Encounter TH HISTORIC ENCOUNTERS [...] Progress Notes * Historical, Notes Results - 05/02/2024 9:00 AM EDT 1000: PT arrives this morning for initial treatment of durvalumab, gemcitabine and cisplatin. PT oriented to unit policies and procedures, provided with information folder including medication handouts for each chemo/immunotherapy. Medication packets along with signs and symptoms to monitor reviewed. Allergies and medications reconciled. PT reports some mild constipation relieved by laxatives. PTalso reports some mild fatigue and chronic intermittent ABD pain, otherwise stable assessment. Portaccessed without diff, +BR noted, flushed per protocol and pre-hydration initiated. PT given warm blankets, denies other concerns, call quinteros in reach. 1120: Pre-hydration completed and premedications administered. [place] infusion initiated, PT denies concerns, watching tv and encouraged to hydrate more orally to promote urine output, given water andginger anita, call quinteros in reach. 1215: [place] infusion completed without concern. PT up to the BR, urinated 100cc clear yellow urine.Durvalumab infusion initiated, PT reminded of allergy sx and to let staff know if she feels anything & encouraged to hydrate orally, verbalized understanding. PT eating lunch tray, denies concerns, call quinteros in reach. 1325: Durvalumab infusion completed without concern. PT noted to lack urine output, reported to and orders given for additional 500mL hydration over 30mins to promote urine output. Orders placed and hydration infusion initiated. PT denies concerns, call quinteros in reach. 1410: Additional hydration completed and PT up to the BR urinated 400cc of clear yellow urine. Cisplatin released to pharmacy att. Gemcitabine infusion initiated, PT reminded of allergy sx, verbalized understanding, call quinteros in reach. 1450: Gemcitabine infusion completed without concern. Cisplatin infusion initiated, PT reminded of allergy sx, verbalized understanding, call quinteros in reach. 1600: Post hydration infusion initiated. PT up to the BR and urinated another 400cc clear yellow urine. PT denies concerns, call quinteros in reach. 1700: Post hydration completed without concern. Port flushed per protocol and deaccessed, dressing applied. Discharge instructions reviewed with PT, and PT verbalized understanding. PT provided with future apt reminders via calendar and verbalized understanding. PT aware her Hgb is 7.2 and will come back tomorrow for 2 units PRBCS and PT understands to keep typenex bracelet on. PT denies further questions and concerns, left unit, stable at D/C. documented in this encounter Plan of Treatment Upcoming Encounters Date Type Department Care Team (Late st Contact Info) Description 05/28/2025 10:00 AM EST Appointment [facility] [address] [place] [phone] 06/01/2025 10:00 AM EST Appointment [address] [phone] 06/04/2025 10:30 AM EST Appointment [facility] Center [address] [place] [phone] 06/11/2025 10:00 AM EST Appointment [facility] Center [address] [place] [phone] 06/15/2025 11:45 AM EST Office Visit [facility] Hematology Oncology [address] [place] [phone] Loretta Broussard, [address] [place] [phone] 06/15/2025 12:00 PM EST Appointment [facility] Center [address] [place] [phone] 06/18/2025 11:00 AM EST Appointment [facility] [address] [place] [phone] 06/19/2025 9:00 AM EST Appointment [facility] [address] [place] [phone] 07/20/2025 12:30 PM EST Office Visit Adult [address] [phone] Chandler Villalobos MD [address] [place], [place] documented as of this encounter Visit Diagnoses Diagnosis Intrahepatic bile [...] documented as of this encounter Care Teams Perishable Freight Inspector Relationship Specialty Start Date End Date Chandler Villalobos MD [address] [place] [address] PCP - General 04/25/24 documented as of this encounter
--- OUTSIDE RECORDS SUMMARY | 2024-05-03 09:02 | XMS_ITS | Encounter Summary ---
Author Organization [facility] Address [address] [place] [address] Care Team Providers Care Riverboat Captain Name Role Phone Chandler Villalobos MD Primary Care Provider +1- [phone] Encounter Details Date Type Department Care Team (Late st Contact Info) Description 05/03/2024 10:02 AM EDT Hospital Encounter TH HISTORIC ENCOUNTERS [...] - Inhaled Oxygen Concentration - - Weight 71.3 kg (157 lb 3 oz) 05/09/2024 9:16 AM EDT Height 162.6 cm (5' 4 ) 04/27/2024 11:05 AM EDT Body Mass Index 26.98 04/27/2024 11:05 AM EDT documented in this encounter Progress Notes * Historical, Notes Results - 05/03/2024 10:00 AM EDT Indigo arrives ambulatory with her mom and her brother. She is coming to infusion today to receive two units of red cells. She has received blood in the hospital before and stated the transfusion wentwell and she did not experiece any side effects. She does report that her blood sugar this morning was 236, and she administered the appropriate dose of her insulin this morning. She was aware that the premedications administered yesterday will increase her blood sugar. 1100 resting, no distress. Teaching and explanation of transfusion procedure reviewed and Treana inagreement with plan. 1200 taking liquids 1245 took some lunch and tolerated well. Blood infusing without incident. 1300 ambulated to bathroom, no distress 1400 doing well, watching TV 1515 two units of red blood cells transfused without incident. Left unit ambulatory. Will return Wednesday for hydration. documented in this encounter Plan of Treatment Upcoming Encounters Date Type Department Care Team (Late st Contact Info) Description 05/28/2025 10:00 AM EST Appointment [facility] [address] [place] [phone] 06/01/2025 10:00 AM EST Appointment [facility] [address] [place] [phone] 06/04/2025 10:30 AM EST Appointment [facility] [address] [place] [phone] 06/11/2025 10:00 AM EST Appointment [facility] [address] [place] [phone] 06/15/2025 11:45 AM EST Office Visit [facility] Hematology Oncology [address] [place] [phone] Loretta Broussard, [address] [place] [address] 06/15/2025 12:00 PM EST Appointment [facility] [address] [place] [phone] 06/18/2025 11:00 AM EST Appointment [facility] [address] [phone] 06/19/2025 9:00 AM EST Appointment [facility] [address] [phone] 07/20/2025 12:30 PM EST Office Visit Adult [address] [phone] Chandler Villalobos MD [address] [place] [address] documented as of this encounter Visit Diagnoses Not on filedocumented in this encounter Additional Health Concerns Infection Onset Date Last Indicated Resolved Time Respiratory Rule-Out 09/19/2024 09/19/2024 025 2:14 PM EDT COVID-19 Rule-Out 09/19/2024 09/19/2024 09/19/2024 2:14 PM EDT documented as of this encounter Care Teams Riverboat Captain Relationship Specialty Start Date End Date Chandler Villalobos MD [address] [place] [address] PCP - General 04/25/24 documented as of this encounter
--- OUTSIDE RECORDS SUMMARY | 2024-05-05 07:02 | XMS_ITS | Encounter Summary ---
Author Organization [facility] [address] Address [address] [place] [address] Care Team Providers Care Water Valve Mechanic Name Role Phone Chandler Villalobos MD Primary Care Provider Encounter Details Date Type Department Care Team (Late st Contact Info) Description 05/05/2024 8:02 AM EDT Hospital Encounter TH HISTORIC ENCOUNTERS [...] Progress Notes * Historical, Notes Results - 05/05/2024 8:00 AM EDT 0830: PT arrives this morning for hydration and outpatient labs. PT reports feeling moderate fatigue since initial chemo on Wednesday this week. PT also reports some constipation and sts just picked upsome colace for relief. PT also reported a dry throat and intermittent dizziness both improved withincreased hydration. Otherwise stable assessment. Port accessed without diff, +BR noted, labs obtained and sent, flushed per protocol and hydration initiated. PT given warm blankets, denies other concerns, watching tv, call quinteros in reach. 0930: Hydration completed without concern. Port flushed per protocol and deaccessed, dressing applied. Pt given Urine sample for outpatient labs. PT provided with future apt reminder via calendar, denies other concerns, left unit. documented in this encounter Plan of Treatment Upcoming Encounters Date Type Department Care Team (Late st Contact Info) Description 05/28/2025 10:[address] [facility] [address] [place] [phone] 06/01/2025 10:[address] [facility] [address] [place] [phone] 06/04/2025 10:[address] [facility] [address] [place] [phone] 06/11/2025 10:[address] [facility] [address] [place] [phone] 06/15/2025 11:45 AM EST Office Visit [facility] Hematology Oncology [address] [place] [phone] Loretta Broussard, [address] [place] [address] 06/15/2025 12:[address] [facility] [address] [place] [phone] 06/18/2025 11:[address] [facility] [address] [place] [phone] 06/19/2025 9:[address] [facility] [address] [place] [address] [place] [address] 07/20/2025 12:30 PM EST Office Visit Adult Medicine [address] [phone] Chandler Villalobos MD [address] [place] [address] documented as of this encounter Visit Diagnoses Not on filedocumented in this encounter Additional Health Concerns Infection Onset Date Last Indicated Resolved Time Respiratory Rule-Out 09/19/2024 09/19/2024 025 2:14 PM EDT COVID-19 Rule-Out 09/19/2024 09/19/2024 09/19/2024 2:14 PM EDT documented as of this encounter Care Teams Water Valve Mechanic Relationship Specialty Start Date End Date Chandler Villalobos MD [address] [place] [address] PCP - General 04/25/24 documented as of this encounter
--- OUTSIDE RECORDS SUMMARY | 2024-05-08 09:22 | XMS_ITS | Encounter Summary ---
Author Organization [facility] [place] [address] Care Team Providers Care Corporate Quality Assurance Manager Name Role Phone Chandler Villalobos MD Primary Care Provider +1- [phone] Encounter Details Date Type Department Care Team (Late st Contact Info) Description 05/08/2024 10:22 AM EDT Hospital Encounter TH HISTORIC ENCOUNTERS [...] Sign Reading Time Taken Comments Blood Pressure 126/75 05/08/2024 10:28 AM EDT Sitting Left arm Pulse 83 05/08/2024 10:28 AM EDT Temperature - - Respiratory Rate - - Oxygen Saturation - - Inhaled Oxygen Concentration - - Weight 72.1 kg (158 lb 15.2 oz) 05/02/2024 9:32 AM EDT Height 162.6 cm (5' 4 ) 04/27/2024 11:0 5 AM EDT Body Mass Index 27.28 04/27/2024 11:05 AM EDT documented in this encounter Progress Notes * Historical, Notes Results - 05/08/2024 10:30 AM EDT 1040 erik arrives for labs and hydration today. She is feeling ok , but is reporting constipation since of last week, which is very uncomfortable. She asked if she could self administer a enema and we discussed that while on chemotherapy, we do not advise use of enema. We discussed reasons why and she understood. We discussed ways to manage constipation and she has Miralax at home whichshe will take when she gets home today. Dr. Broussard will also provide a prescription for lactulose. IV hydration began and call quinteros in reach. Drinking water, mom also with Indigo. 1200 hydration complete without incident. instructions for management of constipation reviewed and provided. Left unit ambulatory, will return tomorrow for treatment. documented in this encounter Plan of Treatment Upcoming Encounters Date Type Department Care Team (Late st Contact Info) Description 05/28/2025 10:00 AM EST Appointment [facility] Infusion Center [address] [place] [phone] 06/01/2025 10:00 AM EST Appointment [facility] Infusion Center [address] [place] [phone] 06/04/2025 10:30 AM EST Appointment [facility] Infusion Center [address] [place] [phone] 06/11/2025 10:00 AM EST Appointment [facility] Infusion Center [address] [place] [phone] 06/15/2025 11:45 AM EST Office Visit [facility] Hematology Oncology [address] [place] [phone] Loretta Broussard, [address] [place] [address] 06/15/2025 12:00 PM EST Appointment [facility] Infusion Center [address] [place] [phone] 06/18/2025 11:00 AM EST Appointment [facility] Infusion Center [address] [phone] 06/19/2025 9:00 AM EST Appointment [facility] Infusion Center [address] [phone] 07/20/2025 12:30 PM EST Office Visit Adult Medicine [address] [phone] Chandler Villalobos MD [address] [place] [address] documented as of this encounter Visit Diagnoses Not on filedocumented in this encounter Additional Health Concerns Infection Onset Date Last Indicated Resolved Time Respiratory Rule-Out 09/19/2024 09/19/2024 025 2:14 PM EDT COVID-19 Rule-Out 09/19/2024 09/19/2024 09/19/2024 2:14 PM EDT documented as of this encounter Care Teams Corporate Quality Assurance Manager Relationship Specialty Start Date End Date Chandler Villalobos MD [address] [place] [address] PCP - General 04/25/24 documented as of this encounter
--- OUTSIDE RECORDS SUMMARY | 2024-05-09 08:05 | XMS_ITS | Encounter Summary ---
Author Organization [facility] Address [address] [place] [address] Care Team Providers Care Professor Of Economics Name Role Phone Chandler Villalobos MD Primary Care Provider Encounter Details Date Type Department Care Team (Late st Contact Info) Description 05/09/2024 9:05 AM EDT Hospital Encounter TH HISTORIC ENCOUNTERS [...] Progress Notes * Historical, Notes Results - 05/09/2024 9:00 AM EDT 0930: PT arrives this morning with mom and brother for cycle 1 day 8 of gemzar and cisplatin. PT reports severe constipation for the last 5 days. PT sts she has tried a couple doses of miralax as well as prune juice without relief. PT encouraged to keep taking miralax until she has a BM. PT also given high fiber foods handout and encouraged PT to adjust her diet to promote a BM. PT verbalized understanding. PT also reports moderate fatigue, although otherwise stable assessment. Port accessed without diff, +BR noted, flushed per protocol, fluids initiated. PT given some warm tea to encourage aBM, denies other concerns, call quniteros in reach. 0945: Prehydration infusion initiated. PT denies concerns, call quinteros in reach. 1040: Premedications administered to PT well tolerated, prehydration continues to infuse, call bellin reach. 1110: Prehydration completed without concerns. PT denies feeling the need to urinate thus far. Emend infusion initiated. 1140: Emend infusion completed without concerns. Additional hydration initiated for PT to not only promote a BM but also urine output for cisplatin. 1200: PT up to the BR and urinated 300cc clear yellow urine. Additional hydration continues to infuse, denies concerns, call quinteros in reach. 1230: Additional hydration paused at this time for gemcitabine infusion. Gemcitabine infusion initiated, denies concerns, eating lunch tray, call quinteros in reach. 1315: Gemcitabine infusion completed without concerns. PT up to the BR and urinated another 300cc clear yellow urine. Cisplatin infusion initiated. Denies concerns, call quinteros in reach. 1415: Cisplatin infusion completed without concerns. Post hydration initiated and PT up to the BR again to urinate. PT sts she thinks her sugar may be low as she feels very drowsy, POC 144. PT given orange juice per request and for ease of mind & comfort. PT denies concerns, call quinteros in reach. 1500: PT well tolerating hydration, denies concerns, call quintreos in reach. 1545: Post hydration completed without concerns. PT still did not have a BM. Reported to Bertha Carrillo sts she will be sending in Magnesium Citrate for her and recommended OTC smooth move drink. PT made aware and verbalized understanding and grateful. PTs port flushed per protocol and deaccessed, dressing applied. PT provided with future apt reminder via calendar, verbalized understanding, left with family in no acute distress, stable at D/C. documented in this encounter Plan of Treatment Upcoming Encounters Date Type Department Care Team (Late st Contact Info) Description 05/28/2025 10:00 AM EST Appointment [facility] Infusion Center [address] [place] [phone] 06/01/2025 10:00 AM EST Appointment [facility] Infusion Center [address] [place] [phone] 06/04/2025 10:30 AM EST Appointment [facility] [address] [place] [phone] 06/11/2025 10:00 AM EST Appointment [address] [phone] 06/15/2025 11:45 AM EST Office Visit [facility] Hematology Oncology [address] [place] [phone] Loretta Broussard DO [address] [place] [address] 06/15/2025 12:00 PM EST Appointment [facility] [address] [place] [phone] 06/18/2025 11:00 AM EST Appointment [facility] Infusion Center [address] [place] [phone] 06/19/2025 9:00 AM EST Appointment [facility] Infusion Center [address] [place] [phone] 07/20/2025 12:30 PM EST Office Visit Adult Medicine [address] [phone] Chandler Villalobos MD [address] [place] [address] documented as of this encounter Visit Diagnoses Not on filedocumented in this encounter Additional Health Concerns Infection Onset Date Last Indicated Resolved Time Respiratory Rule-Out 09/19/2024 09/19/2024 025 2:14 PM EDT COVID-19 Rule-Out 09/19/2024 09/19/2024 09/19/2024 2:14 PM EDT documented as of this encounter Care Teams Professor Of Economics Relationship Specialty Start Date End Date Chandler Villalobos MD [address] [place] [phone] PCP - General 04/25/24 documented as of this encounter
--- OUTSIDE RECORDS SUMMARY | 2025-05-18 09:59 | XMS_ITS | Encounter Summary ---
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) Loretta Broussard DO [address] [place] [address] Phone: tel: fax: [address] [phone] Phone: tel: fax: Referral ID Status Reason Start Date Expiration Date Visits Re quested Visits Authorized [id number] Closed 05/18/2024 05/18/2025 1 69 Encounter Details Date Type Department Care Team (Latest Contact Info) Description 05/18/2025 9:59 AM EST - 05/18/2025 11:59 PM EST Hospital Encounter [address] [phone] Loretta Broussard DO [address] [place] [phone] Primary gall bladder adenocarcinoma (CMS/HCC V24, [facility] V28) (Primary Dx) Discharge Disposition: Home [...] Sign Reading Time Taken Comments Blood Pressure 120/77 05/18/2025 10:07 AM EST Pulse 97 05/18/2025 10:07 AM EST Temperature 36.4 C (97.5 F) 05/18/2025 10:07 AM EST Respiratory Rate 18 05/18/2025 10:07 AM EST Oxygen Saturation 100% 05/18/2025 10:07 AM EST Inhaled Oxygen Concentration - - Weight - [...] by mouth daily 90 tablet 1 5 blood sugar diagnostic (FreeStyle Lite Strips) test strip Use to test blood sugar 3 times daily 200 strip 2 5 dexAMETHasone (DECADRON) 4 mg tabletIndications:P rimary gall bladder adenocarcinoma ([facility] V24, CMS/[facility] V28) Take 8 mg (2 tablets) once daily, starting the day after treatment, for two days. Take in the morning with food. 30 tablet 1 5 FreeStyle Lancets 28 gauge lancets USE TO TEST BLOOD SUGAR 3 TIMES DAILY 300 each 1 5 HYDROmorphone (DILAUDID) 2 mg tabletIndications:P rimary gall bladder adenocarcinoma ([facility] V24, [facility] V28) Take 1 tablet (2 mg total) [...] oil liquid Take by mouth. For constipation Ashly 2nd Gen Pen Needle 32 gauge x 5/32 needle USE WITH INSULIN PENS 4 TIMES A DAY 400 each 5 potassium chloride (KLOR-CON M20) 20 mEq CR tablet Take 1 tablet (20 mEq total) by mouth 1 (one) time each day. 90 tablet 1 5 prochlorperazine (COMPAZINE) 10 mg tabletIndications:P rimary gall bladder adenocarcinoma ([facility] V24, [facility] V28) Take 1 tablet (10 mg total) by mouth every 6 (six) hours if needed for nausea or vomiting. 60 tablet 3 5 documented as of this encounter Discharge Disposition Disposition Code Departure Means Destination Home or Self Care documented in this encounter Progress Notes * Marilyn Crisostomo RN - 05/18/2025 10:00 AM EST 1035: PT arrives this morning for biweekly hydration. 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 PT continues to often drop objects and hands often cramp / lock up. PT sts she has noticed her feet are now starting to lock/ cramp up intermittently along with cramping inher legs. PT sts she is taking oral magnesium at home although sometimes forgets. Plan is to draw magnesium next week with labs for Tx. No edema noted to legs. PT to start physical therapy next week for left ankle fracture, intermittently walking on foot using immobilizer boot. Stable assessment otherwise. Port accessed, +BR noted, flushed and hydration initiated, call quinteros in reach. 1145: Hydration completed without concerns. Port flushed per protocol and deaccessed, dressing applied. PT given next apts, left unit via wheelchair, stable at D/C. documented in this encounter Plan of Treatment Upcoming Encounters Date Type Department Care Team (Late st Contact Info) Description 05/28/2025 10:00 AM EST Appointment [facility] [address] [place] [phone] 06/01/2025 10:00 AM EST Appointment [facility] [address] [place] [phone] 06/04/2025 10:30 AM EST Appointment [facility] [address] [place] [phone] 06/11/2025 10:00 AM EST Appointment [facility] [address] [place] [phone] 06/15/2025 11:45 AM EST Office Visit [facility] Hematology Oncology [address] [place] [phone] Loretta Broussard, [address] [place] [phone] 06/15/2025 12:00 PM EST Appointment [facility] [address] [place] [phone] 06/18/2025 11:00 AM EST Appointment [facility] [address] [place] [phone] 06/19/2025 9:00 AM EST Appointment [facility] [address] [phone] 07/20/2025 12:30 PM EST Office Visit [facility] [address] [place], [place] [phone] Chandler Villalobos MD [address], [place] documented as of this encounter Procedures Procedure Name Priority Date/Time Associated Diagnosis Comments MAGNESIUM Routine 05/21/2025 11:28 AM EST Primary gall bladder adenocarcinoma (CMS/HCC V24, [facility] V28) documented in this encounter Results * Magnesium (05/21/2025 11:28 AM EST) Magnesium 2.2 1.9 - 2.6 mg/dL LAB CHEMISTRY METHOD 05/21/2025 12:40 PM EST [facility] Blood Blood sample taken from central line / Unknown Existing Catheter / Unknown 05/21/2025 11:28 AM EST 05/21/2025 12:09 PM EST us Loretta Broussard DO LAB BLOOD ORDERABLES Final Result [facility] [address] [place] [address], documented in this encounter Visit Diagnoses Diagnosis Primary gall bladder adenocarcinoma (CMS/HCC V24, CMS/HCC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 documented in this encounter Administered Medications Inactive Administered Medications - up to 3 most recent administrations Medication Order MAR Action Action Date Dose Rate Site sodium chloride 0.9 % bolus 1,000 mL 1,000 mL, intravenous, at 1,000 mL/hr, Administer over 1 Hours, Once, On Wed05/18/25 at 1045, For 1 doseIndications:Primary gall bladder adenocarcinoma (CMS/HCC V24, CMS/HCC V28) New Bag 05/18/2025 10:35 AM EST 1,000 mL 1000 mL/hr documented in this encounter Orders Medications Ordered That Mikal ht Not Have Been Administered Count Last Ordered Date First Ordered Date sodium chloride 0.9 % bolus 1,000 mL 1 01/2025 Appointment Requests Count Last Ordered Date Fi rst Ordered Date ONCBCN INFUSION APPOINTMENT REQUEST 06 1 documented in this encounter Care Teams Grease Worker Relationship Specialty Start Date End Date Chandler Villalobos MD [address] [place] [phone] PCP - General 04/25/24 documented as of this encounter
--- OUTSIDE RECORDS SUMMARY | 2025-05-21 10:59 | XMS_ITS | Encounter Summary ---
Author Organization [facility] Address [address] [place] [address] Care Team Providers Care Steam Distribution Supervisor Name Role Phone Chandler Villalobos MD Primary Care Provider [phone] Reason for Visit * Reason Comments Other (Add RFV) Pre treatment labs a nd hydration Encounter Details Date Type Department Care Team (Latest Contact Info) Description 05/21/2025 10:59 AM EST Hospital Encounter [facility] [address] [phone] Loretta Broussard, [address] [place] [address] Primary gall bladder adenocarcinoma (CMS/HCC V24, CMS/HCC [...] Sign Reading Time Taken Comments Blood Pressure 112/68 05/21/2025 11:40 AM EST Pulse 90 05/21/2025 11:40 AM EST Temperature 36.2 C (97.1 F) 05/21/2025 11:40 AM EST Respiratory Rate 16 05/21/2025 11:40 AM EST Oxygen Saturation 100% 05/21/2025 11:40 AM EST Inhaled Oxygen Concentration - - Weight - - Height - - Body Mass Index - - documented in this encounter Progress Notes * Marilyn Crisostomo RN - 05/21/2025 11:00 AM EST 1140: PT arrives this afternoon for pre treatment port drawn labs and hydration. PT sts she continues to have more locking/ cramping of hands and feet at home with intermittent pain. Magnesium to be drawn today to see if this is effecting symptoms. PT otherwise denies acute concerns, Port accessed,+BR noted, labs obtained and sent, flushed and hydration initiated. PT denies concerns, given snacks, call quinteros in reach. 1300: Hydration completed without concerns. Port flushed per protocol and deaccessed, dressing applied. PT aware of tomorrows apt, left unit via wheelchair, stable at D/C. documented in this encounter Plan of Treatment Upcoming Encounters Date Type Department Care Team (Late st Contact Info) Description 05/28/2025 10:00 AM EST Appointment [facility] [address] [place] [phone] 06/01/2025 10:00 AM EST Appointment [facility] [address] [place] [phone] 06/04/2025 10:30 AM EST Appointment [facility] [address] [place] [phone] 06/11/2025 10:00 AM EST Appointment [facility] [address] [place] [phone] 06/15/2025 11:45 AM EST Office Visit [facility] [address] [place] [phone] Loretta Broussard, DO [address] [place] [address] 06/15/2025 12:00 PM EST Appointment [address] [phone] 06/18/2025 11:00 AM EST Appointment [address] [phone] 06/19/2025 9:00 AM EST Appointment [address] [phone] 07/20/2025 12:30 PM EST Office Visit [address] [phone] Chandler Villalobos MD [address] [place] [address] documented as of this encounter Procedures Procedure Name Priority Date/Time Associated Diagnosis Comments CBC WITH AUTO DIFFERENTIAL Routine 05/21/2025 11:28 AM EST Primary gall bladder adenocarcinoma (CMS/HCC V24, CMS/HCC V28) CANCER ANTIGEN 19-9 Routine 05/21/2025 1 1:28 AM EST Primary gall bladder adenocarcinoma (CMS/HCC V24, CMS/HCC V28) CBC AND DIFFERENTIAL Routine 05/21/2025 11:28 AM EST Primary gall bladder adenocarcinoma (CMS/HCC V24, CMS/HCC V28) CARCINOEMBRYONIC ANTIGEN Routine 05/21/2025 11:28 AM EST Primary gall bladder adenocarcinoma (CMS/HCC V24, CMS/HCC V28) COMPREHENSIVE METABOLIC PANEL Routine 05/21/2025 11:28 AM EST Primary gall bladder adenocarcinoma (CMS/HCC V24, CMS/HCC V28) documented in this encounter Results * (ABNORMAL) CBC auto differential (05/21/2025 11:28 AM EST) [facility] WBC 7.2 4.8 - 10.8 K/mcL LAB HEMETOLOGY METHOD 05/21/2025 12:16 PM [facility] RBC 4.00 3.80 - 4.80 M/mcL LAB HEMETOLOGY METHOD 05/21/2025 12:16 PM [facility] Hemoglobin 11.0(L) 11.5 - 16.0 g/dL LAB HEMETOLOGY METHOD 05/21/2025 12:16 PM [facility] Hematocrit 34.4(L) 35.0 - 47.0 % LAB HEMETOLOGY METHOD 05/21/2025 12:16 PM [facility] MCV 85.6 79.0 - 98.0 FL LAB HEMETOLOGY METHOD 05/21/2025 12:16 PM [facility] MCH 27.4 27.0 - 32.0 pcg LAB HEMETOLOGY METHOD 05/21/2025 12:16 PM [facility] MCHC 32.0 32.0 - 37.0 g/dL LAB HEMETOLOGY METHOD 05/21/2025 12:16 PM [facility] RDW 15.5(H) 11.0 - 15.0 % LAB HEMETOLOGY METHOD 05/21/2025 12:16 PM [facility] Platelets 230 130 - 400 K/mcL LAB HEMETOLOGY METHOD 05/21/2025 12:16 PM [facility] MPV 9.6 7.0 - 11.0 FL LAB HEMETOLOGY METHOD 05/21/2025 12:16 PM [facility] NRBC 0.0 <1.0 % LAB HEMETOLOGY METHOD 05/21/2025 12:16 PM [facility] NRBC Absolute 0.00 <0.10 K/mcL LAB HEMETOLOGY METHOD 05/21/2025 12:16 PM [facility] Neutrophils Relative 69.0 % LAB HEMETOLOGY METHOD 05/21/2025 12:16 PM [facility] Lymphocytes Relative 19.7 % LAB HEMETOLOGY METHOD 05/21/2025 12:16 PM [facility] Monocytes Relative 7.8 % LAB HEMETOLOGY METHOD 05/21/2025 12:16 PM [facility] Eosinophils Relative 1.8 % LAB HEMETOLOGY METHOD 05/21/2025 12:16 PM [facility] Basophils Relative 0.6 % LAB HEMETOLOGY METHOD 05/21/2025 12:16 PM [facility] Immature Granulocytes Relative 1.1 % LAB HEMETOLOGY METHOD 05/21/2025 12:16 PM [facility] Neutrophils Absolute 4.99 1.50 - 7.00 K/mcL LAB HEMETOLOGY METHOD 05/21/2025 12:16 PM [facility] Lymphocytes Absolute 1.42 1.00 - 5.00 K/mcL LAB HEMETOLOGY METHOD 05/21/2025 12:16 PM [facility] Monocytes Absolute 0.56 0.20 - 1.00 K/mcL LAB HEMETOLOGY METHOD 05/21/2025 12:16 PM [facility] Eosinophils Absolute 0.13 0.00 - 0.50 K/mcL LAB HEMETOLOGY METHOD 05/21/2025 12:16 PM [facility] Basophils Absolute 0.04 0.00 - 0.20 K/mcL LAB HEMETOLOGY METHOD 05/21/2025 12:16 PM [facility] Immature Granulocytes Absolute 0.08(H) 0.00 - 0.03 K/mcL LAB HEMETOLOGY METHOD 05/21/2025 12:16 PM [facility] Blood Blood sample taken from central line / Unknown Existing Catheter / Unknown 05/21/2025 11:28 AM EST 05/21/2025 12:09 PM EST Loretta Abdalla Aarti DO LAB BLOOD ORDERABLES Final Result [facility] [address] [place] [address], [place] [phone] * (ABNORMAL) Comprehensive metabolic panel (05/21/2025 11:28 AM EST) Sodium 137 133 - 145 mmol/L LAB CHEMISTRY METHOD 05/21/2025 12:49 PM [facility] Potassium 3.8 3.5 - 5.5 mmol/L LAB CHEMISTRY METHOD 05/21/2025 12:49 PM [facility] Chloride 103 96 - 110 mmol/L LAB CHEMISTRY METHOD 05/21/2025 12:49 PM [facility] CO2 27 21 - 32 mmol/L LAB CHEMISTRY METHOD 05/21/2025 12:49 PM [facility] Anion Gap 7 3 - 11 LAB CHEMISTRY METHOD 05/21/2025 12:49 PM [facility] Glucose 193(H) 70 - 100 mg/dL LAB CHEMISTRY METHOD 05/21/2025 12:49 PM [facility] BUN 15 5 - 25 mg/dL LAB CHEMISTRY METHOD 05/21/2025 12:49 PM [facility] Creatinine 1.16(H) 0.50 - 1.10 mg/dL LAB CHEMISTRY METHOD 05/21/2025 12:49 PM [facility] eGFR 56(L) >=60 mL/min/1. 73m2 LAB CHEMISTRY METHOD 05/21/2025 12:49 PM [facility] Comment:Calculation based on the Chronic Kidney Disease Epidemiology Collaboration (CKD-EPI) equation refit without adjustment for race. BUN/Creatinine Ratio 12.9 LAB CHEMISTRY METHOD 05/21/2025 12:49 PM [facility] Calcium 9.9 8.5 - 10.5 mg/dL LAB CHEMISTRY METHOD 05/21/2025 12:49 PM [facility] AST (SGOT) 13 10 - 42 unit/L LAB CHEMISTRY METHOD 05/21/2025 12:49 PM [facility] ALT (SGPT) 16 10 - 60 unit/L LAB CHEMISTRY METHOD 05/21/2025 12:49 PM [facility] Alkaline Phosphatase 145(H) 42 - 121 unit/L LAB CHEMISTRY METHOD 05/21/2025 12:49 PM [facility] Total Protein 6.5 6.0 - 8.0 g/dL LAB CHEMISTRY METHOD 05/21/2025 12:49 PM [facility] Albumin 3.4 3.2 - 5.0 g/dL LAB CHEMISTRY METHOD 05/21/2025 12:49 PM [facility] Total Bilirubin 0.6 0.0 - 1.4 mg/dL LAB CHEMISTRY METHOD 05/21/2025 12:49 PM [facility] Blood Blood sample taken from central line / Unknown Existing Catheter / Unknown 05/21/2025 11:28 AM EST 05/21/2025 12:09 PM EST us Loretta Broussard DO LAB BLOOD ORDERABLES Final Result [facility] [address] [place] [address], * Cancer antigen 19-9 (05/21/2025 11:28 AM EST) CA 19-9 <2.0 <=35 U/mL 05/23/2025 11:18 AM EST [facility] Comment: The Siemens Advia Centaur CA199 Chemiluminescent Immunoassay is used. Results obtained with different assay methods or kits cannot be used interchangeably. Results cannot be interpreted as absolute evidence of the presence or absence of malignant disease. Test performed at [facility], [address], [place] [address] Shyanne Bonilla MD, PhD - Repair Electric Motor Assembler Blood Blood sample taken from central line / Unknown Existing Catheter / Unknown 05/21/2025 11:28 AM EST 05/21/2025 12:09 PM EST Loretta Lianne Broussard LAB BLOOD ORDERABLES Final Result Performing Organization Address [facility] Co de Phone Number [facility] [address] [place] [address] * CEA (05/21/2025 11:28 AM EST) Pathologist [facility] [place] CEA 2.8 0.0 - 5.0 ng/mL LAB CHEMISTRY METHOD 05/21/2025 2:16 PM EST [facility] Blood Blood sample taken from central line / Unknown Existing Catheter / Unknown 05/21/2025 11:28 AM EST 05/21/2025 12:09 PM EST Narrative [facility] - 05/21/2025 2:16 PM EST The Siemens Advia Centaur Chemiluminescent Immunoassay is used. Results obtained with different assay methods or kits cannot be used interchangeably. Results cannot be interpreted as absolute evidence of the presence or absence of malignant disease. Loretta Broussard LAB BLOOD ORDERABLES Final Result Performing Organization Address [facility] Co de Phone Number [facility] [address] [place] [address], [place] [phone] documented in this encounter Visit Diagnoses Diagnosis Primary gall bladder adenocarcinoma (CMS/HCC V24, CMS/HCC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 documented in this encounter Administered Medications Inactive Administered Medications - up to 3 most recent administrations Medication Order MAR Action Action Date Dose Rate Site sodium chloride 0.9 % bolus 1,000 mL 1,000 mL, intravenous, at 1,000 mL/hr, Administer over 1 Hours, Once, On Wed05/21/25 at 1145, For 1 doseIndications:Primary gall bladder adenocarcinoma (CMS/HCC V24, CMS/HCC V28) New Bag 05/21/2025 11:40 AM EST 1,000 mL 1000 mL/hr documented in this encounter Orders Medications Ordered That Mikal ht Not Have Been Administered Count Last Ordered Date First Ordered Date sodium chloride 0.9 % bolus 1,000 mL 1 05/12 documented in this encounter Care Teams Steam Distribution Supervisor Relationship Specialty Start Date End Date Chandler Villalobos MD [address] [place] [phone] PCP - General 04/25/24 documented as of this encounter
--- OUTSIDE RECORDS SUMMARY | 2025-05-21 13:15 | XMS_ITS | Encounter Summary ---
Author Organization [facility] Address [address] [place] [address] Care Team Providers Care Helper Electrical Name Role Phone Chandler Villalobos MD Primary Care Provider Encounter Details Date Type Department Care Team (Latest Contact Info) Description 05/21/2025 1:15 PM EST - 05/21/2025 11:59 PM EST Hospital Encounter [facility] Xray [address] [place] [phone] Other fracture of left lower leg, subsequent encounter for closed fracture with routine healing; Unspecified injury of left ankle, subsequent encounter; Pain in left ankle and joints of left foot Discharge Disposition: Home or Self Care Social [...] PM EST documented as of this encounter Medications at Time of Discharge alcohol swabs (Alcohol Pads) pads, medicated Apply topically 3 (three) times a day. 300 each 1 amLODIPine (NORVASC) 10 mg tablet Take 1 tablet (10 mg total) by mouth 1 (one) time each day. Take 1 Tablet by mouth daily 90 tablet 1 5 blood sugar diagnostic (FreeStyle Lite Strips) test strip Use to test blood sugar 3 times daily 200 strip 2 5 dexAMETHasone (DECADRON) 4 mg tabletIndications:P rimary gall bladder adenocarcinoma ([facility] V24, [facility] V28) Take 8 mg (2 tablets) once daily, starting the day after treatment, for two days. Take in the morning with food. 30 tablet 1 5 FreeStyle Lancets 28 gauge lancets USE TO TEST BLOOD SUGAR 3 TIMES DAILY 300 each 1 5 HYDROmorphone (DILAUDID) 2 mg tabletIndications:P rimary gall bladder adenocarcinoma ([facility] V24, [facility] V28) Take 1 tablet (2 mg total) [...] or Self Care documented in this encounter Plan of Treatment Upcoming Encounters Date Type Department Care Team (Late st Contact Info) Description 05/28/2025 10:00 AM EST Appointment [address] [phone] 06/01/2025 10:[address] [facility] [address] [place] [phone] 06/04/2025 10:[address] [facility] [address] [place] [phone] 06/11/2025 10:00 AM EST Appointment [address] [phone] 06/15/2025 11:45 AM EST Office Visit [facility] Hematology Oncology [address] [place] [phone] Loretta Broussard, [address] [place] [address] 06/15/2025 12:00 PM EST Appointment [facility] [address] [place] [phone] 06/18/2025 11:00 AM EST Appointment [facility] [address] [place] [phone] 06/19/2025 9:00 AM EST Appointment [facility] [address] [place] [phone] 07/20/2025 12:30 PM EST Office [place] [facility] [address] [place] [address] Chandler Villalobos MD [address] [place] [address] documented as of this encounter Procedures Procedure Name Priority Date/Time Associated Diagnosis Comments XR ANKLE 3+ VIEWS LEFT Routine 05/21/2025 1:29 PM EST Other fracture of left lower leg, subsequent encounter for closed fracture with routine healing Unspecified injury of left ankle, subsequent encounter Pain in left ankle and joints of left foot documented in this encounter Results * XR Ankle 3+ Views Left (05/21/2025 1:29 PM EST) Anatomical Region Laterality Modality Lower Extremities, Ankle Left Radiogr aphic Imaging 05/22/2025 7:12 AM EST Impressions 05/22/2025 7:13 AM EST Fracture lucency through the tip of the lateral malleolus remains present. There is soft tissue swelling. No new suspicious abnormality -------- FINAL REPORT -------- Dictated By: Ryan Coffey Dictated Date: 05/22/2025 07:12 ET Assigned Physician: Ryan Coffey Reviewed and Electronically Signed By: Ryan Coffey Signed Date: 05/22/2025 07:13 ET Workstation ID: [id number] Transcribed By: Self Edit Transcribed Date: 05/22/2025 07:12 ET Narrative 05/22/2025 7:13 AM EST EXAMINATION: LEFT ANKLE CLINICAL INFORMATION: Pain COMPARISON: 05/09/25 TECHNIQUE: 4 views left ankle FINDINGS: There is a transversely oriented fracture through the tip of the lateral malleolus which is in unchanged position. The fracture lucency remains present. Ankle mortise is maintained. There is some osteophyte at the tip of the medial malleolus. There is some soft tissue swelling. Mild dorsal calcaneal spurring. Procedure Note Ryan Coffey MD - 05/22/2025 EXAMINATION: LEFT ANKLE CLINICAL INFORMATION: Pain COMPARISON: 05/09/25 TECHNIQUE: 4 views left ankle FINDINGS: There is a transversely oriented fracture through the tip of the lateralmalleolus which is in unchanged position. The fracture lucency remainspresent. Ankle mortise is maintained. There is some osteophyte at the tip of themedial malleolus. There is some soft tissue swelling. Mild dorsal calcaneal spurring. IMPRESSION: Fracture lucency through the tip of the lateral malleolus remains present.There is soft tissue swelling. No new suspicious abnormality -------- FINAL REPORT -------- Dictated By: Ryan Coffey Dictated Date: 05/22/2025 07:12 ET Assigned Physician: Ryan Coffey Reviewed and Electronically Signed By: Ryan Coffey Signed Date: 05/22/2025 07:13 ET Workstation ID: [id number] Transcribed By: Self Edit Transcribed Date: 05/22/2025 07:12 ET Karolina Weaver DPM IMG XR PROCEDURES F inal Result documented in this encounter Visit Diagnoses Diagnosis Other fracture of left lower leg, subsequent encounter for closed fracture with routine healing Unspecified injury of left ankle, subsequent encounter Pain in left ankle and joints of left foot documented in this encounter Care Teams Helper Electrical Relationship Specialty Start Date End Date Chandler Villalobos MD [address] [place] [phone] PCP - General 04/25/24 documented as of this encounter
--- OUTSIDE RECORDS SUMMARY | 2025-05-22 10:30 | XMS_ITS | Encounter Summary ---
Author Organization [facility] Address [address] [place] [address] Care Team Providers Care Corporate Statistical Financial Analyst Name Role Phone Chandler Villalobos MD Primary Care Provider [phone] Reason for Visit * Reason Comments Chemotherapy C19 5FU & leucovorin * Episode Based Medications (Routine) - Authorized Specialty Diagnoses / Procedures Referred By Minnie ivan Referred To Contact Diagnoses Primary gall bladder adenocarcinoma (CMS/HCC V24, CMS/HCC V28) Loretta Broussard DO [address] [place] [address] Phone: tel: fax: [facility] [address] [place] [phone] Phone: tel: fax: Referral ID Status Reason Start Date Expiration Date V isits Requested Visits Authorized [id number] Authorized 09/03/2024 09/03/2025 1 45 Encounter Details Date Type Department Care Team (Latest Contact Info) Description 05/22/2025 10:30 AM EST Hospital Encounter [facility] [address] [place] [phone] Loretta Broussard DO [address] [place] [phone] Primary gall bladder adenocarcinoma (CMS/HCC V24, CMS/HCC [...] Sign Reading Time Taken Comments Blood Pressure 120/73 05/22/2025 10:40 AM EST Pulse 99 05/22/2025 10:40 AM EST Temperature 36.4 C (97.6 F) 05/22/2025 10:40 AM EST Respiratory Rate 16 05/22/2025 10:40 AM EST Oxygen Saturation 100% 05/22/2025 10:40 AM EST Inhaled Oxygen Concentration - - Weight 89.8 kg (198 lb) 05/22/2025 10:40 AM EST Height 163.8 cm (5' 4.49 ) 05/22/2025 10:[address] Body Mass Index 33.47 05/22/2025 10:40 AM EST documented in this encounter Progress Notes * Marilyn Crisostomo RN - 05/22/2025 10:30 AM EST 1115: PT arrives this morning for C19 5FU & leucovorin infusions. PT reports no acute changes or concerns. Hands and feet continue to lock up although intermittent and tolerable att. Dr. Blanco is aware and suggested PT use ibuprofen for the locking pain. Dr. Broussard also suggested a short coarse of prednisone although PT does not want to do this r/t hyperglycemia risk. PT had repeat Xrs yesterday for left ankle fracture, fracture is unchanged and PT as F/U with Ortho soon. PT also sts she starts physical therapy this week too for the ankle, hoping to get immobilizer boot off. Stable assessment otherwise. Port accessed, +BR noted, flushed and fluids initiated at KVO. PT given warm blanketsand snacks, call quinteros in reach. 1145: Premedications given, call quinteros in reach. 1210: Leucovorin infusion initiated, call quinteros in reach. 1333: Leucovorin infusion completed without concerns. 5FU IVP administered slow with +BR noted throughout. PT well tolerated. 5FU continuous infusion pump initiated, all connections secured. PT givencopies of next apts, left unit via wheelchair, stable at D/C. documented in this encounter Plan of Treatment Upcoming Encounters Date Type Department Care Team (Late st Contact Info) Description 05/28/2025 10:00 AM EST Appointment [facility] [address] [place] [phone] 06/01/2025 10:00 AM EST Appointment [facility] [address] [place] [phone] 06/04/2025 10:30 AM EST Appointment [facility] [address] [place] [phone] 06/11/2025 10:00 AM EST Appointment [facility] [address] [place] [phone] 06/15/2025 11:45 AM EST Office Visit [facility] [address] [place] [phone] Loretta Broussard DO [address] [place] [address] 06/15/2025 12:00 PM EST Appointment [facility] [address] [place] [phone] 06/18/2025 11:00 AM EST Appointment [facility] [address] [place] [phone] 06/19/2025 9:00 AM EST Appointment [facility] [address] [place] [phone] 07/20/2025 12:30 PM EST Office Visit Adult [address] [phone] Chandler Villalobos MD [address] [place], [place] documented as of this encounter Visit Diagnoses Diagnosis Primary gall bladder adenocarcinoma (CMS/HCC V24, CMS/HCC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 documented in this encounter Administered Medications Inactive Administered Medications - up to 3 most recent administrations Medication Order MAR Action Action Date Dose Rate Site dexAMETHasone (DECADRON) injection 12 mg 12 mg, intravenous, Once, On Wed05/22/25 at 1145, For 1 doseIndications:Primary gall bladder adenocarcinoma (CMS/HCC V24, CMS/HCC V28) Given 05/22/2025 11:31 AM EST 12 mg fluorouracil (ADRUCIL) 4,700 mg in sodium chloride 0.9 % 138 mL chemo infusion 4,700 mg (rounded from 4,704 mg = 2,400 mg/m2 1.96 m2), intravenous, at 3 mL/hr, Administer over 46 Hours, Once, On Wed05/22/25 at 1400, For 1 dose, Fluorouracil is administered as [...] bladder adenocarcinoma (CMS/HCC V24, CMS/HCC V28) Given 05/22/2025 1:18 PM EST 4,700 mg 3 mL/hr fluorouracil (ADRUCIL) chemo injection 800 mg 800 mg (rounded from 784 mg = 400 mg/m2 1.96 m2), intravenous, at 96 mL/hr, Administer over 10 Minutes, Once, On Wed05/22/25 at 1345, For 1 dose, IV push Protect from light Antineoplastic Hazardous Medication - Double pair of ASTM standard [id number] certified gloves - Hazardous gown - Eye/face protection if liquid that could splash - CSTD required when possibleIndications:Primary gall bladder adenocarcinoma (CMS/HCC V24, CMS/HCC V28) Given 05/22/2025 1:17 PM EST 800 mg 96 mL/hr leucovorin 800 mg in dextrose 290 mL IVPB 800 mg (rounded from 784 mg = 400 mg/m2 1.96 m2), intravenous, at 193.3 mL/hr, Administer over 90 Minutes, Once, On Wed05/22/25 at 1230, For 1 dose, Run concurrent with OXALIplatin infusion, so that the two drugs end at approximately the same time.Indications:Primary gall bladder adenocarcinoma (CMS/HCC V24, CMS/HCC V28) New Bag 05/22/2025 12:10 PM EST 800 mg 290 mL/hr palonosetron (ALOXI) injection 250 mcg 250 mcg, intravenous, Once, On Wed05/22/25 at 1145, For 1 doseIndications:Primary gall bladder adenocarcinoma (CMS/HCC V24, CMS/HCC V28) Given 05/22/2025 11:26 AM EST 250 mcg documented in this encounter Orders Appointment Requests Count Last Ordered Date Fi rst Ordered Date ONCBCN CALCULATED LENGTH INF USION APPOINTMENT REQUEST 1 05/22/2025 documented in this encounter Care Teams Corporate Statistical Financial Analyst Relationship Specialty Start Date End Date Chandler Villalobos MD [address] [place] [phone] PCP - General 04/25/24 documented as of this encounter
--- NOTE | 2025-05-24 10:42 | A.OFFVIS_ITS ---
Vital Signs 05/24/25 10:43 Height 5 ft 4.5 in Weight 185 lb BMI 31.3 Intake Visit Reasons: Left Distal Fibula Avulsion Fx 03/07/25 Intake Note: Indigo is a 55 year old female who presents today for a follow up on her avulsion fracture of distal fibula. Patient reports she is doing well with no further concerns at this time. She has not started PT her first appointment was yesterday but she was late so they had to reschedule for the 12 of june. Allergies lisinopril Allergy (Verified 04/12/25 10:51) Anaphylaxis HPI Comments Details: The patient is a 55-year-old female presenting for follow-up of a left distal fibular avulsion fracture. The patient has tried to transition herself out of the cam boot and into a sneaker. Patient states she is in need of a stabilizing ankle brace while wearing sneaker to prevent pain. The patient reports numbness in the feet due to chemotherapy treatment. Patient states she recently fell stubbing her toe. She denies any other new pedal injuries. She denies any other pedal concerns. Patient has not started her physical therapy yet, but is expected to start within the next few weeks. [facility] Medical History (Updated 03/31/25 @ 19:41 by Karolina Weaver DPM) Left ankle injury Left ankle pain Avulsion fracture of distal fibula Closed left ankle fracture Review of Systems Const Details: - Musculoskeletal: Reports mild pain to the left ankle, improved from last visit. All systems reviewed & are unremarkable except as noted in HPI and below Physical Exam Vital Signs: BMI result Body Mass Index 31.3 Extrem Other: Left lower extremity focused physical exam: Derm: No open lesions abrasions or wounds noted. No ecchymosis or erythema noted. No clinical signs of infection. Skin supple and turgor within normal limits. Vascular: DP/PT pulses palpable. Capillary refill time less than 3 seconds. Minimal edema noted to bilateral lower extremities. Temperature gradient warm to warm. No varicosities noted. Pedal hair present. Neuro: Protective sensation is grossly diminished. Musculoskeletal: No pain on palpation to the distal aspect of the fibula. Minimal pain noted upon eversion, reduced from last visit. Remaining range of motion is without pain. No pain on palpation along the lateral ankle ligaments. No pain along the medial malleolus or deltoid ligaments. Negative squeeze test. No pain noted to the proximal aspect of the fibula. Range of motion of the forefoot within normal limits. No pain to the forefoot. Results Reviewed Results Reviewed: Podiatry read of left ankle three-views weightbearing x-ray ([facility]): Continued healing noted to the fracture fragment. Continued bone callus formation noted with bridging in comparison to patient's original x-rays. No new acute fractures or dislocations noted. Podiatry read of left ankle three-views weightbearing x-ray (04/09/25): Visible healing noted to the fracture fragment. Soft callus formation noted with bridging in comparison to patient's original x-rays. No new acute fractures or dislocations noted. Left ankle three-views weightbearing x-ray (04/09/25): FINDINGS: Four views of the ankle are submitted. Osseous mineralization is normal. There is a minimally displaced fracture of the tip of the distal fibula. No additional fracture is seen. There is no dislocation. The joint spaces are preserved. The soft tissues are unremarkable. IMPRESSION: Minimally displaced fracture of the tip of the distal fibula. Reviewed patient's left ankle and foot x-rays that were previously done at [facility]. Podiatry read: Nondisplaced transverse avulsion fracture noted to the distal tip of the fibula. No acute dislocations noted. Assessment & Plan Assessment & Plan (1) Closed left ankle fracture: Code(s): S82.892A - Other fracture of left lower leg, initial encounter for closed fracture Category: Medical Qualifiers: Encounter type: subsequent encounter Fracture healing: with routine healing Qualified Code(s): S82.892D - Other fracture of left lower leg, subsequent encounter for closed fracture with routine healing (2) Avulsion fracture of distal fibula: Code(s): S82.839A - Other fracture of upper and lower end of unspecified fibula, initial encounter for closed fracture Category: Medical (3) Left ankle injury: Code(s): S99.912A - Unspecified injury of left ankle, initial encounter Category: Medical Qualifiers: Encounter type: subsequent encounter Qualified Code(s): S99.912D - Unspecified injury of left ankle, subsequent encounter (4) Left ankle pain: Code(s): M25.572 - Pain in left ankle and joints of left foot Category: Medical Qualifiers: Chronicity: acute Qualified Code(s): M25.572 - Pain in left ankle and joints of left foot Plan Patient was informed and verbally consented to the use of an ambient scribe for clinic note documentation during this visit. I discussed with the patient the importance of transitioning from the boot to a supportive shoe with the use of an ankle brace. We reviewed the physical therapy schedule and emphasized the need to avoid high heels and nonsupportive shoe gear to prevent further injury. I advised a follow-up in July to evaluate progress. - Patient is to transition from weightbearing as tolerated to the left lower extremity in a cam boot to weight-bearing as tolerated in the left lower extremity in a supportive shoe gear with a stabilizing ankle brace. - Patient may use an assistive device initially to assist in balance. - Attend physical therapy sessions starting in June to improve ankle strength and stability. - Use the CAMboot only if experiencing pain or soreness after physical therapy sessions. - Avoid wearing high heels and nonsupportive shoe gear to prevent further injury. - Continue use of insoles for neuropathy management. - Monitor for abnormal swelling and report any significant changes. - Continue with RICE protocol. - Continue using Tylenol or Ibuprofen for pain. RTC in 2 months Coding Level of Care Code Est Pt Level 4 (99086) Diagnoses Closed fracture of left ankle with routine healing, subsequent encounter S82. 892D Encounter type: subsequent encounter Fracture healing: with routine healing Avulsion fracture of distal fibula S82.839A Injury of left ankle, subsequent encounter S99.912D Encounter type: subsequent encounter Acute left ankle pain M25.572 Chronicity: acute Time Spent (min) 34
[2025-05-24 10:43] VITALS: BMI 31.3
--- OUTSIDE RECORDS SUMMARY | 2025-05-24 11:16 | XMS_ITS | Encounter Summary ---
Author Organization [facility] Address [address] [place] [address] Care Team Providers Care Patrol Sergeant Name Role Phone Chandler Villalobos MD Primary Care Provider [phone] Encounter Details Date Type Department Care Team (Latest Contact Info) Description 05/24/2025 11:16 AM EST Hospital Encounter [facility] Infusion Center [address] [phone] Loretta Broussard, DO [address] [place] [address] Primary gall bladder adenocarcinoma (CMS/HCC V24, CMS/HCC [...] Sign Reading Time Taken Comments Blood Pressure 116/66 05/24/2025 11:22 AM EST Pulse 74 05/24/2025 11:22 AM EST Temperature 36.2 C (97.2 F) 05/24/2025 11:22 AM EST Respiratory Rate 18 05/24/2025 11:22 AM EST Oxygen Saturation 100% 05/24/2025 11:22 AM EST Inhaled Oxygen Concentration - - Weight - - Height - - Body Mass Index - - documented in this encounter Plan of Treatment Upcoming Encounters Date Type Department Care Team (Late st Contact Info) Description 05/28/2025 10:00 AM EST Appointment [facility] [address] [place] [phone] 06/01/2025 10:00 AM EST Appointment [facility] [address] [place] [phone] 06/04/2025 10:30 AM EST Appointment [facility] [address] [place] [phone] 06/11/2025 10:00 AM EST Appointment [address] [phone] 06/15/2025 11:45 AM EST Office Visit [facility] Hematology Oncology [address] [place] [phone] Loretta Broussard DO [address] [place] [phone] 06/15/2025 12:00 PM EST Appointment [facility] [address] [place] [phone] 06/18/2025 11:00 AM EST Appointment [facility] [address] [place] [phone] 06/19/2025 9:00 AM EST Appointment [facility] [address] [place] [phone] 07/20/2025 12:30 PM EST Office Visit Adult Medicine [address] [phone] Chandler Villalobos MD [address] [place] [address] documented as of this encounter Visit Diagnoses Diagnosis Primary gall bladder adenocarcinoma (CMS/HCC V24, CMS/HCC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 documented in this encounter Orders Medications Ordered That Mikal ht Not Have Been Administered Count Last Ordered Date First Ordered Date sodium chloride 0.9 % bolus 1,000 mL 1 05/12 documented in this encounter Care Teams Patrol Sergeant Relationship Specialty Start Date End Date Chandler Villalobos MD [address] [place] [phone] PCP - General 04/25/24 documented as of this encounter
--- OUTSIDE RECORDS SUMMARY | 2025-05-24 13:07 | XMS_ITS | Patient Health Record ---
Author Organization [facility] Address [address] [place] [address] Care Team Providers Care Drapery Head Former Name Role Phone Sarthak Siddiqui [phone] Reason For Referral No Information Medications Medication SIG (Take, Route, Frequency, Duration) Notes Start Date End Date Status indapamide 1.25 mg tablet 1 tab(s) orall y once a day (in the morning); Duration: 30 day(s) Active biotin 2.5 mg tablet 1 tab(s) orally onc e a day; Duration: 30 day(s) Active metFORMIN 500 mg tablet, extended release 1 tab(s) orally once a day; Duration: 30 day(s) Active Lumigan 0.01% solution 1 gtt in each aff ected eye once a day (in the evening); Duration: 30 day(s) Active dorzolamide ophthalmic 2% solution 1 gtt in each eye 3 times a day; Duration: 30 day(s) Active losartan 25 mg tablet 1 tab(s) orally on ce a day; Duration: 30 day(s) Active Immunizations Vaccine Route Administration Date Status Comme nts influenza Unknown 05/12/2019 Administered Pneumococcal Unknown 05/03/2020 Refused Social History Tobacco Use: Social History Observation Description Date Details (start date - stop date) Former Smoker NA - NA Social History General Social Info Question Answer Notes Alcohol Did you have a drink containing alcohol i n the past year? Yes How often did you have six or more drinks on one occasion in the past year? Less than monthly (1 point) how many drink did you have on a typical day when you were drinking in the past year? 1 or 2 (0 points) How often did you have a drink containing alcohol in the past year? Monthly or less (1 point) Points 2 Interpretation Negative Smoking Status: former smoker How long has it been since you last smoked? 6-12 months Additional Findings: Tobacco Non-User Ex-cigaret te smoker Additional Details Category Social Info Options Details General Recreational drug use No Exercise Yes Sunscreen use No Utilized a tanning bed No Body Piercings/Tattoos No No Plan Of Treatment No Information Insurance Providers Payer Name Payer Address Payer Phone Subscriber Number Group Number Insured Name Patient Relationship to Insured Coverage Start Date Coverage End Date A[employer] [address] [address] [place] [address] [id number] Indigo Adrian Self - patient is the insured Medical (General) History Medical History History ICD Code high bp diabetes high eye pressure Surgical History Surgery Date(Month/Year)
--- OUTSIDE RECORDS SUMMARY | 2025-05-24 13:08 | XMS_ITS | Encounter Summary ---
Author Organization [facility] Address [address] [place] [address] Care Team Providers Care Automated Weaver Name Role Phone Chandler Villalobos MD Primary Care Provider [phone] Encounter Details Date Type Department Care Team Description 05/02/2024 Nurse Only [facility] Oncology Services [address] [place], [place] [phone] Renee Suárez RN Social History Tobacco Use [...] on filedocumented in this encounter Care Teams Automated Weaver Relationship Specialty Start Date End Date Chandler Villalobos MD [address] [place] [phone] PCP - General Hospitalist Medicine 04/24/24 documented as of this encounter
--- OUTSIDE RECORDS SUMMARY | 2025-05-24 13:08 | XMS_ITS | Encounter Summary ---
Author Organization [facility] Address [address] [place] [address] Care Team Providers Care Shaper Hand Name Role Phone Chandler Villalobos MD Primary Care Provider [phone] Encounter Details Date Type Department Care Team Description 05/02/2024 Social Work [facility] Oncology Services [address] [place] [address] Kevin Rodríguez, [place] [facility] Social History Tobacco [...] on filedocumented in this encounter Care Teams Shaper Hand Relationship Specialty Start Date End Date Chandler Villalobos MD [address] [place] [address] PCP - General Hospitalist Medicine 04/24/24 documented as of this encounter
--- OUTSIDE RECORDS SUMMARY | 2025-05-24 13:08 | XMS_ITS | Encounter Summary ---
Author Organization [facility] Address [address] [place] [address] Care Team Providers Care Sky Line Yarder Name Role Phone Chandler Villalobos MD Primary Care Provider [phone] Encounter Details Date Type Department Care Team (Late st Contact Info) Description 02/16/[address] [facility] - Main Lab [address] [facility] [place] [phone] Trista Richards MD [address] [place] [address] Secondary and unspecified malignant neoplasm [...] Info) Description 05/28/2025 10:00 AM EST Appointment [facility] Infusion Center [address] [phone] 06/01/2025 10:00 AM EST Appointment [facility] [address] [place] [phone] 06/04/2025 10:30 AM EST Appointment [facility] [address] [place] [phone] 06/11/2025 10:00 AM EST Appointment [facility] [address] [place] [phone] 06/15/2025 11:45 AM EST Office Visit [facility] Hematology Oncology [address] [place] [phone] Loretta Broussard DO [address] [place] [address] 06/15/2025 12:00 PM EST Appointment [facility] Infusion [facility] [address] [place] [phone] 06/18/2025 11:00 AM EST Appointment [facility] [address] [place] [phone] 06/19/2025 9:00 AM EST Appointment [facility] [address] [place] [phone] 07/20/2025 12:30 PM EST Office Visit [address] [phone] Chandler Villalobos MD [address] [place] [address] Pending Results Name Type Priority Associated Diagnoses Date /Time Historical Pathology Case Pathology and Cytology Routine Secondary and unspecified malignant neoplasm of lymph node, unspecified (CMS/HCC V24, CMS/HCC V28) 02/16/2025 10:14 AM EDT documented as of this encounter Visit Diagnoses Diagnosis Secondary and unspecified malignant neoplasm of lymph node, unspecified (CMS/HCC V24, CMS/HCC V28) documented in this encounter Care Teams Sky Line Yarder Relationship Specialty Start Date End Date Chandler Villalobos MD [address] [place] [phone] PCP - General 04/25/24 documented as of this encounter
--- OUTSIDE RECORDS SUMMARY | 2025-05-24 13:08 | XMS_ITS | Encounter Summary ---
Author Organization [facility] Address [address] [place] [address] Care Team Providers Care Grease Refiner Operator Name Role Phone Chandler Villalobos MD Primary Care Provider [phone] Encounter Details Date Type Department Care Team Description 04/03/2024 Nurse Only [facility] Oncology Services [address] [place] [address] Renee Suárez, RN Social History [...] note were not included. - currently inpatient [facility] received patient has insurance now and ok to move fwd with [facility] order. Test request has been submitted for [facility] Molecular Tumor Profiling to be performed on the specimenlisted below: Test order form and clinicals submitted for processing. Testing Turnaround Time on average is 21 days but may take longer. Final Report will be scanned into [employer] when completed. +++++++ UPDATE: 04/06/24 [facility] cannot verify coverage - [facility] testing on hold 04/10/24 PingMD ID# [id number] 04/10/24 [facility] test order submitted documented in this encounter Plan of Treatment Not on file documented as of this encounter Visit Diagnoses Not on filedocumented in this encounter Care Teams Grease Refiner Operator Relationship Specialty Start Date End Date Chandler Villalobos MD [address] [place] [address] PCP - General Hospitalist Medicine 04/24/24 documented as of this encounter
--- OUTSIDE RECORDS SUMMARY | 2025-05-24 13:08 | XMS_ITS | Patient Health Record ---
Author Organization [facility] Address [address] [facility] [address] [place] [address] Care Team Providers Care Manual Training Teacher Name Role Phone Deonna Salvador KYLE Primary Care Provider Unavaila Disha Oliveros Unavailable [phone] Reason For Referral No Information Medications Medication [...] W/U Status Risk Notes Problem Essential hypertension (36079330) Essential hypertension (I10) Active confirmed Problem Iron deficiency anemia (62796221) Iron deficiency anemia, unspecified iron deficiency anemia type (D50.9) Active confirmed Has menorrhagia , also r/o GI pathology Plan Of Treatment No Information Insurance Providers Payer Name Payer Address Payer Phone Subscriber Number Group Number Insured Name Patient Relationship to Insured Coverage Start Date Coverage End Date A[employer] ([employer]) [address] [place] [address] [id number] ROSELIA PATRICIA Self - patient is the insured Medical (General) History Medical History History ICD Code Anemia Yes High Cholesterol Yes Diabetes Yes HTN
--- OUTSIDE RECORDS SUMMARY | 2025-05-24 13:08 | XMS_ITS | Clinical Summary ---
Author Organization [facility] Address [address] [place] [address] Phone Care Team Providers Care Gunner'S Mate M Name Role Phone Chandler Villalobos MD Primary Care Provider Loretta Broussard DO Unavailable Monika Terry Unavailable [phone] Andreas Sage MD, PhD Unavailable [phone] David Tejeda MD, PhD Unavailable [phone] Allergies Active Allergy Reactions Criticality Noted Date [...] EDT [facility], [address] [place] [address] Monika Terry MBBS Gallbladder cancer (Primary Dx) 03/06/2025 11:30 AM EDT Office Visit [facility], [address] [place] [address] David Tejeda MD, PhD Gallbladder cancer (Primary Dx) 03/06/2025 11:00 AM EDT Office Visit [facility], [address] [place] [address] Liane Bowens NP Gallbladder cancer (Primary Dx) 02/26/2025 11:00 AM EDT - 02/26/2025 11:59 PM EDT Hospital Encounter Department of Radiation Oncology [address] [place] [address] Liane Bowens NP Discharge Disposition: Home or Self Care from Last 3 Months Family History Medical [...] high school, GED, job training, learning the Egyptian language, technical skills, or developing parenting skills)? [...] 2017 INFLUENZA VACCINE (#1) 2025 COVID-19 VACCINE ( - 2024-2 6 season) 2025 POTASSIUM LEVEL 07/03/2025 07/03/2024 MAMMOGRAM 09/22/2026 09/22/2024, 09/22/2024 LIPID PANEL 07/03/2029 07/03/2024 SMOKING STATUS SCREENING (Every 5 Years) 03/06/2030 03/06/2025 RSV VACCINE (1 - 1-dose 75+ series) 2047 HEPATITIS A VACCINES Aged Out No long er eligible based on patient's age to complete this topic HIB VACCINES Aged Out No longer eligi ble based on patient's age to complete this topic IPV VACCINES Aged Out No longer eligi ble based on patient's age to complete this topic MENINGOCOCCAL VACCINES (ACWY) Aged Out No longer eligible based on patient's age to complete this topic MENINGOCOCCAL VACCINES (B) Aged Out N o longer eligible based on patient's age to complete this topic Medical Devices Not on file Insurance [facility] Care Teams Gunner'S Mate M Relationship Specialty Start Date End Date Chandler Villalobos MD [address] [place] [phone] PCP - General Internal Medicine 02/14/25 Loretta Broussard DO [address] [place] [address] Referring Physician Internal Medicine 02/14/25 Monika Terry MBBS [address] [place] [address] [email or web address] Medical Oncology 02/23/25 Andreas Sage MD, PhD [address] [place], [place] [phone]- [address] [phone] [email or web address] 02/23/25 David Tejeda MD, PhD [address] [place] [address] [email or web address] Surgical Oncology 02/23/25 Additional Source Comments The information contained in this document represents components of the legal health record. It is not the complete legal health record.[facility]
--- OUTSIDE RECORDS SUMMARY | 2025-05-24 13:08 | XMS_ITS | Clinical Summary ---
Author Organization [facility] Address [address] [place] [address] Phone Care Team Providers Care Hse Manager Name Role Phone Chandler Villalobos MD Primary Care Provider [phone] Allergies Active Allergy Reactions Criticality Noted Date Comments Lisinopril Anaphylaxis High 04/12/2024 Medications mineral oil liquid Take by mouth. For constipation Active prochlorperazine (COMPAZINE) 10 mg tabletIndications :Primary gall bladder adenocarcinoma ([facility] V24, CMS/[facility] V28) Take 1 tablet (10 mg total) by mouth every 6 (six) hours if needed for nausea or vomiting. 60 tablet 3 025 Active HYDROmorphone (DILAUDID) 2 mg tabletIndications :Primary gall bladder adenocarcinoma ([facility] V24, [facility] V28) Take 1 tablet (2 mg total) by mouth every 8 (eight) hours if needed for severe pain. Max Daily Amount: 6 mg 30 tablet 025 Active blood sugar diagnostic (FreeStyle Lite Strips) test strip Use to test blood sugar 3 times daily 200 strip 2 025 Active insulin glargine (Lantus Solostar U-100 Insulin) 100 unit/mL (3 mL) injection pen Inject 12-14 Units under the skin at bedtime. Inject 10 Units into the skin at bedtime. 15 mL 2 025 Active insulin lispro (HumaLOG KwikPen) 100 unit/mL [...] Above 400 Call MD 15 mL 3 Active metoprolol succinate (TOPROL-XL) 50 mg 24 hr tablet Take 1 tablet (50 mg total) by mouth 1 (one) time each day. 90 tablet 1 Active amLODIPine (NORVASC) 10 mg tablet Take 1 tablet (10 mg total) by mouth 1 (one) time each day. Take 1 Tablet by mouth daily 90 tablet 1 Active potassium chloride (KLOR-CON M20) 20 mEq CR tablet Take 1 tablet (20 mEq total) by mouth 1 (one) time each day. 90 tablet 1 Active magnesium oxide (MAG-OX) 400 mg magnesium tablet Take 1 tablet (400 mg total) by mouth 2 (two) times a day. 180 tablet 1 Active alcohol swabs (Alcohol Pads) pads, medicated Apply topically 3 (three) times a day. 300 each 1 025 Active dexAMETHasone (DECADRON) 4 mg tabletIndications :Primary gall bladder adenocarcinoma (CMS/HCC V24, CMS/HCC V28) Take 8 mg (2 tablets) once daily, starting the day after treatment, for two days. Take in the morning with food. 30 tablet 1 025 Active FreeStyle Lancets 28 gauge lancets USE TO TEST BLOOD SUGAR 3 TIMES DAILY 300 each 1 025 Active Ashly 2nd Gen Pen Needle 32 gauge x 5/32 needle USE WITH INSULIN PENS 4 TIMES A DAY 400 each 025 Active BD Ashly 2nd Gen Pen Needle 32 gauge x 5/32 needle USE WITH INSULIN PENS 4 TIMES A DAY 400 each 025 2024 Discontinued FreeStyle Lancets 28 gauge lancets USE TO TEST BLOOD SUGAR 3 TIMES DAILY 300 each 025 2024 Discontinued Active Problems Problem Noted Date Diagnosed Date Elevated carcinoembryonic antigen (CEA) 07/02/20 24 Hypokalemia 05/18/2024 Port-A-Cath in place 05/18/2024 Primary gall bladder adenoca rcinoma ([facility] V24, [facility] V28) 04/27/2024 Type 2 diabetes mellitus wit hout complication, with long-term current use of insulin ([facility] V24, [facility] V28) 04/27/2024 Primary hypertension 04/27/2024 Mixed hyperlipidemia 04/27/2024 Iron deficiency anemia 04/27/2024 Encounters Date Type Department Care Team Description 05/24/2025 11:16 AM EST Hospital Encounter [facility] [address] [place] [phone] Loretta Broussard DO Primary gall bladder adenocarcinoma ([facility] V24, [facility] V28) (Primary Dx) 05/22/2025 10:30 AM EST Hospital Encounter [address] [phone] Loretta Broussard DO Primary gall bladder adenocarcinoma ([facility] V24, [facility] V28) (Primary Dx) 05/21/2025 1:15 PM EST - 05/21/2025 11:59 PM EST Hospital Encounter Xray [address] [place] [phone] Other fracture of left lower leg, subsequent encounter for closed fracture with routine healing; Unspecified injury of left ankle, subsequent encounter; Pain in left ankle and joints of left foot Discharge Disposition: Home or Self Care 05/21/2025 10:59 AM EST Hospital Encounter [facility] [address] [place] [phone] Loretta Broussard DO Primary gall bladder adenocarcinoma ([facility] V24, [facility] V28) (Primary Dx) 05/18/2025 9:59 AM EST - 05/18/2025 11:59 PM EST Hospital Encounter [facility] [address] [place] [phone] Loretta Broussard DO Primary gall bladder adenocarcinoma ([facility]/HCC V24, CMS/HCC V28) (Primary Dx) Discharge Disposition: Home or Self Care 05/14/2025 10:00 AM EST - 05/14/2025 11:59 PM EST Hospital Encounter [facility] [address] [place] [phone] Loretta Broussard, DO Primary gall bladder adenocarcinoma (CMS/HCC V24, CMS/HCC V28) (Primary Dx) Discharge Disposition: Home or Self Care 05/14/2025 Social Work [facility] [address] [place] [phone] Kevin Rodríguez, [facility] 05/10/2025 1:00 PM EDT - 05/10/2025 11:59 PM EDT Hospital Encounter [address] [phone] Loretta Broussard, DO Primary gall bladder adenocarcinoma (CMS/HCC V24, CMS/HCC V28) (Primary Dx) Discharge Disposition: Home or Self Care 05/08/2025 10:27 AM EDT - 05/08/2025 11:59 PM EDT Hospital Encounter [address] [phone] Loretta Broussard, DO Primary gall bladder adenocarcinoma (CMS/HCC V24, CMS/HCC V28) (Primary Dx) Discharge Disposition: Home or Self Care 05/07/2025 10:55 AM EDT - 05/07/2025 11:59 PM EDT Hospital Encounter [facility] [address] [place] [phone] Loretta Broussard, Primary gall bladder adenocarcinoma (CMS/HCC V24, CMS/HCC V28) (Primary Dx); Iron deficiency anemia, unspecified iron deficiency anemia type; Port-A-Cath in place Discharge Disposition: Home or Self Care 05/04/2025 12:00 PM EDT - 05/04/2025 11:59 PM EDT Hospital Encounter [facility] [address] [place] [phone] Loretta Broussard, DO Primary gall bladder adenocarcinoma (CMS/HCC V24, CMS/HCC V28) (Primary Dx) Discharge Disposition: Home or Self Care 05/04/2025 11:30 AM EDT Office Visit Hematology Oncology [address] [place] [phone] Loretta Broussard, DO Primary gall bladder adenocarcinoma (CMS/HCC V24, CMS/HCC V28) (Primary Dx); Iron deficiency anemia, unspecified iron deficiency anemia type; Port-A-Cath in place 04/30/2025 10:00 AM EDT - 04/30/2025 11:59 PM EDT Hospital Encounter [facility]fusion Center [address] [place] [phone] Primary gall bladder adenocarcinoma (CMS/HCC V24, CMS/HCC V28) (Primary Dx) Discharge Disposition: Home or Self Care 04/26/2025 12:45 PM EDT - 04/26/2025 11:59 PM EDT Hospital Encounter CT Scan [address] [place] [phone] Primary gall bladder adenocarcinoma (CMS/HCC V24, CMS/HCC V28) Discharge Disposition: Home or Self Care 04/26/2025 11:30 AM EDT - 04/26/2025 11:59 PM EDT Hospital Encounter [facility] [address] [place] [phone] Loretta Broussard, DO Primary gall bladder adenocarcinoma (CMS/HCC V24, CMS/HCC V28) (Primary Dx) Discharge Disposition: Home or Self Care 04/24/2025 10:30 AM EDT - 04/24/2025 11:59 PM EDT Hospital Encounter [facility] [address] [place] [phone] Loretta Broussard, DO Primary gall bladder adenocarcinoma (CMS/HCC V24, CMS/HCC V28) (Primary Dx) Discharge Disposition: Home or Self Care 04/23/2025 10:59 AM EDT - 04/23/2025 11:59 PM EDT Hospital Encounter [facility] [address] [place] [phone] Loretta Broussard, DO Primary gall bladder adenocarcinoma (CMS/HCC V24, CMS/HCC V28) (Primary Dx) Discharge Disposition: Home or Self Care 04/23/2025 Results Follow-Up [address] [phone] Veronica Lacy RN 04/20/2025 10:00 AM EDT - 04/20/2025 11:59 PM EDT Hospital Encounter [address] [phone] Loretta Broussard, DO Primary gall bladder adenocarcinoma (CMS/HCC V24, CMS/HCC V28) (Primary Dx) Discharge Disposition: Home or Self Care 04/16/2025 10:00 AM EDT - 04/16/2025 11:59 PM EDT Hospital Encounter [address] [phone] Loretta Broussard, DO Primary gall bladder adenocarcinoma (CMS/HCC V24, CMS/HCC V28) (Primary Dx) Discharge Disposition: Home or Self Care 04/12/2025 11:28 AM EDT - 04/12/2025 11:59 PM EDT Hospital Encounter [address] [phone] Loretta Broussard, DO Primary gall bladder adenocarcinoma (CMS/HCC V24, CMS/HCC V28) (Primary Dx) Discharge Disposition: Home or Self Care 04/10/2025 10:00 AM EDT - 04/10/2025 11:59 PM EDT Hospital Encounter [facility] [address] [place] [phone] Loretta Broussard, DO Primary gall bladder adenocarcinoma (CMS/HCC V24, CMS/HCC V28) (Primary Dx) Discharge Disposition: Home or Self Care 04/09/2025 10:30 AM EDT - 04/09/2025 11:59 PM EDT Hospital Encounter [facility] [address] [place] [phone] Loretta Broussard, Primary gall bladder adenocarcinoma (CMS/HCC V24, CMS/HCC V28) (Primary Dx) Discharge Disposition: Home or Self Care 04/09/2025 Telephone Hematology Oncology [address] [place] [phone] Loretta Broussard, DO 04/09/2025 Telephone Hematology Oncology [address] [place] [phone] Loretta Broussard, DO 04/06/2025 11:00 AM EDT - 04/06/2025 11:59 PM EDT Hospital Encounter [facility] [address] [place] [phone] Loretta Broussard, Primary gall bladder adenocarcinoma (CMS/HCC V24, CMS/HCC V28) (Primary Dx) Discharge Disposition: Home or Self Care 04/06/2025 10:45 AM EDT Office Visit Hematology Oncology [address] [place] [phone] Loretta Broussard, Primary gall bladder adenocarcinoma (CMS/HCC V24, CMS/HCC V28) (Primary Dx) 04/06/2025 Social Work [facility] [address] [place] [phone] Kevin Rodríguez LMSW 04/02/2025 1:30 PM EDT - 04/02/2025 11:59 PM EDT Hospital Encounter [facility]fusion Center [address] [place] [phone] Loretta Broussard, Primary gall bladder adenocarcinoma (CMS/HCC V24, CMS/HCC V28) (Primary Dx) Discharge Disposition: Home or Self Care 2025 9:30 AM EDT - 2025 11:59 PM EDT Hospital Encounter [facility] [address] [place] [phone] Loretta Broussard, DO Primary gall bladder adenocarcinoma (CMS/HCC V24, CMS/HCC V28) (Primary Dx) Discharge Disposition: Home or Self Care 03/27/2025 8:00 AM EDT - 03/27/2025 11:59 PM EDT Hospital Encounter [facility] [address] [place] [phone] Loretta Broussard, DO Primary gall bladder adenocarcinoma (CMS/HCC V24, CMS/HCC V28) (Primary Dx) Discharge Disposition: Home or Self Care 03/26/2025 9:30 AM EDT - 03/26/2025 11:59 PM EDT Hospital Encounter [address] [phone] Loretta Broussard, DO Primary gall bladder adenocarcinoma (CMS/HCC V24, CMS/HCC V28) (Primary Dx); Iron deficiency anemia, unspecified iron deficiency anemia type Discharge Disposition: Home or Self Care 03/23/2025 1:24 PM EDT - 03/23/2025 11:59 PM EDT Hospital Encounter [address] [phone] Loretta Broussard, DO Primary gall bladder adenocarcinoma (CMS/HCC V24, CMS/HCC V28) (Primary Dx) Discharge Disposition: Home or Self Care 03/19/2025 1:30 PM EDT - 03/19/2025 11:59 PM EDT Hospital Encounter [facility] [address] [place] [phone] Loretta Broussard, DO Primary gall bladder adenocarcinoma (CMS/HCC V24, CMS/HCC V28) (Primary Dx) Discharge Disposition: Home or Self Care 03/15/2025 11:23 AM EDT - 03/15/2025 11:59 PM EDT Hospital Encounter Infusion [address] [phone] Primary gall bladder adenocarcinoma (CMS/HCC V24, CMS/HCC V28) (Primary Dx) Discharge Disposition: Home or Self Care 03/13/2025 10:00 AM EDT - 03/13/2025 11:59 PM EDT Hospital Encounter [facility] [address] [place] [phone] Loretta Broussard, Primary gall bladder adenocarcinoma (CMS/HCC V24, CMS/HCC V28) (Primary Dx) Discharge Disposition: Home or Self Care 03/09/2025 1:54 PM EDT - 03/09/2025 3:54 PM EDT Emergency Emergency [address] [place] [phone] Closed avulsion fracture of left ankle, initial encounter (Primary Dx) Discharge Disposition: Home or Self Care 03/09/2025 11:40 AM EDT - 03/09/2025 11:59 PM EDT Hospital Encounter Xray [address] [place] [phone] Primary gall bladder adenocarcinoma ([facility]/HCC V24, CMS/HCC V28) Discharge Disposition: Home or Self Care 03/09/2025 11:39 AM EDT - 03/09/2025 11:59 PM EDT Hospital Encounter [address] [phone] Loretta Broussard, Primary gall bladder adenocarcinoma ([facility]/HCC V24, CMS/HCC V28) Discharge Disposition: Home or Self Care 03/09/2025 10:30 AM EDT - 03/09/2025 11:59 PM EDT Hospital Encounter [facility]fusion Center [address] [place] [phone] Loretta Broussard DO Primary gall bladder adenocarcinoma ([facility]/HCC V24, CMS/HCC V28) (Primary Dx) Discharge Disposition: Home or Self Care 03/09/2025 10:00 AM EDT Office Visit Hematology Oncology [address] [place] [phone] Loretta Broussard, DO Primary gall bladder adenocarcinoma (CMS/HCC V24, CMS/HCC V28) (Primary Dx); Acute left ankle pain; Hypomagnesemia 03/05/2025 10:00 AM EDT - 03/05/2025 11:59 PM EDT Hospital Encounter [address] [phone] Loretta Broussard, Primary gall bladder adenocarcinoma (CMS/HCC V24, CMS/HCC V28) (Primary Dx) Discharge Disposition: Home or Self Care 03/01/2025 12:02 PM EDT - 03/01/2025 11:59 PM EDT Hospital Encounter [address] [phone] Loretta Broussard, DO Primary gall bladder adenocarcinoma (CMS/HCC V24, CMS/HCC V28) (Primary Dx) Discharge Disposition: Home or Self Care 02/27/2025 10:00 AM EDT - 02/27/2025 11:59 PM EDT Hospital Encounter [address] [phone] Loretta Broussard, DO Primary gall bladder adenocarcinoma (CMS/HCC V24, CMS/HCC V28) (Primary Dx) Discharge Disposition: Home or Self Care 02/26/2025 9:00 AM EDT - 02/26/2025 11:59 PM EDT Hospital Encounter [address] [phone] Loretta Broussard, DO Primary gall bladder adenocarcinoma (CMS/HCC V24, CMS/HCC V28) (Primary Dx) Discharge Disposition: Home or Self Care 02/23/2025 1:30 PM EDT - 02/23/2025 11:59 PM EDT Hospital Encounter [address] [phone] Loretta Broussard, Primary gall bladder adenocarcinoma (CMS/HCC V24, CMS/HCC V28) (Primary Dx) Discharge Disposition: Home or Self Care from Last 3 Months Surgical History Surgery Date Site/Laterality Comments OTHER SURGICAL HISTORY PROCEDURE: HISTORY OTHER; COMMENT: port A cath HYSTERECTOMY PROCEDURE: HISTORICAL HYSTERECTOMY OTHER SURGICAL HISTORY PROCEDURE: HISTORY OTHER; COMMENT: Gall bladder biopsy Medical History Medical History Date Comments DM2 (diabetes mellitus, type 2) ([facility] V24, [facility] V28) DX:DM2 (diabetes mellitus, type 2) ([facility]) Essential (primary) hypertension DX:Essential (primary) hypertension Mixed hyperlipidemia DX:Mixed hy perlipidemia Glaucoma DX:Glaucoma Chronic anemia DX:Chronic anemi a Gallbladder cancer ([facility] V24, [facility] V28) 03/2024 Family History Medical History Relation [...] Mass Index 33.47 05/22/2025 10:40 AM EST Plan of Treatment Upcoming Encounters Date Type Department Care Team (Late st Contact Info) Description 05/28/2025 10:00 AM EST Appointment Infusion Center [address] [place] [phone] 06/01/2025 10:00 AM EST Appointment [facility]fusion Center [address] [place] [phone] 06/04/2025 10:30 AM EST Appointment [facility] [address] [place] [phone] 06/11/2025 10:00 AM EST Appointment [facility] [address] [place] [phone] 06/15/2025 11:45 AM EST Office Visit Hematology Oncology [address] [place] [phone] Loretta Broussard DO [address] [place] [phone] 06/15/2025 12:00 PM EST Appointment [facility] [address] [place] [phone] 06/18/2025 11:00 AM EST Appointment [facility] [address] [place] [phone] 06/19/2025 9:00 AM EST Appointment [facility] [address] [place] [phone] 07/20/2025 12:30 PM EST Office Visit Adult Medicine [address] [phone] Chandler Villalobos MD [address] [place] [address] Health Maintenance Due Date Last Done Comments Colorectal Cancer Screening: Colonoscopy 1972 COVID-19 Vaccine (#1) 1977 Diabetes: Annual Foot Exam 1982 DTaP,Tdap,and Td Vaccines (1 - Tdap) 1991 Hepatitis B Vaccines (1 of 3 - 19+ 3-dose series) 1991 Pneumococcal Vaccine: 50+ Years (1 of 2 - PCV) 1991 Zoster Vaccines (1 of 2) 1991 Cervical Cancer Screening: Pap Smear 1993 RSV Immunization Adult Patients (1 - Risk 50-74 years 1-dose series) 2022 HIV Screening 04/23/2024 Hepatitis C Screening 04/23/2024 Social Influencers of Health Screening 04/23/2024 Depression Screening 07/12/2024 Diabetes: Blood Sugar Control Test (HGBA1C) 01/01/2025 07/03/2024, 05/05/2024 Influenza Vaccine (#1) 2025 Diabetes: Annual Retina Eye Exam 06/01/2025 06/01/2024 Diabetes: Annual Urine Albumin-Creatinine Ratio (uACR) 07/03/2025 07/03/2024, 04/26/2024 Diabetes: Annual GFR (Glomerular Filtration Rate) 05/21/2026 05/21/2025, 05/07/2025, 04/23/2025, Additional history exists Hypertension/CHF/CAD Annual BMP Blood Test 05/21/2026 05/21/2025, 05/07/2025, 04/23/2025, Additional history exists Breast Cancer Screening 09/22/2026 [...] Comments XR ANKLE 3+ VIEWS LEFT Routine 1:29 PM EST Other fracture of left lower leg, subsequent encounter for closed fracture with routine healing Unspecified injury of left ankle, subsequent encounter Pain in left ankle and joints of left foot CBC WITH AUTO DIFFERENTIAL Routine 05/21/2025 11:28 [...] bladder adenocarcinoma (CMS/HCC V24, CMS/HCC V28) MAGNESIUM Routine 05/21/2025 11:28 AM EST Primary gall bladder adenocarcinoma (CMS/HCC V24, CMS/HCC V28) CBC WITH AUTO DIFFERENTIAL Routine 05/07/2025 11:08 AM EDT Primary gall bladder adenocarcinoma (CMS/HCC V24, CMS/HCC V28) MAGNESIUM Routine 05/07/2025 11:08 AM EDT Primary gall bladder adenocarcinoma (CMS/HCC V24, CMS/HCC V28) Iron deficiency anemia, unspecified iron deficiency anemia type Port-A-Cath in place COMPREHENSIVE METABOLIC PANEL Routine 05/07/2025 11:08 AM EDT Primary gall bladder adenocarcinoma (CMS/HCC V24, CMS/HCC V28) CBC AND DIFFERENTIAL Routine 05/07/2025 11:08 AM EDT Primary gall bladder adenocarcinoma (CMS/HCC V24, CMS/HCC V28) CT CHEST/ABDOMEN/PELVIS W CONTRAST Routine 04/26/2025 1:48 PM EDT Primary gall bladder adenocarcinoma (CMS/HCC V24, CMS/HCC V28) CBC WITH AUTO DIFFERENTIAL Routine 04/23/2025 11:06 AM EDT Primary gall bladder adenocarcinoma (CMS/HCC V24, CMS/HCC V28) COMPREHENSIVE METABOLIC PANEL Routine 04/23/2025 11:06 AM EDT Primary gall bladder adenocarcinoma (CMS/HCC V24, CMS/HCC V28) CBC AND DIFFERENTIAL Routine 04/23/2025 11:06 AM EDT Primary gall bladder adenocarcinoma (CMS/HCC V24, CMS/HCC V28) CANCER ANTIGEN 19-9 Routine 04/23/2025 1 1:06 AM EDT Primary gall bladder adenocarcinoma (CMS/HCC V24, CMS/HCC V28) CARCINOEMBRYONIC ANTIGEN Routine 04/23/2025 11:06 AM EDT Primary gall bladder adenocarcinoma (CMS/HCC V24, CMS/HCC V28) CBC WITH AUTO DIFFERENTIAL Routine 04/09/2025 10:58 [...] current use of insulin (CMS/HCC V24, CMS/HCC V28) Iron deficiency anemia, unspecified iron deficiency anemia type Mixed hyperlipidemia Hypokalemia HEMOGLOBIN A1C Routine 07/03/2024 9:52 AM EST Primary hypertension Type 2 diabetes mellitus without complication, with long-term current use of insulin ([facility] V24, [facility] V28) Iron deficiency anemia, unspecified iron deficiency anemia type Mixed hyperlipidemia Hypokalemia LIPID PANEL WITH REFLEX TO DIRECT LDL Routine 07/03/2024 9:52 AM EST Primary hypertension Type 2 diabetes mellitus without complication, with long-term current use of insulin ([facility] V24, [facility] V28) Iron deficiency anemia, unspecified iron deficiency anemia type Mixed hyperlipidemia Hypokalemia EXTERNAL DIABETIC RETINA EYE EXAM Routine 06/01/2024 9:04 AM EST from Last 3 Months or Most Recently Relevant to Health Maintenance Results * XR Ankle 3+ Views Left (05/21/2025 1:29 PM EST) Only the most recent of2 resultswithin the time period is included. Anatomical Region Laterality Modality Lower Extremities, Ankle [...] Signed Date: 05/22/2025 07:13 ET Workstation ID: [id number] Transcribed By: Self Edit Transcribed Date: 05/22/2025 [...] Signed Date: 05/22/2025 07:13 ET Workstation ID: [id number] Transcribed By: Self Edit Transcribed Date: 05/22/2025 07:12 ET Karolina Weaver DPFrancis IMG XR PROCEDURES F inal Result * (ABNORMAL) CBC auto differential (05/21/2025 11:28 AM EST) Only the most recent of7 resultswithin the time period is included. WBC 7.2 4.8 - 10.8 K/mcL LAB HEMETOLOGY METHOD 05/21/2025 12:16 PM [facility] RBC 4.00 3.80 - 4.80 M/mcL LAB HEMETOLOGY METHOD 05/21/2025 12:16 PM [facility] Hemoglobin 11.0(L) 11.5 - 16.0 g/dL LAB HEMETOLOGY METHOD 05/21/2025 12:16 PM [facility] Hematocrit 34.4(L) 35.0 - 47.0 % LAB HEMETOLOGY METHOD 05/21/2025 12:16 PM [facility] MCV 85.6 79.0 - 98.0 FL LAB HEMETOLOGY METHOD 05/21/2025 12:16 PM [facility] MCH 27.4 27.0 - 32.0 pcg LAB HEMETOLOGY METHOD 05/21/2025 12:16 PM [facility] MCHC 32.0 32.0 - 37.0 g/dL LAB HEMETOLOGY METHOD 05/21/2025 12:16 PM [facility] RDW 15.5(H) 11.0 - 15.0 % LAB HEMETOLOGY METHOD 05/21/2025 12:16 PM [facility] Platelets 230 130 - 400 K/mcL LAB HEMETOLOGY METHOD 05/21/2025 12:16 PM [facility] MPV 9.6 7.0 - 11.0 FL LAB HEMETOLOGY METHOD 05/21/2025 12:16 PM [facility] NRBC 0.0 <1.0 % LAB HEMETOLOGY METHOD 05/21/2025 12:16 PM [facility] NRBC Absolute 0.00 <0.10 K/mcL LAB HEMETOLOGY METHOD 05/21/2025 12:16 PM [facility] Neutrophils Relative 69.0 % LAB HEMETOLOGY METHOD 05/21/2025 12:16 PM [facility] Lymphocytes Relative 19.7 % LAB HEMETOLOGY METHOD 05/21/2025 12:16 PM [facility] Monocytes Relative 7.8 % LAB HEMETOLOGY METHOD 05/21/2025 12:16 PM [facility] Eosinophils Relative 1.8 % LAB HEMETOLOGY METHOD 05/21/2025 12:16 PM [facility] Basophils Relative 0.6 % LAB HEMETOLOGY METHOD 05/21/2025 12:16 PM [facility] Immature Granulocytes Relative 1.1 % LAB HEMETOLOGY METHOD 05/21/2025 12:16 PM EST [facility] LAB Neutrophils Absolute 4.99 1.50 - 7.00 K/[facility] LAB HEMETOLOGY METHOD 05/21/2025 12:16 PM [facility] LAB Lymphocytes Absolute 1.42 1.00 - 5.00 K/mcL LAB HEMETOLOGY METHOD 05/21/2025 12:16 PM EST [facility] Monocytes Absolute 0.56 0.20 - 1.00 K/mcL LAB HEMETOLOGY METHOD 05/21/2025 12:16 PM EST [facility] Eosinophils Absolute 0.13 0.00 - 0.50 K/mcL LAB HEMETOLOGY METHOD 05/21/2025 12:16 PM [facility] LAB Basophils Absolute 0.04 0.00 - 0.20 K/mcL LAB HEMETOLOGY METHOD 05/21/2025 12:16 PM [facility] Immature Granulocytes Absolute 0.08(H) 0.00 - 0.03 K/mcL LAB HEMETOLOGY METHOD 05/21/2025 12:16 PM [facility] Blood Blood sample taken from central line / Unknown Existing Catheter / Unknown 05/21/2025 11:28 AM EST 05/21/2025 12:09 PM EST us Loretta Broussard DO LAB BLOOD ORDERABLES Final Result [facility] [address] [place] [address], * Cancer antigen 19-9 (05/21/2025 11:28 AM EST) Only the most recent of4 resultswithin the time period is included. CA 19-9 <2.0 <=35 U/mL 05/23/2025 11:18 AM EST [facility] Comment: The Siemens Advia Centaur CA199 Chemiluminescent Immunoassay is used. Results obtained with different assay methods or kits cannot be used interchangeably. Results cannot be interpreted as absolute evidence of the presence or absence of malignant disease. Test performed at [facility], [address] , [place] [address] Shyanne Bonilla MD, PhD - Certified Pharmacist Assistant Blood Blood sample taken from central line / Unknown Existing Catheter / Unknown 05/21/2025 11:28 AM EST 05/21/2025 12:09 PM EST [facility]ie Aarti DO LAB BLOOD ORDERABLES Final Result [facility] [address] [place] [address] * Magnesium (05/21/2025 11:28 AM EST) Only the most recent of2 resultswithin the time period is included. Magnesium 2.2 1.9 - 2.6 mg/dL LAB CHEMISTRY METHOD 05/21/2025 12:40 PM EST [facility] Blood Blood sample taken from central line / Unknown Existing Catheter / Unknown 05/21/2025 11:28 AM EST 05/21/2025 12:09 PM EST Loretta Broussard LAB BLOOD ORDERABLES Final Result [facility] [address] [place] [address], [place] [phone] * CEA (05/21/2025 11:28 AM EST) Only the most recent of4 resultswithin the time period is included. CEA 2.8 0.0 - 5.0 ng/mL LAB CHEMISTRY METHOD 05/21/2025 2:16 PM EST [facility] Blood Blood sample taken from central line / Unknown Existing Catheter / Unknown 05/21/2025 11:28 AM EST 05/21/2025 12:09 PM EST Narrative [facility] - 05/21/2025 2:16 PM EST The Siemens Advia Centaur Chemiluminescent Immunoassay is used. Results obtained with different assay methods or kits cannot be used interchangeably. Results cannot be interpreted as absolute evidence of the presence or absence of malignant disease. us Loretta Lianne Aarti DO LAB BLOOD ORDERABLES Final Result [facility] [address] [place] [address], [place] [phone] * (ABNORMAL) Comprehensive metabolic panel (05/21/2025 11:28 AM EST) Only the most recent of7 resultswithin the time period is included. Sodium 137 133 - 145 mmol/L LAB CHEMISTRY METHOD 05/21/2025 12:49 PM [facility] Potassium 3.8 3.5 - 5.5 mmol/L LAB CHEMISTRY METHOD 05/21/2025 12:49 PM [facility] Chloride 103 96 - 110 mmol/L LAB CHEMISTRY METHOD 05/21/2025 12:49 PM [facility] CO2 27 21 - 32 mmol/L LAB CHEMISTRY METHOD 05/21/2025 12:49 PM [facility] Anion Gap 7 3 - 11 LAB CHEMISTRY METHOD 05/21/2025 12:49 PM [facility] Glucose 193(H) 70 - 100 mg/dL LAB CHEMISTRY METHOD 05/21/2025 12:49 PM [facility] BUN 15 5 - 25 mg/dL LAB CHEMISTRY METHOD 05/21/2025 12:49 PM [facility] Creatinine 1.16(H) 0.50 - 1.10 mg/dL LAB CHEMISTRY METHOD 05/21/2025 12:49 PM [facility] eGFR 56(L) >=60 mL/min/1. 73m2 LAB CHEMISTRY METHOD 05/21/2025 12:49 PM [facility] Comment:Calculation based on the Chronic Kidney Disease Epidemiology Collaboration (CKD-EPI) equation refit without adjustment for race. BUN/Creatinine Ratio 12.9 LAB CHEMISTRY METHOD 05/21/2025 12:49 PM [facility] Calcium 9.9 8.5 - 10.5 mg/dL LAB CHEMISTRY METHOD 05/21/2025 12:49 PM [facility] AST (SGOT) 13 10 - 42 unit/L LAB CHEMISTRY METHOD 05/21/2025 12:49 PM [facility] ALT (SGPT) 16 10 - 60 unit/L LAB CHEMISTRY METHOD 05/21/2025 12:49 PM [facility] Alkaline Phosphatase 145(H) 42 - 121 unit/L LAB CHEMISTRY METHOD 05/21/2025 12:49 PM [facility] Total Protein 6.5 6.0 - 8.0 g/dL LAB CHEMISTRY METHOD 05/21/2025 12:49 PM [facility] Albumin 3.4 3.2 - 5.0 g/dL LAB CHEMISTRY METHOD 05/21/2025 12:49 PM [facility] Total Bilirubin 0.6 0.0 - 1.4 mg/dL LAB CHEMISTRY METHOD 05/21/2025 12:49 PM [facility] Blood Blood sample taken from central line / Unknown Existing Catheter / Unknown 05/21/2025 11:28 AM EST 05/21/2025 12:09 PM EST us Loretta Broussard DO LAB BLOOD ORDERABLES Final Result [facility] [address] [place] [address], [place] [phone] * CT Chest/Abdomen/Pelvis w Contrast (04/26/2025 1:48 PM EDT) Anatomical Region Laterality Modality Body Computed Tomogra phy 05/02/2025 9:08 AM EDT Impressions 05/02/2025 9:48 AM EDT Impression: 1. No significant change in size of a residual hepatic mass contiguous with the gallbladder, representing the known gallbladder malignancy. 2. Decrease in size of the portacaval node but otherwise no significant change in confluent ligia hepatis lymphadenopathy, consistent with metastatic disease. 3. No evidence of metastatic [place] in 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 Follow-up imaging. Comparison: 02/01/25, 06/23/24, 03/26/24 Technique: Helical volumetric imaging of the chest, abdomen and pelvis was performed following oral contrast and during the uneventful intravenous administration of 90 cc Isovue-370. DLP: 1774.97 mGy/cm [place] VCT Iterative reconstruction technique Findings: Chest: The trachea and central bronchial tree remain patent. No suspicious developing pulmonary nodule is seen. No pleural or pericardial effusions are seen. The heart remains normal in size. Three-vessel coronary artery calcification is again noted. A Port-A-Cath is partially imaged on the right, the tip projecting within the distal SVC, unchanged. No thoracic lymphadenopathy is identified. Abdomen/pelvis: The liver remains normal in size. A residual hypoattenuating mass contiguous with the gallbladder is again seen in the periphery of the liver, involving portions of the left and right lobes, measuring approximately 4.6 x 3.3 cm in maximum axial dimensions, compared to 4.1 x 2.9 cm on the most recent study. (Measurements based on reformatted coronal and sagittal images are currently 4 cm in length by 4.5 cm in width by 4 cm AP compared to 4.5 cm in length by 4 cm in width by 4 cm AP.) The margins of the lesion lobulated, better defined than on the most recent study possibly due to a slightly earlier phase of hepatic enhancement, and there is rim enhancement. No new hepatic mass is seen. The portal vein is patent. No biliary ductal dilatation is seen. Confluent ligia hepatis lymphadenopathy is again noted. The portacaval node measures 19 mm short axis compared to 23 mm on the most recent exam. Celiac axis lymphadenopathy measures up to 17 mm in maximum thickness compared to 16 mm previously. A node abutting the superior mesenteric vein (image 123 series 4) measures 14 mm short axis compared to 15 mm previously. Gastrohepatic ligament lymphadenopathy measures up to 16 mm short axis compared to 16 mm previously. The spleen, pancreas and adrenal glands are stable in appearance, including a 10 mm nodule within the periphery of the left adrenal gland. The kidneys are normal in position and size, with symmetric, intact nephrograms and no evidence of hydronephrosis. No suspicious developing solid renal mass is seen. There is no ascites. The uterus is absent. No adnexal mass is seen. The urinary bladder appears normal. No evidence of bowel obstruction is seen. The appendix is normal in caliber in the right lower quadrant. No abnormal perienteric or pericolonic fat stranding is seen. Musculoskeletal: No significant osseous abnormality is seen. 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 Follow-upimaging. Comparison: 02/01/25, 06/23/24, 03/26/24 Technique: Helical volumetric imaging of the chest, abdomen and pelvis wasperformed following oral contrast and during the uneventful intravenousadministration of 90 cc Isovue-370. DLP: 1774.97 mGy/cm [place] VCT Iterative reconstruction technique Findings: Chest: The trachea and central bronchial tree remain patent. No suspiciousdeveloping pulmonary nodule is seen. No pleural or pericardial effusions are seen. The heart remains normal in size. Three-vessel coronary arterycalcification is again noted. A Port-A-Cath is partially imaged on theright, the tip projecting within the distal SVC, unchanged. No thoraciclymphadenopathy is identified. Abdomen/pelvis: The liver remains normal in size. A residual hypoattenuating masscontiguous with the gallbladder is again seen in the periphery of theliver, involving portions of the left and right lobes, measuringapproximately 4.6 x 3.3 cm in maximum axial dimensions, compared to 4.1 x2.9 cm on the most recent study. (Measurements based on reformattedcoronal and sagittal images are currently 4 cm in length by 4.5 cm inwidth by 4 cm AP compared to 4.5 cm in length by 4 cm in width by 4 cmAP.) The margins of the lesion lobulated, better defined than on the mostrecent study possibly due to a slightly earlier phase of hepaticenhancement, and there is rim enhancement. No new hepatic mass is seen. The portal vein is patent. No biliary ductaldilatation is seen. Confluent ligia hepatis lymphadenopathy is again noted. The portacavalnode measures 19 mm short axis compared to 23 mm on the most recent exam.Celiac axis lymphadenopathy measures up to 17 mm in maximum thicknesscompared to 16 mm previously. A node abutting the superior mesenteric vein(image 123 series 4) measures 14 mm short axis compared to 15 mmpreviously. Gastrohepatic ligament lymphadenopathy measures up to 16 mmshort axis compared to 16 mm previously. The spleen, pancreas and adrenal glands are stable in appearance,including a 10 mm nodule within the periphery of the left adrenal gland. The kidneys are normal in position and size, with symmetric, intactnephrograms and no evidence of hydronephrosis. No suspicious developingsolid renal mass is seen. There is no ascites. The uterus is absent. No adnexal mass is seen. Theurinary bladder appears normal. No evidence of bowel obstruction is seen. The appendix is normal incaliber in the right lower quadrant. No abnormal perienteric orpericolonic fat stranding is seen. Musculoskeletal: No significant osseous abnormality is seen. IMPRESSION: Impression: 1. No significant change in size of a residual hepatic mass contiguouswith the gallbladder, representing the known gallbladder malignancy. 2. Decrease in size of the portacaval node but otherwise no significantchange in confluent ligia hepatis lymphadenopathy, consistent withmetastatic disease. 3. No evidence of metastatic disease in [place] [employer] [place] ([id number]) -------- FINAL REPORT -------- Dictated By: Ashely White Dictated Date: 05/02/2025 09:08 ET Assigned Physician: Ashely White Reviewed and Electronically Signed By: Ashely White Signed Date: 05/02/2025 09:48 ET Workstation ID: [id number] Transcribed By: Self Edit Transcribed Date: 05/02/2025 09:08 ET us Loretta Broussard DO IMG CT PROCEDURES Fin al Result * External Xray Report (04/09/2025) Only the most recent of2 resultswithin the time period is included. Anatomical Region Laterality Modality Radiographic Rissa ging us Provider [facility] IMG XR PROCEDURES Final Result * (ABNORMAL) Urinalysis with reflex microscopic and culture (03/23/2025 3:12 PM EDT) Specific [place] Urine 1.012 1.003 - 1.030 LAB URINALYSIS - AUTOMATED METHOD 03/23/2025 4:54 PM [facility] pH, Urine 6.5 5.0 - 8.0 pH LAB URINALYSIS - AUTOMATED METHOD 03/23/2025 4:54 PM [facility] Leukocytes, Urine Trace(A) Negative LAB URINALYSIS - AUTOMATED METHOD 03/23/2025 4:54 PM [facility] Nitrite, Urine Negative Negative LAB URINALYSIS - AUTOMATED METHOD 03/23/2025 4:54 PM [facility] Protein, Urine Negative <=Trace mg/dL LAB URINALYSIS - AUTOMATED METHOD 03/23/2025 4:54 PM [facility] Glucose, Urine 250(A) Negative mg/dL LAB URINALYSIS - AUTOMATED METHOD 03/23/2025 4:54 PM [facility] Ketones, Urine Negative Negative mg/dL LAB URINALYSIS - AUTOMATED METHOD 03/23/2025 4:54 PM [facility] Urobilinogen, Urine 0.2 0.2 - 1.0 mg/dL LAB URINALYSIS - AUTOMATED METHOD 03/23/2025 4:54 PM T [facility] Bilirubin, Urine Negative Negative LAB URINALYSIS - AUTOMATED METHOD 03/23/2025 4:54 PM EDT [facility] Blood, Urine Negative Negative LAB URINALYSIS - AUTOMATED METHOD 03/23/2025 4:54 PM [facility] RBC, Urine 0.3 0 - 4 /HPF LAB URINALYSIS - AUTOMATED METHOD 03/23/2025 4:54 PM EDT [facility] WBC, Urine 3.7 0 - 4 /HPF LAB URINALYSIS - AUTOMATED METHOD 03/23/2025 4:54 PM [facility] Squamous Epithelial, Urine 24 0 - 60 /LPF LAB URINALYSIS - AUTOMATED METHOD 03/23/2025 4:54 PM [facility] Bacteria, Urine Negative Negative /HPF LAB URINALYSIS - AUTOMATED METHOD 03/23/2025 4:54 PM [facility] Hyaline Casts, Urine 0.0 0 - 3 /LPF LAB URINALYSIS - AUTOMATED METHOD 03/23/2025 4:54 PM [facility] Urine Urine specimen obtained by clean catch procedure / Unknown Non-blood Collection / Unknown 03/23/2025 3:12 PM EDT 03/23/2025 4:34 PM EDT us Abhilashramvilla Beckwith MD LAB URINE ORDERABLE S Final Result [facility] [address] [place] [address], * Pandya urine culture tube (03/23/2025 3:12 PM EDT) Extra Tube Hold for add-ons. 03/23/2025 6:01 PM EDT [facility] Comment:Auto resulted. Urine Urine specimen obtained by clean catch procedure / Unknown Non-blood Collection / Unknown 03/23/2025 3:12 PM EDT 03/23/2025 4:34 PM EDT Jelyl Beckwith MD LAB URINE ORDERABLE S Final Result Performing Organization Address [facility]/ZIP Co de Phone Number [facility] [address] [place] [address], [place] [phone] * Culture urine (03/23/2025 3:12 PM EDT) Culture, Urine No growth 03/24/2025 11:21 AM EDT [facility] Urine Urine specimen obtained by clean catch procedure / Unknown Non-blood Collection / Unknown 03/23/2025 3:12 PM EDT 03/23/2025 4:54 PM EDT Jelly Beckwith MD LAB MICROBIOLOGY - GENERAL ORDERABLES Final Result Performing Organization Address [facility]/ZIP Co de Phone Number [facility] [address] [place] [address], [place] [phone] * XR Foot 3+ Views Left (03/09/2025 12:23 PM EDT) Anatomical Region Laterality Modality Lower Extremities, Foot Left Radiogra phic Imaging 03/09/2025 12:3 2 PM EDT Impressions [...] Signed Date: 03/09/2025 12:40 ET Workstation ID: [id number] Transcribed By: Self Edit Transcribed Date: 03/09/2025 12:32 ET Narrative 03/09/2025 12:40 PM EDT XR FOOT 3+ VIEWS LEFT INDICATION: Pain TECHNIQUE: XR FOOT 3+ VIEWS LEFT COMPARISON: No priors available. Procedure Note Nigel Mejia MD - 03/09/2025 XR FOOT 3+ VIEWS [...] Signed Date: 03/09/2025 12:40 ET Workstation ID: [id number] Transcribed By: Self Edit Transcribed Date: 03/09/2025 12:32 ET us Loretta Broussard DO IMG XR PROCEDURES Fin al Result * MG Mammo [...] for biopsy. PQRI CPT II 3342F Code 26853, 43683 PQRI 225 CPT II 7025F TISSUE DENSITY: There are scattered areas of fibroglandular density. (BI-RADS category B) IMPRESSION: Benign. BI-RADS CATEGORY: 2 - BENIGN RECOMMENDATION: Screening bilateral mammogram is recommended in 1 year. Mammo Location: , [facility], [address] [place] [address] -------- FINAL REPORT -------- Dictated By: Yaniv Rowe Dictated Date: 10/04/2024 09:19 ET Assigned Physician: Yaniv Rowe Reviewed and Electronically Signed By: Yaniv Rowe Signed Date: 10/04/2024 09:22 ET Workstation ID: [id number] Transcribed By: Self Edit Transcribed Date: 10/04/2024 09:19 ET Narrative 10/04/2024 9:22 AM EDT CLINICAL: The patient is a 54 years Female presenting for routine screening mammography. COMPARISON: Outside studies performed 06/02/2022 and 07/03/2019. TECHNIQUE: Full-field digital mammography of the breasts bilaterally consisting of tomosynthesis in MLO and CC projection is performed in the Vetr 2000-D unit. Computer aided detection utilizing the [...] MLO and CC projection is performed in theVetr 2000-D unit. Computer aided detection utilizing the [...] for biopsy. PQRI CPT II 3342F Code 36527, 02694 PQRI 225 CPT II 7025F TISSUE DENSITY: There are scattered areas of fibroglandular density.(BI-RADS category B) IMPRESSION: Benign. BI-RADS CATEGORY: 2 - BENIGN RECOMMENDATION: Screening bilateral mammogram is recommended in 1 year. Mammo Location: , [facility], [address] [place] [id number] -------- FINAL REPORT -------- Dictated By: Yaniv Rowe Dictated Date: 10/04/2024 09:19 ET Assigned Physician: Yaniv Rowe Reviewed and Electronically Signed By: Yaniv Rowe Signed Date: 10/04/2024 09:22 ET Workstation ID: [id number] Transcribed By: Self Edit Transcribed Date: 10/04/2024 09:19 ET Viridiana MANZO IMMarcy BI PROCEDURES Final Result * (ABNORMAL) Lipid panel with reflex to direct LDL (07/03/2024 9:52 AM EST) Cholesterol 291(H) 0 - 200 mg/dL LAB CHEMISTRY METHOD 07/03/2024 11:08 AM [facility] Triglycerides 95 0 - 150 mg/dL LAB CHEMISTRY METHOD 07/03/2024 11:08 AM [facility] HDL 37(L) >=40 mg/dL LAB CHEMISTRY METHOD 07/03/2024 11:08 AM [facility] LDL Calculated 235(H) 0 - 100 mg/dL LAB CHEMISTRY METHOD 07/03/2024 11:08 AM [facility] VLDL Cholesterol William 19 mg/dL LAB CHEMISTRY METHOD 07/03/2024 11:08 AM [facility] Non HDL Chol. (LDL+VLDL) 254(H) <145 mg/dL LAB CHEMISTRY METHOD 07/03/2024 11:08 AM [facility] Chol/HDL Ratio 7.9(H) 0.0 - 4.4 LAB CHEMISTRY METHOD 07/03/2024 11:08 AM [facility] Blood Venous blood specimen / Unknown Venipuncture / Unknown 07/03/2024 9:52 AM EST 07/03/2024 10:23 AM EST Viridiana MANZO LAB BLOOD ORDERABLES Fin al Result Performing Organization Address [facility]/State/ZIP Co de Phone Number [facility] [address] [place] [address], [place] [phone] * (ABNORMAL) Microalbumin creatinine urine ratio (07/03/2024 9:52 AM EST) Creatinine, Urine 48.0 mg/dL LAB CHEMISTRY METHOD 07/03/2024 2:02 PM EST [facility] Microalb, Ur 38.6(H) 0.0 - 29.0 mg/L LAB CHEMISTRY METHOD 07/03/2024 2:02 PM [facility] Microalb/Crea t Ratio 80(H) <30 mg/g creat LAB CHEMISTRY METHOD 07/03/2024 2:02 PM EST [facility] Urine Urine specimen obtained by clean catch procedure / Unknown Non-blood Collection / Unknown 07/03/2024 9:52 AM EST 07/03/2024 12:54 PM EST Viridiana MANZO LAB URINE ORDERABLES Fin al Result [facility] [address] [place] [address], [place] [phone] * (ABNORMAL) Hemoglobin A1c (07/03/2024 9:52 AM EST) Hemoglobin A1C 7.0(H) <6.5 % LAB CHEMISTRY METHOD 07/03/2024 1:26 PM [facility] Mean Bld Glu Estim. 154 mg/dL LAB CHEMISTRY METHOD 07/03/2024 1:26 PM [facility] Blood Venous blood specimen / Unknown Venipuncture / Unknown 07/03/2024 9:52 AM EST 07/03/2024 10:23 AM EST us Viridiana MANZO LAB BLOOD ORDERABLES Fin al Result [facility] ([facility]) [facility] [address] [place] [address], * External Diabetic Retina Eye Exam Report (06/01/2024 9:04 AM EST) Anatomical Region Laterality Modality Ultrasound us Historical Provider MD HEART US PROCEDURES Final R esult from Last 3 Months or Most Recently Relevant to Health Maintenance Insurance [facility] [employer] Care Teams Hse Manager Relationship Specialty Start Date End Date Chandler Villalobos MD [address] [place] [phone] PCP - General 04/25/24
--- OUTSIDE RECORDS SUMMARY | 2025-05-24 13:08 | XMS_ITS ---
Author Organization [facility] Address [address] [place] [address] Phone Care Team Providers Care Environmental Health Aide Name Role Phone Chandler Villalobos MD Primary Care Provider Active Problems Problem Noted Date Diagnosed Date Elevated carcinoembryonic antigen (CEA) 07/02/20 24 Hypokalemia 05/18/2024 Port-A-Cath in place 05/18/2024 Primary gall bladder adenoca rcinoma ([facility] V24, [facility] V28) 04/27/2024 Type 2 diabetes mellitus wit hout complication, with long-term current use of insulin ([facility] V24, [facility] V28) 04/27/2024 Primary hypertension 04/27/2024 Mixed hyperlipidemia 04/27/2024 Iron deficiency anemia 04/27/2024 Current Treatment and Therapy Plans FOLFOX ( Fluorouracil Continuous Infusion / Leucovorin / OXALIplatin )* Plan Start Date:09/03/2024 Plan Provider:Loretta Broussard, Linked Problems Primary gall bladder adenoca rcinoma ([facility] V24, [facility] V28) Treatment Medications Current Day (Day 3 , Cycle 19 - Planned for 05/24/2025) Next Day (Day 1, Cycle 20 - Planned for 06/05/2025) 5-FU (ADRUCIL) chemo infusio n 100 mL - for home use solutionfluorouracil (ADRUCIL)leucovorinleucovorin IVPB in D5W (350 mg vial)OXALIplatin (ELOXATIN) chemo infusion No medications scheduled. fluorouracil (ADRUCIL) 4,700 mg in sodium chloride 0.9 % 100 mL chemo infusionfluorouracil (ADRUCIL) chemo injectionleucovorin IVPB HYDRATION AND ELECTROLYTES* Plan Start Date:05/18/2024 Plan Provider:Loretta Broussard DO Linked Problems Primary gall bladder adenoca rcinoma ([facility] V24, [facility] V28) Treatment Medications No medications scheduled. OUTPATIENT TRANSFUSION (PRN)* Plan Start Date:05/30/2024 Plan Provider:Loretta Broussard DO Linked Problems Iron deficiency anemia, unsp ecified iron deficiency anemia typePrimary gall bladder adenocarcinoma ([facility] V24, [facility] V28) Treatment Medications No medications scheduled. Other [...]
--- OUTSIDE RECORDS SUMMARY | 2025-05-24 13:09 | XMS_ITS | Encounter Summary ---
Author Organization [facility] Address [address] [place] [address] Care Team Providers Care Manager Product Management Name Role Phone Chandler Villalobos MD Primary Care Provider [phone] Encounter Details Date Type Department Care Team (Late st Contact Info) Description 04/23/2025 Results Follow-Up [facility] [address] [place] [phone] Veronica Lacy RN Social History Tobacco Use Types Packs/Day [...] Info) Description 05/28/2025 10:00 AM EST Appointment [facility] [address] [place] [phone] 06/01/2025 10:00 AM EST Appointment [facility] [address] [place] [phone] 06/04/2025 10:30 AM EST Appointment [facility] [address] [place] [phone] 06/11/2025 10:00 AM EST Appointment [facility] [address] [place] [phone] 06/15/2025 11:45 AM EST Office Visit [facility] Hematology Oncology [address] [place] [phone] Loretta Broussard, DO [address] [place] [phone] 06/15/2025 12:00 PM EST Appointment [facility] [address] [place] [phone] 06/18/2025 11:00 AM EST Appointment [address] [phone] 06/19/2025 9:00 AM EST Appointment [facility] [address] [place] [phone] 07/20/2025 12:30 PM EST Office Visit Adult Medicine [address] [phone] Chandler Villalobos MD [address] [place] [address] documented as of this encounter Visit Diagnoses Not on filedocumented in this encounter Care Teams Manager Product Management Relationship Specialty Start Date End Date Chandler Villalobos MD [address] [place] [address] PCP - General 04/25/24 documented as of this encounter
--- OUTSIDE RECORDS SUMMARY | 2025-05-24 13:09 | XMS_ITS | Patient Health Record ---
Author Organization [facility] Address [address] [address] Care Team Providers Care Bullet Lubricant Mixer Name Role Phone Marilyn Scott Unavailable [phone] Lillian Felix MD Unavailable Unavailable Allergies Allergen (clinical [...] End Date [employer] [address] [place] [address] [id number] ROSELIA PATRICIA Self - patient is the insured Medical (General) History Medical History History ICD Code high blood pressure diabetes type 2 Hospitalization History Reason Date(Month/Year) Blood Pressure 1 day ER 06/2022
--- OUTSIDE RECORDS SUMMARY | 2025-05-24 13:09 | XMS_ITS ---
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 Radiation Treatments * No radiation treatments are documented for this patient in [facility]. Treatments may have been administered in another system.
--- OUTSIDE RECORDS SUMMARY | 2025-05-24 13:09 | XMS_ITS | Clinical Summary ---
Author Organization [facility] Address [address] [place] [address] Care Team Providers Care Cement Mason Name Role Phone Chandler Villalobos MD Primary Care Provider [phone] Allergies Active Allergy Reactions Criticality Noted Date [...] age to complete this topic Care Teams Cement Mason Relationship Specialty Start Date End Date Chandler Villalobos MD [address] [place] [phone] PCP - General Hospitalist Medicine 04/24/24
== END 2025-05-24 11:02 | disposition home or self-care (01) ==
LOC: HO.HPODS 10:40
PROVIDERS: PCP Internal Medicine; Visit Provider Student in an Organized Health Care Education/Training Program
DX: S82.892D Other fracture of left lower leg, subsequent encounter for closed fracture with routine healing (principal); S82.839A Other fracture of upper and lower end of unspecified fibula, initial encounter for closed fracture; S99.912D Unspecified injury of left ankle, subsequent encounter; M25.572 Pain in left ankle and joints of left foot
CPT/HCPCS: 99214

== ENCOUNTER → 2025-05-24 10:40 | Outpatient (BNVA) | payer OTHER, SELFPAY | PROVIDERS: PCP Internal Medicine; Visit Provider Student in an Organized Health Care Education/Training Program | DX: S82.892D Other fracture of left lower leg, subsequent encounter for closed fracture with routine healing (principal); S99.912D Unspecified injury of left ankle, subsequent encounter; S82.839D Other fracture of upper and lower end of unspecified fibula, subsequent encounter for closed fracture with routine healing; X58.XXXD Exposure to other specified factors, subsequent encounter | CPT/HCPCS: 99212 ==